=== PATIENT | male | born 2000 ===

== ENCOUNTER 2023-09-23 14:45 | Outpatient (BNV) | payer OTHER, SELFPAY | END 2023-09-23 19:23 | PROVIDERS: Admitting Provider Psychiatry & Neurology Psychiatry; Visit Provider Internal Medicine Cardiovascular Disease | DX: Z01.810 Encounter for preprocedural cardiovascular examination (principal) | CPT/HCPCS: 93010 ==

== ENCOUNTER 2023-09-23 14:45 | Inpatient (IN) | payer OTHER, SELFPAY ==
--- NOTE | 2023-09-23 | ECG_ITS ---
Test Reason : ect eval Blood Pressure : / mmHG Vent. Rate : 096 BPM Atrial Rate : 096 BPM P-R Int : 160 ms QRS Dur : 096 ms QT Int : 350 ms P-R-T Axes : 070 102 061 degrees QTc Int : 442 ms Normal sinus rhythm Rightward axis Borderline ECG No previous ECGs available Referred By: Fatmata Roldan Electronically Signed By:PATRICK MARIE MD
--- NOTE | ~2023-09-23 | XR_ITS ---
EXAMINATION: XR CHEST CLINICAL INFORMATION: Fevers COMPARISON: None available. TECHNIQUE: Frontal view of the chest was obtained. FINDINGS: Lungs are slightly hypoexpanded and clear. Trachea is midline in position. No interstitial disease, consolidation or mass. No pleural effusion or pneumothorax. Cardiac silhouette and pulmonary vessels are normal in size. The mediastinum and micki have normal contour. The visualized bones and upper abdomen are unremarkable. XR/XR chest 1V IMPRESSION: No acute cardiopulmonary abnormality.
[2023-09-23 15:02] VITALS: BMI 25.8
[2023-09-23 15:03] VITALS: BP 118/58; PULSE 84; RESP 18; TEMP 36.9; O2SAT 99
--- NOTE | 2023-09-23 15:50 | PC.NURSE ---
Attila admitted from [facility] on a 12b. Attila is minimally interactive on admission. He was able to state his name and responded yeah when he was standing at the kitchen door and was asked if he was hungry. unable to assess thought process or obtain history. Labs, CT and EEG were performed at [facility] and all were WNL. Per supporting documentation in crisis assessment Attila was recently at [facility] where he was a patient for 2 months. Documentation from [facility] stated brother was contacted and requested ECT be started sandy. Attila's skin assessment was unremarkable he has IV sites on bilaterally to arms that are covered otherwise WNL. He was cooperative with the changeover and was able to follow simple directions give one at a time. Once on the unit Attila was observed going into several different rooms that did not belong to him. He was unable to be redirected from this as he was not able to retain where his room was. He is placed on close obs for safety. High fall risk d/t the inability to assess HX of falls.
[2023-09-23] MEDS: LORazepam 1 MG TABLET 2 MG PO ×2 (16:11→20:34)
--- NOTE | 2023-09-23 16:13 | P.CONHOSP_ITS ---
History of Present Illness Data of Consult Service Date: 09/23/23 Requesting physician: Florentin Cabrera Primary Care Provider: Unknown Physician HPI Reason for consult: medical H&P, ect risk stratification 23 year old male without any pertinent PMH admitted to adult psychiatry from [facility] with consult placed to hospitalist service for medical H&P and ect risk stratification. He was brought in by family due to catatonia. While in the ED EEG and head were normal. Labs unremarkable including cbc, bmp, utox, tsh, hepatic panel. No ekg available for review. Unfortunately the patient remains catatonic and only briefly makes eye contact with verbal stimulus and then diverts gaze. he is non verbal at time of exam. There does not appear to be any acute medical issue. On review of record, there is no history of seizures, cvd, chf, or chronic respiratory disease. It is unclear if the patient has undergone ect in the past but per record, [facility] and the patient's brother are recommending ect. [facility] Medical History (Updated 09/23/23 @ 16:19 by ELENA Chapin) No pertinent past medical history Social History Household Members: Other Household Members Other:: Unknown Do you presently have visiting nurse or other home services: No (Unknown) Patient Tobacco Use Status: Never used Tobacco Smoked in Last 30 Days: No e-Cigarette/Vaping Use: Never Used Patient Interested in Nicotine Replacement: No Patient Given Instructions on How to Stop Smoking: No Second Hand Smoke Exposure: No Use of substances other than those prescribed or required for medical reasons: No Currently Displaying Signs/Symptoms of Drug Intoxication Withdrawal: No Any prior treatment program specific to substance use: No Advance Directives: No Advance Directives Information Provided: No (Medical Condition) Recently lost weight without trying: Unsure Nutrition Risks: No Nutritional Risk Poor oral hygiene: Yes Meds Allergies Allergy/AdvReac Type Severity Reaction Status Date / Time Unable to Assess Allergy Verified 09/23/23 15:14 Active Medications: Current Medications Acetaminophen (Acetaminophen 325 Mg Tablet) 650 mg PO Q6H PRN PRN Reason: Headache/Pain Mild Scale (1-3) Al Hydroxide/Mg Hydroxide (Magnesium Hydrox/Alum Hydrox 30 Ml Oral.Susp) 30 ml PO Q6H PRN PRN Reason: Heartburn/Nausea Hydroxyzine HCl (Hydroxyzine Hcl 25 Mg Tablet) 25 mg PO Q6H PRN PRN Reason: Anxiety Lorazepam (Lorazepam 1 Mg Tablet) 2 mg PO QID PAM Magnesium Hydroxide (Milk Of Magnesia 30 Ml Oral.Susp) 30 ml PO DAILY PRN PRN Reason: Constipation Trazodone HCl (Trazodone Hcl 50 Mg Tablet) 50 mg PO BEDTIME MRX1 PRN PRN Reason: Insomnia Physical Exam Vital Signs and Narrative: Vital Signs: Last Vital Signs Temp 98.5 F 09/23/23 15:03 Pulse 84 09/23/23 15:03 Resp 18 09/23/23 15:03 BP 118/58 L 09/23/23 15:03 Pulse Ox 99 09/23/23 15:03 O2 Del Method Room Air 09/23/23 15:03 BMI result Body Mass Index 25.8 Constitutional - Awake and catatonic, No apparent distress Eyes - PERRLA Cardiovascular - S1S2, RRR, No edema Respiratory - Normal lung expansion, Normal respiratory effort, No respiratory distress, CTA bilaterally Gastrointestinal - NT / ND; +BS; No rebound or guarding Extremities - no calf tenderness bilaterally, no swelling Skin - Warm/Dry Neurological - Awake, catatonic, nonverbal, unable to follow commands Assessment and Plan (1) Routine medical exam: Status: Acute (2) Catatonia: Status: Acute Plan 23 year old male without any pertinent PMH admitted to adult psychiatry from [facility] with consult placed to hospitalist service for medical H&P and ect risk stratification. #Mood disorder/catatonia -plan per psychiatry -EEG WNL, labs WNL, head CT normal. NO known history of sz, cvd, chf, chronic lung disease. Would check EKG. Based on available information at time of exam, no medical contraindication exists that should preclude patient from undergoing ect. Will await results of ekg.
[2023-09-23 20:00] VITALS: BP 113/62; PULSE 95; RESP 16; TEMP 36.9; O2SAT 99
[2023-09-24 03:20] LABS: Influenza A PCR NEGATIVE (Negative); Influenza B PCR NEGATIVE (Negative); Resp Syncy Virus RNA Qual PCR NEGATIVE (Negative); SARS COV2 PCR INHOUSE NEGATIVE (Negative)
[2023-09-24 08:00] VITALS: BP 101/59; PULSE 90; RESP 16; TEMP 36.4; O2SAT 99
[2023-09-24] MEDS: LORazepam 1 MG TABLET 2 MG PO ×4 (08:55→21:37)
--- NOTE | 2023-09-24 09:25 | P.HPPS_ITS ---
HPI Date of Service: 09/24/23 Chief Complaint: Direct Admit HPI Narrative: per [facility] [place], pt was found wandering in the hospital. labs unconcerning, tox NEG, head CT NEG, EEG WNL. he exhibited the following findings consistent with catatonia: immobility, mutism, staring, posturing, waxy flexibility, withdrawal. his Sx temporarily improved with 2 mg IV ativan, which confirmed the Dx, and ECT was recommended due to limited and transient improvement on relatively high-dose IV ativan. [place] [facility] [place], [facility] [place] supports patient's brother robel consenting for ECT given urgency of situation. pt was then referred for hospitalization. on interview with MD on unit [place] [facility], pt with same presentation. he demonstrated immobility, mutism, staring, waxy flexibility, withdrawal. he was observed to have eaten a banana yesterday and to have uttered softly several times to MD, later. Past Psychiatric History: Dx: unspecified psychotic disorder hosps: one recent hospitalization at [facility]. a second hospitalization is also reported. SA: unknown SIB: unknown HIB: unknown outpt: unknown Medical Evaluation Reviewed: Hospitalist Roque Pending [facility] Medical History (Updated 09/23/23 @ 16:19 by ELENA Chapin) No pertinent past medical history Family History: unknown Social History: lives in [place]. has a brother robel. Substance History: unknown - utox NEG Trauma History: unknown Diagnostics Vital Signs (24Hr): Vital Signs - 24 hr 09/23/23 15:03 09/23/23 20:00 09/24/23 08:00 Temperature 98.5 F 98.4 F 97.5 F Pulse Rate 84 95 90 Respiratory Rate 18 16 16 Blood Pressure 118/58 L 113/62 101/59 L Pulse Oximetry 99 99 99 Oxygen Delivery Method Room Air Room Air Room Air BMI result Body Mass Index 25.8 Labs Labs: Laboratory Results - last 48 hr 09/23/23 02:20 Influenza Type A (PCR) NEGATIVE Influenza Type B (PCR) NEGATIVE RSV RNA Qual (PCR) NEGATIVE SARS-CoV-2 RNA (RT-PCR) NEGATIVE Imaging Radiology Impressions: [place] [facility] [place]: HCT is negative. EEG WNL [place] [facility] Meds/Allergies Allergies Allergies Allergy/AdvReac Type Severity Reaction Status Date / Time Unable to Assess Allergy Verified 09/23/23 15:14 Mental Status Exam Mental Status Exam Narrative: adequately dressed, but disheveled and unkempt. largely unable to cooperate with interview due to catatonia. PMR with reduced movements in general. mute. unable to assess thoughts. affect varies between smiling and inert. unable to assess mood, SI/SIBI/HI/AVH. Assessment & Plan Assessment & Plan (1) Catatonia: Status: Acute Code(s): F06.1 - Catatonic disorder due to known physiological condition Plan ativan 2 mg QID move for commitment and court ordered ECT Patient educated on: other Reason for continued inpatient stay Substantial Risk for: inability to function and med/psych decompensation Statement Statement: I have reviewed the history and physical and performed a pertinent examination on my patient. No changes have occurred unless specified. If the History and Physical was not performed prior to admission, the Hospitalist's service will be consulted for completing the admission physical. Time Spent With Patient Time: Total time managing care of this patient today __55__ minutes.
--- NOTE | 2023-09-24 11:24 | PM.EVENT ---
Event Note Date of Service: 09/24/23 Event Note: EKG shows normal sinus rhythm with normal QTc of 442 and without evidence of significant ST elevations or depressions. EKG does not pose a contraindication for ECT. Time Spent With Patient Time: Total time managing care of this patient today ____ minutes.
[2023-09-24 20:00] VITALS: BP 90/53; PULSE 70; RESP 14; TEMP 36.4; O2SAT 98
[2023-09-25 08:00] VITALS: BP 117/69; PULSE 110; RESP 16; TEMP 36.6; O2SAT 99
[2023-09-25] MEDS: LORazepam 1 MG TABLET 2 MG PO ×4 (09:10→21:17)
--- NOTE | 2023-09-25 14:23 | HO.PSYCHPN ---
Subjective Subjective Date of Service: 09/25/23 Reason For Visit: Direct Admit Interim History: no change in presentation from yesterday. opens eyes to voice, brief eye contact. no verbalization. lying in bed. per staff, maintaining adequate PO intake for the time being. Mental Status Exam Mental Status Exam Narrative: adequately dressed, but disheveled and unkempt. largely unable to cooperate with interview due to catatonia. PMR with reduced movements in general. mute. unable to assess thoughts. affect generally inert. unable to assess mood, SI/SIBI/HI/AVH. Diagnostics Vital Signs (24Hr): Vital Signs - 24 hr 09/24/23 20:00 09/25/23 08:00 Temperature 97.6 F 97.8 F Pulse Rate 70 110 H Respiratory Rate 14 16 Blood Pressure 90/53 L 117/69 Pulse Oximetry 98 99 Oxygen Delivery Method Room Air Room Air BMI result Body Mass Index 25.8 Labs Labs: Laboratory Results - last 48 hr 09/23/23 02:20 Influenza Type A (PCR) NEGATIVE Influenza Type B (PCR) NEGATIVE RSV RNA Qual (PCR) NEGATIVE SARS-CoV-2 RNA (RT-PCR) NEGATIVE Medications Medications Current Medications Acetaminophen (Acetaminophen 325 Mg Tablet) 650 mg PO Q6H PRN PRN Reason: Headache/Pain Mild Scale (1-3) Al Hydroxide/Mg Hydroxide (Magnesium Hydrox/Alum Hydrox 30 Ml Oral.Susp) 30 ml PO Q6H PRN PRN Reason: Heartburn/Nausea Hydroxyzine HCl (Hydroxyzine Hcl 25 Mg Tablet) 25 mg PO Q6H PRN PRN Reason: Anxiety Lorazepam (Lorazepam 1 Mg Tablet) 2 mg PO QID PAM Last Admin: 09/25/23 13:09 Dose: 2 mg Magnesium Hydroxide (Milk Of Magnesia 30 Ml Oral.Susp) 30 ml PO DAILY PRN PRN Reason: Constipation Trazodone HCl (Trazodone Hcl 50 Mg Tablet) 50 mg PO BEDTIME MRX1 PRN PRN Reason: Insomnia Allergies Allergies Allergy/AdvReac Type Severity Reaction Status Date / Time Unable to Assess Allergy Verified 09/23/23 15:14 Assessment & Plan Assessment & Plan (1) Catatonia: Status: Acute Code(s): F06.1 - Catatonic disorder due to known physiological condition Plan 09/23: ativan 2 mg QID. move for commitment and court ordered ECT. 09/24: no change in presentation or plan. remains catatonic, adequate PO intake for the moment. taking 8 mg ativan daily without appreciative improvement. Reason for continued inpatient stay Substantial Risk for: harm to self, inability to function and med/psych decompensation Time Spent With Patient Time: Total time managing care of this patient today __25__ minutes.
[2023-09-25 20:15] VITALS: BP 122/62; PULSE 95; RESP 16; TEMP 37.2; O2SAT 99
[2023-09-26] MEDS: LORazepam 1 MG TABLET 2 MG PO ×4 (08:34→22:32)
--- NOTE | 2023-09-26 08:54 | HO.PSYCHPN ---
Subjective Subjective Date of Service: 09/26/23 Reason For Visit: Direct Admit Interim History: no change in presentation from yesterday. opens eyes to voice, brief eye contact. no verbalization. lying in bed. per staff, maintaining adequate PO intake for the time being. Mental Status Exam Mental Status Exam Narrative: adequately dressed, but disheveled and unkempt. largely unable to cooperate with interview due to catatonia. PMR with reduced movements in general. mute. unable to assess thoughts. affect generally inert. unable to assess mood, SI/SIBI/HI/AVH. Diagnostics Vital Signs (24Hr): Vital Signs - 24 hr 09/25/23 20:15 Temperature 99.0 F Pulse Rate 95 Respiratory Rate 16 Blood Pressure 122/62 Pulse Oximetry 99 Oxygen Delivery Method Room Air BMI result Body Mass Index 25.8 Medications Medications Current Medications Acetaminophen (Acetaminophen 325 Mg Tablet) 650 mg PO Q6H PRN PRN Reason: Headache/Pain Mild Scale (1-3) Al Hydroxide/Mg Hydroxide (Magnesium Hydrox/Alum Hydrox 30 Ml Oral.Susp) 30 ml PO Q6H PRN PRN Reason: Heartburn/Nausea Hydroxyzine HCl (Hydroxyzine Hcl 25 Mg Tablet) 25 mg PO Q6H PRN PRN Reason: Anxiety Lorazepam (Lorazepam 1 Mg Tablet) 2 mg PO QID PAM Last Admin: 09/26/23 08:34 Dose: 2 mg Magnesium Hydroxide (Milk Of Magnesia 30 Ml Oral.Susp) 30 ml PO DAILY PRN PRN Reason: Constipation Trazodone HCl (Trazodone Hcl 50 Mg Tablet) 50 mg PO BEDTIME MRX1 PRN PRN Reason: Insomnia Allergies Allergies Allergy/AdvReac Type Severity Reaction Status Date / Time Unable to Assess Allergy Verified 09/23/23 15:14 Assessment & Plan Assessment & Plan (1) Catatonia: Status: Acute Code(s): F06.1 - Catatonic disorder due to known physiological condition Plan 09/23: ativan 2 mg QID. move for commitment and court ordered ECT. 09/24: no change in presentation or plan. remains catatonic, adequate PO intake for the moment. taking 8 mg ativan daily without appreciative improvement. 09/25: continue current management and treatment plan. Reason for continued inpatient stay Substantial Risk for: harm to self, inability to function and rapid decompensation Time Spent With Patient Time: Total time managing care of this patient today ____ minutes.
[2023-09-26 20:32] VITALS: BP 121/71; PULSE 105; RESP 16; TEMP 37.3; O2SAT 97
[2023-09-27 08:00] VITALS: BP 101/53; PULSE 90; RESP 16; TEMP 37.5; O2SAT 98
[2023-09-27] MEDS: LORazepam 1 MG TABLET 2 MG PO ×4 (08:40→21:23)
[2023-09-27 11:24] LABS: Basophils Percent Auto 0.5 % (0-2); Eosinophils Absolute Auto 0.1 X10*3/uL (0.0-0.4); Eosinophils Percent Auto 1.8 % (0-4); Hematocrit 44.6 % (42.0-52.0); Imm Gran Abs Auto 0.03 X10*3/uL (0.00-0.03); Imm Gran Pct Auto 0.5 % (0.0-0.4); Lymphocytes Absolute Auto 1.4 X10*3/uL (1.2-4.9); MANUAL DIFF FLAG NO; Mean Corpuscular HGB Conc 33.6 g/dl (31.0-36.0); Mean Corpuscular Hemoglobin 31.1 pg (27.0-33.0); Mean Corpuscular Volume 92.3 fL (80.0-98.0); Mean Platelet Volume 8.9 fL (9.4-12.4); Monocytes Absolute Auto 0.3 X10*3/uL (0.1-1.2); Monocytes Percent Auto 4.2 % (2-11); Neutrophils Absolute Auto 4.4 x10*3/uL (2.0-8.3); Platelet Count 300 X10*3/uL (160-400); Red Blood Count 4.83 X10*6/uL (4.60-5.80); Red Cell Distribution Width 11.8 % (11.0-16.0); White Blood Count 6.1 X10*3/uL (4.8-10.8)
[2023-09-27 11:41] LABS: Alanine Aminotransferase 9 U/L (0-40); Albumin Level 4.3 g/dL (3.5-5.0); Alkaline Phosphatase 61 U/L (39-117); Anion Gap 13 (12-20); Aspartate Amino Transferase 10 U/L (5-37); Bilirubin Direct 0.2 mg/dL (0.0-0.5); Bilirubin Total 0.4 mg/dL (0.0-1.0); Blood Urea Nitrogen 8 mg/dL (9-16); Calcium 9.3 mg/dL (8.4-10.2); Carbon Dioxide 28 mmol/L (22-29); Chloride 105 mmol/L (96-108); Creatinine Clr Calc Pharmacy 126.5; Estimated Glomerular Filt Rate > 60; Glucose Random 112 mg/dL (60-115); Potassium 3.8 mmol/L (3.3-5.1); Sodium 142 mmol/L (135-145); Total Protein 7.2 g/dL (6.5-8.0)
--- NOTE | 2023-09-27 15:56 | HO.PSYCHPN ---
Subjective Subjective Date of Service: 09/27/23 Reason For Visit: Direct Admit Interim History: Low grade temperature 99.5. Patient non-verba and doesn't offer any complaints and doesn't appear to be in any discomfort. He has PO intake. RN supervised him while he was eating and there is no evidence of aspiration. He is mute and internally preoccupied. no change in presentation from yesterday. opens eyes to voice, brief eye contact. no verbalization. lying in bed. per staff, maintaining adequate PO intake for the time being. Mental Status Exam Mental Status Exam Narrative: adequately dressed, but disheveled and unkempt. largely unable to cooperate with interview due to catatonia. PMR with reduced movements in general. mute. unable to assess thoughts. affect generally inert. unable to assess mood, SI/SIBI/HI/AVH. Diagnostics Vital Signs (24Hr): Vital Signs - 24 hr 09/26/23 20:32 09/27/23 08:00 Temperature 99.2 F 99.5 F Pulse Rate 105 H 90 Respiratory Rate 16 16 Blood Pressure 121/71 101/53 L Pulse Oximetry 97 98 Oxygen Delivery Method Room Air Room Air BMI result Body Mass Index 25.8 Labs 09/27/23 11:15 09/27/23 11:15 Labs: Laboratory Results - last 48 hr 09/27/23 11:15 WBC 6.1 RBC 4.83 Hgb 15.0 Hct 44.6 MCV 92.3 MCH 31.1 MCHC 33.6 RDW 11.8 Plt Count 300 MPV 8.9 L Immature Gran % (Auto) 0.5 H Neut % (Auto) 71.0 Lymph % (Auto) 22.0 [place] % (Auto) 4.2 Eos % (Auto) 1.8 Baso % (Auto) 0.5 Lymph # (Auto) 1.4 [place] # (Auto) 0.3 Eos # (Auto) 0.1 Baso # (Auto) 0.0 Abs Immat Gran (auto) 0.03 Absolute Neuts (auto) 4.4 Absolute Nucleated RBC 0.000 Nucleated RBC % (auto) 0.0 Sodium 142 Potassium 3.8 Chloride 105 Carbon Dioxide 28 Anion Gap 13 BUN 8 L Creatinine 0.79 Estim Creat Clear Calc 126.5 Estimated GFR > 60 Random Glucose 112 Calcium 9.3 Total Bilirubin 0.4 Direct Bilirubin 0.2 AST 10 ALT 9 Alkaline Phosphatase 61 Total Creatine Kinase 66 Total Protein 7.2 Albumin 4.3 Medications Medications Current Medications Acetaminophen (Acetaminophen 325 Mg Tablet) 650 mg PO Q6H PRN PRN Reason: Headache/Pain Mild Scale (1-3) Al Hydroxide/Mg Hydroxide (Magnesium Hydrox/Alum Hydrox 30 Ml Oral.Susp) 30 ml PO Q6H PRN PRN Reason: Heartburn/Nausea Hydroxyzine HCl (Hydroxyzine Hcl 25 Mg Tablet) 25 mg PO Q6H PRN PRN Reason: Anxiety Lorazepam (Lorazepam 1 Mg Tablet) 2 mg PO QID PAM Last Admin: 09/27/23 13:05 Dose: 2 mg Magnesium Hydroxide (Milk Of Magnesia 30 Ml Oral.Susp) 30 ml PO DAILY PRN PRN Reason: Constipation Trazodone HCl (Trazodone Hcl 50 Mg Tablet) 50 mg PO BEDTIME MRX1 PRN PRN Reason: Insomnia Allergies Allergies Allergy/AdvReac Type Severity Reaction Status Date / Time Unable to Assess Allergy Verified 09/23/23 15:14 Assessment & Plan Assessment & Plan (1) Catatonia: Status: Acute Code(s): F06.1 - Catatonic disorder due to known physiological condition Plan 09/23: ativan 2 mg QID. move for commitment and court ordered ECT. 09/24: no change in presentation or plan. remains catatonic, adequate PO intake for the moment. taking 8 mg ativan daily without appreciative improvement. 09/25: continue current management and treatment plan. 09/26: Checked labs. CBC without evidence of infection. Chemistries and LFT's stable. Continue monitoring and response to Ativan. Reason for continued inpatient stay Substantial Risk for: harm to self, inability to function, rapid decompensation and med/psych decompensation Time Spent With Patient Time: Total time managing care of this patient today ____ minutes.
[2023-09-28 08:05] VITALS: BP 115/70; PULSE 98; RESP 14; TEMP 37.4; O2SAT 97
[2023-09-28] MEDS: LORazepam 1 MG TABLET 2 MG PO ×4 (09:01→21:28)
--- NOTE | 2023-09-28 10:49 | HO.PSYCHPN ---
Subjective Subjective Date of Service: 09/28/23 Reason For Visit: Direct Admit Interim History: Patient remains catatonic and non-verbal. He has periods of lucidity where he eats and drinks. However, he doesn't respond to questions or acknowledge persons who are in his presence or are trying to communicate with him. He was seen in his room. He was laying in bed on his side staring at the wall. His eyes were open. He didn't respond verbally or non-verbally to this examiner. Per staff, maintaining adequate PO intake for the time being. Labs were normal yesterday. Mental Status Exam Mental Status Exam Narrative: adequately dressed, but disheveled and unkempt. largely unable to cooperate with interview due to catatonia. PMR with reduced movements in general. mute. unable to assess thoughts. affect generally inert. unable to assess mood, SI/SIBI/HI/AVH. Diagnostics Vital Signs (24Hr): Vital Signs - 24 hr 09/28/23 08:05 Temperature 99.4 F Pulse Rate 98 Respiratory Rate 14 Blood Pressure 115/70 Pulse Oximetry 97 Oxygen Delivery Method Room Air BMI result Body Mass Index 25.8 Labs 09/27/23 11:15 09/27/23 11:15 Labs: Laboratory Results - last 48 hr 09/27/23 11:15 WBC 6.1 RBC 4.83 Hgb 15.0 Hct 44.6 MCV 92.3 MCH 31.1 MCHC 33.6 RDW 11.8 Plt Count 300 MPV 8.9 L Immature Gran % (Auto) 0.5 H Neut % (Auto) 71.0 Lymph % (Auto) 22.0 [place] % (Auto) 4.2 Eos % (Auto) 1.8 Baso % (Auto) 0.5 Lymph # (Auto) 1.4 [place] # (Auto) 0.3 Eos # (Auto) 0.1 Baso # (Auto) 0.0 Abs Immat Gran (auto) 0.03 Absolute Neuts (auto) 4.4 Absolute Nucleated RBC 0.000 Nucleated RBC % (auto) 0.0 Sodium 142 Potassium 3.8 Chloride 105 Carbon Dioxide 28 Anion Gap 13 BUN 8 L Creatinine 0.79 Estim Creat Clear Calc 126.5 Estimated GFR > 60 Random Glucose 112 Calcium 9.3 Total Bilirubin 0.4 Direct Bilirubin 0.2 AST 10 ALT 9 Alkaline Phosphatase 61 Total Creatine Kinase 66 Total Protein 7.2 Albumin 4.3 Medications Medications Current Medications Acetaminophen (Acetaminophen 325 Mg Tablet) 650 mg PO Q6H PRN PRN Reason: Headache/Pain Mild Scale (1-3) Al Hydroxide/Mg Hydroxide (Magnesium Hydrox/Alum Hydrox 30 Ml Oral.Susp) 30 ml PO Q6H PRN PRN Reason: Heartburn/Nausea Hydroxyzine HCl (Hydroxyzine Hcl 25 Mg Tablet) 25 mg PO Q6H PRN PRN Reason: Anxiety Lorazepam (Lorazepam 1 Mg Tablet) 2 mg PO QID PAM Last Admin: 09/28/23 09:01 Dose: 2 mg Magnesium Hydroxide (Milk Of Magnesia 30 Ml Oral.Susp) 30 ml PO DAILY PRN PRN Reason: Constipation Trazodone HCl (Trazodone Hcl 50 Mg Tablet) 50 mg PO BEDTIME MRX1 PRN PRN Reason: Insomnia Allergies Allergies Allergy/AdvReac Type Severity Reaction Status Date / Time Unable to Assess Allergy Verified 09/23/23 15:14 Assessment & Plan Assessment & Plan (1) Catatonia: Status: Acute Code(s): F06.1 - Catatonic disorder due to known physiological condition Plan 09/23: ativan 2 mg QID. move for commitment and court ordered ECT. 09/24: no change in presentation or plan. remains catatonic, adequate PO intake for the moment. taking 8 mg ativan daily without appreciative improvement. 09/25: continue current management and treatment plan. 09/26: Checked labs. CBC without evidence of infection. Chemistries and LFT's stable. Continue monitoring and response to Ativan. 09/27: continue current management and treatment plan. Reason for continued inpatient stay Substantial Risk for: harm to self, inability to function and med/psych decompensation Time Spent With Patient Time: Total time managing care of this patient today ____ minutes.
[2023-09-28 20:00] VITALS: BP 96/52; PULSE 77; RESP 16; TEMP 36.7; O2SAT 97
[2023-09-29 08:00] VITALS: BP 111/58; PULSE 88; RESP 16; TEMP 37.2; O2SAT 98
[2023-09-29] MEDS: LORazepam 1 MG TABLET 2 MG PO ×4 (08:50→20:47)
--- NOTE | 2023-09-29 17:08 | HO.PSYCHPN ---
Subjective Subjective Date of Service: 09/29/23 Reason For Visit: Direct Admit Interim History: able to produce mono-syllabic answers to several questions. basically indicates he is doing OK and does not need anything immediately. per staff, no dep/anx. taking medications. incontinent of urine. affect flat. mute. Mental Status Exam Mental Status Exam Narrative: adequately dressed, but disheveled and unkempt. largely unable to cooperate with interview due to catatonia. PMR with reduced movements in general. few mono-syllabic responses. unable to assess thoughts, largely. affect generally inert. unable to assess mood, SI/SIBI/HI/AVH. Diagnostics Vital Signs (24Hr): Vital Signs - 24 hr 09/28/23 20:00 09/29/23 08:00 Temperature 98.1 F 98.9 F Pulse Rate 77 88 Respiratory Rate 16 16 Blood Pressure 96/52 L 111/58 L Pulse Oximetry 97 98 Oxygen Delivery Method Room Air Room Air BMI result Body Mass Index 25.8 Labs 09/27/23 11:15 09/27/23 11:15 Medications Medications Current Medications Acetaminophen (Acetaminophen 325 Mg Tablet) 650 mg PO Q6H PRN PRN Reason: Headache/Pain Mild Scale (1-3) Al Hydroxide/Mg Hydroxide (Magnesium Hydrox/Alum Hydrox 30 Ml Oral.Susp) 30 ml PO Q6H PRN PRN Reason: Heartburn/Nausea Hydroxyzine HCl (Hydroxyzine Hcl 25 Mg Tablet) 25 mg PO Q6H PRN PRN Reason: Anxiety Lorazepam (Lorazepam 1 Mg Tablet) 2 mg PO QID PAM Last Admin: 09/29/23 13:07 Dose: 2 mg Magnesium Hydroxide (Milk Of Magnesia 30 Ml Oral.Susp) 30 ml PO DAILY PRN PRN Reason: Constipation Trazodone HCl (Trazodone Hcl 50 Mg Tablet) 50 mg PO BEDTIME MRX1 PRN PRN Reason: Insomnia Allergies Allergies Allergy/AdvReac Type Severity Reaction Status Date / Time Unable to Assess Allergy Verified 09/23/23 15:14 Assessment & Plan Assessment & Plan (1) Catatonia: Status: Acute Code(s): F06.1 - Catatonic disorder due to known physiological condition Plan 09/23: ativan 2 mg QID. move for commitment and court ordered ECT. 09/24: no change in presentation or plan. remains catatonic, adequate PO intake for the moment. taking 8 mg ativan daily without appreciative improvement. 09/25: continue current management and treatment plan. 09/26: Checked labs. CBC without evidence of infection. Chemistries and LFT's stable. Continue monitoring and response to Ativan. 09/27: continue current management and treatment plan. 09/28: continue current mgmt. producing several monosyllabic answers to questions today. filed for commitment. Reason for continued inpatient stay Substantial Risk for: inability to function and med/psych decompensation Time Spent With Patient Time: Total time managing care of this patient today _35___ minutes.
[2023-09-29 20:00] VITALS: BP 104/60; PULSE 98; RESP 14; TEMP 37.6; O2SAT 95
[2023-09-30 08:00] VITALS: BP 151/76; PULSE 104; RESP 16; TEMP 36.1; O2SAT 92
[2023-09-30] MEDS: LORazepam 1 MG TABLET 2 MG PO ×4 (08:15→20:46)
--- NOTE | 2023-09-30 14:59 | HO.PSYCHPN ---
Subjective Subjective Date of Service: 09/30/23 Reason For Visit: Direct Admit Interim History: nonverbal today. lkying in bed. no reactions/responses to MD. per staff, mute. ate with encouragement. no incontinence. did nod at one point in response to a question. slept about 8 hours. Mental Status Exam Mental Status Exam Narrative: adequately dressed, but disheveled and unkempt. unable to cooperate with interview due to catatonia. no movements. mute. unable to assess thoughts. affect inert. unable to assess mood, SI/SIBI/HI/AVH. Diagnostics Vital Signs (24Hr): Vital Signs - 24 hr 09/29/23 20:00 09/30/23 08:00 Temperature 99.7 F 97.0 F Pulse Rate 98 104 H Respiratory Rate 14 16 Blood Pressure 104/60 151/76 H Pulse Oximetry 95 92 Oxygen Delivery Method Room Air Room Air BMI result Body Mass Index 25.8 Labs 09/27/23 11:15 09/27/23 11:15 Medications Medications Current Medications Acetaminophen (Acetaminophen 325 Mg Tablet) 650 mg PO Q6H PRN PRN Reason: Headache/Pain Mild Scale (1-3) Al Hydroxide/Mg Hydroxide (Magnesium Hydrox/Alum Hydrox 30 Ml Oral.Susp) 30 ml PO Q6H PRN PRN Reason: Heartburn/Nausea Hydroxyzine HCl (Hydroxyzine Hcl 25 Mg Tablet) 25 mg PO Q6H PRN PRN Reason: Anxiety Lorazepam (Lorazepam 1 Mg Tablet) 2 mg PO QID PAM Last Admin: 09/30/23 12:54 Dose: 2 mg Magnesium Hydroxide (Milk Of Magnesia 30 Ml Oral.Susp) 30 ml PO DAILY PRN PRN Reason: Constipation Trazodone HCl (Trazodone Hcl 50 Mg Tablet) 50 mg PO BEDTIME MRX1 PRN PRN Reason: Insomnia Allergies Allergies Allergy/AdvReac Type Severity Reaction Status Date / Time Unable to Assess Allergy Verified 09/23/23 15:14 Assessment & Plan Assessment & Plan (1) Catatonia: Status: Acute Code(s): F06.1 - Catatonic disorder due to known physiological condition Plan 09/23: ativan 2 mg QID. move for commitment and court ordered ECT. 09/24: no change in presentation or plan. remains catatonic, adequate PO intake for the moment. taking 8 mg ativan daily without appreciative improvement. 09/25: continue current management and treatment plan. 09/26: Checked labs. CBC without evidence of infection. Chemistries and LFT's stable. Continue monitoring and response to Ativan. 09/27: continue current management and treatment plan. 09/28: continue current mgmt. producing several monosyllabic answers to questions today. filed for commitment. 09/29: awaiting hearing. very modest response to high-dose ativan. hearing next thursday. continue current mgmt for now. Reason for continued inpatient stay Substantial Risk for: inability to function and med/psych decompensation Time Spent With Patient Time: Total time managing care of this patient today ____ minutes.
[2023-09-30 20:00] VITALS: BP 104/57; PULSE 99; RESP 16; TEMP 37; O2SAT 96
[2023-10-01] MEDS: LORazepam 1 MG TABLET 2 MG PO ×4 (08:31→22:20)
[2023-10-01 12:45] VITALS: BP 104/51; PULSE 93; RESP 14; TEMP 36.2; O2SAT 98
--- NOTE | 2023-10-01 13:29 | HO.PSYCHPN ---
Subjective Subjective Date of Service: 10/01/23 Reason For Visit: Direct Admit Interim History: sleeping in bed. not responsive to loud verbal prompts. per staff, non-verbal. slept 7 hours. up at 0300 for multiple bottles of water, then back to bed. Mental Status Exam Mental Status Exam Narrative: adequately dressed, but disheveled and unkempt. unable to cooperate with interview due to catatonia. no movements. mute. unable to assess thoughts. affect inert. unable to assess mood, SI/SIBI/HI/AVH. Diagnostics Vital Signs (24Hr): Vital Signs - 24 hr 09/30/23 20:00 10/01/23 12:45 Temperature 98.6 F 97.2 F Pulse Rate 99 93 Respiratory Rate 16 14 Blood Pressure 104/57 L 104/51 L Pulse Oximetry 96 98 Oxygen Delivery Method Room Air Room Air BMI result Body Mass Index 25.8 Labs 09/27/23 11:15 09/27/23 11:15 Medications Medications Current Medications Acetaminophen (Acetaminophen 325 Mg Tablet) 650 mg PO Q6H PRN PRN Reason: Headache/Pain Mild Scale (1-3) Al Hydroxide/Mg Hydroxide (Magnesium Hydrox/Alum Hydrox 30 Ml Oral.Susp) 30 ml PO Q6H PRN PRN Reason: Heartburn/Nausea Hydroxyzine HCl (Hydroxyzine Hcl 25 Mg Tablet) 25 mg PO Q6H PRN PRN Reason: Anxiety Lorazepam (Lorazepam 1 Mg Tablet) 2 mg PO QID PAM Last Admin: 10/01/23 12:56 Dose: 2 mg Magnesium Hydroxide (Milk Of Magnesia 30 Ml Oral.Susp) 30 ml PO DAILY PRN PRN Reason: Constipation Trazodone HCl (Trazodone Hcl 50 Mg Tablet) 50 mg PO BEDTIME MRX1 PRN PRN Reason: Insomnia Allergies Allergies Allergy/AdvReac Type Severity Reaction Status Date / Time Unable to Assess Allergy Verified 09/23/23 15:14 Assessment & Plan Assessment & Plan (1) Catatonia: Status: Acute Code(s): F06.1 - Catatonic disorder due to known physiological condition Plan 09/23: ativan 2 mg QID. move for commitment and court ordered ECT. 09/24: no change in presentation or plan. remains catatonic, adequate PO intake for the moment. taking 8 mg ativan daily without appreciative improvement. 09/25: continue current management and treatment plan. 09/26: Checked labs. CBC without evidence of infection. Chemistries and LFT's stable. Continue monitoring and response to Ativan. 09/27: continue current management and treatment plan. 09/28: continue current mgmt. producing several monosyllabic answers to questions today. filed for commitment. 09/29: awaiting hearing. very modest response to high-dose ativan. hearing next thursday. continue current mgmt for now. 09/30: no change in presentation. continues to appear to take in adequate fluids and food. continue current mgmt. Reason for continued inpatient stay Substantial Risk for: inability to function, rapid decompensation and med/psych decompensation Time Spent With Patient Time: Total time managing care of this patient today ____ minutes.
[2023-10-01 19:56] VITALS: BP 105/54; PULSE 103; RESP 18; TEMP 37.2; O2SAT 97
[2023-10-02 08:00] VITALS: BP 108/64; PULSE 86; RESP 14; TEMP 37.4; O2SAT 96
[2023-10-02] MEDS: LORazepam 1 MG TABLET 2 MG PO ×4 (08:32→21:05)
[2023-10-02] MEDS: OLANZapine 5 MG TABLET PO ×2 (12:30→21:06)
--- NOTE | 2023-10-02 14:05 | HO.PSYCHPN ---
Subjective Subjective Date of Service: 10/02/23 Reason For Visit: Direct Admit Interim History: no change in presentation. mute. per staff, same. taking meds. Mental Status Exam Mental Status Exam Narrative: adequately dressed, but disheveled and unkempt. unable to cooperate with interview due to catatonia. no movements. mute. unable to assess thoughts. affect inert. unable to assess mood, SI/SIBI/HI/AVH. Diagnostics Vital Signs (24Hr): Vital Signs - 24 hr 10/01/23 19:56 10/02/23 08:00 Temperature 99.0 F 99.3 F Pulse Rate 103 H 86 Respiratory Rate 18 14 Blood Pressure 105/54 L 108/64 Pulse Oximetry 97 96 Oxygen Delivery Method Room Air Room Air BMI result Body Mass Index 25.8 Labs 09/27/23 11:15 09/27/23 11:15 Medications Medications Current Medications Acetaminophen (Acetaminophen 325 Mg Tablet) 650 mg PO Q6H PRN PRN Reason: Headache/Pain Mild Scale (1-3) Al Hydroxide/Mg Hydroxide (Magnesium Hydrox/Alum Hydrox 30 Ml Oral.Susp) 30 ml PO Q6H PRN PRN Reason: Heartburn/Nausea Hydroxyzine HCl (Hydroxyzine Hcl 25 Mg Tablet) 25 mg PO Q6H PRN PRN Reason: Anxiety [place] Carbonate ([place] Carbonate Er 450 Mg Tablet.Er) 900 mg PO BEDTIME PAM Lorazepam (Lorazepam 1 Mg Tablet) 2 mg PO QID [facility] Last Admin: 10/02/23 12:30 Dose: 2 mg Magnesium Hydroxide (Milk Of Magnesia 30 Ml Oral.Susp) 30 ml PO DAILY PRN PRN Reason: Constipation Olanzapine (Olanzapine 5 Mg Tablet) 5 mg PO BID [facility] Last Admin: 10/02/23 12:30 Dose: 5 mg Trazodone HCl (Trazodone Hcl 50 Mg Tablet) 50 mg PO BEDTIME MRX1 PRN PRN Reason: Insomnia Allergies Allergies Allergy/AdvReac Type Severity Reaction Status Date / Time Unable to Assess Allergy Verified 09/23/23 15:14 Assessment & Plan Assessment & Plan (1) Catatonia: Status: Acute Code(s): F06.1 - Catatonic disorder due to known physiological condition Plan 09/23: ativan 2 mg QID. move for commitment and court ordered ECT. 09/24: no change in presentation or plan. remains catatonic, adequate PO intake for the moment. taking 8 mg ativan daily without appreciative improvement. 09/25: continue current management and treatment plan. 09/26: Checked labs. CBC without evidence of infection. Chemistries and LFT's stable. Continue monitoring and response to Ativan. 09/27: continue current management and treatment plan. 09/28: continue current mgmt. producing several monosyllabic answers to questions today. filed for commitment. 09/29: awaiting hearing. very modest response to high-dose ativan. hearing next thursday. continue current mgmt for now. 09/30: no change in presentation. continues to appear to take in adequate fluids and food. continue current mgmt. 10/01: outpt regimen of zyprexa 5 BID and lithium 900 QHS restarted. continue ativan [address] th[address]. Reason for continued inpatient stay Substantial Risk for: inability to function and med/psych decompensation Time Spent With Patient Time: Total time managing care of this patient today __25__ minutes.
[2023-10-02 20:00] VITALS: BP 105/56; PULSE 90; RESP 16; TEMP 36.3; O2SAT 96
[2023-10-02] MEDS: Lithium Carbonate ER 450 MG TABLET.ER 900 MG PO (21:05)
[2023-10-03 07:31] VITALS: BP 111/78; PULSE 85; RESP 14; TEMP 36.6; O2SAT 97
[2023-10-03] MEDS: LORazepam 1 MG TABLET 2 MG PO ×4 (08:38→20:36)
[2023-10-03] MEDS: OLANZapine 5 MG TABLET PO ×2 (08:38→20:37)
--- NOTE | 2023-10-03 11:14 | HO.PSYCHPN ---
Subjective Subjective Date of Service: 10/03/23 Reason For Visit: Direct Admit Subjective Notes: Section 7 Interim History: attempted to meet with patient a number of times throughout the day. Isolated in room. Sleeping most of the time. Was moving under blanket, but did not engage. Has been eating some food and taking some medication as per nursing. Court date pending on 10/06/2023 +/- ECT. Review of Systems Review of Systems Yes Unobtainable due to mental status Mental Status Exam Mental Status Exam Narrative: In bed. Under blankets. Not engaging. Diagnostics Vital Signs (24Hr): Vital Signs - 24 hr 10/02/23 20:00 10/03/23 07:31 Temperature 97.3 F 97.8 F Pulse Rate 90 85 Respiratory Rate 16 14 Blood Pressure 105/56 L 111/78 Pulse Oximetry 96 97 Oxygen Delivery Method Room Air Room Air BMI result Body Mass Index 25.8 Labs 09/27/23 11:15 09/27/23 11:15 Medications Medications Current Medications Acetaminophen (Acetaminophen 325 Mg Tablet) 650 mg PO Q6H PRN PRN Reason: Headache/Pain Mild Scale (1-3) Al Hydroxide/Mg Hydroxide (Magnesium Hydrox/Alum Hydrox 30 Ml Oral.Susp) 30 ml PO Q6H PRN PRN Reason: Heartburn/Nausea Hydroxyzine HCl (Hydroxyzine Hcl 25 Mg Tablet) 25 mg PO Q6H PRN PRN Reason: Anxiety [place] Carbonate ([place] Carbonate Er 450 Mg Tablet.Er) 900 mg PO BEDTIME [facility] Last Admin: 10/02/23 21:05 Dose: 900 mg Lorazepam (Lorazepam 1 Mg Tablet) 2 mg PO QID [facility] Last Admin: 10/03/23 08:38 Dose: 2 mg Magnesium Hydroxide (Milk Of Magnesia 30 Ml Oral.Susp) 30 ml PO DAILY PRN PRN Reason: Constipation Olanzapine (Olanzapine 5 Mg Tablet) 5 mg PO BID [facility] Last Admin: 10/03/23 08:38 Dose: 5 mg Trazodone HCl (Trazodone Hcl 50 Mg Tablet) 50 mg PO BEDTIME MRX1 PRN PRN Reason: Insomnia Allergies Allergies Allergy/AdvReac Type Severity Reaction Status Date / Time Unable to Assess Allergy Verified 09/23/23 15:14 Assessment & Plan Assessment & Plan (1) Catatonia: Status: Acute Code(s): F06.1 - Catatonic disorder due to known physiological condition Plan 09/23: ativan 2 mg QID. move for commitment and court ordered ECT. 09/24: no change in presentation or plan. remains catatonic, adequate PO intake for the moment. taking 8 mg ativan daily without appreciative improvement. 09/25: continue current management and treatment plan. 09/26: Checked labs. CBC without evidence of infection. Chemistries and LFT's stable. Continue monitoring and response to Ativan. 09/27: continue current management and treatment plan. 09/28: continue current mgmt. producing several monosyllabic answers to questions today. filed for commitment. 09/29: awaiting hearing. very modest response to high-dose ativan. hearing next thursday. continue current mgmt for now. 09/30: no change in presentation. continues to appear to take in adequate fluids and food. continue current mgmt. 10/01: outpt regimen of zyprexa 5 BID and lithium 900 QHS restarted. continue ativan [address] thursday. 10/03/23: Court date pending on 10/06/2023 and ?ECT. Reason for continued inpatient stay Substantial Risk for: inability to function Time Spent With Patient Time: Total time managing care of this patient today ____ minutes.
[2023-10-03 20:00] VITALS: BP 104/60; PULSE 78; RESP 16; TEMP 36.6; O2SAT 98
[2023-10-03] MEDS: Lithium Carbonate ER 450 MG TABLET.ER 900 MG PO (20:37)
[2023-10-04 07:30] VITALS: BP 112/65; PULSE 79; RESP 14; TEMP 37.2; O2SAT 97
[2023-10-04] MEDS: LORazepam 1 MG TABLET 2 MG PO ×4 (08:59→20:42)
[2023-10-04] MEDS: OLANZapine 5 MG TABLET PO ×2 (09:00→20:43)
--- NOTE | 2023-10-04 11:12 | P.PNPSI_ITS ---
Subjective Subjective Date of Service: 10/04/23 Reason For Visit: Direct Admit Interim History: Attempted to meet with patient- was observed drinking fluids. The were some empty chip packets and half eaten wrap. He would not engage with insurance underwriter. Spending excessive time in room, not coming out sleeping. Self-care very poor Court date pending on 10/06/2023 +/- ECT. Review of Systems Review of Systems Yes Unobtainable due to mental status Mental Status Exam Mental Status Exam Narrative: In bed. very poor self-care. Not engaging. Diagnostics Vital Signs (24Hr): Vital Signs - 24 hr 10/03/23 20:00 10/04/23 07:30 Temperature 97.9 F 98.9 F Pulse Rate 78 79 Respiratory Rate 16 14 Blood Pressure 104/60 112/65 Pulse Oximetry 98 97 Oxygen Delivery Method Room Air Room Air BMI result Body Mass Index 25.8 Labs 09/27/23 11:15 09/27/23 11:15 Medications Medications Current Medications Acetaminophen (Acetaminophen 325 Mg Tablet) 650 mg PO Q6H PRN PRN Reason: Headache/Pain Mild Scale (1-3) Al Hydroxide/Mg Hydroxide (Magnesium Hydrox/Alum Hydrox 30 Ml Oral.Susp) 30 ml PO Q6H PRN PRN Reason: Heartburn/Nausea Hydroxyzine HCl (Hydroxyzine Hcl 25 Mg Tablet) 25 mg PO Q6H PRN PRN Reason: Anxiety [place] Carbonate ([place] Carbonate Er 450 Mg Tablet.Er) 900 mg PO BEDTIME [facility] Last Admin: 10/03/23 20:37 Dose: 900 mg Lorazepam (Lorazepam 1 Mg Tablet) 2 mg PO QID [facility] Last Admin: 10/04/23 08:59 Dose: 2 mg Magnesium Hydroxide (Milk Of Magnesia 30 Ml Oral.Susp) 30 ml PO DAILY PRN PRN Reason: Constipation Olanzapine (Olanzapine 5 Mg Tablet) 5 mg PO BID [facility] Last Admin: 10/04/23 09:00 Dose: 5 mg Trazodone HCl (Trazodone Hcl 50 Mg Tablet) 50 mg PO BEDTIME MRX1 PRN PRN Reason: Insomnia Allergies Allergies Allergy/AdvReac Type Severity Reaction Status Date / Time Unable to Assess Allergy Verified 09/23/23 15:14 Assessment & Plan Assessment & Plan (1) Catatonia: Status: Acute Code(s): F06.1 - Catatonic disorder due to known physiological condition Plan 09/23: ativan 2 mg QID. move for commitment and court ordered ECT. 09/24: no change in presentation or plan. remains catatonic, adequate PO intake for the moment. taking 8 mg ativan daily without appreciative improvement. 09/25: continue current management and treatment plan. 09/26: Checked labs. CBC without evidence of infection. Chemistries and LFT's stable. Continue monitoring and response to Ativan. 09/27: continue current management and treatment plan. 09/28: continue current mgmt. producing several monosyllabic answers to questions today. filed for commitment. 09/29: awaiting hearing. very modest response to high-dose ativan. hearing next thursday. continue current mgmt for now. 09/30: no change in presentation. continues to appear to take in adequate fluids and food. continue current mgmt. 10/01: outpt regimen of zyprexa 5 BID and lithium 900 QHS restarted. continue ativan [address] thursday. 10/04/23: Court date pending on 10/06/2023 and ?ECT. Reason for continued inpatient stay Substantial Risk for: inability to function Time Spent With Patient Time: Total time managing care of this patient today ____ minutes.
[2023-10-04 20:00] VITALS: BP 103/56; PULSE 83; RESP 16; TEMP 37.1; O2SAT 97
[2023-10-04] MEDS: Lithium Carbonate ER 450 MG TABLET.ER 900 MG PO (20:43)
[2023-10-05] MEDS: hydrOXYzine HCL 25 MG TABLET PO ×2 (02:33→20:18)
[2023-10-05] MEDS: traZODone HCL 50 MG TABLET PO ×2 (02:33→20:18)
[2023-10-05 10:02] VITALS: BP 111/61; PULSE 80; RESP 18; TEMP 37.1; O2SAT 98
[2023-10-05] MEDS: LORazepam 1 MG TABLET 2 MG PO ×4 (10:03→20:18)
[2023-10-05] MEDS: OLANZapine 5 MG TABLET PO ×2 (10:03→20:18)
--- NOTE | 2023-10-05 14:54 | P.PNPSI_ITS ---
Subjective Subjective Date of Service: 10/05/23 Reason For Visit: Direct Admit Interim History: mute, not responsive physically or verbally to prompts. per staff, same. taking meds. out of snacks. pacing overnight. slept about 4 hours. Mental Status Exam Mental Status Exam Narrative: In bed. very poor self-care. Not engaging. Diagnostics Vital Signs (24Hr): Vital Signs - 24 hr 10/04/23 20:00 10/05/23 10:02 Temperature 98.8 F 98.7 F Pulse Rate 83 80 Respiratory Rate 16 18 Blood Pressure 103/56 L 111/61 Pulse Oximetry 97 98 Oxygen Delivery Method Room Air Room Air BMI result Body Mass Index 25.8 Labs 09/27/23 11:15 09/27/23 11:15 Medications Medications Current Medications Acetaminophen (Acetaminophen 325 Mg Tablet) 650 mg PO Q6H PRN PRN Reason: Headache/Pain Mild Scale (1-3) Al Hydroxide/Mg Hydroxide (Magnesium Hydrox/Alum Hydrox 30 Ml Oral.Susp) 30 ml PO Q6H PRN PRN Reason: Heartburn/Nausea Hydroxyzine HCl (Hydroxyzine Hcl 25 Mg Tablet) 25 mg PO Q6H PRN PRN Reason: Anxiety Last Admin: 10/05/23 02:33 Dose: 25 mg [place] Carbonate ([place] Carbonate Er 450 Mg Tablet.Er) 900 mg PO BEDTIME [facility] Last Admin: 10/04/23 20:43 Dose: 900 mg Lorazepam (Lorazepam 1 Mg Tablet) 2 mg PO QID [facility] Last Admin: 10/05/23 13:29 Dose: 2 mg Magnesium Hydroxide (Milk Of Magnesia 30 Ml Oral.Susp) 30 ml PO DAILY PRN PRN Reason: Constipation Olanzapine (Olanzapine 5 Mg Tablet) 5 mg PO BID [facility] Last Admin: 10/05/23 10:03 Dose: 5 mg Trazodone HCl (Trazodone Hcl 50 Mg Tablet) 50 mg PO BEDTIME MRX1 PRN PRN Reason: Insomnia Last Admin: 10/05/23 02:33 Dose: 50 mg Allergies Allergies Allergy/AdvReac Type Severity Reaction Status Date / Time Unable to Assess Allergy Verified 09/23/23 15:14 Assessment & Plan Assessment & Plan (1) Catatonia: Status: Acute Code(s): F06.1 - Catatonic disorder due to known physiological condition Plan 09/23: ativan 2 mg QID. move for commitment and court ordered ECT. 09/24: no change in presentation or plan. remains catatonic, adequate PO intake for the moment. taking 8 mg ativan daily without appreciative improvement. 09/25: continue current management and treatment plan. 09/26: Checked labs. CBC without evidence of infection. Chemistries and LFT's stable. Continue monitoring and response to Ativan. 09/27: continue current management and treatment plan. 09/28: continue current mgmt. producing several monosyllabic answers to questions today. filed for commitment. 09/29: awaiting hearing. very modest response to high-dose ativan. hearing next thursday. continue current mgmt for now. 09/30: no change in presentation. continues to appear to take in adequate fluids and food. continue current mgmt. 10/01: outpt regimen of zyprexa 5 BID and lithium 900 QHS restarted. continue ativan [address] thursday. 10/04/23: Court date pending on 10/06/2023 and ?ECT. 10/04: court deferred to next week for SADA. stably catatonic but up for toileting and PO intake, periodically. refusing labs to check electrolytes. Reason for continued inpatient stay Substantial Risk for: harm to self and inability to function Time Spent With Patient Time: Total time managing care of this patient today __15__ minutes.
[2023-10-05 20:00] VITALS: BP 101/60; PULSE 97; RESP 16; TEMP 36.4; O2SAT 98
[2023-10-05] MEDS: Lithium Carbonate ER 450 MG TABLET.ER 900 MG PO (20:18)
[2023-10-06 07:40] VITALS: BP 104/61; PULSE 73; RESP 14; TEMP 37.2; O2SAT 97
[2023-10-06] MEDS: LORazepam 1 MG TABLET 2 MG PO ×4 (09:28→20:50)
[2023-10-06] MEDS: OLANZapine 5 MG TABLET PO ×2 (09:28→20:50)
--- NOTE | 2023-10-06 15:23 | PC.NURSE ---
Attila refused AM labs on 10/05/23, Florentin Cabrera MD made aware.
--- NOTE | 2023-10-06 15:53 | P.PNPSI_ITS ---
Subjective Subjective Date of Service: 10/06/23 Reason For Visit: Direct Admit Interim History: snoring loudly, not rousable to loud voice. per staff, irritable. threw water. said no at least once, otherwise mute. slept 8 hours overnight. no wandering. hearing 10/14. Mental Status Exam Mental Status Exam Narrative: In bed. very poor self-care. Not engaging. Diagnostics Vital Signs (24Hr): Vital Signs - 24 hr 10/05/23 20:00 10/06/23 07:40 Temperature 97.5 F 98.9 F Pulse Rate 97 73 Respiratory Rate 16 14 Blood Pressure 101/60 104/61 Pulse Oximetry 98 97 Oxygen Delivery Method Room Air BMI result Body Mass Index 25.8 Labs 09/27/23 11:15 09/27/23 11:15 Medications Medications Current Medications Acetaminophen (Acetaminophen 325 Mg Tablet) 650 mg PO Q6H PRN PRN Reason: Headache/Pain Mild Scale (1-3) Al Hydroxide/Mg Hydroxide (Magnesium Hydrox/Alum Hydrox 30 Ml Oral.Susp) 30 ml PO Q6H PRN PRN Reason: Heartburn/Nausea Hydroxyzine HCl (Hydroxyzine Hcl 25 Mg Tablet) 25 mg PO Q6H PRN PRN Reason: Anxiety Last Admin: 10/05/23 20:18 Dose: 25 mg [place] Carbonate ([place] Carbonate Er 450 Mg Tablet.Er) 900 mg PO BEDTIME [facility] Last Admin: 10/05/23 20:18 Dose: 900 mg Lorazepam (Lorazepam 1 Mg Tablet) 2 mg PO QID [facility] Last Admin: 10/06/23 12:49 Dose: 2 mg Magnesium Hydroxide (Milk Of Magnesia 30 Ml Oral.Susp) 30 ml PO DAILY PRN PRN Reason: Constipation Olanzapine (Olanzapine 5 Mg Tablet) 5 mg PO BID [facility] Last Admin: 10/06/23 09:28 Dose: 5 mg Trazodone HCl (Trazodone Hcl 50 Mg Tablet) 50 mg PO BEDTIME MRX1 PRN PRN Reason: Insomnia Last Admin: 10/05/23 20:18 Dose: 50 mg Allergies Allergies Allergy/AdvReac Type Severity Reaction Status Date / Time Unable to Assess Allergy Verified 09/23/23 15:14 Assessment & Plan Assessment & Plan (1) Catatonia: Status: Acute Code(s): F06.1 - Catatonic disorder due to known physiological condition Plan 09/23: ativan 2 mg QID. move for commitment and court ordered ECT. 09/24: no change in presentation or plan. remains catatonic, adequate PO intake for the moment. taking 8 mg ativan daily without appreciative improvement. 09/25: continue current management and treatment plan. 09/26: Checked labs. CBC without evidence of infection. Chemistries and LFT's stable. Continue monitoring and response to Ativan. 09/27: continue current management and treatment plan. 09/28: continue current mgmt. producing several monosyllabic answers to questions today. filed for commitment. 09/29: awaiting hearing. very modest response to high-dose ativan. hearing next thursday. continue current mgmt for now. 09/30: no change in presentation. continues to appear to take in adequate fluids and food. continue current mgmt. 10/01: outpt regimen of zyprexa 5 BID and lithium 900 QHS restarted. continue ativan [address] thursday. 10/04/23: Court date pending on 10/06/2023 and ?ECT. 10/04: court deferred to next week for SADA. stably catatonic but up for toileting and PO intake, periodically. refusing labs to check electrolytes. 10/05: pt refusing labs. per staff report, does have reasonable PO intake. court scheduled 10/14. continue current mgmt. Reason for continued inpatient stay Substantial Risk for: inability to function, rapid decompensation and med/psych decompensation Time Spent With Patient Time: Total time managing care of this patient today ____ minutes.
[2023-10-06 20:30] VITALS: BP 128/74; PULSE 91; RESP 16; TEMP 36.7; O2SAT 97
[2023-10-06] MEDS: Lithium Carbonate ER 450 MG TABLET.ER 900 MG PO (20:50)
[2023-10-07 07:50] VITALS: BP 106/58; PULSE 78; RESP 16; TEMP 37.2; O2SAT 96
[2023-10-07] MEDS: LORazepam 1 MG TABLET 2 MG PO ×4 (08:45→21:39)
[2023-10-07] MEDS: OLANZapine 5 MG TABLET PO ×2 (08:45→21:39)
--- NOTE | 2023-10-07 13:31 | HO.PSYCHPN ---
Subjective Subjective Date of Service: 10/07/23 Reason For Visit: Direct Admit Interim History: pt lying in bed in the dark, snoring. rousable to voice. gestures with his hand toward chair when MD asks if MD may sit. asks MD what MD's name is. otherwise mute. few saccades. informed of plan for ECT, encouraged to maintain PO intake. per staff, Q5s. catatonic. had muffin and meds with encouragement. 1720 more responsive, alert. slept about 7 hours overnight. Mental Status Exam Mental Status Exam Narrative: adequately dressed, but disheveled and unkempt. unable to substantially cooperate with interview due to catatonia. gestures with hand once, has some eye saccades, otherwise no movement. what's your name, otherwise no verbal output. unable to assess thoughts. affect inert. unable to assess mood, SI/SIBI/HI/AVH. Diagnostics Vital Signs (24Hr): Vital Signs - 24 hr 10/06/23 20:30 10/07/23 07:50 Temperature 98.1 F 98.9 F Pulse Rate 91 78 Respiratory Rate 16 16 Blood Pressure 128/74 106/58 L Pulse Oximetry 97 96 Oxygen Delivery Method Room Air Room Air BMI result Body Mass Index 25.8 Labs 09/27/23 11:15 09/27/23 11:15 Medications Medications Current Medications Acetaminophen (Acetaminophen 325 Mg Tablet) 650 mg PO Q6H PRN PRN Reason: Headache/Pain Mild Scale (1-3) Al Hydroxide/Mg Hydroxide (Magnesium Hydrox/Alum Hydrox 30 Ml Oral.Susp) 30 ml PO Q6H PRN PRN Reason: Heartburn/Nausea Hydroxyzine HCl (Hydroxyzine Hcl 25 Mg Tablet) 25 mg PO Q6H PRN PRN Reason: Anxiety Last Admin: 10/05/23 20:18 Dose: 25 mg [place] Carbonate ([place] Carbonate Er 450 Mg Tablet.Er) 900 mg PO BEDTIME [facility] Last Admin: 10/06/23 20:50 Dose: 900 mg Lorazepam (Lorazepam 1 Mg Tablet) 2 mg PO QID [facility] Last Admin: 10/07/23 12:39 Dose: 2 mg Magnesium Hydroxide (Milk Of Magnesia 30 Ml Oral.Susp) 30 ml PO DAILY PRN PRN Reason: Constipation Olanzapine (Olanzapine 5 Mg Tablet) 5 mg PO BID [facility] Last Admin: 10/07/23 08:45 Dose: 5 mg Trazodone HCl (Trazodone Hcl 50 Mg Tablet) 50 mg PO BEDTIME MRX1 PRN PRN Reason: Insomnia Last Admin: 10/05/23 20:18 Dose: 50 mg Allergies Allergies Allergy/AdvReac Type Severity Reaction Status Date / Time Unable to Assess Allergy Verified 09/23/23 15:14 Assessment & Plan Assessment & Plan (1) Catatonia: Status: Acute Code(s): F06.1 - Catatonic disorder due to known physiological condition Plan 09/23: ativan 2 mg QID. move for commitment and court ordered ECT. 09/24: no change in presentation or plan. remains catatonic, adequate PO intake for the moment. taking 8 mg ativan daily without appreciative improvement. 09/25: continue current management and treatment plan. 09/26: Checked labs. CBC without evidence of infection. Chemistries and LFT's stable. Continue monitoring and response to Ativan. 09/27: continue current management and treatment plan. 09/28: continue current mgmt. producing several monosyllabic answers to questions today. filed for commitment. 09/29: awaiting hearing. very modest response to high-dose ativan. hearing next thursday. continue current mgmt for now. 09/30: no change in presentation. continues to appear to take in adequate fluids and food. continue current mgmt. 10/01: outpt regimen of zyprexa 5 BID and lithium 900 QHS restarted. continue ativan [address] thursday. 10/04/23: Court date pending on 10/06/2023 and ?ECT. 10/04: court deferred to next week for SADA. stably catatonic but up for toileting and PO intake, periodically. refusing labs to check electrolytes. 10/05: pt refusing labs. per staff report, does have reasonable PO intake. court scheduled 10/14. continue current mgmt. 10/06: taking meds, modest PO intake. said, what's your name? today. continue current mgmt. Reason for continued inpatient stay Substantial Risk for: inability to function and med/psych decompensation Time Spent With Patient Time: Total time managing care of this patient today ____ minutes.
[2023-10-07 20:00] VITALS: BP 111/58; PULSE 100; RESP 16; TEMP 37.2; O2SAT 96
[2023-10-07] MEDS: Lithium Carbonate ER 450 MG TABLET.ER 900 MG PO (21:39)
[2023-10-08 07:43] VITALS: BP 104/58; PULSE 77; RESP 14; TEMP 37.4; O2SAT 98
[2023-10-08] MEDS: LORazepam 1 MG TABLET 2 MG PO ×4 (09:40→23:55)
[2023-10-08] MEDS: OLANZapine 5 MG TABLET PO ×2 (09:40→23:55)
--- NOTE | 2023-10-08 10:14 | HO.PSYCHPN ---
Subjective Subjective Date of Service: 10/08/23 Reason For Visit: catatonia depression Interim History: Patient seen has been eating somewhat more. Patient internally preoccupied staring was mute not responsive when seen could not engage in conversation has been reportedly taking medication and eating somewhat more responsive since being on Ativan Mental Status Exam Mental Status Exam Narrative: adequately dressed, but disheveled and unkempt. unable to substantially cooperate with interview due to catatonia. Patient standing somewhat rigid nonverbal would not answer questions he did on when asked to raise his left hand which he was able to do otherwise not responding were verbal. Was not aggressive none no observed self-harming behavior unable to assess patient's in internal state Diagnostics Vital Signs (24Hr): Vital Signs - 24 hr 10/07/23 20:00 10/08/23 07:43 Temperature 99 F 99.3 F Pulse Rate 100 77 Respiratory Rate 16 14 Blood Pressure 111/58 L 104/58 L Pulse Oximetry 96 98 Oxygen Delivery Method Room Air Room Air BMI result Body Mass Index 25.8 Labs 09/27/23 11:15 09/27/23 11:15 Medications Medications Current Medications Acetaminophen (Acetaminophen 325 Mg Tablet) 650 mg PO Q6H PRN PRN Reason: Headache/Pain Mild Scale (1-3) Al Hydroxide/Mg Hydroxide (Magnesium Hydrox/Alum Hydrox 30 Ml Oral.Susp) 30 ml PO Q6H PRN PRN Reason: Heartburn/Nausea Hydroxyzine HCl (Hydroxyzine Hcl 25 Mg Tablet) 25 mg PO Q6H PRN PRN Reason: Anxiety Last Admin: 10/05/23 20:18 Dose: 25 mg [place] Carbonate ([place] Carbonate Er 450 Mg Tablet.Er) 900 mg PO BEDTIME [facility] Last Admin: 10/07/23 21:39 Dose: 900 mg Lorazepam (Lorazepam 1 Mg Tablet) 2 mg PO QID [facility] Last Admin: 10/08/23 09:40 Dose: 2 mg Magnesium Hydroxide (Milk Of Magnesia 30 Ml Oral.Susp) 30 ml PO DAILY PRN PRN Reason: Constipation Olanzapine (Olanzapine 5 Mg Tablet) 5 mg PO BID [facility] Last Admin: 10/08/23 09:40 Dose: 5 mg Trazodone HCl (Trazodone Hcl 50 Mg Tablet) 50 mg PO BEDTIME MRX1 PRN PRN Reason: Insomnia Last Admin: 10/05/23 20:18 Dose: 50 mg Allergies Allergies Allergy/AdvReac Type Severity Reaction Status Date / Time Unable to Assess Allergy Verified 09/23/23 15:14 Assessment & Plan Assessment & Plan (1) Catatonia: Status: Acute Code(s): F06.1 - Catatonic disorder due to known physiological condition Plan 09/23: ativan 2 mg QID. move for commitment and court ordered ECT. 09/24: no change in presentation or plan. remains catatonic, adequate PO intake for the moment. taking 8 mg ativan daily without appreciative improvement. 09/25: continue current management and treatment plan. 09/26: Checked labs. CBC without evidence of infection. Chemistries and LFT's stable. Continue monitoring and response to Ativan. 09/27: continue current management and treatment plan. 09/28: continue current mgmt. producing several monosyllabic answers to questions today. filed for commitment. 09/29: awaiting hearing. very modest response to high-dose ativan. hearing next thursday. continue current mgmt for now. 09/30: no change in presentation. continues to appear to take in adequate fluids and food. continue current mgmt. 10/01: outpt regimen of zyprexa 5 BID and lithium 900 QHS restarted. continue ativan [address] thursday. 10/04/23: Court date pending on 10/06/2023 and ?ECT. 10/04: court deferred to next week for SADA. stably catatonic but up for toileting and PO intake, periodically. refusing labs to check electrolytes. 10/05: pt refusing labs. per staff report, does have reasonable PO intake. court scheduled 10/14. continue current mgmt. 10/06: taking meds, modest PO intake. said, what's your name? today. continue current mgmt. 10/08/23 Patient taking medication remains generally nonverbal he did stand up was reportedly eating more would clearly benefit from ECT as becomes available Reason for continued inpatient stay Substantial Risk for: inability to function, rapid decompensation and med/psych decompensation Time Spent With Patient Time: Total time managing care of this patient today ____ minutes.
[2023-10-08 20:00] VITALS: BP 118/68; PULSE 88; RESP 16; TEMP 36.4; O2SAT 95
[2023-10-08] MEDS: Lithium Carbonate ER 450 MG TABLET.ER 900 MG PO (23:55)
[2023-10-09 07:20] VITALS: BP 101/60; PULSE 67; RESP 14; TEMP 36.6; O2SAT 98
[2023-10-09] MEDS: LORazepam 1 MG TABLET 2 MG PO ×4 (08:46→20:37)
[2023-10-09] MEDS: OLANZapine 5 MG TABLET PO ×2 (08:46→20:37)
--- NOTE | 2023-10-09 15:57 | HO.PSYCHPN ---
Subjective Subjective Date of Service: 10/09/23 Reason For Visit: catatonia depression Interim History: opens eyes, minimal responses otherwise. only verbalization is when MD informs pt labs will be requested and he is able to produce an audible NO. per staff, taking meds. limited responses. some head-nodding. in bed. slept 8 hours. Mental Status Exam Mental Status Exam Narrative: adequately dressed, but disheveled and unkempt. unable to substantially cooperate with interview due to catatonia. gestures with hand once, has some eye saccades, otherwise no movement. No, otherwise no verbal output. unable to assess thoughts. affect inert. unable to assess mood, SI/SIBI/HI/AVH. Diagnostics Vital Signs (24Hr): Vital Signs - 24 hr 10/08/23 20:00 10/09/23 07:20 Temperature 97.6 F 97.8 F Pulse Rate 88 67 Respiratory Rate 16 14 Blood Pressure 118/68 101/60 Pulse Oximetry 95 98 Oxygen Delivery Method Room Air Room Air BMI result Body Mass Index 25.8 Labs 09/27/23 11:15 09/27/23 11:15 Medications Medications Current Medications Acetaminophen (Acetaminophen 325 Mg Tablet) 650 mg PO Q6H PRN PRN Reason: Headache/Pain Mild Scale (1-3) Al Hydroxide/Mg Hydroxide (Magnesium Hydrox/Alum Hydrox 30 Ml Oral.Susp) 30 ml PO Q6H PRN PRN Reason: Heartburn/Nausea Hydroxyzine HCl (Hydroxyzine Hcl 25 Mg Tablet) 25 mg PO Q6H PRN PRN Reason: Anxiety Last Admin: 10/05/23 20:18 Dose: 25 mg [place] Carbonate ([place] Carbonate Er 450 Mg Tablet.Er) 900 mg PO BEDTIME [facility] Last Admin: 10/08/23 23:55 Dose: 900 mg Lorazepam (Lorazepam 1 Mg Tablet) 2 mg PO QID [facility] Last Admin: 10/09/23 13:07 Dose: 2 mg Magnesium Hydroxide (Milk Of Magnesia 30 Ml Oral.Susp) 30 ml PO DAILY PRN PRN Reason: Constipation Olanzapine (Olanzapine 5 Mg Tablet) 5 mg PO BID [facility] Last Admin: 10/09/23 08:46 Dose: 5 mg Trazodone HCl (Trazodone Hcl 50 Mg Tablet) 50 mg PO BEDTIME MRX1 PRN PRN Reason: Insomnia Last Admin: 10/05/23 20:18 Dose: 50 mg Allergies Allergies Allergy/AdvReac Type Severity Reaction Status Date / Time Unable to Assess Allergy Verified 09/23/23 15:14 Assessment & Plan Assessment & Plan (1) Catatonia: Status: Acute Code(s): F06.1 - Catatonic disorder due to known physiological condition Plan 09/23: ativan 2 mg QID. move for commitment and court ordered ECT. 09/24: no change in presentation or plan. remains catatonic, adequate PO intake for the moment. taking 8 mg ativan daily without appreciative improvement. 09/25: continue current management and treatment plan. 09/26: Checked labs. CBC without evidence of infection. Chemistries and LFT's stable. Continue monitoring and response to Ativan. 09/27: continue current management and treatment plan. 09/28: continue current mgmt. producing several monosyllabic answers to questions today. filed for commitment. 09/29: awaiting hearing. very modest response to high-dose ativan. hearing next thursday. continue current mgmt for now. 09/30: no change in presentation. continues to appear to take in adequate fluids and food. continue current mgmt. 10/01: outpt regimen of zyprexa 5 BID and lithium 900 QHS restarted. continue ativan [address] thursday. 10/04/23: Court date pending on 10/06/2023 and ?ECT. 10/04: court deferred to next week for SADA. stably catatonic but up for toileting and PO intake, periodically. refusing labs to check electrolytes. 10/05: pt refusing labs. per staff report, does have reasonable PO intake. court scheduled 10/14. continue current mgmt. 10/06: taking meds, modest PO intake. said, what's your name? today. continue current mgmt. 10/08/23 Patient taking medication remains generally nonverbal he did stand up was reportedly eating more would clearly benefit from ECT as becomes available 10/08: one word today, No, in response to request to check labs for lithium and lytes. continue current mgmt. awaiting court for ECT. Reason for continued inpatient stay Substantial Risk for: inability to function and med/psych decompensation Time Spent With Patient Time: Total time managing care of this patient today __25__ minutes.
[2023-10-09 20:05] VITALS: BP 95/53; PULSE 68; RESP 18; TEMP 37.2; O2SAT 96
[2023-10-09] MEDS: Lithium Carbonate ER 450 MG TABLET.ER 900 MG PO (20:37)
[2023-10-10 07:35] VITALS: BP 111/57; PULSE 71; RESP 14; TEMP 37; O2SAT 97
[2023-10-10] MEDS: LORazepam 1 MG TABLET 2 MG PO ×3 (12:28→20:44)
[2023-10-10] MEDS: OLANZapine 5 MG TABLET PO ×2 (12:29→20:43)
[2023-10-10 15:19] LABS: Anion Gap 12 (12-20); Blood Urea Nitrogen 9 mg/dL (9-16); Calcium 9.7 mg/dL (8.4-10.2); Carbon Dioxide 24 mmol/L (22-29); Chloride 109 mmol/L (96-108); Creatinine Clr Calc Pharmacy 116.2; Estimated Glomerular Filt Rate > 60; Glucose Random 110 mg/dL (60-115); Potassium 3.6 mmol/L (3.3-5.1); Sodium 141 mmol/L (135-145)
[2023-10-10 15:40] LABS: Lithium 0.46 mmol/L (0.60-1.20)
--- NOTE | 2023-10-10 16:20 | P.PNPSI_ITS ---
Subjective Subjective Date of Service: 10/10/23 Reason For Visit: catatonia depression Interim History: head raised off of pillow and looking forward for a minute or two, then puts head back down on pillow. no other movement or reaction to MD's attempts to interact with pt. per staff, up for meals but non-verbal. some shaking and nodding of the head. slept 9+ hours. Mental Status Exam Mental Status Exam Narrative: adequately dressed, but disheveled and unkempt. unable to substantially cooperate with interview due to catatonia. no verbal output. unable to assess thoughts. affect inert. unable to assess mood, SI/SIBI/HI/AVH. Diagnostics Vital Signs (24Hr): Vital Signs - 24 hr 10/09/23 20:05 10/10/23 07:35 Temperature 98.9 F 98.6 F Pulse Rate 68 71 Respiratory Rate 18 14 Blood Pressure 95/53 L 111/57 L Pulse Oximetry 96 97 Oxygen Delivery Method Room Air Room Air BMI result Body Mass Index 25.8 Labs 09/27/23 11:15 10/10/23 14:55 Labs: Laboratory Results - last 48 hr 10/10/23 14:55 Sodium 141 Potassium 3.6 Chloride 109 H Carbon Dioxide 24 Anion Gap 12 BUN 9 Creatinine 0.86 Estim Creat Clear Calc 116.2 Estimated GFR > 60 Random Glucose 110 Calcium 9.7 [place] 0.46 L Medications Medications Current Medications Acetaminophen (Acetaminophen 325 Mg Tablet) 650 mg PO Q6H PRN PRN Reason: Headache/Pain Mild Scale (1-3) Al Hydroxide/Mg Hydroxide (Magnesium Hydrox/Alum Hydrox 30 Ml Oral.Susp) 30 ml PO Q6H PRN PRN Reason: Heartburn/Nausea Hydroxyzine HCl (Hydroxyzine Hcl 25 Mg Tablet) 25 mg PO Q6H PRN PRN Reason: Anxiety Last Admin: 10/05/23 20:18 Dose: 25 mg [place] Carbonate ([place] Carbonate Er 450 Mg Tablet.Er) 900 mg PO BEDTIME [facility] Last Admin: 10/09/23 20:37 Dose: 900 mg Lorazepam (Lorazepam 1 Mg Tablet) 2 mg PO QID [facility] Last Admin: 10/10/23 14:14 Dose: 2 mg Magnesium Hydroxide (Milk Of Magnesia 30 Ml Oral.Susp) 30 ml PO DAILY PRN PRN Reason: Constipation Olanzapine (Olanzapine 5 Mg Tablet) 5 mg PO BID [facility] Last Admin: 10/10/23 12:29 Dose: 5 mg Trazodone HCl (Trazodone Hcl 50 Mg Tablet) 50 mg PO BEDTIME MRX1 PRN PRN Reason: Insomnia Last Admin: 10/05/23 20:18 Dose: 50 mg Allergies Allergies Allergy/AdvReac Type Severity Reaction Status Date / Time Unable to Assess Allergy Verified 09/23/23 15:14 Assessment & Plan Assessment & Plan (1) Catatonia: Status: Acute Code(s): F06.1 - Catatonic disorder due to known physiological condition Plan 09/23: ativan 2 mg QID. move for commitment and court ordered ECT. 09/24: no change in presentation or plan. remains catatonic, adequate PO intake for the moment. taking 8 mg ativan daily without appreciative improvement. 09/25: continue current management and treatment plan. 09/26: Checked labs. CBC without evidence of infection. Chemistries and LFT's stable. Continue monitoring and response to Ativan. 09/27: continue current management and treatment plan. 09/28: continue current mgmt. producing several monosyllabic answers to questions today. filed for commitment. 09/29: awaiting hearing. very modest response to high-dose ativan. hearing next thursday. continue current mgmt for now. 09/30: no change in presentation. continues to appear to take in adequate fluids and food. continue current mgmt. 10/01: outpt regimen of zyprexa 5 BID and lithium 900 QHS restarted. continue ativan [address] thursday. 10/04/23: Court date pending on 10/06/2023 and ?ECT. 10/04: court deferred to next week for SADA. stably catatonic but up for toileting and PO intake, periodically. refusing labs to check electrolytes. 10/05: pt refusing labs. per staff report, does have reasonable PO intake. court scheduled 10/14. continue current mgmt. 10/06: taking meds, modest PO intake. said, what's your name? today. continue current mgmt. 10/08/23 Patient taking medication remains generally nonverbal he did stand up was reportedly eating more would clearly benefit from ECT as becomes available 10/08: one word today, No, in response to request to check labs for lithium and lytes. continue current mgmt. awaiting court for ECT. 10/09: non-verbal. dry lips but per report is eating meals. reorder labs. continue current mgmt otherwise. Reason for continued inpatient stay Substantial Risk for: inability to function and med/psych decompensation Time Spent With Patient Time: Total time managing care of this patient today ____ minutes.
[2023-10-10 20:00] VITALS: BP 104/57; PULSE 83; RESP 16; TEMP 37.2; O2SAT 97
[2023-10-10] MEDS: Lithium Carbonate ER 450 MG TABLET.ER 900 MG PO (20:44)
[2023-10-11 07:35] VITALS: BP 85/53; PULSE 65; RESP 14; TEMP 37.3; O2SAT 95
[2023-10-11] MEDS: OLANZapine 5 MG TABLET PO ×2 (08:51→21:51)
[2023-10-11] MEDS: LORazepam 1 MG TABLET 2 MG PO ×4 (08:51→21:51)
--- NOTE | 2023-10-11 15:02 | HO.PSYCHPN ---
Subjective Subjective Date of Service: 10/11/23 Reason For Visit: catatonia depression Interim History: sleeping, not rousable to loud voice. per staff, ate 100% dinner. no groups. mute, in bed. 3 bottles of water and a banana from kitchen last trung. Mental Status Exam Mental Status Exam Narrative: adequately dressed, but disheveled and unkempt. unable to substantially cooperate with interview due to catatonia. no verbal output. unable to assess thoughts. affect inert. unable to assess mood, SI/SIBI/HI/AVH. Diagnostics Vital Signs (24Hr): Vital Signs - 24 hr 10/10/23 20:00 10/11/23 07:35 Temperature 99.0 F 99.1 F Pulse Rate 83 65 Respiratory Rate 16 14 Blood Pressure 104/57 L 85/53 L Pulse Oximetry 97 95 Oxygen Delivery Method Room Air Room Air BMI result Body Mass Index 25.8 Labs 09/27/23 11:15 10/10/23 14:55 Labs: Laboratory Results - last 48 hr 10/10/23 14:55 Sodium 141 Potassium 3.6 Chloride 109 H Carbon Dioxide 24 Anion Gap 12 BUN 9 Creatinine 0.86 Estim Creat Clear Calc 116.2 Estimated GFR > 60 Random Glucose 110 Calcium 9.7 [place] 0.46 L Medications Medications Current Medications Acetaminophen (Acetaminophen 325 Mg Tablet) 650 mg PO Q6H PRN PRN Reason: Headache/Pain Mild Scale (1-3) Al Hydroxide/Mg Hydroxide (Magnesium Hydrox/Alum Hydrox 30 Ml Oral.Susp) 30 ml PO Q6H PRN PRN Reason: Heartburn/Nausea Hydroxyzine HCl (Hydroxyzine Hcl 25 Mg Tablet) 25 mg PO Q6H PRN PRN Reason: Anxiety Last Admin: 10/05/23 20:18 Dose: 25 mg [place] Carbonate ([place] Carbonate Er 450 Mg Tablet.Er) 900 mg PO BEDTIME [facility] Last Admin: 10/10/23 20:44 Dose: 900 mg Lorazepam (Lorazepam 1 Mg Tablet) 2 mg PO QID [facility] Last Admin: 10/11/23 13:29 Dose: 2 mg Magnesium Hydroxide (Milk Of Magnesia 30 Ml Oral.Susp) 30 ml PO DAILY PRN PRN Reason: Constipation Olanzapine (Olanzapine 5 Mg Tablet) 5 mg PO BID [facility] Last Admin: 10/11/23 08:51 Dose: 5 mg Trazodone HCl (Trazodone Hcl 50 Mg Tablet) 50 mg PO BEDTIME MRX1 PRN PRN Reason: Insomnia Last Admin: 10/05/23 20:18 Dose: 50 mg Allergies Allergies Allergy/AdvReac Type Severity Reaction Status Date / Time Unable to Assess Allergy Verified 09/23/23 15:14 Assessment & Plan Assessment & Plan (1) Catatonia: Status: Acute Code(s): F06.1 - Catatonic disorder due to known physiological condition Plan 09/23: ativan 2 mg QID. move for commitment and court ordered ECT. 09/24: no change in presentation or plan. remains catatonic, adequate PO intake for the moment. taking 8 mg ativan daily without appreciative improvement. 09/25: continue current management and treatment plan. 09/26: Checked labs. CBC without evidence of infection. Chemistries and LFT's stable. Continue monitoring and response to Ativan. 09/27: continue current management and treatment plan. 09/28: continue current mgmt. producing several monosyllabic answers to questions today. filed for commitment. 09/29: awaiting hearing. very modest response to high-dose ativan. hearing next thursday. continue current mgmt for now. 09/30: no change in presentation. continues to appear to take in adequate fluids and food. continue current mgmt. 10/01: outpt regimen of zyprexa 5 BID and lithium 900 QHS restarted. continue ativan [address] thursday. 10/04/23: Court date pending on 10/06/2023 and ?ECT. 10/04: court deferred to next week for SADA. stably catatonic but up for toileting and PO intake, periodically. refusing labs to check electrolytes. 10/05: pt refusing labs. per staff report, does have reasonable PO intake. court scheduled 10/14. continue current mgmt. 10/06: taking meds, modest PO intake. said, what's your name? today. continue current mgmt. 10/08/23 Patient taking medication remains generally nonverbal he did stand up was reportedly eating more would clearly benefit from ECT as becomes available 10/08: one word today, No, in response to request to check labs for lithium and lytes. continue current mgmt. awaiting court for ECT. 10/09: non-verbal. dry lips but per report is eating meals. reorder labs. continue current mgmt otherwise. 10/10: 10/09 lytes reassuring, lithium 0.46. no change in presentation, continue current mgmt. Reason for continued inpatient stay Substantial Risk for: inability to function and med/psych decompensation Time Spent With Patient Time: Total time managing care of this patient today ____ minutes.
[2023-10-11 21:30] VITALS: BP 105/57; PULSE 70; RESP 16; TEMP 37.2; O2SAT 96
[2023-10-11] MEDS: Lithium Carbonate ER 450 MG TABLET.ER 900 MG PO (21:51)
[2023-10-12 08:00] VITALS: BP 105/70; PULSE 61; RESP 16; TEMP 37.2; O2SAT 98
[2023-10-12] MEDS: LORazepam 1 MG TABLET 2 MG PO ×4 (09:22→21:52)
[2023-10-12] MEDS: OLANZapine 5 MG TABLET PO ×2 (09:22→21:52)
--- NOTE | 2023-10-12 12:40 | P.PNPSI_ITS ---
Subjective Subjective Date of Service: 10/12/23 Reason For Visit: catatonia depression Interim History: several saccades at MD, otherwise no movement or speech. per staff, mute. taking meds. flat, withdrawn. snacking. slept 7 hours. drinking water. Mental Status Exam Mental Status Exam Narrative: adequately dressed, but disheveled and unkempt. unable to substantially cooperate with interview due to catatonia. no verbal output. unable to assess thoughts. affect inert. unable to assess mood, SI/SIBI/HI/AVH. Diagnostics Vital Signs (24Hr): Vital Signs - 24 hr 10/11/23 21:30 10/12/23 08:00 Temperature 98.9 F 98.9 F Pulse Rate 70 61 Respiratory Rate 16 16 Blood Pressure 105/57 L 105/70 Pulse Oximetry 96 98 Oxygen Delivery Method Room Air Room Air BMI result Body Mass Index 25.8 Labs 09/27/23 11:15 10/10/23 14:55 Labs: Laboratory Results - last 48 hr 10/10/23 14:55 Sodium 141 Potassium 3.6 Chloride 109 H Carbon Dioxide 24 Anion Gap 12 BUN 9 Creatinine 0.86 Estim Creat Clear Calc 116.2 Estimated GFR > 60 Random Glucose 110 Calcium 9.7 [place] 0.46 L Medications Medications Current Medications Acetaminophen (Acetaminophen 325 Mg Tablet) 650 mg PO Q6H PRN PRN Reason: Headache/Pain Mild Scale (1-3) Al Hydroxide/Mg Hydroxide (Magnesium Hydrox/Alum Hydrox 30 Ml Oral.Susp) 30 ml PO Q6H PRN PRN Reason: Heartburn/Nausea Hydroxyzine HCl (Hydroxyzine Hcl 25 Mg Tablet) 25 mg PO Q6H PRN PRN Reason: Anxiety Last Admin: 10/05/23 20:18 Dose: 25 mg [place] Carbonate ([place] Carbonate Er 450 Mg Tablet.Er) 900 mg PO BEDTIME [facility] Last Admin: 10/11/23 21:51 Dose: 900 mg Lorazepam (Lorazepam 1 Mg Tablet) 2 mg PO QID [facility] Last Admin: 10/12/23 09:22 Dose: 2 mg Magnesium Hydroxide (Milk Of Magnesia 30 Ml Oral.Susp) 30 ml PO DAILY PRN PRN Reason: Constipation Olanzapine (Olanzapine 5 Mg Tablet) 5 mg PO BID [facility] Last Admin: 10/12/23 09:22 Dose: 5 mg Trazodone HCl (Trazodone Hcl 50 Mg Tablet) 50 mg PO BEDTIME MRX1 PRN PRN Reason: Insomnia Last Admin: 10/05/23 20:18 Dose: 50 mg Allergies Allergies Allergy/AdvReac Type Severity Reaction Status Date / Time Unable to Assess Allergy Verified 09/23/23 15:14 Assessment & Plan Assessment & Plan (1) Catatonia: Status: Acute Code(s): F06.1 - Catatonic disorder due to known physiological condition Plan 09/23: ativan 2 mg QID. move for commitment and court ordered ECT. 09/24: no change in presentation or plan. remains catatonic, adequate PO intake for the moment. taking 8 mg ativan daily without appreciative improvement. 09/25: continue current management and treatment plan. 09/26: Checked labs. CBC without evidence of infection. Chemistries and LFT's stable. Continue monitoring and response to Ativan. 09/27: continue current management and treatment plan. 09/28: continue current mgmt. producing several monosyllabic answers to questions today. filed for commitment. 09/29: awaiting hearing. very modest response to high-dose ativan. hearing next thursday. continue current mgmt for now. 09/30: no change in presentation. continues to appear to take in adequate fluids and food. continue current mgmt. 10/01: outpt regimen of zyprexa 5 BID and lithium 900 QHS restarted. continue ativan [address] thursday. 10/04/23: Court date pending on 10/06/2023 and ?ECT. 10/04: court deferred to next week for SADA. stably catatonic but up for toileting and PO intake, periodically. refusing labs to check electrolytes. 10/05: pt refusing labs. per staff report, does have reasonable PO intake. court scheduled 10/14. continue current mgmt. 10/06: taking meds, modest PO intake. said, what's your name? today. continue current mgmt. 10/08/23 Patient taking medication remains generally nonverbal he did stand up was reportedly eating more would clearly benefit from ECT as becomes available 10/08: one word today, No, in response to request to check labs for lithium and lytes. continue current mgmt. awaiting court for ECT. 10/09: non-verbal. dry lips but per report is eating meals. reorder labs. continue current mgmt otherwise. 10/10: 10/09 lytes reassuring, lithium 0.46. no change in presentation, continue current mgmt. 10/11: mute. some saccades, otherwise immobile. continue current mgmt. Reason for continued inpatient stay Substantial Risk for: inability to function and med/psych decompensation Time Spent With Patient Time: Total time managing care of this patient today ____ minutes.
[2023-10-12 20:00] VITALS: BP 104/55; PULSE 83; RESP 16; TEMP 37.4; O2SAT 98
[2023-10-12 21:35] VITALS: TEMP 37.2
[2023-10-12] MEDS: Lithium Carbonate ER 450 MG TABLET.ER 900 MG PO (21:52)
[2023-10-13 06:11] VITALS: TEMP 37
[2023-10-13 07:40] VITALS: BP 99/60; PULSE 67; RESP 14; TEMP 36.8; O2SAT 96
[2023-10-13] MEDS: LORazepam 1 MG TABLET 2 MG PO ×4 (08:57→20:49)
[2023-10-13] MEDS: OLANZapine 5 MG TABLET PO ×2 (08:57→20:49)
[2023-10-13 19:55] VITALS: BP 108/55; PULSE 65; RESP 16; TEMP 37.1; O2SAT 98
[2023-10-13] MEDS: Lithium Carbonate ER 450 MG TABLET.ER 900 MG PO (20:49)
--- NOTE | 2023-10-13 22:13 | P.PNPSI_ITS ---
Subjective Subjective Date of Service: 10/13/23 Reason For Visit: catatonia depression Interim History: pt has generally been withdrawn mute taking medication no clear improvement has been drinking eating Mental Status Exam Mental Status Exam Narrative: pt casually dressed lying in bed no verbal output.refusing to get up unable to assess thoughts. affect inert. unable to assess mood, SI/SIBI/HI/AVH. Diagnostics Vital Signs (24Hr): Vital Signs - 24 hr 10/13/23 06:11 10/13/23 07:40 Temperature 98.6 F 98.2 F Pulse Rate 67 Respiratory Rate 14 Blood Pressure 99/60 Pulse Oximetry 96 Oxygen Delivery Method Room Air BMI result Body Mass Index 25.8 Labs 09/27/23 11:15 10/10/23 14:55 Medications Medications Current Medications Acetaminophen (Acetaminophen 325 Mg Tablet) 650 mg PO Q6H PRN PRN Reason: Headache/Pain Mild Scale (1-3) Al Hydroxide/Mg Hydroxide (Magnesium Hydrox/Alum Hydrox 30 Ml Oral.Susp) 30 ml PO Q6H PRN PRN Reason: Heartburn/Nausea Hydroxyzine HCl (Hydroxyzine Hcl 25 Mg Tablet) 25 mg PO Q6H PRN PRN Reason: Anxiety Last Admin: 10/05/23 20:18 Dose: 25 mg [place] Carbonate ([place] Carbonate Er 450 Mg Tablet.Er) 900 mg PO BEDTIME [facility] Last Admin: 10/13/23 20:49 Dose: 900 mg Lorazepam (Lorazepam 1 Mg Tablet) 2 mg PO QID [facility] Last Admin: 10/13/23 20:49 Dose: 2 mg Magnesium Hydroxide (Milk Of Magnesia 30 Ml Oral.Susp) 30 ml PO DAILY PRN PRN Reason: Constipation Olanzapine (Olanzapine 5 Mg Tablet) 5 mg PO BID [facility] Last Admin: 10/13/23 20:49 Dose: 5 mg Trazodone HCl (Trazodone Hcl 50 Mg Tablet) 50 mg PO BEDTIME MRX1 PRN PRN Reason: Insomnia Last Admin: 10/05/23 20:18 Dose: 50 mg Allergies Allergies Allergy/AdvReac Type Severity Reaction Status Date / Time Unable to Assess Allergy Verified 09/23/23 15:14 Assessment & Plan Assessment & Plan (1) Catatonia: Status: Acute Code(s): F06.1 - Catatonic disorder due to known physiological condition Plan 09/23: ativan 2 mg QID. move for commitment and court ordered ECT. 09/24: no change in presentation or plan. remains catatonic, adequate PO intake for the moment. taking 8 mg ativan daily without appreciative improvement. 09/25: continue current management and treatment plan. 09/26: Checked labs. CBC without evidence of infection. Chemistries and LFT's stable. Continue monitoring and response to Ativan. 09/27: continue current management and treatment plan. 09/28: continue current mgmt. producing several monosyllabic answers to questions today. filed for commitment. 09/29: awaiting hearing. very modest response to high-dose ativan. hearing next thursday. continue current mgmt for now. 09/30: no change in presentation. continues to appear to take in adequate fluids and food. continue current mgmt. 10/01: outpt regimen of zyprexa 5 BID and lithium 900 QHS restarted. continue ativan [address] thursday. 10/04/23: Court date pending on 10/06/2023 and ?ECT. 10/04: court deferred to next week for SADA. stably catatonic but up for toileting and PO intake, periodically. refusing labs to check electrolytes. 10/05: pt refusing labs. per staff report, does have reasonable PO intake. court scheduled 10/14. continue current mgmt. 10/06: taking meds, modest PO intake. said, what's your name? today. continue current mgmt. 10/08/23 Patient taking medication remains generally nonverbal he did stand up was reportedly eating more would clearly benefit from ECT as becomes available 10/08: one word today, No, in response to request to check labs for lithium and lytes. continue current mgmt. awaiting court for ECT. 10/09: non-verbal. dry lips but per report is eating meals. reorder labs. continue current mgmt otherwise. 10/10: 10/09 lytes reassuring, lithium 0.46. no change in presentation, continue current mgmt. 10/11: mute. some saccades, otherwise immobile. continue current mgmt. 10/[address] ordered tx vital signs ok Informed Consent: does not understand Reason for continued inpatient stay Substantial Risk for: inability to function, rapid decompensation and med/psych decompensation Time Spent With Patient Time: Total time managing care of this patient today ____ minutes.
[2023-10-14 07:27] VITALS: BP 103/65; PULSE 65; RESP 14; TEMP 37; O2SAT 95
[2023-10-14] MEDS: OLANZapine 5 MG TABLET PO ×2 (08:08→20:52)
[2023-10-14] MEDS: LORazepam 1 MG TABLET 2 MG PO ×3 (08:08→20:52)
--- NOTE | 2023-10-14 13:10 | HO.PSYCHPN ---
Subjective Subjective Date of Service: 10/14/23 Reason For Visit: catatonia depression Interim History: eyes open, looks at MD some, no other movements or responses to attempts to verbally interact with pt. per staff, constricted. taking medications. mute. some head nods. eating. slept [address] tomorrow at 2. Mental Status Exam Mental Status Exam Narrative: pt casually dressed lying in bed some eye contact. no verbal output. unable to assess thoughts. affect inert. unable to assess mood, SI/SIBI/HI/AVH. Diagnostics Vital Signs (24Hr): Vital Signs - 24 hr 10/13/23 19:55 10/14/23 07:27 Temperature 98.8 F 98.6 F Pulse Rate 65 65 Respiratory Rate 16 14 Blood Pressure 108/55 L 103/65 Pulse Oximetry 98 95 Oxygen Delivery Method Room Air Room Air BMI result Body Mass Index 25.8 Labs 09/27/23 11:15 10/10/23 14:55 Medications Medications Current Medications Acetaminophen (Acetaminophen 325 Mg Tablet) 650 mg PO Q6H PRN PRN Reason: Headache/Pain Mild Scale (1-3) Al Hydroxide/Mg Hydroxide (Magnesium Hydrox/Alum Hydrox 30 Ml Oral.Susp) 30 ml PO Q6H PRN PRN Reason: Heartburn/Nausea Hydroxyzine HCl (Hydroxyzine Hcl 25 Mg Tablet) 25 mg PO Q6H PRN PRN Reason: Anxiety Last Admin: 10/05/23 20:18 Dose: 25 mg [place] Carbonate ([place] Carbonate Er 450 Mg Tablet.Er) 900 mg PO BEDTIME [facility] Last Admin: 10/13/23 20:49 Dose: 900 mg Lorazepam (Lorazepam 1 Mg Tablet) 2 mg PO TID [facility] Magnesium Hydroxide (Milk Of Magnesia 30 Ml Oral.Susp) 30 ml PO DAILY PRN PRN Reason: Constipation Olanzapine (Olanzapine 5 Mg Tablet) 5 mg PO BID [facility] Last Admin: 10/14/23 08:08 Dose: 5 mg Trazodone HCl (Trazodone Hcl 50 Mg Tablet) 50 mg PO BEDTIME MRX1 PRN PRN Reason: Insomnia Last Admin: 10/05/23 20:18 Dose: 50 mg Allergies Allergies Allergy/AdvReac Type Severity Reaction Status Date / Time Unable to Assess Allergy Verified 09/23/23 15:14 Assessment & Plan Assessment & Plan (1) Catatonia: Status: Acute Code(s): F06.1 - Catatonic disorder due to known physiological condition Plan 09/23: ativan 2 mg QID. move for commitment and court ordered ECT. 09/24: no change in presentation or plan. remains catatonic, adequate PO intake for the moment. taking 8 mg ativan daily without appreciative improvement. 09/25: continue current management and treatment plan. 09/26: Checked labs. CBC without evidence of infection. Chemistries and LFT's stable. Continue monitoring and response to Ativan. 09/27: continue current management and treatment plan. 09/28: continue current mgmt. producing several monosyllabic answers to questions today. filed for commitment. 09/29: awaiting hearing. very modest response to high-dose ativan. hearing next thursday. continue current mgmt for now. 09/30: no change in presentation. continues to appear to take in adequate fluids and food. continue current mgmt. 10/01: outpt regimen of zyprexa 5 BID and lithium 900 QHS restarted. continue ativan [address] thursday. 10/04/23: Court date pending on 10/06/2023 and ?ECT. 10/04: court deferred to next week for SADA. stably catatonic but up for toileting and PO intake, periodically. refusing labs to check electrolytes. 10/05: pt refusing labs. per staff report, does have reasonable PO intake. court scheduled 10/14. continue current mgmt. 10/06: taking meds, modest PO intake. said, what's your name? today. continue current mgmt. 10/08/23 Patient taking medication remains generally nonverbal he did stand up was reportedly eating more would clearly benefit from ECT as becomes available 10/08: one word today, No, in response to request to check labs for lithium and lytes. continue current mgmt. awaiting court for ECT. 10/09: non-verbal. dry lips but per report is eating meals. reorder labs. continue current mgmt otherwise. 10/10: 10/09 lytes reassuring, lithium 0.46. no change in presentation, continue current mgmt. 10/11: mute. some saccades, otherwise immobile. continue current mgmt. 10/12: will benefit from court ordered tx vital signs ok. 10/13: no change in presentation. court tomorrow at 2. decrease ativan from 2 QID to 2 TID both to see if dose reduction changes behavior in any way and in preparation for requested order from the court for ECT. Reason for continued inpatient stay Substantial Risk for: inability to function and med/psych decompensation Time Spent With Patient Time: Total time managing care of this patient today ____ minutes.
[2023-10-14 19:30] VITALS: BP 109/78; PULSE 93; RESP 16; TEMP 37.7; O2SAT 96
[2023-10-14] MEDS: Lithium Carbonate ER 450 MG TABLET.ER 900 MG PO (20:52)
[2023-10-15 07:00] VITALS: BMI 25.5
[2023-10-15 07:39] VITALS: BP 94/55; PULSE 66; RESP 14; TEMP 36.5; O2SAT 97
[2023-10-15 08:25] VITALS: BP 113/59; PULSE 68
[2023-10-15] MEDS: OLANZapine 5 MG TABLET PO ×2 (08:34→21:44)
[2023-10-15] MEDS: LORazepam 1 MG TABLET 2 MG PO ×3 (08:34→21:44)
--- NOTE | 2023-10-15 12:25 | HO.PSYCHPN ---
Subjective Subjective Date of Service: 10/15/23 Reason For Visit: catatonia depression Interim History: observed sitting up in his bed eating [employer] toast. MD informed pt that hearing would be this afternoon and asked if pt wanted to attend. pt appeared to slightly nod his head. did not respond to further questions. per staff, taking meds. no verbal responses. found masturbating in his room last night, not redirectable by nursing staff. Mental Status Exam Mental Status Exam Narrative: pt casually dressed sitting in bed eating breakfast. no eye contact. no verbal output. unable to assess thoughts. affect inert. unable to assess mood, SI/SIBI/HI/AVH. Diagnostics Vital Signs (24Hr): Vital Signs - 24 hr 10/14/23 19:30 10/15/23 07:39 10/15/23 08:25 Temperature 99.8 F 97.7 F Pulse Rate 93 66 68 Respiratory Rate 16 14 Blood Pressure 109/78 94/55 L 113/59 L Pulse Oximetry 96 97 Oxygen Delivery Method Room Air Room Air BMI result Body Mass Index 25.8 Labs 09/27/23 11:15 10/10/23 14:55 Medications Medications Current Medications Acetaminophen (Acetaminophen 325 Mg Tablet) 650 mg PO Q6H PRN PRN Reason: Headache/Pain Mild Scale (1-3) Al Hydroxide/Mg Hydroxide (Magnesium Hydrox/Alum Hydrox 30 Ml Oral.Susp) 30 ml PO Q6H PRN PRN Reason: Heartburn/Nausea Hydroxyzine HCl (Hydroxyzine Hcl 25 Mg Tablet) 25 mg PO Q6H PRN PRN Reason: Anxiety Last Admin: 10/05/23 20:18 Dose: 25 mg [place] Carbonate ([place] Carbonate Er 450 Mg Tablet.Er) 900 mg PO BEDTIME [facility] Last Admin: 10/14/23 20:52 Dose: 900 mg Lorazepam (Lorazepam 1 Mg Tablet) 2 mg PO TID [facility] Last Admin: 10/15/23 08:34 Dose: 2 mg Magn[place] Hydroxide (Milk Of Magnesia 30 Ml Oral.Susp) 30 ml PO DAILY PRN PRN Reason: Constipation Olanzapine (Olanzapine 5 Mg Tablet) 5 mg PO BID [facility] Last Admin: 10/15/23 08:34 Dose: 5 mg Trazodone HCl (Trazodone Hcl 50 Mg Tablet) 50 mg PO BEDTIME MRX1 PRN PRN Reason: Insomnia Last Admin: 10/05/23 20:18 Dose: 50 mg Allergies Allergies Allergy/AdvReac Type Severity Reaction Status Date / Time Unable to Assess Allergy Verified 09/23/23 15:14 Assessment & Plan Assessment & Plan (1) Catatonia: Status: Acute Code(s): F06.1 - Catatonic disorder due to known physiological condition Plan 09/23: ativan 2 mg QID. move for commitment and court ordered ECT. 09/24: no change in presentation or plan. remains catatonic, adequate PO intake for the moment. taking 8 mg ativan daily without appreciative improvement. 09/25: continue current management and treatment plan. 09/26: Checked labs. CBC without evidence of infection. Chemistries and LFT's stable. Continue monitoring and response to Ativan. 09/27: continue current management and treatment plan. 09/28: continue current mgmt. producing several monosyllabic answers to questions today. filed for commitment. 09/29: awaiting hearing. very modest response to high-dose ativan. hearing next thursday. continue current mgmt for now. 09/30: no change in presentation. continues to appear to take in adequate fluids and food. continue current mgmt. 10/01: outpt regimen of zyprexa 5 BID and lithium 900 QHS restarted. continue ativan [address] thursday. 10/04/23: Court date pending on 10/06/2023 and ?ECT. 10/04: court deferred to next week for SADA. stably catatonic but up for toileting and PO intake, periodically. refusing labs to check electrolytes. 10/05: pt refusing labs. per staff report, does have reasonable PO intake. court scheduled 10/14. continue current mgmt. 10/06: taking meds, modest PO intake. said, what's your name? today. continue current mgmt. 10/08/23 Patient taking medication remains generally nonverbal he did stand up was reportedly eating more would clearly benefit from ECT as becomes available 10/08: one word today, No, in response to request to check labs for lithium and lytes. continue current mgmt. awaiting court for ECT. 10/09: non-verbal. dry lips but per report is eating meals. reorder labs. continue current mgmt otherwise. 10/10: 10/09 lytes reassuring, lithium 0.46. no change in presentation, continue current mgmt. 10/11: mute. some saccades, otherwise immobile. continue current mgmt. 10/12: will benefit from court ordered tx vital signs ok. 10/13: no change in presentation. court tomorrow at 2. decrease ativan from 2 QID to 2 TID both to see if dose reduction changes behavior in any way and in preparation for requested order from the court for ECT. 10/14: noted to be openly masturbating in his room last night, not responsive to redirection by nursing staff. eating breakfast in bed today. nods on being asked if he would like to attend the hearing today. case discussed with SADA Cifuentes. Reason for continued inpatient stay Substantial Risk for: inability to function and med/psych decompensation Time Spent With Patient Time: Total time managing care of this patient today __45__ minutes.
[2023-10-15 20:08] VITALS: BP 106/59; PULSE 72; RESP 16; TEMP 37.2; O2SAT 98
[2023-10-15] MEDS: Lithium Carbonate ER 450 MG TABLET.ER 900 MG PO (21:44)
[2023-10-16 07:40] VITALS: BP 83/47; PULSE 70; RESP 14; TEMP 36.4; O2SAT 98
[2023-10-16] MEDS: LORazepam 1 MG TABLET 2 MG PO ×2 (09:41→21:00)
[2023-10-16] MEDS: OLANZapine 5 MG TABLET PO ×2 (09:42→21:01)
--- NOTE | 2023-10-16 10:27 | PC.NURSE ---
As of 10/15/23 pt is a [employer]
--- NOTE | 2023-10-16 12:06 | P.PNPSI_ITS ---
Subjective Subjective Date of Service: 10/16/23 Reason For Visit: catatonia depression Interim History: no responses to [facility] ECT plans. did tell RN when she attempted to get him out of bed for a shower, SHOWER, appearing to indicate he had already taken a shower. did ultimately get out of bed with RN help to shower, bed linens changed. per staff, taking meds, nodding, otherwise mute. slept 8 hours. Mental Status Exam Mental Status Exam Narrative: pt casually dressed lying in bed some eye contact. no verbal output. unable to assess thoughts. affect inert. unable to assess mood, SI/SIBI/HI/AVH. Diagnostics Vital Signs (24Hr): Vital Signs - 24 hr 10/15/23 20:08 10/16/23 07:40 Temperature 99.0 F 97.6 F Pulse Rate 72 70 Respiratory Rate 16 14 Blood Pressure 106/59 L 83/47 L Pulse Oximetry 98 98 Oxygen Delivery Method Room Air Room Air BMI result Body Mass Index 25.5 Labs 09/27/23 11:15 10/10/23 14:55 Medications Medications Current Medications Acetaminophen (Acetaminophen 325 Mg Tablet) 650 mg PO Q6H PRN PRN Reason: Headache/Pain Mild Scale (1-3) Al Hydroxide/Mg Hydroxide (Magnesium Hydrox/Alum Hydrox 30 Ml Oral.Susp) 30 ml PO Q6H PRN PRN Reason: Heartburn/Nausea Hydroxyzine HCl (Hydroxyzine Hcl 25 Mg Tablet) 25 mg PO Q6H PRN PRN Reason: Anxiety Last Admin: 10/05/23 20:18 Dose: 25 mg [place] Carbonate ([place] Carbonate Er 450 Mg Tablet.Er) 900 mg PO BEDTIME [facility] Last Admin: 10/15/23 21:44 Dose: 900 mg Lorazepam (Lorazepam 1 Mg Tablet) 2 mg PO BID [facility] Stop: 10/17/23 08:59 Lorazepam (Lorazepam 1 Mg Tablet) 1 mg PO TID [facility] Stop: 10/18/23 08:59 Lorazepam (Lorazepam 1 Mg Tablet) 1 mg PO BID [facility] Stop: 10/19/23 20:59 Magnesium Hydroxide (Milk Of Magnesia 30 Ml Oral.Susp) 30 ml PO DAILY PRN PRN Reason: Constipation Olanzapine (Olanzapine 5 Mg Tablet) 5 mg PO BID [facility] Last Admin: 10/16/23 09:42 Dose: 5 mg Trazodone HCl (Trazodone Hcl 50 Mg Tablet) 50 mg PO BEDTIME MRX1 PRN PRN Reason: Insomnia Last Admin: 10/05/23 20:18 Dose: 50 mg Allergies Allergies Allergy/AdvReac Type Severity Reaction Status Date / Time Unable to Assess Allergy Verified 09/23/23 15:14 Assessment & Plan Assessment & Plan (1) Catatonia: Status: Acute Code(s): F06.1 - Catatonic disorder due to known physiological condition Plan 09/23: ativan 2 mg QID. move for commitment and court ordered ECT. 09/24: no change in presentation or plan. remains catatonic, adequate PO intake for the moment. taking 8 mg ativan daily without appreciative improvement. 09/25: continue current management and treatment plan. 09/26: Checked labs. CBC without evidence of infection. Chemistries and LFT's stable. Continue monitoring and response to Ativan. 09/27: continue current management and treatment plan. 09/28: continue current mgmt. producing several monosyllabic answers to questions today. filed for commitment. 09/29: awaiting hearing. very modest response to high-dose ativan. hearing next thursday. continue current mgmt for now. 09/30: no change in presentation. continues to appear to take in adequate fluids and food. continue current mgmt. 10/01: outpt regimen of zyprexa 5 BID and lithium 900 QHS restarted. continue ativan [address] thursday. 10/04/23: Court date pending on 10/06/2023 and ?ECT. 10/04: court deferred to next week for SADA. stably catatonic but up for toileting and PO intake, periodically. refusing labs to check electrolytes. 10/05: pt refusing labs. per staff report, does have reasonable PO intake. court scheduled 10/14. continue current mgmt. 10/06: taking meds, modest PO intake. said, what's your name? today. continue current mgmt. 10/08/23 Patient taking medication remains generally nonverbal he did stand up was reportedly eating more would clearly benefit from ECT as becomes available 10/08: one word today, No, in response to request to check labs for lithium and lytes. continue current mgmt. awaiting court for ECT. 10/09: non-verbal. dry lips but per report is eating meals. reorder labs. continue current mgmt otherwise. 10/10: 8 lytes reassuring, lithium 0.46. no change in presentation, continue current mgmt. 10/11: mute. some saccades, otherwise immobile. continue current mgmt. 10/12: will benefit from court ordered tx vital signs ok. 10/13: no change in presentation. court tomorrow at 2. decrease ativan from 2 QID to 2 TID both to see if dose reduction changes behavior in any way and in preparation for requested order from the court for ECT. 10/14: noted to be openly masturbating in his room last night, not responsive to redirection by nursing staff. eating breakfast in bed today. nods on being asked if he would like to attend the hearing today. case discussed with SADA Cifuentes. hearing held, pt committed and ECT/meds ordered. 10/15: no change in presentation. taper benzos over w/e. medical clearance for ECT completed at admission by hospitalist service. planning for ECT #1 on thursday. Reason for continued inpatient stay Substantial Risk for: inability to function and med/psych decompensation Time Spent With Patient Time: Total time managing care of this patient today __25__ minutes.
[2023-10-16 20:00] VITALS: BP 98/54; PULSE 76; RESP 16; TEMP 36.6; O2SAT 96
[2023-10-16] MEDS: Lithium Carbonate ER 450 MG TABLET.ER 900 MG PO (21:00)
[2023-10-17 07:25] VITALS: BP 88/54; PULSE 75; RESP 14; TEMP 36.9; O2SAT 97
[2023-10-17] MEDS: LORazepam 1 MG TABLET PO ×3 (08:53→20:46)
[2023-10-17] MEDS: OLANZapine 5 MG TABLET PO ×2 (08:53→20:46)
--- NOTE | 2023-10-17 10:37 | HO.PSYCHPN ---
Subjective Subjective Date of Service: 10/17/23 Reason For Visit: catatonia depression Subjective Notes: Section 7 Interim History: Patient was seen and discussed in rounds today. Records and plans were reviewed. He continues to be on a rapid Ativan taper in preparation for ECT. Minimal response and did not engage. No complaints. No changes were made today Review of Systems Review of Systems Yes Unobtainable due to mental status Mental Status Exam Mental Status Exam Narrative: He was laying in bed with minimal verbal output and interaction. Diagnostics Vital Signs (24Hr): Vital Signs - 24 hr 10/16/23 20:00 10/17/23 07:25 Temperature 97.9 F 98.4 F Pulse Rate 76 75 Respiratory Rate 16 14 Blood Pressure 98/54 L 88/54 L Pulse Oximetry 96 97 Oxygen Delivery Method Room Air Room Air BMI result Body Mass Index 25.5 Labs 09/27/23 11:15 10/10/23 14:55 Medications Medications Current Medications Acetaminophen (Acetaminophen 325 Mg Tablet) 650 mg PO Q6H PRN PRN Reason: Headache/Pain Mild Scale (1-3) Al Hydroxide/Mg Hydroxide (Magnesium Hydrox/Alum Hydrox 30 Ml Oral.Susp) 30 ml PO Q6H PRN PRN Reason: Heartburn/Nausea Hydroxyzine HCl (Hydroxyzine Hcl 25 Mg Tablet) 25 mg PO Q6H PRN PRN Reason: Anxiety Last Admin: 10/05/23 20:18 Dose: 25 mg [place] Carbonate ([place] Carbonate Er 450 Mg Tablet.Er) 900 mg PO BEDTIME [facility] Last Admin: 10/16/23 21:00 Dose: 900 mg Lorazepam (Lorazepam 1 Mg Tablet) 1 mg PO TID [facility] Stop: 10/18/23 08:59 Last Admin: 10/17/23 08:53 Dose: 1 mg Lorazepam (Lorazepam 1 Mg Tablet) 1 mg PO BID [facility] Stop: 10/19/23 20:59 Magnesium Hydroxide (Milk Of Magnesia 30 Ml Oral.Susp) 30 ml PO DAILY PRN PRN Reason: Constipation Olanzapine (Olanzapine 5 Mg Tablet) 5 mg PO BID [facility] Last Admin: 10/17/23 08:53 Dose: 5 mg Trazodone HCl (Trazodone Hcl 50 Mg Tablet) 50 mg PO BEDTIME MRX1 PRN PRN Reason: Insomnia Last Admin: 10/05/23 20:18 Dose: 50 mg Allergies Allergies Allergy/AdvReac Type Severity Reaction Status Date / Time Unable to Assess Allergy Verified 09/23/23 15:14 Assessment & Plan Assessment & Plan (1) Catatonia: Status: Acute Code(s): F06.1 - Catatonic disorder due to known physiological condition Plan 09/23: ativan 2 mg QID. move for commitment and court ordered ECT. 09/24: no change in presentation or plan. remains catatonic, adequate PO intake for the moment. taking 8 mg ativan daily without appreciative improvement. 09/25: continue current management and treatment plan. 09/26: Checked labs. CBC without evidence of infection. Chemistries and LFT's stable. Continue monitoring and response to Ativan. 09/27: continue current management and treatment plan. 09/28: continue current mgmt. producing several monosyllabic answers to questions today. filed for commitment. 09/29: awaiting hearing. very modest response to high-dose ativan. hearing next thursday. continue current mgmt for now. 09/30: no change in presentation. continues to appear to take in adequate fluids and food. continue current mgmt. 10/01: outpt regimen of zyprexa 5 BID and lithium 900 QHS restarted. continue ativan [address] thursday. 10/04/23: Court date pending on 10/06/2023 and ?ECT. 10/04: court deferred to next week for SADA. stably catatonic but up for toileting and PO intake, periodically. refusing labs to check electrolytes. 10/05: pt refusing labs. per staff report, does have reasonable PO intake. court scheduled 10/14. continue current mgmt. 10/06: taking meds, modest PO intake. said, what's your name? today. continue current mgmt. 10/08/23 Patient taking medication remains generally nonverbal he did stand up was reportedly eating more would clearly benefit from ECT as becomes available 10/08: one word today, No, in response to request to check labs for lithium and lytes. continue current mgmt. awaiting court for ECT. 10/09: non-verbal. dry lips but per report is eating meals. reorder labs. continue current mgmt otherwise. 10/10: 10/09 lytes reassuring, lithium 0.46. no change in presentation, continue current mgmt. 10/11: mute. some saccades, otherwise immobile. continue current mgmt. 10/12: will benefit from court ordered tx vital signs ok. 10/13: no change in presentation. court tomorrow at 2. decrease ativan from 2 QID to 2 TID both to see if dose reduction changes behavior in any way and in preparation for requested order from the court for ECT. 10/14: noted to be openly masturbating in his room last night, not responsive to redirection by nursing staff. eating breakfast in bed today. nods on being asked if he would like to attend the hearing today. case discussed with SADA Cifuentes. hearing held, pt committed and ECT/meds ordered. 10/15: no change in presentation. taper benzos over w/e. medical clearance for ECT completed at admission by hospitalist service. planning for ECT #1 on thursday morning. Continue current plans and regimen Reason for continued inpatient stay Substantial Risk for: inability to function and rapid decompensation Time Spent With Patient Time: Total time managing care of this patient today ____ minutes.
[2023-10-17 20:00] VITALS: BP 117/55; PULSE 81; RESP 16; TEMP 37.1; O2SAT 100
[2023-10-17] MEDS: Lithium Carbonate ER 450 MG TABLET.ER 900 MG PO (20:46)
[2023-10-18 08:41] VITALS: BP 91/51; PULSE 64; RESP 14; TEMP 36.9; O2SAT 97
[2023-10-18] MEDS: OLANZapine 5 MG TABLET PO ×2 (08:57→22:32)
--- NOTE | 2023-10-18 09:55 | P.PNPSI_ITS ---
Subjective Subjective Date of Service: 10/18/23 Reason For Visit: catatonia depression Subjective Notes: Section 7 Interim History: Patient was seen and discussed in rounds today. Records and plans were reviewed. He has been stable and continues with ECT treatment. Ativan is being rapidly tapered and no lithium for the CT preparation. Eating and sleeping adequately. No behavioral issues. No changes were made Review of Systems Review of Systems Yes all other systems are reviewed and are negative Mental Status Exam Mental Status Exam Narrative: He was laying in bed with minimal verbal output and interaction. Diagnostics Vital Signs (24Hr): Vital Signs - 24 hr 10/17/23 20:00 10/18/23 08:41 Temperature 98.8 F 98.5 F Pulse Rate 81 64 Respiratory Rate 16 14 Blood Pressure 117/55 L 91/51 L Pulse Oximetry 100 97 Oxygen Delivery Method Room Air Room Air BMI result Body Mass Index 25.5 Labs 09/27/23 11:15 10/10/23 14:55 Medications Medications Current Medications Acetaminophen (Acetaminophen 325 Mg Tablet) 650 mg PO Q6H PRN PRN Reason: Headache/Pain Mild Scale (1-3) Al Hydroxide/Mg Hydroxide (Magnesium Hydrox/Alum Hydrox 30 Ml Oral.Susp) 30 ml PO Q6H PRN PRN Reason: Heartburn/Nausea Hydroxyzine HCl (Hydroxyzine Hcl 25 Mg Tablet) 25 mg PO Q6H PRN PRN Reason: Anxiety Last Admin: 10/05/23 20:18 Dose: 25 mg [place] Carbonate ([place] Carbonate Er 450 Mg Tablet.Er) 900 mg PO BEDTIME [facility] Last Admin: 10/17/23 20:46 Dose: 900 mg Lorazepam (Lorazepam 1 Mg Tablet) 1 mg PO BID [facility] Stop: 10/19/23 20:59 Magnesium Hydroxide (Milk Of Magnesia 30 Ml Oral.Susp) 30 ml PO DAILY PRN PRN Reason: Constipation Olanzapine (Olanzapine 5 Mg Tablet) 5 mg PO BID [facility] Last Admin: 10/18/23 08:57 Dose: 5 mg Trazodone HCl (Trazodone Hcl 50 Mg Tablet) 50 mg PO BEDTIME MRX1 PRN PRN Reason: Insomnia Last Admin: 10/05/23 20:18 Dose: 50 mg Allergies Allergies Allergy/AdvReac Type Severity Reaction Status Date / Time Unable to Assess Allergy Verified 09/23/23 15:14 Assessment & Plan Assessment & Plan (1) Catatonia: Status: Acute Code(s): F06.1 - Catatonic disorder due to known physiological condition Plan 09/23: ativan 2 mg QID. move for commitment and court ordered ECT. 09/24: no change in presentation or plan. remains catatonic, adequate PO intake for the moment. taking 8 mg ativan daily without appreciative improvement. 09/25: continue current management and treatment plan. 09/26: Checked labs. CBC without evidence of infection. Chemistries and LFT's stable. Continue monitoring and response to Ativan. 09/27: continue current management and treatment plan. 09/28: continue current mgmt. producing several monosyllabic answers to questions today. filed for commitment. 09/29: awaiting hearing. very modest response to high-dose ativan. hearing next thursday. continue current mgmt for now. 09/30: no change in presentation. continues to appear to take in adequate fluids and food. continue current mgmt. 10/01: outpt regimen of zyprexa 5 BID and lithium 900 QHS restarted. continue ativan [address] thursday. 10/04/23: Court date pending on 10/06/2023 and ?ECT. 10/04: court deferred to next week for SADA. stably catatonic but up for toileting and PO intake, periodically. refusing labs to check electrolytes. 10/05: pt refusing labs. per staff report, does have reasonable PO intake. court scheduled 10/14. continue current mgmt. 10/06: taking meds, modest PO intake. said, what's your name? today. continue current mgmt. 10/08/23 Patient taking medication remains generally nonverbal he did stand up was reportedly eating more would clearly benefit from ECT as becomes available 10/08: one word today, No, in response to request to check labs for lithium and lytes. continue current mgmt. awaiting court for ECT. 10/09: non-verbal. dry lips but per report is eating meals. reorder labs. continue current mgmt otherwise. 10/10: 10/09 lytes reassuring, lithium 0.46. no change in presentation, continue current mgmt. 10/11: mute. some saccades, otherwise immobile. continue current mgmt. 10/12: will benefit from court ordered tx vital signs ok. 10/13: no change in presentation. court tomorrow at 2. decrease ativan from 2 QID to 2 TID both to see if dose reduction changes behavior in any way and in preparation for requested order from the court for ECT. 10/14: noted to be openly masturbating in his room last night, not responsive to redirection by nursing staff. eating breakfast in bed today. nods on being asked if he would like to attend the hearing today. case discussed with SADA Cifuentes. hearing held, pt committed and ECT/meds ordered. 10/15: no change in presentation. taper benzos over w/e. medical clearance for ECT completed at admission by hospitalist service. planning for ECT #1 on thursday morning. 10/16:Continue current plans and regimen 10/17: Continue current plans and regimen. Reason for continued inpatient stay Substantial Risk for: inability to function and rapid decompensation Time Spent With Patient Time: Total time managing care of this patient today ____ minutes.
[2023-10-18 20:14] VITALS: BP 110/59; PULSE 72; RESP 16; TEMP 37.2; O2SAT 97
--- NOTE | 2023-10-18 22:28 | PC.NURSE ---
Provider contacted to confirm if pt ok to receive scheduled lorazepam at HS, as he is scheduled to have ECT tomorrow. OK to give, per Dr. Henderson.
[2023-10-18] MEDS: LORazepam 1 MG TABLET PO (22:32)
[2023-10-19] VITALS (14 sets, daily range): BP systolic 95–134; BP diastolic 51–80; PULSE 55–110; RESP 12–19; TEMP 36.2–38.6; O2SAT 94–98
--- NOTE | 2023-10-19 07:51 | HO.ANESPROP2 ---
[facility] Active Problems Active Problems: All Active Problems Catatonia (Acute) Routine medical exam (Acute) Past Medical History Medical History (Updated 09/23/23 @ 16:19 by ELENA Sung) No pertinent past medical history Family History Family history of problems with anesthesia: No Surgical History History of Problems with Anesthesia: No Social History Social History Household Members: Other Household Members Other:: Unknown Do you presently have visiting nurse or other home services: No (Unknown) Comment: pt on 5 min safety checks Patient Tobacco Use Status: Never used Tobacco Smoked in Last 30 Days: No e-Cigarette/Vaping Use: Never Used Patient Interested in Nicotine Replacement: No Patient Given Instructions on How to Stop Smoking: No Second Hand Smoke Exposure: No Use of substances other than those prescribed or required for medical reasons: No Currently Displaying Signs/Symptoms of Drug Intoxication Withdrawal: No Any prior treatment program specific to substance use: No Advance Directives: No Advance Directives Information Provided: No (Medical Condition) Do you have thoughts of harming others: None Do you have a plan to hurt others: No Plan Recently lost weight without trying: Unsure Nutrition Risks: No Nutritional Risk Poor oral hygiene: Yes Sexual orientation: Unable to collect Meds Allergies Allergy/AdvReac Type Severity Reaction Status Date / Time Unable to Assess Allergy Verified 09/23/23 15:14 Active Medications: Current Medications Acetaminophen (Acetaminophen 325 Mg Tablet) 650 mg PO Q6H PRN PRN Reason: Headache/Pain Mild Scale (1-3) Al Hydroxide/Mg Hydroxide (Magnesium Hydrox/Alum Hydrox 30 Ml Oral.Susp) 30 ml PO Q6H PRN PRN Reason: Heartburn/Nausea Hydroxyzine HCl (Hydroxyzine Hcl 25 Mg Tablet) 25 mg PO Q6H PRN PRN Reason: Anxiety Last Admin: 10/05/23 20:18 Dose: 25 mg [place] Carbonate ([place] Carbonate Er 450 Mg Tablet.Er) 900 mg PO BEDTIME [facility] Last Admin: 10/18/23 20:06 Dose: Not Given Lorazepam (Lorazepam 1 Mg Tablet) 1 mg PO BID [facility] Stop: 10/19/23 20:59 Last Admin: 10/18/23 22:32 Dose: 1 mg Magnesium Hydroxide (Milk Of Magnesia 30 Ml Oral.Susp) 30 ml PO DAILY PRN PRN Reason: Constipation Olanzapine (Olanzapine 5 Mg Tablet) 5 mg PO BID [facility] Last Admin: 10/18/23 22:32 Dose: 5 mg Trazodone HCl (Trazodone Hcl 50 Mg Tablet) 50 mg PO BEDTIME MRX1 PRN PRN Reason: Insomnia Last Admin: 10/05/23 20:18 Dose: 50 mg Home Medications ?Medication ?Instructions ?Recorded ?Confirmed ?Last Taken ?Type No Known Home Meds 10/09/23 10/09/23 Unknown History Exam Height,Weight and Vital Signs: Height 5 ft 5 in Weight 69.49 kg Last Vital Signs Temp 98.5 F 10/19/23 07:41 Pulse 55 10/19/23 07:41 Resp 16 10/19/23 07:41 BP 95/56 L 10/19/23 07:41 Pulse Ox 97 10/19/23 07:41 O2 Del Method Room Air 10/18/23 20:14 Pertinent Lab Results Pertinent Lab Results: Laboratory Tests 09/23/23 09/27/23 10/10/23 02:20 11:15 14:55 WBC 6.1 RBC 4.83 Hgb 15.0 Hct 44.6 MCV 92.3 MCH 31.1 MCHC 33.6 RDW 11.8 Plt Count 300 MPV 8.9 L Immature Gran % (Auto) 0.5 H Neut % (Auto) 71.0 Lymph % (Auto) 22.0 [place] % (Auto) 4.2 Eos % (Auto) 1.8 Baso % (Auto) 0.5 Lymph # (Auto) 1.4 [place] # (Auto) 0.3 Eos # (Auto) 0.1 Baso # (Auto) 0.0 Abs Immat Gran (auto) 0.03 Absolute Neuts (auto) 4.4 Absolute Nucleated RBC 0.000 Nucleated RBC % (auto) 0.0 Sodium 142 141 Potassium 3.8 3.6 Chloride 105 109 H Carbon Dioxide 28 24 Anion Gap 13 12 BUN 8 L 9 Creatinine 0.79 0.86 Estim Creat Clear Calc 126.5 116.2 Estimated GFR > 60 > 60 Random Glucose 112 110 Calcium 9.3 9.7 Total Bilirubin 0.4 Direct Bilirubin 0.2 AST 10 ALT 9 Alkaline Phosphatase 61 Total Creatine Kinase 66 Total Protein 7.2 Albumin 4.3 [place] 0.46 L Influenza Type A (PCR) NEGATIVE Influenza Type B (PCR) NEGATIVE RSV RNA Qual (PCR) NEGATIVE SARS-CoV-2 RNA (RT-PCR) NEGATIVE Airway Mallampati Class: Patient Non-Cooperative TM Dist: >3cm Neck ROM: Full Heart: rrr Lungs: cta Assessment and Plan Assessment Anesthesia Assessment: Anesthesia Plan Discussed and Chart Reviewed Final Anesthetic Review Family History of Problems with Anesthesia: No History of Problems with Anesthesia: No NPO: Yes ASA Class: III Final Preanesthetic Review: No Changes in Pt Med Stat, Meds/Allgs Chart Reviewed and Consent Obtained/Reviewed Patient Risk: Intermediate Procedure Risk: Intermediate Anesthetic Plan Anesthetic Plan: GA Disposition: Standard PACU
--- NOTE | 2023-10-19 07:56 | MHC.SHP ---
Pre-Procedural Eval Section A - 24 Hr Update-Section A only Date of Service: 10/19/23 The patient is an INPATIENT: Yes Changes since office visit: No Cold of Flu in the past 2 weeks, No New Medical Problems, No Changes in Medication and No Patient answered all questions The patient has been examined within 24 hours of the surgical procedure. The History & Physical has been completed within 30 days and I have reviewed it.: Yes Section B - Complete if H&P > 30 days Chief Complaint: catatonia depression Details of Present Illness: The patient is awake but non-verbal, catatonic. ECT court ordered since the patient can't consent due to catatonia Relevant Family History (Specify if Yes): No Relevant Social History: None Present Medications: see Short Stay Collaborative assessment Medical History: No relevant PMH History of Previous Operations: No relevant previous surgery Allergies: Allergies Allergy/AdvReac Type Severity Reaction Status Date / Time Unable to Assess Allergy Verified 09/23/23 15:14 Review of Systems Sugical H&P ROS: Negative: Constitution, Cardiovascular, Respiratory, Neurological, Psychiatric, Hem-Onc, Allergic/Immunologic, Gastrointestinal, Genitourinary, Musculoskeletal, Integumentary, Endocrine and Eyes/Ears/Nose/Throat Exam Surgical H&P Exam: Normal: HEENT, Normal: Heart, Normal: Lungs, Normal: Extremities, Normal: Abdomen, Normal: Skin and Normal: Neurological Plan Diagnosis/Plan: Unchanged I have reviewed the history and physical and performed a pertinent physical examination on my patient. No changes have occurred unless specified. Time Spent With Patient Time: Total time managing care of this patient today __20__ minutes.
--- NOTE | 2023-10-19 08:16 | HO.ECTPROC ---
ECT Procedure Note Diagnosis/Treatment Date of Service: 10/19/23 Diagnosis: Catatonia Current Treatment Number: 1 Treatment: Series Interval Clinical Notes: Patient is catatonic, non-verbal at all, ECT court ordered. ECT done with bitermporakl 0.25 at 70%, seizure for at least 31s by EEG and motor for28s. Versed used after procedure due to catatonia. No complications, woke up without problems. Time: Total time managing care of this patient today ____ minutes. ECT Settings Device: THYMATRON DGx Electrode Placement: Bitemporal Program/Pulse Width: 0.25 Energy Percent: 70 Seizure Duration By EEG (in seconds): 31 By Motor Observation (in seconds): 28 Medications Administration General Anesthetic: Etomidate (16) Muscle Relaxant: Succinylcholine (100) Ancillary Medications Analgesics: Torodol - Pre ECT Anti-emetics: Zofran - Pre ECT Miscillaneous Medications: Midazolam (2 mg IVP after ECT) Airway Management Airway Management: Bag Mask Ventilation Treatment Recommendations No Changes Recommended: No change Pt Tolerated Procedure w/o Issue: Yes
[2023-10-19] MEDS: OLANZapine 5 MG TABLET PO ×2 (09:59→22:44)
[2023-10-19] MEDS: LORazepam 1 MG TABLET PO ×2 (09:59→22:44)
--- NOTE | 2023-10-19 14:16 | HO.PSYCHPN ---
Subjective Subjective Date of Service: 10/19/23 Reason For Visit: catatonia depression Interim History: seen with med student esperanza. seen lying in his bed post-ECT. asleep, but briefly rousable. able to respond to questions with gestures, vocalized at least once. then fell back asleep. per staff, non-verbal going into ECT, spoke with LINDSEY Dale in a complete sentence afterward. Mental Status Exam Mental Status Exam Narrative: pt casually dressed lying in bed. no eye contact. minimal verbal output, but responding to questions with gestures of his head. affect inert. unable to assess mood, SI/SIBI/HI/AVH. Diagnostics Vital Signs (24Hr): Vital Signs - 24 hr 10/18/23 20:14 10/19/23 07:41 10/19/23 07:55 Temperature 98.9 F 98.5 F 98.5 F Pulse Rate 72 55 55 Respiratory Rate 16 16 18 Blood Pressure 110/59 L 95/56 L 95/56 L Pulse Oximetry 97 97 97 Oxygen Delivery Method Room Air Room Air Oxygen Flow Rate 10/19/23 08:00 10/19/23 08:23 10/19/23 08:28 Temperature 98.6 F 97.8 F Pulse Rate 81 98 91 Respiratory Rate 14 19 14 Blood Pressure 107/61 134/79 125/80 Pulse Oximetry 95 94 96 Oxygen Delivery Method Room Air Nasal Cannula with ETCO2 Nasal Cannula with ETCO2 Oxygen Flow Rate 2 2 10/19/23 08:33 10/19/23 08:38 10/19/23 08:53 Temperature Pulse Rate 91 94 104 H Respiratory Rate 15 18 15 Blood Pressure 132/76 127/77 132/79 Pulse Oximetry 96 96 95 Oxygen Delivery Method Nasal Cannula with ETCO2 Nasal Cannula with ETCO2 Room Air Oxygen Flow Rate 2 2 10/19/23 09:08 10/19/23 09:19 10/19/23 09:40 Temperature 97.2 F 97.2 F 98.6 F Pulse Rate 80 87 57 Respiratory Rate 16 16 12 Blood Pressure 117/73 120/70 106/70 Pulse Oximetry 95 95 98 Oxygen Delivery Method Room Air Room Air Room Air Oxygen Flow Rate 10/19/23 09:40 Temperature 98.6 F Pulse Rate 81 Respiratory Rate 14 Blood Pressure 107/61 Pulse Oximetry 95 Oxygen Delivery Method Oxygen Flow Rate BMI result Body Mass Index 25.5 Labs 09/27/23 11:15 10/10/23 14:55 Medications Medications Current Medications Acetaminophen (Acetaminophen 325 Mg Tablet) 650 mg PO Q6H PRN PRN Reason: Headache/Pain Mild Scale (1-3) Al Hydroxide/Mg Hydroxide (Magnesium Hydrox/Alum Hydrox 30 Ml Oral.Susp) 30 ml PO Q6H PRN PRN Reason: Heartburn/Nausea Hydroxyzine HCl (Hydroxyzine Hcl 25 Mg Tablet) 25 mg PO Q6H PRN PRN Reason: Anxiety Last Admin: 10/05/23 20:18 Dose: 25 mg [place] Carbonate ([place] Carbonate Er 450 Mg Tablet.Er) 900 mg PO BEDTIME PAM Last Admin: 10/18/23 20:06 Dose: Not Given Lorazepam (Lorazepam 1 Mg Tablet) 1 mg PO BID PAM Stop: 10/19/23 20:59 Last Admin: 10/19/23 09:59 Dose: 1 mg Magnesium Hydroxide (Milk Of Magnesia 30 Ml Oral.Susp) 30 ml PO DAILY PRN PRN Reason: Constipation Olanzapine (Olanzapine 5 Mg Tablet) 5 mg PO BID [facility] Last Admin: 10/19/23 09:59 Dose: 5 mg Trazodone HCl (Trazodone Hcl 50 Mg Tablet) 50 mg PO BEDTIME MRX1 PRN PRN Reason: Insomnia Last Admin: 10/05/23 20:18 Dose: 50 mg Allergies Allergies Allergy/AdvReac Type Severity Reaction Status Date / Time Unable to Assess Allergy Verified 09/23/23 15:14 Assessment & Plan Assessment & Plan (1) Catatonia: Status: Acute Code(s): F06.1 - Catatonic disorder due to known physiological condition Plan 09/23: ativan 2 mg QID. move for commitment and court ordered ECT. 09/24: no change in presentation or plan. remains catatonic, adequate PO intake for the moment. taking 8 mg ativan daily without appreciative improvement. 09/25: continue current management and treatment plan. 09/26: Checked labs. CBC without evidence of infection. Chemistries and LFT's stable. Continue monitoring and response to Ativan. 09/27: continue current management and treatment plan. 09/28: continue current mgmt. producing several monosyllabic answers to questions today. filed for commitment. 09/29: awaiting hearing. very modest response to high-dose ativan. hearing next thursday. continue current mgmt for now. 09/30: no change in presentation. continues to appear to take in adequate fluids and food. continue current mgmt. 10/01: outpt regimen of zyprexa 5 BID and lithium 900 QHS restarted. continue ativan [address] thursday. 10/04/23: Court date pending on 10/06/2023 and ?ECT. 10/04: court deferred to next week for SADA. stably catatonic but up for toileting and PO intake, periodically. refusing labs to check electrolytes. 10/05: pt refusing labs. per staff report, does have reasonable PO intake. court scheduled 10/14. continue current mgmt. 10/06: taking meds, modest PO intake. said, what's your name? today. continue current mgmt. 10/08/23 Patient taking medication remains generally nonverbal he did stand up was reportedly eating more would clearly benefit from ECT as becomes available 10/08: one word today, No, in response to request to check labs for lithium and lytes. continue current mgmt. awaiting court for ECT. 10/09: non-verbal. dry lips but per report is eating meals. reorder labs. continue current mgmt otherwise. 10/10: 10/09 lytes reassuring, lithium 0.46. no change in presentation, continue current mgmt. 10/11: mute. some saccades, otherwise immobile. continue current mgmt. 10/12: will benefit from court ordered tx vital signs ok. 10/13: no change in presentation. court tomorrow at 2. decrease ativan from 2 QID to 2 TID both to see if dose reduction changes behavior in any way and in preparation for requested order from the court for ECT. 10/14: noted to be openly masturbating in his room last night, not responsive to redirection by nursing staff. eating breakfast in bed today. nods on being asked if he would like to attend the hearing today. case discussed with SADA Cifuentes. hearing held, pt committed and ECT/meds ordered. 10/15: no change in presentation. taper benzos over w/e. medical clearance for ECT completed at admission by hospitalist service. planning for ECT #1 on thursday morning. 10/16:Continue current plans and regimen 10/17: Continue current plans and regimen. 10/18: more verbal immediately after ECT #1 today, many more and more rapid responses to questions via head gestures as well. Reason for continued inpatient stay Substantial Risk for: inability to function and rapid decompensation Time Spent With Patient Time: Total time managing care of this patient today __25__ minutes.
[2023-10-19] MEDS: Acetaminophen 325 MG TABLET 650 MG PO (20:36)
[2023-10-19] MEDS: Lithium Carbonate ER 450 MG TABLET.ER 900 MG PO (22:44)
[2023-10-20 07:43] VITALS: BP 100/56; PULSE 100; RESP 14; TEMP 37.4; O2SAT 96
[2023-10-20] MEDS: OLANZapine 5 MG TABLET PO ×2 (08:39→20:58)
[2023-10-20] MEDS: Acetaminophen 325 MG TABLET 650 MG PO ×2 (08:43→20:59)
--- NOTE | 2023-10-20 08:43 | HO.POSTANES ---
Post Anesthesia Evaluation Post Anesthesia Evaluation Date of Service: 10/19/23 Vital Signs: Vital Signs Temp Pulse Resp BP Pulse Ox O2 Del Method 10/20/23 07:43 99.3 F 100 14 100/56 L 96 Room Air 10/19/23 22:45 99.6 F 10/19/23 21:50 100.2 F Anesthesia: General Mental Status: Awake Pain Control: Satisfactory Nausea/Vomiting: None Anesthesia-Related Issues: No Anes. Related Issues
[2023-10-20 08:49] VITALS: TEMP 38.1
[2023-10-20 10:45] VITALS: TEMP 37.9
[2023-10-20 14:24] LABS: MANUAL DIFF FLAG NO
[2023-10-20 14:27] LABS: Basophils Percent Auto 0.3 % (0-2); Eosinophils Absolute Auto 0.4 X10*3/uL (0.0-0.4); Eosinophils Percent Auto 3.4 % (0-4); Hematocrit 41.2 % (42.0-52.0); Hemoglobin 14.5 g/dl (14.0-18.0); Imm Gran Abs Auto 0.04 X10*3/uL (0.00-0.03); Imm Gran Pct Auto 0.3 % (0.0-0.4); Lymphocytes Absolute Auto 1.4 X10*3/uL (1.2-4.9); Mean Corpuscular HGB Conc 35.2 g/dl (31.0-36.0); Mean Corpuscular Hemoglobin 31.3 pg (27.0-33.0); Mean Corpuscular Volume 88.8 fL (80.0-98.0); Monocytes Absolute Auto 0.7 X10*3/uL (0.1-1.2); Monocytes Percent Auto 5.7 % (2-11); Neutrophils Absolute Auto 9.1 x10*3/uL (2.0-8.3); Neutrophils Percent Auto 78.3 % (45-73); Platelet Count 263 X10*3/uL (160-400); Red Blood Count 4.64 X10*6/uL (4.60-5.80); Red Cell Distribution Width 11.7 % (11.0-16.0); White Blood Count 11.7 X10*3/uL (4.8-10.8)
[2023-10-20 14:43] LABS: Anion Gap 11 (12-20); Blood Urea Nitrogen 10 mg/dL (9-16); Calcium 9.3 mg/dL (8.4-10.2); Carbon Dioxide 27 mmol/L (22-29); Chloride 108 mmol/L (96-108); Creatinine Clr Calc Pharmacy 104.1; Estimated Glomerular Filt Rate > 60; Glucose Random 106 mg/dL (60-115); Potassium 3.7 mmol/L (3.3-5.1); Sodium 142 mmol/L (135-145)
--- NOTE | 2023-10-20 14:54 | P.PNPSI_ITS ---
Subjective Subjective Date of Service: 10/20/23 Reason For Visit: catatonia depression Interim History: more responsive again today, but barely verbal. denies any pain. does c/o some sweatiness. lying in bed. per staff, T101.6 last night. taking lots of fluids. BP 100/56 P 100. per labs, has elevated WBC with PMNs predominant. Mental Status Exam Mental Status Exam Narrative: pt casually dressed lying in bed. slight eye contact. minimal verbal output, but responding to questions with gestures of his head. affect inert. unable to assess mood, SI/SIBI/HI/AVH. Diagnostics Vital Signs (24Hr): Vital Signs - 24 hr 10/19/23 19:42 10/19/23 21:50 10/19/23 22:45 Temperature 101.4 F H 100.2 F 99.6 F Pulse Rate 110 H Respiratory Rate 16 Blood Pressure 99/51 L Pulse Oximetry 94 Oxygen Delivery Method Room Air 10/20/23 07:43 10/20/23 08:49 10/20/23 10:45 Temperature 99.3 F 100.5 F H 100.3 F Pulse Rate 100 Respiratory Rate 14 Blood Pressure 100/56 L Pulse Oximetry 96 Oxygen Delivery Method Room Air BMI result Body Mass Index 25.5 Labs 10/20/23 14:13 10/20/23 14:13 Labs: Laboratory Results - last 48 hr 10/20/23 14:13 WBC 11.7 H RBC 4.64 Hgb 14.5 Hct 41.2 L MCV 88.8 MCH 31.3 MCHC 35.2 RDW 11.7 Plt Count 263 MPV 9.0 L Immature Gran % (Auto) 0.3 Neut % (Auto) 78.3 H Lymph % (Auto) 12.0 L [place] % (Auto) 5.7 Eos % (Auto) 3.4 Baso % (Auto) 0.3 Lymph # (Auto) 1.4 [place] # (Auto) 0.7 Eos # (Auto) 0.4 Baso # (Auto) 0.0 Abs Immat Gran (auto) 0.04 H Absolute Neuts (auto) 9.1 H Absolute Nucleated RBC 0.000 Nucleated RBC % (auto) 0.0 Sodium 142 Potassium 3.7 Chloride 108 Carbon Dioxide 27 Anion Gap 11 L BUN 10 Creatinine 0.96 Estim Creat Clear Calc 104.1 Estimated GFR > 60 Random Glucose 106 Calcium 9.3 Medications Medications Current Medications Acetaminophen (Acetaminophen 325 Mg Tablet) 650 mg PO Q6H PRN PRN Reason: Headache/Pain Mild Scale (1-3) Last Admin: 10/20/23 08:43 Dose: 650 mg Al Hydroxide/Mg Hydroxide (Magnesium Hydrox/Alum Hydrox 30 Ml Oral.Susp) 30 ml PO Q6H PRN PRN Reason: Heartburn/Nausea Hydroxyzine HCl (Hydroxyzine Hcl 25 Mg Tablet) 25 mg PO Q6H PRN PRN Reason: Anxiety Last Admin: 10/05/23 20:18 Dose: 25 mg [place] Carbonate ([place] Carbonate Er 450 Mg Tablet.Er) 900 mg PO BEDTIME PAM Last Admin: 10/19/23 22:44 Dose: 900 mg Magnesium Hydroxide (Milk Of Magnesia 30 Ml Oral.Susp) 30 ml PO DAILY PRN PRN Reason: Constipation Olanzapine (Olanzapine 5 Mg Tablet) 5 mg PO BID PAM Last Admin: 10/20/23 08:39 Dose: 5 mg Trazodone HCl (Trazodone Hcl 50 Mg Tablet) 50 mg PO BEDTIME MRX1 PRN PRN Reason: Insomnia Last Admin: 10/05/23 20:18 Dose: 50 mg Allergies Allergies Allergy/AdvReac Type Severity Reaction Status Date / Time Unable to Assess Allergy Verified 09/23/23 15:14 Assessment & Plan Assessment & Plan (1) Catatonia: Status: Acute Code(s): F06.1 - Catatonic disorder due to known physiological condition Plan 09/23: ativan 2 mg QID. move for commitment and court ordered ECT. 09/24: no change in presentation or plan. remains catatonic, adequate PO intake for the moment. taking 8 mg ativan daily without appreciative improvement. 09/25: continue current management and treatment plan. 09/26: Checked labs. CBC without evidence of infection. Chemistries and LFT's stable. Continue monitoring and response to Ativan. 09/27: continue current management and treatment plan. 09/28: continue current mgmt. producing several monosyllabic answers to questions today. filed for commitment. 09/29: awaiting hearing. very modest response to high-dose ativan. hearing next thursday. continue current mgmt for now. 09/30: no change in presentation. continues to appear to take in adequate fluids and food. continue current mgmt. 10/01: outpt regimen of zyprexa 5 BID and lithium 900 QHS restarted. continue ativan [address] thursday. 10/04/23: Court date pending on 10/06/2023 and ?ECT. 10/04: court deferred to next week for SADA. stably catatonic but up for toileting and PO intake, periodically. refusing labs to check electrolytes. 10/05: pt refusing labs. per staff report, does have reasonable PO intake. court scheduled 10/14. continue current mgmt. 10/06: taking meds, modest PO intake. said, what's your name? today. continue current mgmt. 10/08/23 Patient taking medication remains generally nonverbal he did stand up was reportedly eating more would clearly benefit from ECT as becomes available 10/08: one word today, No, in response to request to check labs for lithium and lytes. continue current mgmt. awaiting court for ECT. 10/09: non-verbal. dry lips but per report is eating meals. reorder labs. continue current mgmt otherwise. 10/10: 10/09 lytes reassuring, lithium 0.46. no change in presentation, continue current mgmt. 10/11: mute. some saccades, otherwise immobile. continue current mgmt. 10/12: will benefit from court ordered tx vital signs ok. 10/13: no change in presentation. court tomorrow at 2. decrease ativan from 2 QID to 2 TID both to see if dose reduction changes behavior in any way and in preparation for requested order from the court for ECT. 10/14: noted to be openly masturbating in his room last night, not responsive to redirection by nursing staff. eating breakfast in bed today. nods on being asked if he would like to attend the hearing today. case discussed with SADA Cifuentes. hearing held, pt committed and ECT/meds ordered. 10/15: no change in presentation. taper benzos over w/e. medical clearance for ECT completed at admission by hospitalist service. planning for ECT #1 on thursday morning. 10/16:Continue current plans and regimen 10/17: Continue current plans and regimen. 10/18: more verbal immediately after ECT #1 today, many more and more rapid responses to questions via head gestures as well. 10/19: febrile, elevated WBC. medicine consult called. continues more responsive today than prior. continue current mgmt pending medicine recs. Reason for continued inpatient stay Substantial Risk for: inability to function and med/psych decompensation Time Spent With Patient Time: Total time managing care of this patient today __25__ minutes.
--- NOTE | 2023-10-20 15:09 | PM.EVENT ---
Event Note Date of Service: 10/20/23 Event Note: 23-year-old male admitted to adult Psychiatry with consult placed hospitalist service to evaluate for possible occult infection. The patient underwent 1st ECT session yesterday morning. Since then has developed intermittent fevers up to 101.4 with associated intermittent tachycardia. This morning febrile to 100.5. Hematology studies significant for leukocytosis of 11.7. However renal function electrolyte levels are normal. The patient himself has no complaints but is catatonic and is a limited historian. Per nursing report, the patient has been eating slightly less. However, no observed or reported abdominal pain, nausea, vomiting, diarrhea, dysuria, hematuria, increased urinary frequency or urgency, cough, shortness of breath, chest pain. Will evaluate for possible infection with UA, CXR, respiratory panel. However, discuss with psychiatry is also possible that low-grade fevers may be related to the ECT procedure itself. However discussed, that given associated behavior change including decreased appetite, should also rule out infection. Will continue following Time Spent With Patient Time: Total time managing care of this patient today ____ minutes.
[2023-10-20 18:04] LABS: Appearance Urine Clear; Color Urine Yellow; Glucose Urine UA Negative (Negative); Leukocyte Esterase Urine Negative (Negative); Nitrite Urine Negative (Negative); Specific Gravity - Urine 1.015 (1.005-1.025); UMIC TRIGGER UACC YES; Urine Blood Trace (Negative); Urine Ketones Negative (Negative); Urine Protein Negative (Neg-Trace)
[2023-10-20 18:08] LABS: Bacteria Urine None Seen (None Seen); Hyaline Casts Urine 0-2 /LPF (0-2); Squamous Epithelial Cell Urine 0-2 /HPF (0-2); WBC Urine 0-5 /HPF (0-5)
[2023-10-20 20:00] VITALS: BP 99/59; PULSE 80; RESP 18; TEMP 37.4; O2SAT 97
[2023-10-20 21:01] VITALS: TEMP 37.2
--- NOTE | 2023-10-20 21:38 | PC.NURSE ---
Attila was given Tylenol PO prn for generalized aches and pains.
[2023-10-21] VITALS (14 sets, daily range): BP systolic 85–123; BP diastolic 50–76; PULSE 54–97; RESP 10–18; TEMP 36.1–37.2; O2SAT 93–98
[2023-10-21] MEDS: OLANZapine 5 MG TABLET PO ×2 (08:43→20:39)
[2023-10-21 08:51] LABS: Adenovirus PCR Not Detected (Not Detect.); Bordetella parapertussis PCR Not Detected (Not Detect.); Bordetella pertussis PCR Not Detected (Not Detect.); Chlamydia pneumoniae PCR Not Detected (Not Detect.); Coronavirus 229E PCR Not Detected (Not Detect.); Coronavirus HKU1 PCR Not Detected (Not Detect.); Coronavirus NL63 PCR Not Detected (Not Detect.); Coronavirus OC43 PCR Not Detected (Not Detect.); Human metapneumovirus PCR Not Detected (Not Detect.); Influenza A PCR Not Detected (Not Detect.); Influenza B PCR Not Detected (Not Detect.); Mycoplasma pneumoniae PCR Not Detected (Not Detect.); Parainfluenza 1 PCR Not Detected (Not Detect.); Parainfluenza 2 PCR Not Detected (Not Detect.); Parainfluenza 3 PCR Not Detected (Not Detect.); Parainfluenza 4 PCR Not Detected (Not Detect.); RSV PCR Not Detected (Not Detect.); Rhino/Enterovirus PCR Not Detected (Not Detect.)
[2023-10-21 09:12] LABS: SARS-CoV-2 PCR Not Detected (Not Detect.)
[2023-10-21] MEDS: Lactated Ringers 1,000 ML 50 ML IVCONT (14:07)
--- NOTE | 2023-10-21 14:27 | MHC.SHP ---
Pre-Procedural Eval Section A - 24 Hr Update-Section A only Date of Service: 10/21/23 The patient is an INPATIENT: Yes Changes since office visit: No Cold of Flu in the past 2 weeks, No New Medical Problems, No Changes in Medication and No Patient answered all questions The patient has been examined within 24 hours of the surgical procedure. The History & Physical has been completed within 30 days and I have reviewed it.: Yes Section B - Complete if H&P > 30 days Chief Complaint: catatonia depression Allergies: Allergies Allergy/AdvReac Type Severity Reaction Status Date / Time Unable to Assess Allergy Verified 09/23/23 15:14 Plan I have reviewed the history and physical and performed a pertinent physical examination on my patient. No changes have occurred unless specified. Time Spent With Patient Time: Total time managing care of this patient today ____ minutes.
--- NOTE | 2023-10-21 14:30 | HO.ECTPROC ---
ECT Procedure Note Diagnosis/Treatment Date of Service: 10/21/23 Diagnosis: Catatonia Previous ECT Date: 10/19/23 Current Treatment Number: 2 Treatment: Series Interval Clinical Notes: Patient is catatonic, non-verbal court ordered ect tx bt 0.25 100 percent. Time: Total time managing care of this patient today ____ minutes. ECT Settings Device: THYMATRON DGx Electrode Placement: Bitemporal Program/Pulse Width: 0.25 Energy Percent: 100 Seizure Duration By EEG (in seconds): 61 By Motor Observation (in seconds): 28 Medications Administration General Anesthetic: Etomidate (16) Muscle Relaxant: Succinylcholine (100) Ancillary Medications Anti-emetics: Zofran - Pre ECT Miscillaneous Medications: Midazolam (2 mg IVP after ECT) Airway Management Airway Management: Bag Mask Ventilation Treatment Recommendations Notes: increase succinycholine 120 mg Pt Tolerated Procedure w/o Issue: Yes
--- NOTE | 2023-10-21 14:57 | P.CONAN_ITS ---
HPI - Anesthesia Eval Consult details Narrative: 23 yo male patient with major depression, catatonia. For ECT PMFSH Active Problems Active Problems: All Active Problems Catatonia (Acute) Routine medical exam (Acute) Past Medical History Medical History No pertinent past medical history Family History Family history of problems with anesthesia: No Surgical History History of Problems with Anesthesia: No Social History Social History Household Members: Other Household Members Other:: Unknown Do you presently have visiting nurse or other home services: No (Unknown) Comment: pt on 5 min safety checks Patient Tobacco Use Status: Never used Tobacco Smoked in Last 30 Days: No e-Cigarette/Vaping Use: Never Used Patient Interested in Nicotine Replacement: No Patient Given Instructions on How to Stop Smoking: No Second Hand Smoke Exposure: No Use of substances other than those prescribed or required for medical reasons: No Currently Displaying Signs/Symptoms of Drug Intoxication Withdrawal: No Any prior treatment program specific to substance use: No Advance Directives: No Advance Directives Information Provided: No (Medical Condition) Do you have thoughts of harming others: None Do you have a plan to hurt others: No Plan Recently lost weight without trying: Unsure Nutrition Risks: No Nutritional Risk Poor oral hygiene: Yes Sexual orientation: Unable to collect Meds Allergies Allergy/AdvReac Type Severity Reaction Status Date / Time Unable to Assess Allergy Verified 09/23/23 15:14 Active Medications: Current Medications Acetaminophen (Acetaminophen 325 Mg Tablet) 650 mg PO Q6H PRN PRN Reason: Headache/Pain Mild Scale (1-3) Last Admin: 10/20/23 20:59 Dose: 650 mg Acetaminophen (Acetaminophen 325 Mg Tablet) 650 mg PO ONCE PRN PRN Reason: Pain, Mild (Pain Scale 1-3) Stop: 10/21/23 20:00 Al Hydroxide/Mg Hydroxide (Magnesium Hydrox/Alum Hydrox 30 Ml Oral.Susp) 30 ml PO Q6H PRN PRN Reason: Heartburn/Nausea Hydroxyzine HCl (Hydroxyzine Hcl 25 Mg Tablet) 25 mg PO Q6H PRN PRN Reason: Anxiety Last Admin: 10/05/23 20:18 Dose: 25 mg Lactated Ringer's (Lr) 1,000 mls @ 50 mls/hr IVCONT .Q20H [facility] Last Admin: 10/21/23 14:07 Dose: 50 mls/hr [place] Carbonate ([place] Carbonate Er 450 Mg Tablet.Er) 900 mg PO BEDTIME [facility] Last Admin: 10/20/23 19:59 Dose: Not Given Magnesium Hydroxide (Milk Of Magnesia 30 Ml Oral.Susp) 30 ml PO DAILY PRN PRN Reason: Constipation Olanzapine (Olanzapine 5 Mg Tablet) 5 mg PO BID [facility] Last Admin: 10/21/23 08:43 Dose: 5 mg Trazodone HCl (Trazodone Hcl 50 Mg Tablet) 50 mg PO BEDTIME MRX1 PRN PRN Reason: Insomnia Last Admin: 10/05/23 20:18 Dose: 50 mg Home Medications ?Medication ?Instructions ?Recorded ?Confirmed ?Last Taken ?Type No Known Home Meds 10/09/23 10/09/23 Unknown History Exam Height,Weight and Vital Signs: Height 5 ft 5 in Weight 69.49 kg Last Vital Signs Temp 97.5 F 10/21/23 13:40 Pulse 60 10/21/23 13:40 Resp 10 L 10/21/23 13:40 BP 100/62 10/21/23 13:40 Pulse Ox 95 10/21/23 13:40 O2 Del Method Room Air 10/21/23 13:40 O2 Flow Rate 2 10/19/23 08:38 Pertinent Lab Results Pertinent Lab Results: Laboratory Tests 09/23/23 09/27/23 10/10/23 02:20 11:15 14:55 WBC 6.1 RBC 4.83 Hgb 15.0 Hct 44.6 MCV 92.3 MCH 31.1 MCHC 33.6 RDW 11.8 Plt Count 300 MPV 8.9 L Immature Gran % (Auto) 0.5 H Neut % (Auto) 71.0 Lymph % (Auto) 22.0 [place] % (Auto) 4.2 Eos % (Auto) 1.8 Baso % (Auto) 0.5 Lymph # (Auto) 1.4 [place] # (Auto) 0.3 Eos # (Auto) 0.1 Baso # (Auto) 0.0 Abs Immat Gran (auto) 0.03 Absolute Neuts (auto) 4.4 Absolute Nucleated RBC 0.000 Nucleated RBC % (auto) 0.0 Sodium 142 141 Potassium 3.8 3.6 Chloride 105 109 H Carbon Dioxide 28 24 Anion Gap 13 12 BUN 8 L 9 Creatinine 0.79 0.86 Estim Creat Clear Calc 126.5 116.2 Estimated GFR > 60 > 60 Random Glucose 112 110 Calcium 9.3 9.7 Total Bilirubin 0.4 Direct Bilirubin 0.2 AST 10 ALT 9 Alkaline Phosphatase 61 Total Creatine Kinase 66 Total Protein 7.2 Albumin 4.3 Urine Color Urine Appearance Urine pH Ur Specific [place] Urine Protein Urine Glucose (UA) Urine Ketones Urine Blood Urine Nitrite Ur Leukocyte Esterase Urine RBC Urine WBC Ur Squamous Epith Cells Urine Bacteria Hyaline Casts [place] 0.46 L Respiratory Panel Pugh Adenovirus (Rapid PCR) B.pert (TEM-PCR) B.parapertussis DNA PCR C. pneumoniae DNA (PCR) Coronavirus OC43 (PCR) Coronavirus HKU1 (PCR) Coronavirus 229E (PCR) Coronavirus NL63 (PCR) Human Metapneumovir PCR Influenza A (RT-PCR) Influenza Type A (PCR) NEGATIVE Influenza B (RT-PCR) Influenza Type B (PCR) NEGATIVE M. pneumoniae (PCR) Parainfluenza 1 (PCR) Parainfluenza 2 (PCR) Parainfluenza 3 (PCR) Parainfluenza 4 (PCR) RSV (PCR) RSV RNA Qual (PCR) NEGATIVE Entero/Rhino (PCR) SARS-CoV-2 RNA (RT-PCR) NEGATIVE 10/20/23 10/20/23 10/20/23 14:13 16:39 17:10 WBC 11.7 H RBC 4.64 Hgb 14.5 Hct 41.2 L MCV 88.8 MCH 31.3 MCHC 35.2 RDW 11.7 Plt Count 263 MPV 9.0 L Immature Gran % (Auto) 0.3 Neut % (Auto) 78.3 H Lymph % (Auto) 12.0 L [place] % (Auto) 5.7 Eos % (Auto) 3.4 Baso % (Auto) 0.3 Lymph # (Auto) 1.4 [place] # (Auto) 0.7 Eos # (Auto) 0.4 Baso # (Auto) 0.0 Abs Immat Gran (auto) 0.04 H Absolute Neuts (auto) 9.1 H Absolute Nucleated RBC 0.000 Nucleated RBC % (auto) 0.0 Sodium 142 Potassium 3.7 Chloride 108 Carbon Dioxide 27 Anion Gap 11 L BUN 10 Creatinine 0.96 Estim Creat Clear Calc 104.1 Estimated GFR > 60 Random Glucose 106 Calcium 9.3 Total Bilirubin Direct Bilirubin AST ALT Alkaline Phosphatase Total Creatine Kinase Total Protein Albumin Urine Color Yellow Urine Appearance Clear Urine pH 7.0 Ur Specific [place] 1.015 Urine Protein Negative Urine Glucose (UA) Negative Urine Ketones Negative Urine Blood Trace H Urine Nitrite Negative Ur Leukocyte Esterase Negative Urine RBC 6-10 H Urine WBC 0-5 Ur Squamous Epith Cells 0-2 Urine Bacteria None Seen Hyaline Casts 0-2 [place] Respiratory Panel Pugh See Note Adenovirus (Rapid PCR) Not Detected B.pert (TEM-PCR) Not Detected B.parapertussis DNA PCR Not Detected C. pneumoniae DNA (PCR) Not Detected Coronavirus OC43 (PCR) Not Detected Coronavirus HKU1 (PCR) Not Detected Coronavirus 229E (PCR) Not Detected Coronavirus NL63 (PCR) Not Detected Human Metapneumovir PCR Not Detected Influenza A (RT-PCR) Not Detected Influenza Type A (PCR) Influenza B (RT-PCR) Not Detected Influenza Type B (PCR) M. pneumoniae (PCR) Not Detected Parainfluenza 1 (PCR) Not Detected Parainfluenza 2 (PCR) Not Detected Parainfluenza 3 (PCR) Not Detected Parainfluenza 4 (PCR) Not Detected RSV (PCR) Not Detected RSV RNA Qual (PCR) Entero/Rhino (PCR) Not Detected SARS-CoV-2 RNA (RT-PCR) Not Detected Airway Mallampati Class: Patient Non-Cooperative TM Dist: >3cm Loose/Missing/Broken Teeth: Yes (Unable to assess but poor dental hygiene, scabs on lips) Heart: RRR Lungs: CTAB Assessment and Plan Assessment Anesthesia Assessment: Anesthesia Plan Discussed and Chart Reviewed Final Anesthetic Review Family History of Problems with Anesthesia: No History of Problems with Anesthesia: No NPO: Yes ASA Class: III Final Preanesthetic Review: No Changes in Pt Med Stat, Meds/Allgs Chart Reviewed, Consent Obtained/Reviewed and Anes Risks/Benef Reviewed Patient Risk: Intermediate Procedure Risk: Intermediate Assessment/Block/Sedation in SS: Assess/Block/Sedation-SS Anesthetic Plan Anesthetic Plan: GA Disposition: Standard PACU and Inp. Admit - Standard Bed
--- NOTE | 2023-10-21 16:08 | P.PNPSI_ITS ---
Subjective Subjective Date of Service: 10/21/23 Reason For Visit: catatonia depression Interim History: seen in morning, in bed, minimally verbal - asked for apple juice - otherwise communicating more with head gestures. denied generalized pain. per staff, ECT scheduled for the afternoon. mute. c/o generalized pain. febrile. Mental Status Exam Mental Status Exam Narrative: pt casually dressed lying in bed. slight eye contact. minimal verbal output, but responding to questions with gestures of his head. affect inert. unable to assess mood, SI/SIBI/HI/AVH. Diagnostics Vital Signs (24Hr): Vital Signs - 24 hr 10/20/23 20:00 10/20/23 21:01 10/21/23 05:50 Temperature 99.4 F 98.9 F 98.5 F Pulse Rate 80 54 Respiratory Rate 18 14 Blood Pressure 99/59 L 85/51 L Pulse Oximetry 97 95 Oxygen Delivery Method Room Air Oxygen Flow Rate 10/21/23 08:00 10/21/23 12:25 10/21/23 12:30 Temperature 98.5 F 98.5 F Pulse Rate 62 62 Respiratory Rate 18 16 16 Blood Pressure 85/50 L 85/50 L Pulse Oximetry 96 96 Oxygen Delivery Method Room Air Oxygen Flow Rate 10/21/23 13:40 10/21/23 14:48 10/21/23 14:48 Temperature 97.5 F 97 F 97 F Pulse Rate 60 76 76 Respiratory Rate 10 L 16 16 Blood Pressure 100/62 123/75 123/75 Pulse Oximetry 95 95 95 Oxygen Delivery Method Room Air Nasal Cannula with ETCO2 Nasal Cannula Oxygen Flow Rate 2 2 10/21/23 14:53 10/21/23 14:58 10/21/23 15:03 Temperature Pulse Rate 93 90 97 Respiratory Rate 10 L 12 15 Blood Pressure 104/68 115/76 114/66 Pulse Oximetry 93 96 96 Oxygen Delivery Method Nasal Cannula with ETCO2 Nasal Cannula with ETCO2 Nasal Cannula with ETCO2 Oxygen Flow Rate 2 2 2 10/21/23 15:18 10/21/23 15:33 10/21/23 15:48 Temperature 97.9 F Pulse Rate 80 80 88 Respiratory Rate 15 14 15 Blood Pressure 110/64 109/70 108/66 Pulse Oximetry 94 97 95 Oxygen Delivery Method Nasal Cannula with ETCO2 Nasal Cannula with ETCO2 Room Air Oxygen Flow Rate 2 2 BMI result Body Mass Index 25.5 Labs 10/20/23 14:13 10/20/23 14:13 Labs: Laboratory Results - last 48 hr 10/20/23 10/20/23 10/20/23 14:13 16:39 17:10 WBC 11.7 H RBC 4.64 Hgb 14.5 Hct 41.2 L MCV 88.8 MCH 31.3 MCHC 35.2 RDW 11.7 Plt Count 263 MPV 9.0 L Immature Gran % (Auto) 0.3 Neut % (Auto) 78.3 H Lymph % (Auto) 12.0 L [place] % (Auto) 5.7 Eos % (Auto) 3.4 Baso % (Auto) 0.3 Lymph # (Auto) 1.4 [place] # (Auto) 0.7 Eos # (Auto) 0.4 Baso # (Auto) 0.0 Abs Immat Gran (auto) 0.04 H Absolute Neuts (auto) 9.1 H Absolute Nucleated RBC 0.000 Nucleated RBC % (auto) 0.0 Sodium 142 Potassium 3.7 Chloride 108 Carbon Dioxide 27 Anion Gap 11 L BUN 10 Creatinine 0.96 Estim Creat Clear Calc 104.1 Estimated GFR > 60 Random Glucose 106 Calcium 9.3 Urine Color Yellow Urine Appearance Clear Urine pH 7.0 Ur Specific [place] 1.015 Urine Protein Negative Urine Glucose (UA) Negative Urine Ketones Negative Urine Blood Trace H Urine Nitrite Negative Ur Leukocyte Esterase Negative Urine RBC 6-10 H Urine WBC 0-5 Ur Squamous Epith Cells 0-2 Urine Bacteria None Seen Hyaline Casts 0-2 Respiratory Panel Pugh See Note Adenovirus (Rapid PCR) Not Detected B.pert (TEM-PCR) Not Detected B.parapertussis DNA PCR Not Detected C. pneumoniae DNA (PCR) Not Detected Coronavirus OC43 (PCR) Not Detected Coronavirus HKU1 (PCR) Not Detected Coronavirus 229E (PCR) Not Detected Coronavirus NL63 (PCR) Not Detected Human Metapneumovir PCR Not Detected Influenza A (RT-PCR) Not Detected Influenza B (RT-PCR) Not Detected M. pneumoniae (PCR) Not Detected Parainfluenza 1 (PCR) Not Detected Parainfluenza 2 (PCR) Not Detected Parainfluenza 3 (PCR) Not Detected Parainfluenza 4 (PCR) Not Detected RSV (PCR) Not Detected Entero/Rhino (PCR) Not Detected SARS-CoV-2 RNA (RT-PCR) Not Detected Imaging Radiology Impressions: ITS Impressions Chest X-Ray 10/20/23 16:28 IMPRESSION: No acute cardiopulmonary abnormality. Medications Medications Current Medications Acetaminophen (Acetaminophen 325 Mg Tablet) 650 mg PO Q6H PRN PRN Reason: Headache/Pain Mild Scale (1-3) Last Admin: 10/20/23 20:59 Dose: 650 mg Acetaminophen (Acetaminophen 325 Mg Tablet) 650 mg PO ONCE PRN PRN Reason: Pain, Mild (Pain Scale 1-3) Stop: 10/21/23 20:00 Al Hydroxide/Mg Hydroxide (Magnesium Hydrox/Alum Hydrox 30 Ml Oral.Susp) 30 ml PO Q6H PRN PRN Reason: Heartburn/Nausea Hydroxyzine HCl (Hydroxyzine Hcl 25 Mg Tablet) 25 mg PO Q6H PRN PRN Reason: Anxiety Last Admin: 10/05/23 20:18 Dose: 25 mg Lactated Ringer's (Lr) 1,000 mls @ 50 mls/hr IVCONT .Q20H [facility] Last Infusion: 10/21/23 15:41 Dose: Infused [place]s Carbonate (G[place]s Carbonate Er 450 Mg Tablet.Er) 900 mg PO BEDTIME [facility] Last Admin: 10/20/23 19:59 Dose: Not Given Magnesium Hydroxide (Milk Of Magnesia 30 Ml Oral.Susp) 30 ml PO DAILY PRN PRN Reason: Constipation Olanzapine (Olanzapine 5 Mg Tablet) 5 mg PO BID [facility] Last Admin: 10/21/23 08:43 Dose: 5 mg Trazodone HCl (Trazodone Hcl 50 Mg Tablet) 50 mg PO BEDTIME MRX1 PRN PRN Reason: Insomnia Last Admin: 10/05/23 20:18 Dose: 50 mg Allergies Allergies Allergy/AdvReac Type Severity Reaction Status Date / Time Unable to Assess Allergy Verified 09/23/23 15:14 Assessment & Plan Assessment & Plan (1) Catatonia: Status: Acute Code(s): F06.1 - Catatonic disorder due to known physiological condition Plan 09/23: ativan 2 mg QID. move for commitment and court ordered ECT. 09/24: no change in presentation or plan. remains catatonic, adequate PO intake for the moment. taking 8 mg ativan daily without appreciative improvement. 09/25: continue current management and treatment plan. 09/26: Checked labs. CBC without evidence of infection. Chemistries and LFT's stable. Continue monitoring and response to Ativan. 09/27: continue current management and treatment plan. 09/28: continue current mgmt. producing several monosyllabic answers to questions today. filed for commitment. 09/29: awaiting hearing. very modest response to high-dose ativan. hearing next thursday. continue current mgmt for now. 09/30: no change in presentation. continues to appear to take in adequate fluids and food. continue current mgmt. 10/01: outpt regimen of zyprexa 5 BID and lithium 900 QHS restarted. continue ativan [address] thursday. 10/04/23: Court date pending on 10/06/2023 and ?ECT. 10/04: court deferred to next week for SADA. stably catatonic but up for toileting and PO intake, periodically. refusing labs to check electrolytes. 10/05: pt refusing labs. per staff report, does have reasonable PO intake. court scheduled 10/14. continue current mgmt. 10/06: taking meds, modest PO intake. said, what's your name? today. continue current mgmt. 10/08/23 Patient taking medication remains generally nonverbal he did stand up was reportedly eating more would clearly benefit from ECT as becomes available 10/08: one word today, No, in response to request to check labs for lithium and lytes. continue current mgmt. awaiting court for ECT. 10/09: non-verbal. dry lips but per report is eating meals. reorder labs. continue current mgmt otherwise. 10/10: 10/09 lytes reassuring, lithium 0.46. no change in presentation, continue current mgmt. 10/11: mute. some saccades, otherwise immobile. continue current mgmt. 10/12: will benefit from court ordered tx vital signs ok. 10/13: no change in presentation. court tomorrow at 2. decrease ativan from 2 QID to 2 TID both to see if dose reduction changes behavior in any way and in preparation for requested order from the court for ECT. 10/14: noted to be openly masturbating in his room last night, not responsive to redirection by nursing staff. eating breakfast in bed today. nods on being asked if he would like to attend the hearing today. case discussed with SADA Cifuentes. hearing held, pt committed and ECT/meds ordered. 10/15: no change in presentation. taper benzos over w/e. medical clearance for ECT completed at admission by hospitalist service. planning for ECT #1 on thursday morning. 10/16:Continue current plans and regimen 10/17: Continue current plans and regimen. 10/18: more verbal immediately after ECT #1 today, many more and more rapid responses to questions via head gestures as well. 10/19: febrile, elevated WBC. medicine consult called. continues more responsive today than prior. continue current mgmt pending medicine recs. 10/20: no nidus of infection located thus far. U/A WNL, chest XR WNL. continue current mgmt. ECT today. Reason for continued inpatient stay Substantial Risk for: inability to function and med/psych decompensation Time Spent With Patient Time: Total time managing care of this patient today _25___ minutes.
[2023-10-21] MEDS: Lithium Carbonate ER 450 MG TABLET.ER 900 MG PO (20:39)
[2023-10-21] MEDS: Acetaminophen 325 MG TABLET 650 MG PO (20:39)
[2023-10-22 07:30] VITALS: BP 86/51; PULSE 88; RESP 14; TEMP 37.2; O2SAT 93
[2023-10-22] MEDS: OLANZapine 5 MG TABLET PO (09:18)
--- NOTE | 2023-10-22 11:24 | HO.POSTANES ---
Post Anesthesia Evaluation Post Anesthesia Evaluation Date of Service: 10/21/23 Vital Signs: Vital Signs Temp Pulse Resp BP Pulse Ox O2 Del Method 10/22/23 07:30 99.0 F 88 14 86/51 L 93 Room Air Anesthesia: General Mental Status: Awake Pain Control: Satisfactory Nausea/Vomiting: None Hydration: Adequate Anesthesia-Related Issues: No Anes. Related Issues
[2023-10-22 11:54] VITALS: BP 102/56; PULSE 102
--- NOTE | 2023-10-22 13:33 | P.PNPSI_ITS ---
Subjective Subjective Date of Service: 10/22/23 Reason For Visit: catatonia depression Interim History: continues minimally verbal, sleeping a great deal during the day. per staff, taking meds. had ECT yesterday. some talk after. T 100.8 after ECT yesterday. slept about 7 hours overnight. Mental Status Exam Mental Status Exam Narrative: pt casually dressed lying in bed. slight eye contact. minimal verbal output, but responding to questions with gestures of his head. affect inert. unable to assess mood, SI/SIBI/HI/AVH. Diagnostics Vital Signs (24Hr): Vital Signs - 24 hr 10/21/23 13:40 10/21/23 14:48 10/21/23 14:48 Temperature 97.5 F 97 F 97 F Pulse Rate 60 76 76 Respiratory Rate 10 L 16 16 Blood Pressure 100/62 123/75 123/75 Pulse Oximetry 95 95 95 Oxygen Delivery Method Room Air Nasal Cannula with ETCO2 Nasal Cannula Oxygen Flow Rate 2 2 10/21/23 14:53 10/21/23 14:58 10/21/23 15:03 Temperature Pulse Rate 93 90 97 Respiratory Rate 10 L 12 15 Blood Pressure 104/68 115/76 114/66 Pulse Oximetry 93 96 96 Oxygen Delivery Method Nasal Cannula with ETCO2 Nasal Cannula with ETCO2 Nasal Cannula with ETCO2 Oxygen Flow Rate 2 2 2 10/21/23 15:18 10/21/23 15:33 10/21/23 15:48 Temperature 97.9 F Pulse Rate 80 80 88 Respiratory Rate 15 14 15 Blood Pressure 110/64 109/70 108/66 Pulse Oximetry 94 97 95 Oxygen Delivery Method Nasal Cannula with ETCO2 Nasal Cannula with ETCO2 Room Air Oxygen Flow Rate 2 2 10/21/23 16:19 10/21/23 23:03 10/22/23 07:30 Temperature 99.0 F 97.3 F 99.0 F Pulse Rate 68 88 Respiratory Rate 18 14 Blood Pressure 107/59 L 86/51 L Pulse Oximetry 98 93 Oxygen Delivery Method Room Air Oxygen Flow Rate 10/22/23 11:54 Temperature Pulse Rate 102 H Respiratory Rate Blood Pressure 102/56 L Pulse Oximetry Oxygen Delivery Method Oxygen Flow Rate BMI result Body Mass Index 25.5 Labs 10/20/23 14:13 10/20/23 14:13 Labs: Laboratory Results - last 48 hr 10/20/23 10/20/2324 14:13 16:39 17:10 WBC 11.7 H RBC 4.64 Hgb 14.5 Hct 41.2 L MCV 88.8 MCH 31.3 MCHC 35.2 RDW 11.7 Plt Count 263 MPV 9.0 L Immature Gran % (Auto) 0.3 Neut % (Auto) 78.3 H Lymph % (Auto) 12.0 L [place] % (Auto) 5.7 Eos % (Auto) 3.4 Baso % (Auto) 0.3 Lymph # (Auto) 1.4 [place] # (Auto) 0.7 Eos # (Auto) 0.4 Baso # (Auto) 0.0 Abs Immat Gran (auto) 0.04 H Absolute Neuts (auto) 9.1 H Absolute Nucleated RBC 0.000 Nucleated RBC % (auto) 0.0 Sodium 142 Potassium 3.7 Chloride 108 Carbon Dioxide 27 Anion Gap 11 L BUN 10 Creatinine 0.96 Estim Creat Clear Calc 104.1 Estimated GFR > 60 Random Glucose 106 Calcium 9.3 Urine Color Yellow Urine Appearance Clear Urine pH 7.0 Ur Specific [place] 1.015 Urine Protein Negative Urine Glucose (UA) Negative Urine Ketones Negative Urine Blood Trace H Urine Nitrite Negative Ur Leukocyte Esterase Negative Urine RBC 6-10 H Urine WBC 0-5 Ur Squamous Epith Cells 0-2 Urine Bacteria None Seen Hyaline Casts 0-2 Respiratory Panel Pugh See Note Adenovirus (Rapid PCR) Not Detected B.pert (TEM-PCR) Not Detected B.parapertussis DNA PCR Not Detected C. pneumoniae DNA (PCR) Not Detected Coronavirus OC43 (PCR) Not Detected Coronavirus HKU1 (PCR) Not Detected Coronavirus 229E (PCR) Not Detected Coronavirus NL63 (PCR) Not Detected Human Metapneumovir PCR Not Detected Influenza A (RT-PCR) Not Detected Influenza B (RT-PCR) Not Detected M. pneumoniae (PCR) Not Detected Parainfluenza 1 (PCR) Not Detected Parainfluenza 2 (PCR) Not Detected Parainfluenza 3 (PCR) Not Detected Parainfluenza 4 (PCR) Not Detected RSV (PCR) Not Detected Entero/Rhino (PCR) Not Detected SARS-CoV-2 RNA (RT-PCR) Not Detected Imaging Radiology Impressions: ITS Impressions Chest X-Ray 10/20/23 16:28 IMPRESSION: No acute cardiopulmonary abnormality. Medications Medications Current Medications Acetaminophen (Acetaminophen 325 Mg Tablet) 650 mg PO Q6H PRN PRN Reason: Headache/Pain Mild Scale (1-3) Last Admin: 10/21/23 20:39 Dose: 650 mg Al Hydroxide/Mg Hydroxide (Magnesium Hydrox/Alum Hydrox 30 Ml Oral.Susp) 30 ml PO Q6H PRN PRN Reason: Heartburn/Nausea Hydroxyzine HCl (Hydroxyzine Hcl 25 Mg Tablet) 25 mg PO Q6H PRN PRN Reason: Anxiety Last Admin: 10/05/23 20:18 Dose: 25 mg Magnesium Hydroxide (Milk Of Magnesia 30 Ml Oral.Susp) 30 ml PO DAILY PRN PRN Reason: Constipation Trazodone HCl (Trazodone Hcl 50 Mg Tablet) 50 mg PO BEDTIME MRX1 PRN PRN Reason: Insomnia Last Admin: 10/05/23 20:18 Dose: 50 mg Allergies Allergies Allergy/AdvReac Type Severity Reaction Status Date / Time Unable to Assess Allergy Verified 09/23/23 15:14 Assessment & Plan Assessment & Plan (1) Catatonia: Status: Acute Code(s): F06.1 - Catatonic disorder due to known physiological condition Plan 09/23: ativan 2 mg QID. move for commitment and court ordered ECT. 09/24: no change in presentation or plan. remains catatonic, adequate PO intake for the moment. taking 8 mg ativan daily without appreciative improvement. 09/25: continue current management and treatment plan. 09/26: Checked labs. CBC without evidence of infection. Chemistries and LFT's stable. Continue monitoring and response to Ativan. 09/27: continue current management and treatment plan. 09/28: continue current mgmt. producing several monosyllabic answers to questions today. filed for commitment. 09/29: awaiting hearing. very modest response to high-dose ativan. hearing next thursday. continue current mgmt for now. 09/30: no change in presentation. continues to appear to take in adequate fluids and food. continue current mgmt. 10/01: outpt regimen of zyprexa 5 BID and lithium 900 QHS restarted. continue ativan [address] thursday. 10/04/23: Court date pending on 10/06/2023 and ?ECT. 10/04: court deferred to next week for SADA. stably catatonic but up for toileting and PO intake, periodically. refusing labs to check electrolytes. 10/05: pt refusing labs. per staff report, does have reasonable PO intake. court scheduled 10/14. continue current mgmt. 10/06: taking meds, modest PO intake. said, what's your name? today. continue current mgmt. 10/08/23 Patient taking medication remains generally nonverbal he did stand up was reportedly eating more would clearly benefit from ECT as becomes available 10/08: one word today, No, in response to request to check labs for lithium and lytes. continue current mgmt. awaiting court for ECT. 10/09: non-verbal. dry lips but per report is eating meals. reorder labs. continue current mgmt otherwise. 10/10: 10/09 lytes reassuring, lithium 0.46. no change in presentation, continue current mgmt. 10/11: mute. some saccades, otherwise immobile. continue current mgmt. 10/12: will benefit from court ordered tx vital signs ok. 10/13: no change in presentation. court tomorrow at 2. decrease ativan from 2 QID to 2 TID both to see if dose reduction changes behavior in any way and in preparation for requested order from the court for ECT. 10/14: noted to be openly masturbating in his room last night, not responsive to redirection by nursing staff. eating breakfast in bed today. nods on being asked if he would like to attend the hearing today. case discussed with SADA Cifuentes. hearing held, pt committed and ECT/meds ordered. 10/15: no change in presentation. taper benzos over w/e. medical clearance for ECT completed at admission by hospitalist service. planning for ECT #1 on thursday morning. 10/16:Continue current plans and regimen 10/17: Continue current plans and regimen. 10/18: more verbal immediately after ECT #1 today, many more and more rapid responses to questions via head gestures as well. 10/19: febrile, elevated WBC. medicine consult called. continues more responsive today than prior. continue current mgmt pending medicine recs. 10/20: no nidus of infection located thus far. U/A WNL, chest XR WNL. continue current mgmt. ECT today. 10/21: appears to have been afebrile over past 24H, reportedly T100.8 post ECT yesterday. case discussed with dr. wyman. to clarify matters, will DC zyprexa and lithium to see if elevated WBC resolves and hyperpyrexia stops. ECT again tomorrow. no change in clinical presentation. Reason for continued inpatient stay Substantial Risk for: inability to function and med/psych decompensation Time Spent With Patient Time: Total time managing care of this patient today __25__ minutes.
[2023-10-22 19:55] VITALS: BP 104/52; PULSE 79; RESP 16; TEMP 37.8; O2SAT 96
[2023-10-23 07:45] VITALS: BP 111/66; PULSE 80; RESP 18; TEMP 37.2; O2SAT 96
--- NOTE | 2023-10-23 12:40 | HO.PSYCHPN ---
Subjective Subjective Date of Service: 10/23/23 Reason For Visit: catatonia depression Interim History: remains more interactive than prior to start of ECT. better eye contact today, more verbal. asking about ECT (what it is). per staff, taking meds. responded to 3 questions with yes/no yesterday. T=100 last trung. slept about 8 hours. Mental Status Exam Mental Status Exam Narrative: pt casually dressed lying in bed. improved eye contact. marginally more verbal output, also responding to questions with gestures of his head. affect inert. unable to assess mood, SI/SIBI/HI/AVH. Diagnostics Vital Signs (24Hr): Vital Signs - 24 hr 10/22/23 19:55 10/23/23 07:45 Temperature 100.0 F 98.9 F Pulse Rate 79 80 Respiratory Rate 16 18 Blood Pressure 104/52 L 111/66 Pulse Oximetry 96 96 Oxygen Delivery Method Room Air Room Air BMI result Body Mass Index 25.5 Labs 10/20/23 14:13 10/20/23 14:13 Imaging Radiology Impressions: ITS Impressions Chest X-Ray 10/20/23 16:28 IMPRESSION: No acute cardiopulmonary abnormality. Medications Medications Current Medications Acetaminophen (Acetaminophen 325 Mg Tablet) 650 mg PO Q6H PRN PRN Reason: Headache/Pain Mild Scale (1-3) Last Admin: 10/21/23 20:39 Dose: 650 mg Al Hydroxide/Mg Hydroxide (Magnesium Hydrox/Alum Hydrox 30 Ml Oral.Susp) 30 ml PO Q6H PRN PRN Reason: Heartburn/Nausea Hydroxyzine HCl (Hydroxyzine Hcl 25 Mg Tablet) 25 mg PO Q6H PRN PRN Reason: Anxiety Last Admin: 10/05/23 20:18 Dose: 25 mg Magnesium Hydroxide (Milk Of Magnesia 30 Ml Oral.Susp) 30 ml PO DAILY PRN PRN Reason: Constipation Trazodone HCl (Trazodone Hcl 50 Mg Tablet) 50 mg PO BEDTIME MRX1 PRN PRN Reason: Insomnia Last Admin: 10/05/23 20:18 Dose: 50 mg Allergies Allergies Allergy/AdvReac Type Severity Reaction Status Date / Time Unable to Assess Allergy Verified 09/23/23 15:14 Assessment & Plan Assessment & Plan (1) Catatonia: Status: Acute Code(s): F06.1 - Catatonic disorder due to known physiological condition Plan 09/23: ativan 2 mg QID. move for commitment and court ordered ECT. 09/24: no change in presentation or plan. remains catatonic, adequate PO intake for the moment. taking 8 mg ativan daily without appreciative improvement. 09/25: continue current management and treatment plan. 09/26: Checked labs. CBC without evidence of infection. Chemistries and LFT's stable. Continue monitoring and response to Ativan. 09/27: continue current management and treatment plan. 09/28: continue current mgmt. producing several monosyllabic answers to questions today. filed for commitment. 09/29: awaiting hearing. very modest response to high-dose ativan. hearing next thursday. continue current mgmt for now. 09/30: no change in presentation. continues to appear to take in adequate fluids and food. continue current mgmt. 10/01: outpt regimen of zyprexa 5 BID and lithium 900 QHS restarted. continue ativan [address] thursday. 10/04/23: Court date pending on 10/06/2023 and ?ECT. 10/04: court deferred to next week for SADA. stably catatonic but up for toileting and PO intake, periodically. refusing labs to check electrolytes. 10/05: pt refusing labs. per staff report, does have reasonable PO intake. court scheduled 10/14. continue current mgmt. 10/06: taking meds, modest PO intake. said, what's your name? today. continue current mgmt. 10/08/23 Patient taking medication remains generally nonverbal he did stand up was reportedly eating more would clearly benefit from ECT as becomes available 10/08: one word today, No, in response to request to check labs for lithium and lytes. continue current mgmt. awaiting court for ECT. 10/09: non-verbal. dry lips but per report is eating meals. reorder labs. continue current mgmt otherwise. 10/10: 10/09 lytes reassuring, lithium 0.46. no change in presentation, continue current mgmt. 10/11: mute. some saccades, otherwise immobile. continue current mgmt. 10/12: will benefit from court ordered tx vital signs ok. 10/13: no change in presentation. court tomorrow at 2. decrease ativan from 2 QID to 2 TID both to see if dose reduction changes behavior in any way and in preparation for requested order from the court for ECT. 10/14: noted to be openly masturbating in his room last night, not responsive to redirection by nursing staff. eating breakfast in bed today. nods on being asked if he would like to attend the hearing today. case discussed with SADA Cifuentes. hearing held, pt committed and ECT/meds ordered. 10/15: no change in presentation. taper benzos over w/e. medical clearance for ECT completed at admission by hospitalist service. planning for ECT #1 on thursday morning. 10/16:Continue current plans and regimen 10/17: Continue current plans and regimen. 10/18: more verbal immediately after ECT #1 today, many more and more rapid responses to questions via head gestures as well. 10/19: febrile, elevated WBC. medicine consult called. continues more responsive today than prior. continue current mgmt pending medicine recs. 10/20: no nidus of infection located thus far. U/A WNL, chest XR WNL. continue current mgmt. ECT today. 10/21: appears to have been afebrile over past 24H, reportedly T100.8 post ECT yesterday. case discussed with dr. wyman. to clarify matters, will DC zyprexa and lithium to see if elevated WBC resolves and hyperpyrexia stops. ECT again tomorrow. no change in clinical presentation. 10/22: remains more verbal today, better eye contact. ECT canceled for today due to error in pt's receiving meal tray. ECT #3 scheduled for thursday. Reason for continued inpatient stay Substantial Risk for: inability to function and med/psych decompensation Time Spent With Patient Time: Total time managing care of this patient today _25___ minutes.
[2023-10-23 20:00] VITALS: BP 91/55; PULSE 75; RESP 16; TEMP 37.2; O2SAT 98
--- NOTE | 2023-10-24 08:31 | HO.PSYCHPN ---
Subjective Subjective Date of Service: 10/24/23 Reason For Visit: catatonia depression Subjective Notes: Section 8 Medical Problems Affecting Mental Status: No (not that we know of) Interim History: Pt continues to lie in bed not responding to provider's inquiry- Medication Compliance: No Attending Groups: No Review of Systems Acute medical concerns: No Mental Status Exam Mental Status Exam Patient Appearance: Inappropriate Level of Consciousness: Inappropriate (withdrawn) Patient Behavior: Passive and Resistive to Care Mood Description: Withdrawn and Flat Ability to Follow Directions: Poor Speech Pattern: Aphasic Abnormal Motor Activity Signs and Symptoms: Psychomotor Retardation Judgement: Poor Diagnostics Vital Signs (24Hr): Vital Signs - 24 hr 10/23/23 20:00 Temperature 99.0 F Pulse Rate 75 Respiratory Rate 16 Blood Pressure 91/55 L Pulse Oximetry 98 Oxygen Delivery Method Room Air BMI result Body Mass Index 25.5 Labs 10/20/23 14:13 10/20/23 14:13 Imaging Radiology Impressions: ITS Impressions Chest X-Ray 10/20/23 16:28 IMPRESSION: No acute cardiopulmonary abnormality. Medications Medications Current Medications Acetaminophen (Acetaminophen 325 Mg Tablet) 650 mg PO Q6H PRN PRN Reason: Headache/Pain Mild Scale (1-3) Last Admin: 10/21/23 20:39 Dose: 650 mg Al Hydroxide/Mg Hydroxide (Magnesium Hydrox/Alum Hydrox 30 Ml Oral.Susp) 30 ml PO Q6H PRN PRN Reason: Heartburn/Nausea Hydroxyzine HCl (Hydroxyzine Hcl 25 Mg Tablet) 25 mg PO Q6H PRN PRN Reason: Anxiety Last Admin: 10/05/23 20:18 Dose: 25 mg Magnesium Hydroxide (Milk Of Magnesia 30 Ml Oral.Susp) 30 ml PO DAILY PRN PRN Reason: Constipation Trazodone HCl (Trazodone Hcl 50 Mg Tablet) 50 mg PO BEDTIME MRX1 PRN PRN Reason: Insomnia Last Admin: 10/05/23 20:18 Dose: 50 mg Allergies Allergies Allergy/AdvReac Type Severity Reaction Status Date / Time Unable to Assess Allergy Verified 09/23/23 15:14 Assessment & Plan Assessment & Plan (1) Catatonia: Status: Acute Code(s): F06.1 - Catatonic disorder due to known physiological condition Plan 09/23: ativan 2 mg QID. move for commitment and court ordered ECT. 09/24: no change in presentation or plan. remains catatonic, adequate PO intake for the moment. taking 8 mg ativan daily without appreciative improvement. 09/25: continue current management and treatment plan. 09/26: Checked labs. CBC without evidence of infection. Chemistries and LFT's stable. Continue monitoring and response to Ativan. 09/27: continue current management and treatment plan. 09/28: continue current mgmt. producing several monosyllabic answers to questions today. filed for commitment. 09/29: awaiting hearing. very modest response to high-dose ativan. hearing next thursday. continue current mgmt for now. 09/30: no change in presentation. continues to appear to take in adequate fluids and food. continue current mgmt. 10/01: outpt regimen of zyprexa 5 BID and lithium 900 QHS restarted. continue ativan [address] thursday. 10/04/23: Court date pending on 10/06/2023 and ?ECT. 10/04: court deferred to next week for SADA. stably catatonic but up for toileting and PO intake, periodically. refusing labs to check electrolytes. 10/05: pt refusing labs. per staff report, does have reasonable PO intake. court scheduled 10/14. continue current mgmt. 10/06: taking meds, modest PO intake. said, what's your name? today. continue current mgmt. 10/08/23 Patient taking medication remains generally nonverbal he did stand up was reportedly eating more would clearly benefit from ECT as becomes available 10/08: one word today, No, in response to request to check labs for lithium and lytes. continue current mgmt. awaiting court for ECT. 10/09: non-verbal. dry lips but per report is eating meals. reorder labs. continue current mgmt otherwise. 10/10: 10/09 lytes reassuring, lithium 0.46. no change in presentation, continue current mgmt. 10/11: mute. some saccades, otherwise immobile. continue current mgmt. 10/12: will benefit from court ordered tx vital signs ok. 10/13: no change in presentation. court tomorrow at 2. decrease ativan from 2 QID to 2 TID both to see if dose reduction changes behavior in any way and in preparation for requested order from the court for ECT. 10/14: noted to be openly masturbating in his room last night, not responsive to redirection by nursing staff. eating breakfast in bed today. nods on being asked if he would like to attend the hearing today. case discussed with SADA Cifuentes. hearing held, pt committed and ECT/meds ordered. 10/15: no change in presentation. taper benzos over w/e. medical clearance for ECT completed at admission by hospitalist service. planning for ECT #1 on thursday morning. 10/16:Continue current plans and regimen 10/17: Continue current plans and regimen. 10/18: more verbal immediately after ECT #1 today, many more and more rapid responses to questions via head gestures as well. 10/19: febrile, elevated WBC. medicine consult called. continues more responsive today than prior. continue current mgmt pending medicine recs. 10/20: no nidus of infection located thus far. U/A WNL, chest XR WNL. continue current mgmt. ECT today. 10/21: appears to have been afebrile over past 24H, reportedly T100.8 post ECT yesterday. case discussed with dr. wyman. to clarify matters, will DC zyprexa and lithium to see if elevated WBC resolves and hyperpyrexia stops. ECT again tomorrow. no change in clinical presentation. 10/22: remains more verbal today, better eye contact. ECT canceled for today due to error in pt's receiving meal tray. ECT #3 scheduled for thursday. 10/24/23 CTP Informed Consent: further education needed Reason for continued inpatient stay Substantial Risk for: inability to function and rapid decompensation Time Spent With Patient Time: Total time managing care of this patient today ____ minutes.
[2023-10-24 09:30] VITALS: BP 97/61; PULSE 58; RESP 18; TEMP 36.9; O2SAT 98
[2023-10-24 20:03] VITALS: BP 113/60; PULSE 72; RESP 16; TEMP 36.9; O2SAT 98
[2023-10-25 07:59] LABS: C Reactive Protein 1.24 mg/dL (< or = 0.50)
[2023-10-25 08:12] VITALS: BP 100/58; PULSE 66; RESP 18; TEMP 36.8; O2SAT 96
[2023-10-25 08:14] LABS: Erythrocyte Sedimentation Rate 14 MM/HR (0-15)
--- NOTE | 2023-10-25 11:58 | HO.PSYCHPN ---
Subjective Subjective Date of Service: 10/25/23 Reason For Visit: catatonia depression Subjective Notes: Section 8 Interim History: Pt sits up in bed when I come in and turn on light, stands by bed and appears to listen- does not respond. Nursing report pt had good day yesterday afternoon more responsive- was up walking in [place], , was up to eat breakfast, took shower and washed his hair , clipped his nails. Attending Groups: No Review of Systems Acute medical concerns: No Medical Review of Systems: unchanged Mental Status Exam Mental Status Exam Narrative: still non verbal with this provider Patient Appearance: Well Grooomed and Appropriate Level of Consciousness: Awake Patient Behavior: Passive Judgement and Insight: non verbal still Diagnostics Vital Signs (24Hr): Vital Signs - 24 hr 10/24/23 20:03 10/25/23 08:12 Temperature 98.5 F 98.3 F Pulse Rate 72 66 Respiratory Rate 16 18 Blood Pressure 113/60 100/58 L Pulse Oximetry 98 96 Oxygen Delivery Method Room Air Room Air BMI result Body Mass Index 25.5 Labs 10/20/23 14:13 10/20/23 14:13 Labs: Laboratory Results - last 48 hr 10/25/23 06:56 ESR 14 Total Creatine Kinase 281 H C-Reactive Protein 1.24 H Imaging Radiology Impressions: ITS Impressions Chest X-Ray 10/20/23 16:28 IMPRESSION: No acute cardiopulmonary abnormality. Medications Medications Current Medications Acetaminophen (Acetaminophen 325 Mg Tablet) 650 mg PO Q6H PRN PRN Reason: Headache/Pain Mild Scale (1-3) Last Admin: 10/21/23 20:39 Dose: 650 mg Al Hydroxide/Mg Hydroxide (Magnesium Hydrox/Alum Hydrox 30 Ml Oral.Susp) 30 ml PO Q6H PRN PRN Reason: Heartburn/Nausea Hydroxyzine HCl (Hydroxyzine Hcl 25 Mg Tablet) 25 mg PO Q6H PRN PRN Reason: Anxiety Last Admin: 10/05/23 20:18 Dose: 25 mg Magnesium Hydroxide (Milk Of Magnesia 30 Ml Oral.Susp) 30 ml PO DAILY PRN PRN Reason: Constipation Trazodone HCl (Trazodone Hcl 50 Mg Tablet) 50 mg PO BEDTIME MRX1 PRN PRN Reason: Insomnia Last Admin: 10/05/23 20:18 Dose: 50 mg Allergies Allergies Allergy/AdvReac Type Severity Reaction Status Date / Time Unable to Assess Allergy Verified 09/23/23 15:14 Assessment & Plan Assessment & Plan (1) Catatonia: Status: Acute Code(s): F06.1 - Catatonic disorder due to known physiological condition Plan 09/23: ativan 2 mg QID. move for commitment and court ordered ECT. 09/24: no change in presentation or plan. remains catatonic, adequate PO intake for the moment. taking 8 mg ativan daily without appreciative improvement. 09/25: continue current management and treatment plan. 09/26: Checked labs. CBC without evidence of infection. Chemistries and LFT's stable. Continue monitoring and response to Ativan. 09/27: continue current management and treatment plan. 09/28: continue current mgmt. producing several monosyllabic answers to questions today. filed for commitment. 09/29: awaiting hearing. very modest response to high-dose ativan. hearing next thursday. continue current mgmt for now. 09/30: no change in presentation. continues to appear to take in adequate fluids and food. continue current mgmt. 10/01: outpt regimen of zyprexa 5 BID and lithium 900 QHS restarted. continue ativan [address] thursday. 10/04/23: Court date pending on 10/06/2023 and ?ECT. 10/04: court deferred to next week for SADA. stably catatonic but up for toileting and PO intake, periodically. refusing labs to check electrolytes. 10/05: pt refusing labs. per staff report, does have reasonable PO intake. court scheduled 10/14. continue current mgmt. 10/06: taking meds, modest PO intake. said, what's your name? today. continue current mgmt. 10/08/23 Patient taking medication remains generally nonverbal he did stand up was reportedly eating more would clearly benefit from ECT as becomes available 10/08: one word today, No, in response to request to check labs for lithium and lytes. continue current mgmt. awaiting court for ECT. 10/09: non-verbal. dry lips but per report is eating meals. reorder labs. continue current mgmt otherwise. 10/10: 10/09 lytes reassuring, lithium 0.46. no change in presentation, continue current mgmt. 10/11: mute. some saccades, otherwise immobile. continue current mgmt. 10/12: will benefit from court ordered tx vital signs ok. 10/13: no change in presentation. court tomorrow at 2. decrease ativan from 2 QID to 2 TID both to see if dose reduction changes behavior in any way and in preparation for requested order from the court for ECT. 10/14: noted to be openly masturbating in his room last night, not responsive to redirection by nursing staff. eating breakfast in bed today. nods on being asked if he would like to attend the hearing today. case discussed with SADA Cifuentes. hearing held, pt committed and ECT/meds ordered. 10/15: no change in presentation. taper benzos over w/e. medical clearance for ECT completed at admission by hospitalist service. planning for ECT #1 on thursday morning. 10/16:Continue current plans and regimen 10/17: Continue current plans and regimen. 10/18: more verbal immediately after ECT #1 today, many more and more rapid responses to questions via head gestures as well. 10/19: febrile, elevated WBC. medicine consult called. continues more responsive today than prior. continue current mgmt pending medicine recs. 10/20: no nidus of infection located thus far. U/A WNL, chest XR WNL. continue current mgmt. ECT today. 10/21: appears to have been afebrile over past 24H, reportedly T100.8 post ECT yesterday. case discussed with dr. wyman. to clarify matters, will DC zyprexa and lithium to see if elevated WBC resolves and hyperpyrexia stops. ECT again tomorrow. no change in clinical presentation. 10/22: remains more verbal today, better eye contact. ECT canceled for today due to error in pt's receiving meal tray. ECT #3 scheduled for thursday. 10/24/23 CTP npo order written for tonight Patient educated on: ECT Informed Consent: further education needed Reason for continued inpatient stay Substantial Risk for: inability to function and rapid decompensation Time Spent With Patient Time: Total time managing care of this patient today ____ minutes.
[2023-10-25 20:00] VITALS: BP 115/73; PULSE 87; RESP 16; TEMP 37.6; O2SAT 97
--- NOTE | 2023-10-25 23:28 | PC.NURSE ---
Attila was observed to be wandering in HW and disrobing, also noted to be going into other patients rooms and roommates area. Redirected easily. Food and drink items removed from room and he was placed on Close Observation R/T disorganized wandering behavior.
[2023-10-26] VITALS (14 sets, daily range): BP systolic 92–129; BP diastolic 43–73; PULSE 65–110; RESP 14–20; TEMP 36.2–37.9; O2SAT 95–98
--- NOTE | 2023-10-26 06:49 | HO.ANESPROP2 ---
[facility] Active Problems Active Problems: All Active Problems Catatonia (Acute) Routine medical exam (Acute) Past Medical History Medical History No pertinent past medical history Family History Family history of problems with anesthesia: No Surgical History History of Problems with Anesthesia: No Social History Social History Household Members: Other Household Members Other:: Unknown Do you presently have visiting nurse or other home services: No (Unknown) Comment: pt on 5 min safety checks Patient Tobacco Use Status: Never used Tobacco Smoked in Last 30 Days: No e-Cigarette/Vaping Use: Never Used Patient Interested in Nicotine Replacement: No Patient Given Instructions on How to Stop Smoking: No Second Hand Smoke Exposure: No Use of substances other than those prescribed or required for medical reasons: No Currently Displaying Signs/Symptoms of Drug Intoxication Withdrawal: No Any prior treatment program specific to substance use: No Advance Directives: No Advance Directives Information Provided: No (Medical Condition) Do you have thoughts of harming others: None Do you have a plan to hurt others: No Plan Recently lost weight without trying: Unsure Nutrition Risks: No Nutritional Risk Poor oral hygiene: Yes Sexual orientation: Unable to collect Meds Allergies Allergy/AdvReac Type Severity Reaction Status Date / Time Unable to Assess Allergy Verified 09/23/23 15:14 Active Medications: Current Medications Acetaminophen (Acetaminophen 325 Mg Tablet) 650 mg PO Q6H PRN PRN Reason: Headache/Pain Mild Scale (1-3) Last Admin: 10/21/23 20:39 Dose: 650 mg Al Hydroxide/Mg Hydroxide (Magnesium Hydrox/Alum Hydrox 30 Ml Oral.Susp) 30 ml PO Q6H PRN PRN Reason: Heartburn/Nausea Hydroxyzine HCl (Hydroxyzine Hcl 25 Mg Tablet) 25 mg PO Q6H PRN PRN Reason: Anxiety Last Admin: 10/05/23 20:18 Dose: 25 mg Magnesium Hydroxide (Milk Of Magnesia 30 Ml Oral.Susp) 30 ml PO DAILY PRN PRN Reason: Constipation Trazodone HCl (Trazodone Hcl 50 Mg Tablet) 50 mg PO BEDTIME MRX1 PRN PRN Reason: Insomnia Last Admin: 10/05/23 20:18 Dose: 50 mg Home Medications ?Medication ?Instructions ?Recorded ?Confirmed ?Last Taken ?Type No Known Home Meds 10/09/23 10/09/23 Unknown History Exam Height,Weight and Vital Signs: Height 5 ft 5 in Weight 69.49 kg Last Vital Signs Temp 99.7 F 10/25/23 20:00 Pulse 87 10/25/23 20:00 Resp 16 10/25/23 20:00 BP 115/73 10/25/23 20:00 Pulse Ox 97 10/25/23 20:00 O2 Del Method Room Air 10/25/23 20:00 O2 Flow Rate 2 10/21/23 15:33 Pertinent Lab Results Pertinent Lab Results: Laboratory Tests 09/23/23 09/27/23 10/10/23 02:20 11:15 14:55 WBC 6.1 RBC 4.83 Hgb 15.0 Hct 44.6 MCV 92.3 MCH 31.1 MCHC 33.6 RDW 11.8 Plt Count 300 MPV 8.9 L Immature Gran % (Auto) 0.5 H Neut % (Auto) 71.0 Lymph % (Auto) 22.0 [place] % (Auto) 4.2 Eos % (Auto) 1.8 Baso % (Auto) 0.5 Lymph # (Auto) 1.4 [place] # (Auto) 0.3 Eos # (Auto) 0.1 Baso # (Auto) 0.0 Abs Immat Gran (auto) 0.03 Absolute Neuts (auto) 4.4 Absolute Nucleated RBC 0.000 Nucleated RBC % (auto) 0.0 ESR Sodium 142 141 Potassium 3.8 3.6 Chloride 105 109 H Carbon Dioxide 28 24 Anion Gap 13 12 BUN 8 L 9 Creatinine 0.79 0.86 Estim Creat Clear Calc 126.5 116.2 Estimated GFR > 60 > 60 Random Glucose 112 110 Calcium 9.3 9.7 Total Bilirubin 0.4 Direct Bilirubin 0.2 AST 10 ALT 9 Alkaline Phosphatase 61 Total Creatine Kinase 66 C-Reactive Protein Total Protein 7.2 Albumin 4.3 Urine Color Urine Appearance Urine pH Ur Specific [place] Urine Protein Urine Glucose (UA) Urine Ketones Urine Blood Urine Nitrite Ur Leukocyte Esterase Urine RBC Urine WBC Ur Squamous Epith Cells Urine Bacteria Hyaline Casts [place] 0.46 L Respiratory Panel Pugh Adenovirus (Rapid PCR) B.pert (TEM-PCR) B.parapertussis DNA PCR C. pneumoniae DNA (PCR) Coronavirus OC43 (PCR) Coronavirus HKU1 (PCR) Coronavirus 229E (PCR) Coronavirus NL63 (PCR) Human Metapneumovir PCR Influenza A (RT-PCR) Influenza Type A (PCR) NEGATIVE Influenza B (RT-PCR) Influenza Type B (PCR) NEGATIVE M. pneumoniae (PCR) Parainfluenza 1 (PCR) Parainfluenza 2 (PCR) Parainfluenza 3 (PCR) Parainfluenza 4 (PCR) RSV (PCR) RSV RNA Qual (PCR) NEGATIVE Entero/Rhino (PCR) SARS-CoV-2 RNA (RT-PCR) NEGATIVE 10/20/23 10/20/23 10/20/23 14:13 16:39 17:10 WBC 11.7 H RBC 4.64 Hgb 14.5 Hct 41.2 L MCV 88.8 MCH 31.3 MCHC 35.2 RDW 11.7 Plt Count 263 MPV 9.0 L Immature Gran % (Auto) 0.3 Neut % (Auto) 78.3 H Lymph % (Auto) 12.0 L [place] % (Auto) 5.7 Eos % (Auto) 3.4 Baso % (Auto) 0.3 Lymph # (Auto) 1.4 [place] # (Auto) 0.7 Eos # (Auto) 0.4 Baso # (Auto) 0.0 Abs Immat Gran (auto) 0.04 H Absolute Neuts (auto) 9.1 H Absolute Nucleated RBC 0.000 Nucleated RBC % (auto) 0.0 ESR Sodium 142 Potassium 3.7 Chloride 108 Carbon Dioxide 27 Anion Gap 11 L BUN 10 Creatinine 0.96 Estim Creat Clear Calc 104.1 Estimated GFR > 60 Random Glucose 106 Calcium 9.3 Total Bilirubin Direct Bilirubin AST ALT Alkaline Phosphatase Total Creatine Kinase C-Reactive Protein Total Protein Albumin Urine Color Yellow Urine Appearance Clear Urine pH 7.0 Ur Specific [place] 1.015 Urine Protein Negative Urine Glucose (UA) Negative Urine Ketones Negative Urine Blood Trace H Urine Nitrite Negative Ur Leukocyte Esterase Negative Urine RBC 6-10 H Urine WBC 0-5 Ur Squamous Epith Cells 0-2 Urine Bacteria None Seen Hyaline Casts 0-2 [place] Respiratory Panel Pugh See Note Adenovirus (Rapid PCR) Not Detected B.pert (TEM-PCR) Not Detected B.parapertussis DNA PCR Not Detected C. pneumoniae DNA (PCR) Not Detected Coronavirus OC43 (PCR) Not Detected Coronavirus HKU1 (PCR) Not Detected Coronavirus 229E (PCR) Not Detected Coronavirus NL63 (PCR) Not Detected Human Metapneumovir PCR Not Detected Influenza A (RT-PCR) Not Detected Influenza Type A (PCR) Influenza B (RT-PCR) Not Detected Influenza Type B (PCR) M. pneumoniae (PCR) Not Detected Parainfluenza 1 (PCR) Not Detected Parainfluenza 2 (PCR) Not Detected Parainfluenza 3 (PCR) Not Detected Parainfluenza 4 (PCR) Not Detected RSV (PCR) Not Detected RSV RNA Qual (PCR) Entero/Rhino (PCR) Not Detected SARS-CoV-2 RNA (RT-PCR) Not Detected 10/25/23 06:56 WBC RBC Hgb Hct MCV MCH MCHC RDW Plt Count MPV Immature Gran % (Auto) Neut % (Auto) Lymph % (Auto) [place] % (Auto) Eos % (Auto) Baso % (Auto) Lymph # (Auto) [place] # (Auto) Eos # (Auto) Baso # (Auto) Abs Immat Gran (auto) Absolute Neuts (auto) Absolute Nucleated RBC Nucleated RBC % (auto) ESR 14 Sodium Potassium Chloride Carbon Dioxide Anion Gap BUN Creatinine Estim Creat Clear Calc Estimated GFR Random Glucose Calcium Total Bilirubin Direct Bilirubin AST ALT Alkaline Phosphatase Total Creatine Kinase 281 H C-Reactive Protein 1.24 H Total Protein Albumin Urine Color Urine Appearance Urine pH Ur Specific [place] Urine Protein Urine Glucose (UA) Urine Ketones Urine Blood Urine Nitrite Ur Leukocyte Esterase Urine RBC Urine WBC Ur Squamous Epith Cells Urine Bacteria Hyaline Casts [place] Respiratory Panel Pugh Adenovirus (Rapid PCR) B.pert (TEM-PCR) B.parapertussis DNA PCR C. pneumoniae DNA (PCR) Coronavirus OC43 (PCR) Coronavirus HKU1 (PCR) Coronavirus 229E (PCR) Coronavirus NL63 (PCR) Human Metapneumovir PCR Influenza A (RT-PCR) Influenza Type A (PCR) Influenza B (RT-PCR) Influenza Type B (PCR) M. pneumoniae (PCR) Parainfluenza 1 (PCR) Parainfluenza 2 (PCR) Parainfluenza 3 (PCR) Parainfluenza 4 (PCR) RSV (PCR) RSV RNA Qual (PCR) Entero/Rhino (PCR) SARS-CoV-2 RNA (RT-PCR) Airway Mallampati Class: II TM Dist: >3cm Neck ROM: Full Heart: rrr Lungs: cta Assessment and Plan Assessment Anesthesia Assessment: Anesthesia Plan Discussed and Chart Reviewed Final Anesthetic Review Family History of Problems with Anesthesia: No History of Problems with Anesthesia: No NPO: Yes ASA Class: III Final Preanesthetic Review: No Changes in Pt Med Stat, Meds/Allgs Chart Reviewed and Consent Obtained/Reviewed Patient Risk: Intermediate Procedure Risk: Intermediate Anesthetic Plan Anesthetic Plan: GA Disposition: Standard PACU
[2023-10-26] MEDS: Lactated Ringers 1,000 ML 50 ML IVCONT (07:10)
--- NOTE | 2023-10-26 08:19 | MHC.SHP ---
Pre-Procedural Eval Section A - 24 Hr Update-Section A only Date of Service: 10/26/23 The patient is an INPATIENT: Yes Changes since office visit: No Cold of Flu in the past 2 weeks, No New Medical Problems, No Changes in Medication and No Patient answered all questions The patient has been examined within 24 hours of the surgical procedure. The History & Physical has been completed within 30 days and I have reviewed it.: Yes Section B - Complete if H&P > 30 days Chief Complaint: catatonia depression Allergies: Allergies Allergy/AdvReac Type Severity Reaction Status Date / Time Unable to Assess Allergy Verified 09/23/23 15:14 Plan I have reviewed the history and physical and performed a pertinent physical examination on my patient. No changes have occurred unless specified. Time Spent With Patient Time: Total time managing care of this patient today ____ minutes.
--- NOTE | 2023-10-26 08:39 | HO.ECTPROC ---
ECT Procedure Note Diagnosis/Treatment Date of Service: 10/26/23 Diagnosis: Catatonia Previous ECT Date: 10/21/23 Current Treatment Number: 3 Treatment: Series Interval Clinical Notes: The patient remains catatonic, grossly disorganized, non-verbal, responding to internal stimuli with evident VH. Unable to verbalize any information. ECT done as usual, no complications. Midazolam 2 mg IVP after ECT for catatonia given. Time: Total time managing care of this patient today _30___ minutes. ECT Settings Device: THYMATRON DGx Electrode Placement: Bitemporal Program/Pulse Width: 0.25 Energy Percent: 100 Seizure Duration By EEG (in seconds): 0 (but seizure activity noted until 33s) By Motor Observation (in seconds): 31 Medications Administration General Anesthetic: Etomidate (16) Muscle Relaxant: Succinylcholine (100) Ancillary Medications Anti-emetics: Zofran - Pre ECT Miscillaneous Medications: Midazolam (2 mg IVP after ECT) Airway Management Airway Management: Bag Mask Ventilation Treatment Recommendations No Changes Recommended: No change Pt Tolerated Procedure w/o Issue: Yes
[2023-10-26] MEDS: Acetaminophen 325 MG TABLET 650 MG PO (18:33)
--- NOTE | 2023-10-26 21:39 | HO.PSYCHPN ---
Subjective Subjective Date of Service: 10/26/23 Reason For Visit: catatonia depression Subjective Notes: Section 8 Interim History: ect completed pt has been less apathetic catatonic some euphoria paranoia more verbal has required 1.1 bizarre behavior intrusive at times Mental Status Exam Mental Status Exam Narrative: appears to be listening to aud fritz Patient Appearance: Inappropriate Level of Consciousness: Inappropriate (withdrawn) Patient Behavior: Passive and Resistive to Care Mood Description: Withdrawn and Flat Ability to Follow Directions: Poor Speech Pattern: Aphasic Abnormal Motor Activity Signs and Symptoms: Psychomotor Retardation Judgement: Poor Diagnostics Vital Signs (24Hr): Vital Signs - 24 hr 10/26/23 06:49 10/26/23 06:49 10/26/23 06:51 Temperature 98.5 F 97.2 F Pulse Rate 86 90 Respiratory Rate 16 16 Blood Pressure 111/63 129/71 Pulse Oximetry 96 96 97 Oxygen Delivery Method Room Air Room Air Room Air Oxygen Flow Rate 10/26/23 08:45 10/26/23 08:50 10/26/23 08:55 Temperature 98.6 F Pulse Rate 96 89 87 Respiratory Rate 18 17 17 Blood Pressure 121/55 L 112/59 L 105/52 L Pulse Oximetry 95 96 96 Oxygen Delivery Method Nasal Cannula with ETCO2 Nasal Cannula with ETCO2 Nasal Cannula with ETCO2 Oxygen Flow Rate 2 2 2 10/26/23 09:00 10/26/23 09:15 10/26/23 09:30 Temperature Pulse Rate 66 65 68 Respiratory Rate 15 16 14 Blood Pressure 94/48 L 94/46 L 92/43 L Pulse Oximetry 97 96 96 Oxygen Delivery Method Nasal Cannula with ETCO2 Nasal Cannula with ETCO2 Nasal Cannula with ETCO2 Oxygen Flow Rate 2 10/26/23 09:45 10/26/23 10:01 10/26/23 10:15 Temperature 97.8 F 99.0 F Pulse Rate 106 H 99 100 Respiratory Rate 17 17 20 Blood Pressure 112/71 121/73 108/61 Pulse Oximetry 96 97 96 Oxygen Delivery Method Room Air Room Air Oxygen Flow Rate 10/26/23 10:19 10/26/23 18:27 Temperature 99.0 F 100.3 F Pulse Rate 100 Respiratory Rate 20 Blood Pressure 108/61 Pulse Oximetry 96 Oxygen Delivery Method Room Air Oxygen Flow Rate BMI result Body Mass Index 25.5 Labs 10/20/23 14:13 10/20/23 14:13 Labs: Laboratory Results - last 48 hr 10/25/23 06:56 ESR 14 Total Creatine Kinase 281 H C-Reactive Protein 1.24 H Imaging Radiology Impressions: ITS Impressions Chest X-Ray 10/20/23 16:28 IMPRESSION: No acute cardiopulmonary abnormality. Medications Medications Current Medications Acetaminophen (Acetaminophen 325 Mg Tablet) 650 mg PO Q6H PRN PRN Reason: Headache/Pain Mild Scale (1-3) Last Admin: 10/26/23 18:33 Dose: 650 mg Al Hydroxide/Mg Hydroxide (Magnesium Hydrox/Alum Hydrox 30 Ml Oral.Susp) 30 ml PO Q6H PRN PRN Reason: Heartburn/Nausea Hydroxyzine HCl (Hydroxyzine Hcl 25 Mg Tablet) 25 mg PO Q6H PRN PRN Reason: Anxiety Last Admin: 10/05/23 20:18 Dose: 25 mg Magnesium Hydroxide (Milk Of Magnesia 30 Ml Oral.Susp) 30 ml PO DAILY PRN PRN Reason: Constipation Trazodone HCl (Trazodone Hcl 50 Mg Tablet) 50 mg PO BEDTIME MRX1 PRN PRN Reason: Insomnia Last Admin: 10/05/23 20:18 Dose: 50 mg Allergies Allergies Allergy/AdvReac Type Severity Reaction Status Date / Time Unable to Assess Allergy Verified 09/23/23 15:14 Assessment & Plan Assessment & Plan (1) Catatonia: Status: Acute Code(s): F06.1 - Catatonic disorder due to known physiological condition Plan 09/23: ativan 2 mg QID. move for commitment and court ordered ECT. 09/24: no change in presentation or plan. remains catatonic, adequate PO intake for the moment. taking 8 mg ativan daily without appreciative improvement. 09/25: continue current management and treatment plan. 09/26: Checked labs. CBC without evidence of infection. Chemistries and LFT's stable. Continue monitoring and response to Ativan. 09/27: continue current management and treatment plan. 09/28: continue current mgmt. producing several monosyllabic answers to questions today. filed for commitment. 09/29: awaiting hearing. very modest response to high-dose ativan. hearing next thursday. continue current mgmt for now. 09/30: no change in presentation. continues to appear to take in adequate fluids and food. continue current mgmt. 10/01: outpt regimen of zyprexa 5 BID and lithium 900 QHS restarted. continue ativan [address] thursday. 10/04/23: Court date pending on 10/06/2023 and ?ECT. 10/04: court deferred to next week for SADA. stably catatonic but up for toileting and PO intake, periodically. refusing labs to check electrolytes. 10/05: pt refusing labs. per staff report, does have reasonable PO intake. court scheduled 10/14. continue current mgmt. 10/06: taking meds, modest PO intake. said, what's your name? today. continue current mgmt. 10/08/23 Patient taking medication remains generally nonverbal he did stand up was reportedly eating more would clearly benefit from ECT as becomes available 10/08: one word today, No, in response to request to check labs for lithium and lytes. continue current mgmt. awaiting court for ECT. 10/09: non-verbal. dry lips but per report is eating meals. reorder labs. continue current mgmt otherwise. 10/10: 10/09 lytes reassuring, lithium 0.46. no change in presentation, continue current mgmt. 10/11: mute. some saccades, otherwise immobile. continue current mgmt. 10/12: will benefit from court ordered tx vital signs ok. 10/13: no change in presentation. court tomorrow at 2. decrease ativan from 2 QID to 2 TID both to see if dose reduction changes behavior in any way and in preparation for requested order from the court for ECT. 10/14: noted to be openly masturbating in his room last night, not responsive to redirection by nursing staff. eating breakfast in bed today. nods on being asked if he would like to attend the hearing today. case discussed with SADA Cifuentes. hearing held, pt committed and ECT/meds ordered. 10/15: no change in presentation. taper benzos over w/e. medical clearance for ECT completed at admission by hospitalist service. planning for ECT #1 on thursday morning. 10/16:Continue current plans and regimen 10/17: Continue current plans and regimen. 10/18: more verbal immediately after ECT #1 today, many more and more rapid responses to questions via head gestures as well. 10/19: febrile, elevated WBC. medicine consult called. continues more responsive today than prior. continue current mgmt pending medicine recs. 10/20: no nidus of infection located thus far. U/A WNL, chest XR WNL. continue current mgmt. ECT today. 10/21: appears to have been afebrile over past 24H, reportedly T100.8 post ECT yesterday. case discussed with dr. wyman. to clarify matters, will DC zyprexa and lithium to see if elevated WBC resolves and hyperpyrexia stops. ECT again tomorrow. no change in clinical presentation. 10/22: remains more verbal today, better eye contact. ECT canceled for today due to error in pt's receiving meal tray. ECT #3 scheduled for thursday. 10/24/23 CTP npo order written for tonight 10/26/23 cont ect will restart antipschotic per tx order Reason for continued inpatient stay Substantial Risk for: harm to others, inability to function, rapid decompensation and med/psych decompensation Time Spent With Patient Time: Total time managing care of this patient today ____ minutes.
[2023-10-27 06:39] VITALS: O2SAT 98
[2023-10-27 06:47] VITALS: BP 128/69; PULSE 96; RESP 16; TEMP 37; O2SAT 98
[2023-10-27 08:00] VITALS: BP 92/52; PULSE 85; RESP 16; TEMP 37.3; O2SAT 98
[2023-10-27 11:12] VITALS: BP 104/60; PULSE 85; TEMP 37.3
--- NOTE | 2023-10-27 14:03 | HO.POSTANES ---
Post Anesthesia Evaluation Post Anesthesia Evaluation Date of Service: 10/26/23 Vital Signs: Vital Signs Temp Pulse Resp BP Pulse Ox O2 Del Method 10/27/23 11:12 99.2 F 85 104/60 10/27/23 08:00 99.1 F 85 16 92/52 L 98 Room Air 10/27/23 06:47 98.6 F 96 16 128/69 98 Room Air 10/27/23 06:39 98 Room Air Anesthesia: General Mental Status: Awake Nausea/Vomiting: None Hydration: Adequate Anesthesia-Related Issues: No Anes. Related Issues
[2023-10-27 20:00] VITALS: BP 100/56; PULSE 69; RESP 16; TEMP 37; O2SAT 98
--- NOTE | 2023-10-27 22:22 | P.PNPSI_ITS ---
Subjective Subjective Date of Service: 10/27/23 Reason For Visit: catatonia depression Subjective Notes: Section 8 Interim History: pt without significant fever pain complaints odd when seen on 1.1 some inc verbal output still isolative eating ok Mental Status Exam Mental Status Exam Narrative: appears to be listening to aud hallucinations turning head listening Patient Appearance: Inappropriate Level of Consciousness: Inappropriate (withdrawn) Patient Behavior: Passive and Resistive to Care Mood Description: Withdrawn and Flat Ability to Follow Directions: Poor Speech Pattern: Aphasic Abnormal Motor Activity Signs and Symptoms: Psychomotor Retardation Judgement: Poor Judgement and Insight: some lability irritability thought non linear thought blocking Diagnostics Vital Signs (24Hr): Vital Signs - 24 hr 10/27/23 06:39 10/27/23 06:47 10/27/23 08:00 Temperature 98.6 F 99.1 F Pulse Rate 96 85 Respiratory Rate 16 16 Blood Pressure 128/69 92/52 L Pulse Oximetry 98 98 98 Oxygen Delivery Method Room Air Room Air Room Air 10/27/23 11:12 10/27/23 20:00 Temperature 99.2 F 98.6 F Pulse Rate 85 69 Respiratory Rate 16 Blood Pressure 104/60 100/56 L Pulse Oximetry 98 Oxygen Delivery Method Room Air BMI result Body Mass Index 25.5 Labs 10/20/23 14:13 10/20/23 14:13 Imaging Radiology Impressions: ITS Impressions Chest X-Ray 10/20/23 16:28 IMPRESSION: No acute cardiopulmonary abnormality. Medications Medications Current Medications Acetaminophen (Acetaminophen 325 Mg Tablet) 650 mg PO Q6H PRN PRN Reason: Headache/Pain Mild Scale (1-3) Last Admin: 10/26/23 18:33 Dose: 650 mg Al Hydroxide/Mg Hydroxide (Magnesium Hydrox/Alum Hydrox 30 Ml Oral.Susp) 30 ml PO Q6H PRN PRN Reason: Heartburn/Nausea Hydroxyzine HCl (Hydroxyzine Hcl 25 Mg Tablet) 25 mg PO Q6H PRN PRN Reason: Anxiety Last Admin: 10/05/23 20:18 Dose: 25 mg Magnesium Hydroxide (Milk Of Magnesia 30 Ml Oral.Susp) 30 ml PO DAILY PRN PRN Reason: Constipation Trazodone HCl (Trazodone Hcl 50 Mg Tablet) 50 mg PO BEDTIME MRX1 PRN PRN Reason: Insomnia Last Admin: 10/05/23 20:18 Dose: 50 mg Allergies Allergies Allergy/AdvReac Type Severity Reaction Status Date / Time Unable to Assess Allergy Verified 09/23/23 15:14 Assessment & Plan Assessment & Plan (1) Catatonia: Status: Acute Code(s): F06.1 - Catatonic disorder due to known physiological condition Plan 09/23: ativan 2 mg QID. move for commitment and court ordered ECT. 09/24: no change in presentation or plan. remains catatonic, adequate PO intake for the moment. taking 8 mg ativan daily without appreciative improvement. 09/25: continue current management and treatment plan. 09/26: Checked labs. CBC without evidence of infection. Chemistries and LFT's stable. Continue monitoring and response to Ativan. 09/27: continue current management and treatment plan. 09/28: continue current mgmt. producing several monosyllabic answers to questions today. filed for commitment. 09/29: awaiting hearing. very modest response to high-dose ativan. hearing next thursday. continue current mgmt for now. 09/30: no change in presentation. continues to appear to take in adequate fluids and food. continue current mgmt. 10/01: outpt regimen of zyprexa 5 BID and lithium 900 QHS restarted. continue ativan [address] thursday. 10/04/23: Court date pending on 10/06/2023 and ?ECT. 10/04: court deferred to next week for SADA. stably catatonic but up for toileting and PO intake, periodically. refusing labs to check electrolytes. 10/05: pt refusing labs. per staff report, does have reasonable PO intake. court scheduled 10/14. continue current mgmt. 10/06: taking meds, modest PO intake. said, what's your name? today. continue current mgmt. 10/08/23 Patient taking medication remains generally nonverbal he did stand up was reportedly eating more would clearly benefit from ECT as becomes available 10/08: one word today, No, in response to request to check labs for lithium and lytes. continue current mgmt. awaiting court for ECT. 10/09: non-verbal. dry lips but per report is eating meals. reorder labs. continue current mgmt otherwise. 10/10: 10/09 lytes reassuring, lithium 0.46. no change in presentation, continue current mgmt. 10/11: mute. some saccades, otherwise immobile. continue current mgmt. 10/12: will benefit from court ordered tx vital signs ok. 10/13: no change in presentation. court tomorrow at 2. decrease ativan from 2 QID to 2 TID both to see if dose reduction changes behavior in any way and in preparation for requested order from the court for ECT. 10/14: noted to be openly masturbating in his room last night, not responsive to redirection by nursing staff. eating breakfast in bed today. nods on being asked if he would like to attend the hearing today. case discussed with SADA Cifuentes. hearing held, pt committed and ECT/meds ordered. 10/15: no change in presentation. taper benzos over w/e. medical clearance for ECT completed at admission by hospitalist service. planning for ECT #1 on thursday morning. 10/16:Continue current plans and regimen 10/17: Continue current plans and regimen. 10/18: more verbal immediately after ECT #1 today, many more and more rapid responses to questions via head gestures as well. 10/19: febrile, elevated WBC. medicine consult called. continues more responsive today than prior. continue current mgmt pending medicine recs. 10/20: no nidus of infection located thus far. U/A WNL, chest XR WNL. continue current mgmt. ECT today. 10/21: appears to have been afebrile over past 24H, reportedly T100.8 post ECT yesterday. case discussed with dr. wyman. to clarify matters, will DC zyprexa and lithium to see if elevated WBC resolves and hyperpyrexia stops. ECT again tomorrow. no change in clinical presentation. 10/22: remains more verbal today, better eye contact. ECT canceled for today due to error in pt's receiving meal tray. ECT #3 scheduled for thursday. 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
[2023-10-28] VITALS (12 sets, daily range): BP systolic 95–117; BP diastolic 43–68; PULSE 57–88; RESP 14–18; TEMP 36.4–37.2; O2SAT 95–100
--- NOTE | 2023-10-28 06:47 | HO.ANESPROP2 ---
[facility]LY [facility], LATER [facility] Active Problems Active Problems: All Active Problems Catatonia (Acute) Routine medical exam (Acute) Past Medical History Medical History No pertinent past medical history Family History Family history of problems with anesthesia: No Surgical History History of Problems with Anesthesia: No Social History Social History Household Members: Other Household Members Other:: Unknown Do you presently have visiting nurse or other home services: No (Unknown) Comment: 1:1 close obs Patient Tobacco Use Status: Never used Tobacco Smoked in Last 30 Days: No e-Cigarette/Vaping Use: Never Used Patient Interested in Nicotine Replacement: No Patient Given Instructions on How to Stop Smoking: No Second Hand Smoke Exposure: No Use of substances other than those prescribed or required for medical reasons: No Currently Displaying Signs/Symptoms of Drug Intoxication Withdrawal: No Any prior treatment program specific to substance use: No Advance Directives: No Advance Directives Information Provided: No (Medical Condition) Do you have thoughts of harming others: None Do you have a plan to hurt others: No Plan Recently lost weight without trying: Unsure Nutrition Risks: No Nutritional Risk Poor oral hygiene: Yes Sexual orientation: Unable to collect Meds Allergies Allergy/AdvReac Type Severity Reaction Status Date / Time Unable to Assess Allergy Verified 09/23/23 15:14 Active Medications: Current Medications Acetaminophen (Acetaminophen 325 Mg Tablet) 650 mg PO Q6H PRN PRN Reason: Headache/Pain Mild Scale (1-3) Last Admin: 10/26/23 18:33 Dose: 650 mg Al Hydroxide/Mg Hydroxide (Magnesium Hydrox/Alum Hydrox 30 Ml Oral.Susp) 30 ml PO Q6H PRN PRN Reason: Heartburn/Nausea Hydroxyzine HCl (Hydroxyzine Hcl 25 Mg Tablet) 25 mg PO Q6H PRN PRN Reason: Anxiety Last Admin: 10/05/23 20:18 Dose: 25 mg Magnesium Hydroxide (Milk Of Magnesia 30 Ml Oral.Susp) 30 ml PO DAILY PRN PRN Reason: Constipation Trazodone HCl (Trazodone Hcl 50 Mg Tablet) 50 mg PO BEDTIME MRX1 PRN PRN Reason: Insomnia Last Admin: 10/05/23 20:18 Dose: 50 mg Home Medications ?Medication ?Instructions ?Recorded ?Confirmed ?Last Taken ?Type No Known Home Meds 10/09/23 10/09/23 Unknown History Exam Height,Weight and Vital Signs: Height 5 ft 5 in Weight 69.49 kg Last Vital Signs Temp 97.5 F 10/28/23 06:39 Pulse 59 10/28/23 06:39 Resp 16 10/28/23 06:39 BP 100/43 L 10/28/23 06:39 Pulse Ox 97 10/28/23 06:39 O2 Del Method Room Air 10/28/23 06:39 O2 Flow Rate 2 10/26/23 09:30 Pertinent Lab Results Pertinent Lab Results: Laboratory Tests 09/23/23 09/27/23 10/10/23 02:20 11:15 14:55 WBC 6.1 RBC 4.83 Hgb 15.0 Hct 44.6 MCV 92.3 MCH 31.1 MCHC 33.6 RDW 11.8 Plt Count 300 MPV 8.9 L Immature Gran % (Auto) 0.5 H Neut % (Auto) 71.0 Lymph % (Auto) 22.0 [place] % (Auto) 4.2 Eos % (Auto) 1.8 Baso % (Auto) 0.5 Lymph # (Auto) 1.4 [place] # (Auto) 0.3 Eos # (Auto) 0.1 Baso # (Auto) 0.0 Abs Immat Gran (auto) 0.03 Absolute Neuts (auto) 4.4 Absolute Nucleated RBC 0.000 Nucleated RBC % (auto) 0.0 ESR Sodium 142 141 Potassium 3.8 3.6 Chloride 105 109 H Carbon Dioxide 28 24 Anion Gap 13 12 BUN 8 L 9 Creatinine 0.79 0.86 Estim Creat Clear Calc 126.5 116.2 Estimated GFR > 60 > 60 Random Glucose 112 110 Calcium 9.3 9.7 Total Bilirubin 0.4 Direct Bilirubin 0.2 AST 10 ALT 9 Alkaline Phosphatase 61 Total Creatine Kinase 66 C-Reactive Protein Total Protein 7.2 Albumin 4.3 Urine Color Urine Appearance Urine pH Ur Specific [place] Urine Protein Urine Glucose (UA) Urine Ketones Urine Blood Urine Nitrite Ur Leukocyte Esterase Urine RBC Urine WBC Ur Squamous Epith Cells Urine Bacteria Hyaline Casts [place] 0.46 L Respiratory Panel Pugh Adenovirus (Rapid PCR) B.pert (TEM-PCR) B.parapertussis DNA PCR C. pneumoniae DNA (PCR) Coronavirus OC43 (PCR) Coronavirus HKU1 (PCR) Coronavirus 229E (PCR) Coronavirus NL63 (PCR) Human Metapneumovir PCR Influenza A (RT-PCR) Influenza Type A (PCR) NEGATIVE Influenza B (RT-PCR) Influenza Type B (PCR) NEGATIVE M. pneumoniae (PCR) Parainfluenza 1 (PCR) Parainfluenza 2 (PCR) Parainfluenza 3 (PCR) Parainfluenza 4 (PCR) RSV (PCR) RSV RNA Qual (PCR) NEGATIVE Entero/Rhino (PCR) SARS-CoV-2 RNA (RT-PCR) NEGATIVE 10/20/23 10/20/23 10/20/23 14:13 16:39 17:10 WBC 11.7 H RBC 4.64 Hgb 14.5 Hct 41.2 L MCV 88.8 MCH 31.3 MCHC 35.2 RDW 11.7 Plt Count 263 MPV 9.0 L Immature Gran % (Auto) 0.3 Neut % (Auto) 78.3 H Lymph % (Auto) 12.0 L [place] % (Auto) 5.7 Eos % (Auto) 3.4 Baso % (Auto) 0.3 Lymph # (Auto) 1.4 [place] # (Auto) 0.7 Eos # (Auto) 0.4 Baso # (Auto) 0.0 Abs Immat Gran (auto) 0.04 H Absolute Neuts (auto) 9.1 H Absolute Nucleated RBC 0.000 Nucleated RBC % (auto) 0.0 ESR Sodium 142 Potassium 3.7 Chloride 108 Carbon Dioxide 27 Anion Gap 11 L BUN 10 Creatinine 0.96 Estim Creat Clear Calc 104.1 Estimated GFR > 60 Random Glucose 106 Calcium 9.3 Total Bilirubin Direct Bilirubin AST ALT Alkaline Phosphatase Total Creatine Kinase C-Reactive Protein Total Protein Albumin Urine Color Yellow Urine Appearance Clear Urine pH 7.0 Ur Specific [place] 1.015 Urine Protein Negative Urine Glucose (UA) Negative Urine Ketones Negative Urine Blood Trace H Urine Nitrite Negative Ur Leukocyte Esterase Negative Urine RBC 6-10 H Urine WBC 0-5 Ur Squamous Epith Cells 0-2 Urine Bacteria None Seen Hyaline Casts 0-2 [place] Respiratory Panel Pugh See Note Adenovirus (Rapid PCR) Not Detected B.pert (TEM-PCR) Not Detected B.parapertussis DNA PCR Not Detected C. pneumoniae DNA (PCR) Not Detected Coronavirus OC43 (PCR) Not Detected Coronavirus HKU1 (PCR) Not Detected Coronavirus 229E (PCR) Not Detected Coronavirus NL63 (PCR) Not Detected Human Metapneumovir PCR Not Detected Influenza A (RT-PCR) Not Detected Influenza Type A (PCR) Influenza B (RT-PCR) Not Detected Influenza Type B (PCR) M. pneumoniae (PCR) Not Detected Parainfluenza 1 (PCR) Not Detected Parainfluenza 2 (PCR) Not Detected Parainfluenza 3 (PCR) Not Detected Parainfluenza 4 (PCR) Not Detected RSV (PCR) Not Detected RSV RNA Qual (PCR) Entero/Rhino (PCR) Not Detected SARS-CoV-2 RNA (RT-PCR) Not Detected 10/25/23 06:56 WBC RBC Hgb Hct MCV MCH MCHC RDW Plt Count MPV Immature Gran % (Auto) Neut % (Auto) Lymph % (Auto) [place] % (Auto) Eos % (Auto) Baso % (Auto) Lymph # (Auto) [place] # (Auto) Eos # (Auto) Baso # (Auto) Abs Immat Gran (auto) Absolute Neuts (auto) Absolute Nucleated RBC Nucleated RBC % (auto) ESR 14 Sodium Potassium Chloride Carbon Dioxide Anion Gap BUN Creatinine Estim Creat Clear Calc Estimated GFR Random Glucose Calcium Total Bilirubin Direct Bilirubin AST ALT Alkaline Phosphatase Total Creatine Kinase 281 H C-Reactive Protein 1.24 H Total Protein Albumin Urine Color Urine Appearance Urine pH Ur Specific [place] Urine Protein Urine Glucose (UA) Urine Ketones Urine Blood Urine Nitrite Ur Leukocyte Esterase Urine RBC Urine WBC Ur Squamous Epith Cells Urine Bacteria Hyaline Casts [place] Respiratory Panel Pugh Adenovirus (Rapid PCR) B.pert (TEM-PCR) B.parapertussis DNA PCR C. pneumoniae DNA (PCR) Coronavirus OC43 (PCR) Coronavirus HKU1 (PCR) Coronavirus 229E (PCR) Coronavirus NL63 (PCR) Human Metapneumovir PCR Influenza A (RT-PCR) Influenza Type A (PCR) Influenza B (RT-PCR) Influenza Type B (PCR) M. pneumoniae (PCR) Parainfluenza 1 (PCR) Parainfluenza 2 (PCR) Parainfluenza 3 (PCR) Parainfluenza 4 (PCR) RSV (PCR) RSV RNA Qual (PCR) Entero/Rhino (PCR) SARS-CoV-2 RNA (RT-PCR) Airway Mallampati Class: II (poor dentition) TM Dist: >3cm Neck ROM: Full Heart: rrr Lungs: cta Assessment and Plan Assessment Anesthesia Assessment: Anesthesia Plan Discussed and Chart Reviewed Final Anesthetic Review Family History of Problems with Anesthesia: No History of Problems with Anesthesia: No NPO: Yes ASA Class: III Final Preanesthetic Review: No Changes in Pt Med Stat, Meds/Allgs Chart Reviewed and Consent Obtained/Reviewed Patient Risk: Intermediate Procedure Risk: Intermediate Anesthetic Plan Anesthetic Plan: GA Disposition: Standard PACU
[2023-10-28] MEDS: Lactated Ringers 1,000 ML 50 ML IVCONT (06:54)
--- NOTE | 2023-10-28 08:27 | MHC.SHP ---
Pre-Procedural Eval Section A - 24 Hr Update-Section A only Date of Service: 10/28/23 The patient is an INPATIENT: Yes Changes since office visit: Yes Changes in Medication; No Cold of Flu in the past 2 weeks, No New Medical Problems and No Patient answered all questions The patient has been examined within 24 hours of the surgical procedure. The History & Physical has been completed within 30 days and I have reviewed it.: Yes Section B - Complete if H&P > 30 days Chief Complaint: catatonia depression Allergies: Allergies Allergy/AdvReac Type Severity Reaction Status Date / Time Unable to Assess Allergy Verified 09/23/23 15:14 Plan I have reviewed the history and physical and performed a pertinent physical examination on my patient. No changes have occurred unless specified. Time Spent With Patient Time: Total time managing care of this patient today ____ minutes.
--- NOTE | 2023-10-28 08:33 | HO.ECTPROC ---
ECT Procedure Note Diagnosis/Treatment Date of Service: 10/28/23 Diagnosis: Catatonia Previous ECT Date: 10/26/23 Current Treatment Number: 4 Treatment: Series Interval Clinical Notes: Pt somewhat more responsive verbally still poorly informational thought blocking withdrawn flat tx BT . Midazolam 2 mg IVP after ECT for catatonia given. Time: Total time managing care of this patient today _30___ minutes. ECT Settings Device: THYMATRON DGx Electrode Placement: Bitemporal Program/Pulse Width: 0.50 Energy Percent: 100 Seizure Duration By EEG (in seconds): 59 Medications Administration General Anesthetic: Etomidate (16) Muscle Relaxant: Succinylcholine (100) Ancillary Medications Anti-emetics: Zofran - Pre ECT Miscillaneous Medications: Midazolam (2 mg IVP after ECT) Airway Management Airway Management: Bag Mask Ventilation Treatment Recommendations No Changes Recommended: No change Pt Tolerated Procedure w/o Issue: Yes
[2023-10-28] MEDS: Paliperidone ER 3 MG TAB.ER.24 PO (12:27)
--- NOTE | 2023-10-28 20:54 | HO.PSYCHPN ---
Subjective Subjective Date of Service: 10/28/23 Reason For Visit: catatonia depression Subjective Notes: Section 8 Interim History: see ect note tolerated tx some improvement noted vss invega started Mental Status Exam Mental Status Exam Narrative: appears to be listening to aud hallucinations turning head listening ongoing Patient Appearance: Inappropriate and Unkempt Patient Orientation: Person Level of Consciousness: Inappropriate (withdrawn) Patient Behavior: Passive and Resistive to Care Mood Description: Withdrawn and Flat Affect Description: Constricted Ability to Follow Directions: Poor Speech Pattern: Aphasic Abnormal Motor Activity Signs and Symptoms: Psychomotor Retardation Judgement: Poor Judgement and Insight: some lability irritability thought non linear thought blocking Diagnostics Vital Signs (24Hr): Vital Signs - 24 hr 10/28/23 06:00 10/28/23 06:00 10/28/23 06:04 Temperature 98.9 F 98.9 F Pulse Rate 76 76 Respiratory Rate 16 16 Blood Pressure 102/53 L 102/53 L Pulse Oximetry 100 100 100 Oxygen Delivery Method Room Air Room Air Oxygen Flow Rate 10/28/23 06:39 10/28/23 08:35 10/28/23 08:40 Temperature 97.5 F 97.8 F Pulse Rate 59 88 77 Respiratory Rate 16 16 17 Blood Pressure 100/43 L 108/63 117/68 Pulse Oximetry 97 100 98 Oxygen Delivery Method Room Air Nasal Cannula with ETCO2 Nasal Cannula with ETCO2 Oxygen Flow Rate 2 2 10/28/23 08:45 10/28/23 08:50 10/28/23 09:05 Temperature Pulse Rate 57 72 83 Respiratory Rate 14 15 16 Blood Pressure 113/62 105/57 L 105/59 L Pulse Oximetry 95 95 97 Oxygen Delivery Method Room Air Room Air Room Air Oxygen Flow Rate 10/28/23 09:20 10/28/23 09:56 10/28/23 09:58 Temperature 98.7 F 98.9 F 98.9 F Pulse Rate 72 72 72 Respiratory Rate 16 18 18 Blood Pressure 104/62 95/57 L 95/57 L Pulse Oximetry 98 97 97 Oxygen Delivery Method Room Air Room Air Oxygen Flow Rate BMI result Body Mass Index 25.5 Labs 10/20/23 14:13 10/20/23 14:13 Imaging Radiology Impressions: ITS Impressions Chest X-Ray 10/20/23 16:28 IMPRESSION: No acute cardiopulmonary abnormality. Medications Medications Current Medications Acetaminophen (Acetaminophen 325 Mg Tablet) 650 mg PO Q6H PRN PRN Reason: Headache/Pain Mild Scale (1-3) Last Admin: 10/26/23 18:33 Dose: 650 mg Al Hydroxide/Mg Hydroxide (Magnesium Hydrox/Alum Hydrox 30 Ml Oral.Susp) 30 ml PO Q6H PRN PRN Reason: Heartburn/Nausea Hydroxyzine HCl (Hydroxyzine Hcl 25 Mg Tablet) 25 mg PO Q6H PRN PRN Reason: Anxiety Last Admin: 10/05/23 20:18 Dose: 25 mg Magnesium Hydroxide (Milk Of Magnesia 30 Ml Oral.Susp) 30 ml PO DAILY PRN PRN Reason: Constipation Paliperidone (Paliperidone Er 3 Mg Tab.Er.24) 3 mg PO DAILY@1230 PAM Last Admin: 10/28/23 12:27 Dose: 3 mg Trazodone HCl (Trazodone Hcl 50 Mg Tablet) 50 mg PO BEDTIME MRX1 PRN PRN Reason: Insomnia Last Admin: 10/05/23 20:18 Dose: 50 mg Allergies Allergies Allergy/AdvReac Type Severity Reaction Status Date / Time Unable to Assess Allergy Verified 09/23/23 15:14 Assessment & Plan Assessment & Plan (1) Catatonia: Status: Acute Code(s): F06.1 - Catatonic disorder due to known physiological condition Plan 09/23: ativan 2 mg QID. move for commitment and court ordered ECT. 09/24: no change in presentation or plan. remains catatonic, adequate PO intake for the moment. taking 8 mg ativan daily without appreciative improvement. 09/25: continue current management and treatment plan. 09/26: Checked labs. CBC without evidence of infection. Chemistries and LFT's stable. Continue monitoring and response to Ativan. 09/27: continue current management and treatment plan. 09/28: continue current mgmt. producing several monosyllabic answers to questions today. filed for commitment. 09/29: awaiting hearing. very modest response to high-dose ativan. hearing next thursday. continue current mgmt for now. 09/30: no change in presentation. continues to appear to take in adequate fluids and food. continue current mgmt. 10/01: outpt regimen of zyprexa 5 BID and lithium 900 QHS restarted. continue ativan [address] thursday. 10/04/23: Court date pending on 10/06/2023 and ?ECT. 10/04: court deferred to next week for SADA. stably catatonic but up for toileting and PO intake, periodically. refusing labs to check electrolytes. 10/05: pt refusing labs. per staff report, does have reasonable PO intake. court scheduled 10/14. continue current mgmt. 10/06: taking meds, modest PO intake. said, what's your name? today. continue current mgmt. 10/08/23 Patient taking medication remains generally nonverbal he did stand up was reportedly eating more would clearly benefit from ECT as becomes available 10/08: one word today, No, in response to request to check labs for lithium and lytes. continue current mgmt. awaiting court for ECT. 10/09: non-verbal. dry lips but per report is eating meals. reorder labs. continue current mgmt otherwise. 10/10: 10/09 lytes reassuring, lithium 0.46. no change in presentation, continue current mgmt. 10/11: mute. some saccades, otherwise immobile. continue current mgmt. 10/12: will benefit from court ordered tx vital signs ok. 10/13: no change in presentation. court tomorrow at 2. decrease ativan from 2 QID to 2 TID both to see if dose reduction changes behavior in any way and in preparation for requested order from the court for ECT. 10/14: noted to be openly masturbating in his room last night, not responsive to redirection by nursing staff. eating breakfast in bed today. nods on being asked if he would like to attend the hearing today. case discussed with SADA Cifuentes. hearing held, pt committed and ECT/meds ordered. 10/15: no change in presentation. taper benzos over w/e. medical clearance for ECT completed at admission by hospitalist service. planning for ECT #1 on thursday morning. 10/16:Continue current plans and regimen 10/17: Continue current plans and regimen. 10/18: more verbal immediately after ECT #1 today, many more and more rapid responses to questions via head gestures as well. 10/19: febrile, elevated WBC. medicine consult called. continues more responsive today than prior. continue current mgmt pending medicine recs. 6/19: no nidus of infection located thus far. U/A WNL, chest XR WNL. continue current mgmt. ECT today. 10/21: appears to have been afebrile over past 24H, reportedly T100.8 post ECT yesterday. case discussed with dr. wyman. to clarify matters, will DC zyprexa and lithium to see if elevated WBC resolves and hyperpyrexia stops. ECT again tomorrow. no change in clinical presentation. 10/22: remains more verbal today, better eye contact. ECT canceled for today due to error in pt's receiving meal tray. ECT #3 scheduled for thursday. 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
--- NOTE | 2023-10-29 06:13 | PC.NURSE ---
When pt was awake on the overnight shift, he was noted to be periodically flicking his tongue or licking his lips. Also, hands observed to seem stiff, in a cupped-like position.
[2023-10-29 07:20] VITALS: BP 103/58; PULSE 84; RESP 18; TEMP 36.6; O2SAT 95
[2023-10-29 08:00] VITALS: BP 102/58; PULSE 84; RESP 18; TEMP 36.6; O2SAT 95
--- NOTE | 2023-10-29 12:04 | HO.POSTANES ---
Post Anesthesia Evaluation Post Anesthesia Evaluation Date of Service: 10/28/23 Vital Signs: Vital Signs Temp Pulse Resp BP Pulse Ox O2 Del Method 10/29/23 08:00 97.8 F 84 18 102/58 L 95 Room Air 10/29/23 07:20 97.8 F 84 18 103/58 L 95 Room Air Anesthesia: General Mental Status: Awake Pain Control: Satisfactory Nausea/Vomiting: None Hydration: Adequate Anesthesia-Related Issues: No Anes. Related Issues
[2023-10-29] MEDS: Paliperidone ER 3 MG TAB.ER.24 PO (13:19)
[2023-10-29] MEDS: hydrOXYzine HCL 25 MG TABLET PO ×2 (15:36→23:28)
[2023-10-29] MEDS: hydrOXYzine HCL 50 MG TABLET PO (18:46)
[2023-10-29 20:13] VITALS: BP 101/63; PULSE 98; RESP 16; TEMP 36.9; O2SAT 97
--- NOTE | 2023-10-29 22:32 | P.PNPSI_ITS ---
Subjective Subjective Date of Service: 10/29/23 Reason For Visit: catatonia depression Subjective Notes: Section 8 Interim History: inc range of affect wandering more verbal some impulsivity going into rooms still difficulty processing info giving hx remains on 1.1 Mental Status Exam Mental Status Exam Patient Appearance: Inappropriate and Unkempt Patient Orientation: Person Level of Consciousness: Inappropriate (withdrawn) Patient Behavior: Passive, Distractible and Confused Mood Description: Labile and Flat Affect Description: Constricted and Labile Ability to Follow Directions: Poor Speech Pattern: Impoverished, Difficulty Finding Words, Mumbled and Long Pauses Thought Content: negative for Suicidal Ideation or negative for Homicidal Ideation Abnormal Motor Activity Signs and Symptoms: Psychomotor Retardation Judgement: Poor Judgement and Insight: 1-2 word answers thought non linear thought blocking no gross aggression or threatening behavoir Diagnostics Vital Signs (24Hr): Vital Signs - 24 hr 10/29/23 07:20 10/29/23 08:00 10/29/23 20:13 Temperature 97.8 F 97.8 F 98.4 F Pulse Rate 84 84 98 Respiratory Rate 18 18 16 Blood Pressure 103/58 L 102/58 L 101/63 Pulse Oximetry 95 95 97 Oxygen Delivery Method Room Air Room Air Room Air BMI result Body Mass Index 25.5 Labs 10/20/23 14:13 10/20/23 14:13 Imaging Radiology Impressions: ITS Impressions Chest X-Ray 10/20/23 16:28 IMPRESSION: No acute cardiopulmonary abnormality. Medications Medications Current Medications Acetaminophen (Acetaminophen 325 Mg Tablet) 650 mg PO Q6H PRN PRN Reason: Headache/Pain Mild Scale (1-3) Last Admin: 10/26/23 18:33 Dose: 650 mg Al Hydroxide/Mg Hydroxide (Magnesium Hydrox/Alum Hydrox 30 Ml Oral.Susp) 30 ml PO Q6H PRN PRN Reason: Heartburn/Nausea Hydroxyzine HCl (Hydroxyzine Hcl 25 Mg Tablet) 25 mg PO Q6H PRN PRN Reason: Anxiety Last Admin: 10/29/23 15:36 Dose: 25 mg Magnesium Hydroxide (Milk Of Magnesia 30 Ml Oral.Susp) 30 ml PO DAILY PRN PRN Reason: Constipation Paliperidone (Paliperidone Er 3 Mg Tab.Er.24) 3 mg PO DAILY@1230 PAM Last Admin: 10/29/23 13:19 Dose: 3 mg Trazodone HCl (Trazodone Hcl 50 Mg Tablet) 50 mg PO BEDTIME MRX1 PRN PRN Reason: Insomnia Last Admin: 10/05/23 20:18 Dose: 50 mg Allergies Allergies Allergy/AdvReac Type Severity Reaction Status Date / Time Unable to Assess Allergy Verified 09/23/23 15:14 Assessment & Plan Assessment & Plan (1) Catatonia: Status: Acute Code(s): F06.1 - Catatonic disorder due to known physiological condition Plan 09/23: ativan 2 mg QID. move for commitment and court ordered ECT. 09/24: no change in presentation or plan. remains catatonic, adequate PO intake for the moment. taking 8 mg ativan daily without appreciative improvement. 09/25: continue current management and treatment plan. 09/26: Checked labs. CBC without evidence of infection. Chemistries and LFT's stable. Continue monitoring and response to Ativan. 09/27: continue current management and treatment plan. 09/28: continue current mgmt. producing several monosyllabic answers to questions today. filed for commitment. 09/29: awaiting hearing. very modest response to high-dose ativan. hearing next thursday. continue current mgmt for now. 09/30: no change in presentation. continues to appear to take in adequate fluids and food. continue current mgmt. 10/01: outpt regimen of zyprexa 5 BID and lithium 900 QHS restarted. continue ativan [address] thursday. 10/04/23: Court date pending on 10/06/2023 and ?ECT. 10/04: court deferred to next week for SADA. stably catatonic but up for toileting and PO intake, periodically. refusing labs to check electrolytes. 10/05: pt refusing labs. per staff report, does have reasonable PO intake. court scheduled 10/14. continue current mgmt. 10/06: taking meds, modest PO intake. said, what's your name? today. continue current mgmt. 10/08/23 Patient taking medication remains generally nonverbal he did stand up was reportedly eating more would clearly benefit from ECT as becomes available 10/08: one word today, No, in response to request to check labs for lithium and lytes. continue current mgmt. awaiting court for ECT. 10/09: non-verbal. dry lips but per report is eating meals. reorder labs. continue current mgmt otherwise. 10/10: 10/09 lytes reassuring, lithium 0.46. no change in presentation, continue current mgmt. 10/11: mute. some saccades, otherwise immobile. continue current mgmt. 10/12: will benefit from court ordered tx vital signs ok. 10/13: no change in presentation. court tomorrow at 2. decrease ativan from 2 QID to 2 TID both to see if dose reduction changes behavior in any way and in preparation for requested order from the court for ECT. 10/14: noted to be openly masturbating in his room last night, not responsive to redirection by nursing staff. eating breakfast in bed today. nods on being asked if he would like to attend the hearing today. case discussed with SADA Cifuentes. hearing held, pt committed and ECT/meds ordered. 10/15: no change in presentation. taper benzos over w/e. medical clearance for ECT completed at admission by hospitalist service. planning for ECT #1 on thursday morning. 10/16:Continue current plans and regimen 10/17: Continue current plans and regimen. 10/18: more verbal immediately after ECT #1 today, many more and more rapid responses to questions via head gestures as well. 10/19: febrile, elevated WBC. medicine consult called. continues more responsive today than prior. continue current mgmt pending medicine recs. 10/20: no nidus of infection located thus far. U/A WNL, chest XR WNL. continue current mgmt. ECT today. 10/21: appears to have been afebrile over past 24H, reportedly T100.8 post ECT yesterday. case discussed with dr. wyman. to clarify matters, will DC zyprexa and lithium to see if elevated WBC resolves and hyperpyrexia stops. ECT again tomorrow. no change in clinical presentation. 10/22: remains more verbal today, better eye contact. ECT canceled for today due to error in pt's receiving meal tray. ECT #3 scheduled for thursday. 10/24/23 CTP npo order written for tonight 10/26/23 cont ect will restart antipschotic per tx order 10/27/23 ect BT start invega pos monitoring tech response 10/28/23 cont ect improvement noted would benefit from further hx ck labs in am 10/28/23 cont ect invega some response noted Reason for continued inpatient stay Substantial Risk for: inability to function, rapid decompensation and med/psych decompensation Time Spent With Patient Time: Total time managing care of this patient today ____ minutes.
[2023-10-30] VITALS (12 sets, daily range): BP systolic 90–120; BP diastolic 51–74; PULSE 58–79; RESP 12–20; TEMP 36.5–37; O2SAT 95–100
--- NOTE | 2023-10-30 02:21 | PC.NURSE ---
Pt was in room with sitter and suddenly urinated on floor.
--- NOTE | 2023-10-30 06:44 | P.CONAN_ITS ---
FORMERLY [facility], [facility] Active Problems Active Problems: All Active Problems Catatonia (Acute) Routine medical exam (Acute) Past Medical History Medical History No pertinent past medical history Family History Family history of problems with anesthesia: No Surgical History History of Problems with Anesthesia: No Social History Social History Household Members: Other Household Members Other:: Unknown Do you presently have visiting nurse or other home services: No (Unknown) Comment: pt currently on close observation Patient Tobacco Use Status: Never used Tobacco Smoked in Last 30 Days: No e-Cigarette/Vaping Use: Never Used Patient Interested in Nicotine Replacement: No Patient Given Instructions on How to Stop Smoking: No Second Hand Smoke Exposure: No Use of substances other than those prescribed or required for medical reasons: No Currently Displaying Signs/Symptoms of Drug Intoxication Withdrawal: No Any prior treatment program specific to substance use: No Advance Directives: No Advance Directives Information Provided: No (Medical Condition) Do you have thoughts of harming others: None Do you have a plan to hurt others: No Plan Recently lost weight without trying: Unsure Nutrition Risks: No Nutritional Risk Poor oral hygiene: Yes Sexual orientation: Unable to collect Meds Allergies Allergy/AdvReac Type Severity Reaction Status Date / Time Unable to Assess Allergy Verified 09/23/23 15:14 Active Medications: Current Medications Acetaminophen (Acetaminophen 325 Mg Tablet) 650 mg PO Q6H PRN PRN Reason: Headache/Pain Mild Scale (1-3) Last Admin: 10/26/23 18:33 Dose: 650 mg Al Hydroxide/Mg Hydroxide (Magnesium Hydrox/Alum Hydrox 30 Ml Oral.Susp) 30 ml PO Q6H PRN PRN Reason: Heartburn/Nausea Hydroxyzine HCl (Hydroxyzine Hcl 25 Mg Tablet) 25 mg PO Q6H PRN PRN Reason: Anxiety Last Admin: 10/29/23 23:28 Dose: 25 mg Magnesium Hydroxide (Milk Of Magnesia 30 Ml Oral.Susp) 30 ml PO DAILY PRN PRN Reason: Constipation Paliperidone (Paliperidone Er 3 Mg Tab.Er.24) 3 mg PO DAILY@1230 PAM Last Admin: 10/29/23 13:19 Dose: 3 mg Trazodone HCl (Trazodone Hcl 50 Mg Tablet) 50 mg PO BEDTIME MRX1 PRN PRN Reason: Insomnia Last Admin: 10/05/23 20:18 Dose: 50 mg Home Medications ?Medication ?Instructions ?Recorded ?Confirmed ?Last Taken ?Type No Known Home Meds 10/09/23 10/09/23 Unknown History Exam Height,Weight and Vital Signs: Height 5 ft 5 in Weight 69.49 kg Last Vital Signs Temp 98.4 F 10/29/23 20:13 Pulse 98 10/29/23 20:13 Resp 16 10/29/23 20:13 BP 101/63 10/29/23 20:13 Pulse Ox 97 10/29/23 20:13 O2 Del Method Room Air 10/29/23 20:13 O2 Flow Rate 2 10/28/23 08:40 Pertinent Lab Results Pertinent Lab Results: Laboratory Tests 09/23/23 09/27/23 10/10/23 02:20 11:15 14:55 WBC 6.1 RBC 4.83 Hgb 15.0 Hct 44.6 MCV 92.3 MCH 31.1 MCHC 33.6 RDW 11.8 Plt Count 300 MPV 8.9 L Immature Gran % (Auto) 0.5 H Neut % (Auto) 71.0 Lymph % (Auto) 22.0 Green % (Auto) 4.2 Eos % (Auto) 1.8 Baso % (Auto) 0.5 Lymph # (Auto) 1.4 Green # (Auto) 0.3 Eos # (Auto) 0.1 Baso # (Auto) 0.0 Abs Immat Gran (auto) 0.03 Absolute Neuts (auto) 4.4 Absolute Nucleated RBC 0.000 Nucleated RBC % (auto) 0.0 ESR Sodium 142 141 Potassium 3.8 3.6 Chloride 105 109 H Carbon Dioxide 28 24 Anion Gap 13 12 BUN 8 L 9 Creatinine 0.79 0.86 Estim Creat Clear Calc 126.5 116.2 Estimated GFR > 60 > 60 Random Glucose 112 110 Calcium 9.3 9.7 Total Bilirubin 0.4 Direct Bilirubin 0.2 AST 10 ALT 9 Alkaline Phosphatase 61 Total Creatine Kinase 66 C-Reactive Protein Total Protein 7.2 Albumin 4.3 Urine Color Urine Appearance Urine pH Ur Specific [place] Urine Protein Urine Glucose (UA) Urine Ketones Urine Blood Urine Nitrite Ur Leukocyte Esterase Urine RBC Urine WBC Ur Squamous Epith Cells Urine Bacteria Hyaline Casts [place] 0.46 L Respiratory Panel Pugh Adenovirus (Rapid PCR) B.pert (TEM-PCR) B.parapertussis DNA PCR C. pneumoniae DNA (PCR) Coronavirus OC43 (PCR) Coronavirus HKU1 (PCR) Coronavirus 229E (PCR) Coronavirus NL63 (PCR) Human Metapneumovir PCR Influenza A (RT-PCR) Influenza Type A (PCR) NEGATIVE Influenza B (RT-PCR) Influenza Type B (PCR) NEGATIVE M. pneumoniae (PCR) Parainfluenza 1 (PCR) Parainfluenza 2 (PCR) Parainfluenza 3 (PCR) Parainfluenza 4 (PCR) RSV (PCR) RSV RNA Qual (PCR) NEGATIVE Entero/Rhino (PCR) SARS-CoV-2 RNA (RT-PCR) NEGATIVE 10/20/23 10/20/23 10/20/23 14:13 16:39 17:10 WBC 11.7 H RBC 4.64 Hgb 14.5 Hct 41.2 L MCV 88.8 MCH 31.3 MCHC 35.2 RDW 11.7 Plt Count 263 MPV 9.0 L Immature Gran % (Auto) 0.3 Neut % (Auto) 78.3 H Lymph % (Auto) 12.0 L Green % (Auto) 5.7 Eos % (Auto) 3.4 Baso % (Auto) 0.3 Lymph # (Auto) 1.4 Green # (Auto) 0.7 Eos # (Auto) 0.4 Baso # (Auto) 0.0 Abs Immat Gran (auto) 0.04 H Absolute Neuts (auto) 9.1 H Absolute Nucleated RBC 0.000 Nucleated RBC % (auto) 0.0 ESR Sodium 142 Potassium 3.7 Chloride 108 Carbon Dioxide 27 Anion Gap 11 L BUN 10 Creatinine 0.96 Estim Creat Clear Calc 104.1 Estimated GFR > 60 Random Glucose 106 Calcium 9.3 Total Bilirubin Direct Bilirubin AST ALT Alkaline Phosphatase Total Creatine Kinase C-Reactive Protein Total Protein Albumin Urine Color Yellow Urine Appearance Clear Urine pH 7.0 Ur Specific [place] 1.015 Urine Protein Negative Urine Glucose (UA) Negative Urine Ketones Negative Urine Blood Trace H Urine Nitrite Negative Ur Leukocyte Esterase Negative Urine RBC 6-10 H Urine WBC 0-5 Ur Squamous Epith Cells 0-2 Urine Bacteria None Seen Hyaline Casts 0-2 [place] Respiratory Panel Pugh See Note Adenovirus (Rapid PCR) Not Detected B.pert (TEM-PCR) Not Detected B.parapertussis DNA PCR Not Detected C. pneumoniae DNA (PCR) Not Detected Coronavirus OC43 (PCR) Not Detected Coronavirus HKU1 (PCR) Not Detected Coronavirus 229E (PCR) Not Detected Coronavirus NL63 (PCR) Not Detected Human Metapneumovir PCR Not Detected Influenza A (RT-PCR) Not Detected Influenza Type A (PCR) Influenza B (RT-PCR) Not Detected Influenza Type B (PCR) M. pneumoniae (PCR) Not Detected Parainfluenza 1 (PCR) Not Detected Parainfluenza 2 (PCR) Not Detected Parainfluenza 3 (PCR) Not Detected Parainfluenza 4 (PCR) Not Detected RSV (PCR) Not Detected RSV RNA Qual (PCR) Entero/Rhino (PCR) Not Detected SARS-CoV-2 RNA (RT-PCR) Not Detected 10/25/23 06:56 WBC RBC Hgb Hct MCV MCH MCHC RDW Plt Count MPV Immature Gran % (Auto) Neut % (Auto) Lymph % (Auto) Green % (Auto) Eos % (Auto) Baso % (Auto) Lymph # (Auto) Green # (Auto) Eos # (Auto) Baso # (Auto) Abs Immat Gran (auto) Absolute Neuts (auto) Absolute Nucleated RBC Nucleated RBC % (auto) ESR 14 Sodium Potassium Chloride Carbon Dioxide Anion Gap BUN Creatinine Estim Creat Clear Calc Estimated GFR Random Glucose Calcium Total Bilirubin Direct Bilirubin AST ALT Alkaline Phosphatase Total Creatine Kinase 281 H C-Reactive Protein 1.24 H Total Protein Albumin Urine Color Urine Appearance Urine pH Ur Specific [place] Urine Protein Urine Glucose (UA) Urine Ketones Urine Blood Urine Nitrite Ur Leukocyte Esterase Urine RBC Urine WBC Ur Squamous Epith Cells Urine Bacteria Hyaline Casts [place] Respiratory Panel Pugh Adenovirus (Rapid PCR) B.pert (TEM-PCR) B.parapertussis DNA PCR C. pneumoniae DNA (PCR) Coronavirus OC43 (PCR) Coronavirus HKU1 (PCR) Coronavirus 229E (PCR) Coronavirus NL63 (PCR) Human Metapneumovir PCR Influenza A (RT-PCR) Influenza Type A (PCR) Influenza B (RT-PCR) Influenza Type B (PCR) M. pneumoniae (PCR) Parainfluenza 1 (PCR) Parainfluenza 2 (PCR) Parainfluenza 3 (PCR) Parainfluenza 4 (PCR) RSV (PCR) RSV RNA Qual (PCR) Entero/Rhino (PCR) SARS-CoV-2 RNA (RT-PCR) Airway Mallampati Class: II TM Dist: >3cm Neck ROM: Full Heart: rrr Lungs: cta Assessment and Plan Assessment Anesthesia Assessment: Anesthesia Plan Discussed and Chart Reviewed Final Anesthetic Review Family History of Problems with Anesthesia: No History of Problems with Anesthesia: No NPO: Yes ASA Class: III Final Preanesthetic Review: No Changes in Pt Med Stat, Meds/Allgs Chart Reviewed and Consent Obtained/Reviewed Patient Risk: Intermediate Procedure Risk: Intermediate Anesthetic Plan Anesthetic Plan: GA Disposition: Standard PACU
[2023-10-30] MEDS: Lactated Ringers 1,000 ML 50 ML IVCONT (06:49)
--- NOTE | 2023-10-30 07:03 | MHC.SHP ---
Pre-Procedural Eval Section A - 24 Hr Update-Section A only Date of Service: 10/30/23 The patient is an INPATIENT: Yes Changes since office visit: Yes Changes in Medication; No Cold of Flu in the past 2 weeks, No New Medical Problems and No Patient answered all questions The patient has been examined within 24 hours of the surgical procedure. The History & Physical has been completed within 30 days and I have reviewed it.: Yes Section B - Complete if H&P > 30 days Chief Complaint: catatonia depression Allergies: Allergies Allergy/AdvReac Type Severity Reaction Status Date / Time Unable to Assess Allergy Verified 09/23/23 15:14 Plan I have reviewed the history and physical and performed a pertinent physical examination on my patient. No changes have occurred unless specified. Time Spent With Patient Time: Total time managing care of this patient today ____ minutes.
--- NOTE | 2023-10-30 07:04 | HO.ECTPROC ---
ECT Procedure Note Diagnosis/Treatment Date of Service: 10/30/23 Diagnosis: Catatonia Previous ECT Date: 10/28/23 Current Treatment Number: 5 Treatment: Series Interval Clinical Notes: pt with some inc range of fx no side effects noted inc verbal output but still not able to give historical info BT Time: Total time managing care of this patient today ____ minutes. ECT Settings Device: THYMATRON DGx Electrode Placement: Bitemporal Program/Pulse Width: 0.50 Energy Percent: 100 Seizure Duration By EEG (in seconds): 33 Ancillary Medications Analgesics: Torodol - Pre ECT Anti-emetics: Zofran - Pre ECT Miscillaneous Medications: Midazolam (2) Airway Management Airway Management: Bag Mask Ventilation Treatment Recommendations No Changes Recommended: No change Notes: remains with catatonic like sx Pt Tolerated Procedure w/o Issue: Yes
[2023-10-30 08:36] LABS: Erythrocyte Sedimentation Rate 16 MM/HR (0-15)
[2023-10-30 08:39] LABS: TSH reflex Free T4 4.24 uIU/mL (0.32-4.0)
[2023-10-30 08:57] LABS: Vitamin B12 258 pg/mL (200-900)
[2023-10-30 09:18] LABS: Free T4 (Free Thyroxine) 1.08 ng/dL (0.71-1.85)
[2023-10-30 09:43] LABS: Folate 8.8 ng/mL (> or = 4.0)
[2023-10-30] MEDS: Paliperidone ER 3 MG TAB.ER.24 PO (13:51)
[2023-10-31] MEDS: Paliperidone ER 3 MG TAB.ER.24 PO (11:33)
--- NOTE | 2023-10-31 15:00 | HO.PSYCHPN ---
Subjective Subjective Date of Service: 10/31/23 Reason For Visit: catatonia depression Subjective Notes: Section 7 and Section 8 Interim History: The nursing staff reported that yesterday he was able not to reduce night in the floor, he remains grossly disorganized running up and down at times. His appetite is much better and after ECT he slept well. No eye contact. On interview the duration remains grossly disorganized nearly catatonic. But more reactive. Mental Status Exam Mental Status Exam Patient Appearance: Unkempt Patient Orientation: Person and Situation Level of Consciousness: Awake Patient Behavior: Guarded and Passive Mood Description: Blunted Affect Description: Blunted Patient Cognition Impaired: Yes Ability to Follow Directions: Poor Speech Pattern: Impoverished and Monotone Hallucinations: Auditory and Visual Delusions: Paranoid Ideation and Ideas of Reference Thought Process: Illogical and Slowed Thinking Thought Content: positive for Thought Blocking Judgement: Poor Diagnostics Vital Signs (24Hr): Vital Signs - 24 hr 10/30/23 20:00 Temperature 98.5 F Pulse Rate 76 Respiratory Rate 16 Blood Pressure 101/64 Pulse Oximetry 98 Oxygen Delivery Method Room Air BMI result Body Mass Index 25.5 Labs 10/20/23 14:13 10/20/23 14:13 Labs: Laboratory Results - last 48 hr 10/30/23 07:49 ESR 16 H Vitamin B12 258 Folate 8.8 TSH 4.24 H Free T4 1.08 Imaging Radiology Impressions: ITS Impressions Chest X-Ray 10/20/23 16:28 IMPRESSION: No acute cardiopulmonary abnormality. Medications Medications Current Medications Acetaminophen (Acetaminophen 325 Mg Tablet) 650 mg PO Q6H PRN PRN Reason: Headache/Pain Mild Scale (1-3) Last Admin: 10/26/23 18:33 Dose: 650 mg Al Hydroxide/Mg Hydroxide (Magnesium Hydrox/Alum Hydrox 30 Ml Oral.Susp) 30 ml PO Q6H PRN PRN Reason: Heartburn/Nausea Hydroxyzine HCl (Hydroxyzine Hcl 25 Mg Tablet) 25 mg PO Q6H PRN PRN Reason: Anxiety Last Admin: 10/29/23 23:28 Dose: 25 mg Magnesium Hydroxide (Milk Of Magnesia 30 Ml Oral.Susp) 30 ml PO DAILY PRN PRN Reason: Constipation Paliperidone (Paliperidone Er 3 Mg Tab.Er.24) 3 mg PO DAILY@1230 PAM Last Admin: 10/31/23 11:33 Dose: 3 mg Trazodone HCl (Trazodone Hcl 50 Mg Tablet) 50 mg PO BEDTIME MRX1 PRN PRN Reason: Insomnia Last Admin: 10/05/23 20:18 Dose: 50 mg Allergies Allergies Allergy/AdvReac Type Severity Reaction Status Date / Time Unable to Assess Allergy Verified 09/23/23 15:14 Assessment & Plan Assessment & Plan (1) Catatonia: Status: Acute Code(s): F06.1 - Catatonic disorder due to known physiological condition Plan 09/23: ativan 2 mg QID. move for commitment and court ordered ECT. 09/24: no change in presentation or plan. remains catatonic, adequate PO intake for the moment. taking 8 mg ativan daily without appreciative improvement. 09/25: continue current management and treatment plan. 09/26: Checked labs. CBC without evidence of infection. Chemistries and LFT's stable. Continue monitoring and response to Ativan. 09/27: continue current management and treatment plan. 09/28: continue current mgmt. producing several monosyllabic answers to questions today. filed for commitment. 09/29: awaiting hearing. very modest response to high-dose ativan. hearing next thursday. continue current mgmt for now. 09/30: no change in presentation. continues to appear to take in adequate fluids and food. continue current mgmt. 10/01: outpt regimen of zyprexa 5 BID and lithium 900 QHS restarted. continue ativan [address] thursday. 10/04/23: Court date pending on 10/06/2023 and ?ECT. 10/04: court deferred to next week for SADA. stably catatonic but up for toileting and PO intake, periodically. refusing labs to check electrolytes. 10/05: pt refusing labs. per staff report, does have reasonable PO intake. court scheduled 10/14. continue current mgmt. 10/06: taking meds, modest PO intake. said, what's your name? today. continue current mgmt. 10/08/23 Patient taking medication remains generally nonverbal he did stand up was reportedly eating more would clearly benefit from ECT as becomes available 10/08: one word today, No, in response to request to check labs for lithium and lytes. continue current mgmt. awaiting court for ECT. 10/09: non-verbal. dry lips but per report is eating meals. reorder labs. continue current mgmt otherwise. 10/10: 10/09 lytes reassuring, lithium 0.46. no change in presentation, continue current mgmt. 10/11: mute. some saccades, otherwise immobile. continue current mgmt. 10/12: will benefit from court ordered tx vital signs ok. 10/13: no change in presentation. court tomorrow at 2. decrease ativan from 2 QID to 2 TID both to see if dose reduction changes behavior in any way and in preparation for requested order from the court for ECT. 10/14: noted to be openly masturbating in his room last night, not responsive to redirection by nursing staff. eating breakfast in bed today. nods on being asked if he would like to attend the hearing today. case discussed with SADA Cifuentes. hearing held, pt committed and ECT/meds ordered. 10/15: no change in presentation. taper benzos over w/e. medical clearance for ECT completed at admission by hospitalist service. planning for ECT #1 on thursday morning. 10/16:Continue current plans and regimen 10/17: Continue current plans and regimen. 10/18: more verbal immediately after ECT #1 today, many more and more rapid responses to questions via head gestures as well. 10/19: febrile, elevated WBC. medicine consult called. continues more responsive today than prior. continue current mgmt pending medicine recs. 10/20: no nidus of infection located thus far. U/A WNL, chest XR WNL. continue current mgmt. ECT today. 10/21: appears to have been afebrile over past 24H, reportedly T100.8 post ECT yesterday. case discussed with dr. wyman. to clarify matters, will DC zyprexa and lithium to see if elevated WBC resolves and hyperpyrexia stops. ECT again tomorrow. no change in clinical presentation. 10/22: remains more verbal today, better eye contact. ECT canceled for today due to error in pt's receiving meal tray. ECT #3 scheduled for thursday. 10/24/23 CTP npo order written for tonight 10/26/23 cont ect will restart antipschotic per tx order 10/27/23 ect BT start invega pos monitoring and evaluation advisor response 10/28/23 cont ect improvement noted would benefit from further hx ck labs in am 10/28/23 cont ect invega some response noted 10/30 continue same treatment Reason for continued inpatient stay Substantial Risk for: inability to function, rapid decompensation and med/psych decompensation Time Spent With Patient Time: Total time managing care of this patient today __20__ minutes.
[2023-10-31] MEDS: OLANZapine ODT 10 MG TAB.RAPDIS TRANSLINGU (17:11)
[2023-10-31] MEDS: LORazepam 1 MG TABLET 2 MG PO (17:11)
--- NOTE | 2023-10-31 17:14 | PC.NURSE ---
Pt became increasingly restless and agitated and swung at 1:1 staff after being redirected from the kitchen, staff was not injured. Pt received PO Ativan 2mg and Zydis 10mg.
[2023-11-01] MEDS: Paliperidone ER 3 MG TAB.ER.24 PO (11:43)
[2023-11-01 12:57] VITALS: BP 99/56; PULSE 96; RESP 15; TEMP 36.2; O2SAT 97
--- NOTE | 2023-11-01 13:00 | HO.PSYCHPN ---
Subjective Subjective Date of Service: 11/01/23 Reason For Visit: catatonia depression Subjective Notes: Section 7 and Section 8 Interim History: The nursing staff reported the patient slept at night and in the evening after being medicated with Zydis and Ativan. He remains with flat affect slept 9 hours. Today he was seen in the common area, trying to eat a sandwich he was slightly verbal very disorganized. We are going to have ECT tomorrow Mental Status Exam Mental Status Exam Patient Appearance: Disheveled and Unkempt Patient Orientation: Person Level of Consciousness: Disoriented and Restless Patient Behavior: Guarded and Restless Mood Description: Withdrawn Affect Description: Blunted Ability to Follow Directions: Poor Speech Pattern: Impoverished and Monotone Hallucinations: Auditory and Visual Delusions: Paranoid Ideation and Ideas of Reference Thought Process: Distracted and Slowed Thinking Thought Content: positive for Thought Blocking Judgement: Poor Diagnostics Vital Signs (24Hr): Vital Signs - 24 hr 11/01/23 12:57 Temperature 97.2 F Pulse Rate 96 Respiratory Rate 15 Blood Pressure 99/56 L Pulse Oximetry 97 Oxygen Delivery Method Room Air BMI result Body Mass Index 25.5 Labs 10/20/23 14:13 10/20/23 14:13 Imaging Radiology Impressions: ITS Impressions Chest X-Ray 10/20/23 16:28 IMPRESSION: No acute cardiopulmonary abnormality. Medications Medications Current Medications Acetaminophen (Acetaminophen 325 Mg Tablet) 650 mg PO Q6H PRN PRN Reason: Headache/Pain Mild Scale (1-3) Last Admin: 10/26/23 18:33 Dose: 650 mg Al Hydroxide/Mg Hydroxide (Magnesium Hydrox/Alum Hydrox 30 Ml Oral.Susp) 30 ml PO Q6H PRN PRN Reason: Heartburn/Nausea Hydroxyzine HCl (Hydroxyzine Hcl 25 Mg Tablet) 25 mg PO Q6H PRN PRN Reason: Anxiety Last Admin: 10/29/23 23:28 Dose: 25 mg Magnesium Hydroxide (Milk Of Magnesia 30 Ml Oral.Susp) 30 ml PO DAILY PRN PRN Reason: Constipation Paliperidone (Paliperidone Er 3 Mg Tab.Er.24) 3 mg PO DAILY@1230 PAM Last Admin: 11/01/23 11:43 Dose: 3 mg Trazodone HCl (Trazodone Hcl 50 Mg Tablet) 50 mg PO BEDTIME MRX1 PRN PRN Reason: Insomnia Last Admin: 10/05/23 20:18 Dose: 50 mg Allergies Allergies Allergy/AdvReac Type Severity Reaction Status Date / Time Unable to Assess Allergy Verified 09/23/23 15:14 Assessment & Plan Assessment & Plan (1) Catatonia: Status: Acute Code(s): F06.1 - Catatonic disorder due to known physiological condition Plan 09/23: ativan 2 mg QID. move for commitment and court ordered ECT. 09/24: no change in presentation or plan. remains catatonic, adequate PO intake for the moment. taking 8 mg ativan daily without appreciative improvement. 09/25: continue current management and treatment plan. 09/26: Checked labs. CBC without evidence of infection. Chemistries and LFT's stable. Continue monitoring and response to Ativan. 09/27: continue current management and treatment plan. 09/28: continue current mgmt. producing several monosyllabic answers to questions today. filed for commitment. 09/29: awaiting hearing. very modest response to high-dose ativan. hearing next thursday. continue current mgmt for now. 09/30: no change in presentation. continues to appear to take in adequate fluids and food. continue current mgmt. 10/01: outpt regimen of zyprexa 5 BID and lithium 900 QHS restarted. continue ativan [address] thursday. 10/04/23: Court date pending on 10/06/2023 and ?ECT. 10/04: court deferred to next week for SADA. stably catatonic but up for toileting and PO intake, periodically. refusing labs to check electrolytes. 10/05: pt refusing labs. per staff report, does have reasonable PO intake. court scheduled 10/14. continue current mgmt. 10/06: taking meds, modest PO intake. said, what's your name? today. continue current mgmt. 10/08/23 Patient taking medication remains generally nonverbal he did stand up was reportedly eating more would clearly benefit from ECT as becomes available 10/08: one word today, No, in response to request to check labs for lithium and lytes. continue current mgmt. awaiting court for ECT. 10/09: non-verbal. dry lips but per report is eating meals. reorder labs. continue current mgmt otherwise. 10/10: 10/09 lytes reassuring, lithium 0.46. no change in presentation, continue current mgmt. 10/11: mute. some saccades, otherwise immobile. continue current mgmt. 10/12: will benefit from court ordered tx vital signs ok. 10/13: no change in presentation. court tomorrow at 2. decrease ativan from 2 QID to 2 TID both to see if dose reduction changes behavior in any way and in preparation for requested order from the court for ECT. 10/14: noted to be openly masturbating in his room last night, not responsive to redirection by nursing staff. eating breakfast in bed today. nods on being asked if he would like to attend the hearing today. case discussed with SADA Cifuentes. hearing held, pt committed and ECT/meds ordered. 10/15: no change in presentation. taper benzos over w/e. medical clearance for ECT completed at admission by hospitalist service. planning for ECT #1 on thursday morning. 10/16:Continue current plans and regimen 10/17: Continue current plans and regimen. 10/18: more verbal immediately after ECT #1 today, many more and more rapid responses to questions via head gestures as well. 10/19: febrile, elevated WBC. medicine consult called. continues more responsive today than prior. continue current mgmt pending medicine recs. 10/20: no nidus of infection located thus far. U/A WNL, chest XR WNL. continue current mgmt. ECT today. 10/21: appears to have been afebrile over past 24H, reportedly T100.8 post ECT yesterday. case discussed with dr. wyman. to clarify matters, will DC zyprexa and lithium to see if elevated WBC resolves and hyperpyrexia stops. ECT again tomorrow. no change in clinical presentation. 10/22: remains more verbal today, better eye contact. ECT canceled for today due to error in pt's receiving meal tray. ECT #3 scheduled for thursday. 10/24/23 CTP npo order written for tonight 10/26/23 cont ect will restart antipschotic per tx order 10/27/23 ect BT start invega pos threat monitoring analyst response 10/28/23 cont ect improvement noted would benefit from further hx ck labs in am 10/28/23 cont ect invega some response noted 10/30 continue same treatment. 10/31 continue same treatment ECT tomorrow. Reason for continued inpatient stay Substantial Risk for: inability to function, rapid decompensation and med/psych decompensation Time Spent With Patient Time: Total time managing care of this patient today __20__ minutes.
[2023-11-01] MEDS: OLANZapine ODT 10 MG TAB.RAPDIS TRANSLINGU (16:27)
--- NOTE | 2023-11-01 18:39 | PC.NURSE ---
On 11/01/23 approx. 1700 female staff reported that pt was sexually inappropriate with her. Pt was speaking about putting things in his butt pt then pulled down his pants. Staff redirected and asked him to pull pants up and stood outside the door until a MHC was able to relieve her. Pt told female staff I really wish I could touch your boobs right now. Pt was redirected and male staff was then placed with pt.
[2023-11-01 20:00] VITALS: BP 101/58; PULSE 72; RESP 16; TEMP 37.3; O2SAT 97
[2023-11-02] VITALS (8 sets, daily range): BP systolic 104–133; BP diastolic 57–74; PULSE 61–114; RESP 16–18; TEMP 36.6–37.4; O2SAT 95–99
--- NOTE | 2023-11-02 06:47 | P.CONAN_ITS ---
[facility] Active Problems Active Problems: All Active Problems Catatonia (Acute) Routine medical exam (Acute) Past Medical History Medical History No pertinent past medical history Family History Family history of problems with anesthesia: No Surgical History History of Problems with Anesthesia: No Social History Social History Household Members: Other Household Members Other:: Unknown Do you presently have visiting nurse or other home services: No (Unknown) Comment: pt currently on close observation Patient Tobacco Use Status: Never used Tobacco Smoked in Last 30 Days: No e-Cigarette/Vaping Use: Never Used Patient Interested in Nicotine Replacement: No Patient Given Instructions on How to Stop Smoking: No Second Hand Smoke Exposure: No Use of substances other than those prescribed or required for medical reasons: No Currently Displaying Signs/Symptoms of Drug Intoxication Withdrawal: No Any prior treatment program specific to substance use: No Advance Directives: No Advance Directives Information Provided: No (Medical Condition) Do you have thoughts of harming others: None Do you have a plan to hurt others: No Plan Recently lost weight without trying: Unsure Nutrition Risks: No Nutritional Risk Poor oral hygiene: Yes Sexual orientation: Unable to collect Meds Allergies Allergy/AdvReac Type Severity Reaction Status Date / Time Unable to Assess Allergy Verified 09/23/23 15:14 Active Medications: Current Medications Acetaminophen (Acetaminophen 325 Mg Tablet) 650 mg PO Q6H PRN PRN Reason: Headache/Pain Mild Scale (1-3) Last Admin: 10/26/23 18:33 Dose: 650 mg Al Hydroxide/Mg Hydroxide (Magnesium Hydrox/Alum Hydrox 30 Ml Oral.Susp) 30 ml PO Q6H PRN PRN Reason: Heartburn/Nausea Hydroxyzine HCl (Hydroxyzine Hcl 25 Mg Tablet) 25 mg PO Q6H PRN PRN Reason: Anxiety Last Admin: 10/29/23 23:28 Dose: 25 mg Magnesium Hydroxide (Milk Of Magnesia 30 Ml Oral.Susp) 30 ml PO DAILY PRN PRN Reason: Constipation Olanzapine (Olanzapine Odt 10 Mg Tab.Rapdis) 10 mg TRANSLINGU Q4H PRN PRN Reason: anxiety/restlessness Last Admin: 11/01/23 16:27 Dose: 10 mg Paliperidone (Paliperidone Er 3 Mg Tab.Er.24) 3 mg PO DAILY@1230 [facility] Last Admin: 11/01/23 11:43 Dose: 3 mg Trazodone HCl (Trazodone Hcl 50 Mg Tablet) 50 mg PO BEDTIME MRX1 PRN PRN Reason: Insomnia Last Admin: 10/05/23 20:18 Dose: 50 mg Home Medications ?Medication ?Instructions ?Recorded ?Confirmed ?Last Taken ?Type No Known Home Meds 10/09/23 10/09/23 Unknown History Exam Height,Weight and Vital Signs: Height 5 ft 5 in Weight 69.49 kg Last Vital Signs Temp 97.9 F 11/02/23 06:39 Pulse 72 11/02/23 06:39 Resp 16 11/02/23 06:39 BP 104/60 11/02/23 06:39 Pulse Ox 98 11/02/23 06:39 O2 Del Method Room Air 11/02/23 06:39 O2 Flow Rate 2 10/30/23 07:36 Pertinent Lab Results Pertinent Lab Results: Laboratory Tests 09/23/23 09/27/23 10/10/23 02:20 11:15 14:55 WBC 6.1 RBC 4.83 Hgb 15.0 Hct 44.6 MCV 92.3 MCH 31.1 MCHC 33.6 RDW 11.8 Plt Count 300 MPV 8.9 L Immature Gran % (Auto) 0.5 H Neut % (Auto) 71.0 Lymph % (Auto) 22.0 [place] % (Auto) 4.2 Eos % (Auto) 1.8 Baso % (Auto) 0.5 Lymph # (Auto) 1.4 [place] # (Auto) 0.3 Eos # (Auto) 0.1 Baso # (Auto) 0.0 Abs Immat Gran (auto) 0.03 Absolute Neuts (auto) 4.4 Absolute Nucleated RBC 0.000 Nucleated RBC % (auto) 0.0 ESR Sodium 142 141 Potassium 3.8 3.6 Chloride 105 109 H Carbon Dioxide 28 24 Anion Gap 13 12 BUN 8 L 9 Creatinine 0.79 0.86 Estim Creat Clear Calc 126.5 116.2 Estimated GFR > 60 > 60 Random Glucose 112 110 Calcium 9.3 9.7 Total Bilirubin 0.4 Direct Bilirubin 0.2 AST 10 ALT 9 Alkaline Phosphatase 61 Total Creatine Kinase 66 C-Reactive Protein Total Protein 7.2 Albumin 4.3 Vitamin B12 Folate TSH Free T4 Urine Color Urine Appearance Urine pH Ur Specific [place] Urine Protein Urine Glucose (UA) Urine Ketones Urine Blood Urine Nitrite Ur Leukocyte Esterase Urine RBC Urine WBC Ur Squamous Epith Cells Urine Bacteria Hyaline Casts [place] 0.46 L Respiratory Panel Pugh Adenovirus (Rapid PCR) B.pert (TEM-PCR) B.parapertussis DNA PCR C. pneumoniae DNA (PCR) Coronavirus OC43 (PCR) Coronavirus HKU1 (PCR) Coronavirus 229E (PCR) Coronavirus NL63 (PCR) Human Metapneumovir PCR Influenza A (RT-PCR) Influenza Type A (PCR) NEGATIVE Influenza B (RT-PCR) Influenza Type B (PCR) NEGATIVE M. pneumoniae (PCR) Parainfluenza 1 (PCR) Parainfluenza 2 (PCR) Parainfluenza 3 (PCR) Parainfluenza 4 (PCR) RSV (PCR) RSV RNA Qual (PCR) NEGATIVE Entero/Rhino (PCR) SARS-CoV-2 RNA (RT-PCR) NEGATIVE 10/20/23 10/20/23 10/20/23 14:13 16:39 17:10 WBC 11.7 H RBC 4.64 Hgb 14.5 Hct 41.2 L MCV 88.8 MCH 31.3 MCHC 35.2 RDW 11.7 Plt Count 263 MPV 9.0 L Immature Gran % (Auto) 0.3 Neut % (Auto) 78.3 H Lymph % (Auto) 12.0 L [place] % (Auto) 5.7 Eos % (Auto) 3.4 Baso % (Auto) 0.3 Lymph # (Auto) 1.4 [place] # (Auto) 0.7 Eos # (Auto) 0.4 Baso # (Auto) 0.0 Abs Immat Gran (auto) 0.04 H Absolute Neuts (auto) 9.1 H Absolute Nucleated RBC 0.000 Nucleated RBC % (auto) 0.0 ESR Sodium 142 Potassium 3.7 Chloride 108 Carbon Dioxide 27 Anion Gap 11 L BUN 10 Creatinine 0.96 Estim Creat Clear Calc 104.1 Estimated GFR > 60 Random Glucose 106 Calcium 9.3 Total Bilirubin Direct Bilirubin AST ALT Alkaline Phosphatase Total Creatine Kinase C-Reactive Protein Total Protein Albumin Vitamin B12 Folate TSH Free T4 Urine Color Yellow Urine Appearance Clear Urine pH 7.0 Ur Specific [place] 1.015 Urine Protein Negative Urine Glucose (UA) Negative Urine Ketones Negative Urine Blood Trace H Urine Nitrite Negative Ur Leukocyte Esterase Negative Urine RBC 6-10 H Urine WBC 0-5 Ur Squamous Epith Cells 0-2 Urine Bacteria None Seen Hyaline Casts 0-2 [place] Respiratory Panel Pugh See Note Adenovirus (Rapid PCR) Not Detected B.pert (TEM-PCR) Not Detected B.parapertussis DNA PCR Not Detected C. pneumoniae DNA (PCR) Not Detected Coronavirus OC43 (PCR) Not Detected Coronavirus HKU1 (PCR) Not Detected Coronavirus 229E (PCR) Not Detected Coronavirus NL63 (PCR) Not Detected Human Metapneumovir PCR Not Detected Influenza A (RT-PCR) Not Detected Influenza Type A (PCR) Influenza B (RT-PCR) Not Detected Influenza Type B (PCR) M. pneumoniae (PCR) Not Detected Parainfluenza 1 (PCR) Not Detected Parainfluenza 2 (PCR) Not Detected Parainfluenza 3 (PCR) Not Detected Parainfluenza 4 (PCR) Not Detected RSV (PCR) Not Detected RSV RNA Qual (PCR) Entero/Rhino (PCR) Not Detected SARS-CoV-2 RNA (RT-PCR) Not Detected 10/25/23 10/30/23 06:56 07:49 WBC RBC Hgb Hct MCV MCH MCHC RDW Plt Count MPV Immature Gran % (Auto) Neut % (Auto) Lymph % (Auto) [place] % (Auto) Eos % (Auto) Baso % (Auto) Lymph # (Auto) [place] # (Auto) Eos # (Auto) Baso # (Auto) Abs Immat Gran (auto) Absolute Neuts (auto) Absolute Nucleated RBC Nucleated RBC % (auto) ESR 14 16 H Sodium Potassium Chloride Carbon Dioxide Anion Gap BUN Creatinine Estim Creat Clear Calc Estimated GFR Random Glucose Calcium Total Bilirubin Direct Bilirubin AST ALT Alkaline Phosphatase Total Creatine Kinase 281 H C-Reactive Protein 1.24 H Total Protein Albumin Vitamin B12 258 Folate 8.8 TSH 4.24 H Free T4 1.08 Urine Color Urine Appearance Urine pH Ur Specific [place] Urine Protein Urine Glucose (UA) Urine Ketones Urine Blood Urine Nitrite Ur Leukocyte Esterase Urine RBC Urine WBC Ur Squamous Epith Cells Urine Bacteria Hyaline Casts [place] Respiratory Panel Pugh Adenovirus (Rapid PCR) B.pert (TEM-PCR) B.parapertussis DNA PCR C. pneumoniae DNA (PCR) Coronavirus OC43 (PCR) Coronavirus HKU1 (PCR) Coronavirus 229E (PCR) Coronavirus NL63 (PCR) Human Metapneumovir PCR Influenza A (RT-PCR) Influenza Type A (PCR) Influenza B (RT-PCR) Influenza Type B (PCR) M. pneumoniae (PCR) Parainfluenza 1 (PCR) Parainfluenza 2 (PCR) Parainfluenza 3 (PCR) Parainfluenza 4 (PCR) RSV (PCR) RSV RNA Qual (PCR) Entero/Rhino (PCR) SARS-CoV-2 RNA (RT-PCR) Airway Mallampati Class: II TM Dist: >3cm Neck ROM: Full Heart: rrr Lungs: cta Assessment and Plan Assessment Anesthesia Assessment: Anesthesia Plan Discussed and Chart Reviewed Final Anesthetic Review Family History of Problems with Anesthesia: No History of Problems with Anesthesia: No NPO: Yes ASA Class: III Final Preanesthetic Review: No Changes in Pt Med Stat, Meds/Allgs Chart Reviewed and Consent Obtained/Reviewed Patient Risk: Low Procedure Risk: Intermediate Anesthetic Plan Anesthetic Plan: GA Disposition: Standard PACU
--- NOTE | 2023-11-02 06:52 | MHC.SHP ---
Pre-Procedural Eval Section A - 24 Hr Update-Section A only Date of Service: 11/02/23 The patient is an INPATIENT: Yes Changes since office visit: No Cold of Flu in the past 2 weeks, No New Medical Problems, No Changes in Medication and No Patient answered all questions The patient has been examined within 24 hours of the surgical procedure. The History & Physical has been completed within 30 days and I have reviewed it.: Yes Section B - Complete if H&P > 30 days Chief Complaint: catatonia depression Allergies: Allergies Allergy/AdvReac Type Severity Reaction Status Date / Time Unable to Assess Allergy Verified 09/23/23 15:14 Plan I have reviewed the history and physical and performed a pertinent physical examination on my patient. No changes have occurred unless specified. Time Spent With Patient Time: Total time managing care of this patient today ____ minutes.
--- NOTE | 2023-11-02 07:37 | MHC.SHP ---
Pre-Procedural Eval Section A - 24 Hr Update-Section A only Date of Service: 11/02/23 The patient is an INPATIENT: Yes Changes since office visit: No Cold of Flu in the past 2 weeks, No New Medical Problems, No Changes in Medication and No Patient answered all questions The patient has been examined within 24 hours of the surgical procedure. The History & Physical has been completed within 30 days and I have reviewed it.: Yes Section B - Complete if H&P > 30 days Chief Complaint: catatonia depression Details of Present Illness: Catatonic, now a little more responsive, still grossly disorganized Relevant Family History (Specify if Yes): No Relevant Social History: None Present Medications: see Short Stay Collaborative assessment Medical History: No relevant PMH History of Previous Operations: No relevant previous surgery Allergies: Allergies Allergy/AdvReac Type Severity Reaction Status Date / Time Unable to Assess Allergy Verified 09/23/23 15:14 Review of Systems Sugical H&P ROS: Negative: Constitution, Cardiovascular, Respiratory, Neurological, Psychiatric, Hem-Onc, Allergic/Immunologic, Gastrointestinal, Genitourinary, Musculoskeletal, Integumentary, Endocrine and Eyes/Ears/Nose/Throat Exam Surgical H&P Exam: Normal: HEENT, Normal: Heart, Normal: Lungs, Normal: Extremities, Normal: Abdomen, Normal: Skin and Normal: Neurological Plan Diagnosis/Plan: Unchanged I have reviewed the history and physical and performed a pertinent physical examination on my patient. No changes have occurred unless specified. Time Spent With Patient Time: Total time managing care of this patient today __20__ minutes.
--- NOTE | 2023-11-02 07:38 | HO.ECTPROC ---
ECT Procedure Note Diagnosis/Treatment Date of Service: 11/02/23 Diagnosis: Catatonia Previous ECT Date: 10/30/23 Current Treatment Number: 6 Treatment: Series Interval Clinical Notes: The patient now is able to answer simple questions, remains grossly disorganized but at least minimally verbal. Unable to verbalize previous side effects. ECT done as usual, no complications, woke up well. Time: Total time managing care of this patient today ____ minutes. ECT Settings Device: THYMATRON DGx Electrode Placement: Bitemporal Program/Pulse Width: 0.50 Energy Percent: 100 Seizure Duration By EEG (in seconds): 29 By Motor Observation (in seconds): 29 Medications Administration General Anesthetic: Etomidate (16) Muscle Relaxant: Succinylcholine (100) Ancillary Medications Analgesics: Torodol - Pre ECT Anti-emetics: Zofran - Pre ECT Miscillaneous Medications: Other (Midazolam 2 mg IVP after ECT) Airway Management Airway Management: Bag Mask Ventilation Treatment Recommendations No Changes Recommended: No change Pt Tolerated Procedure w/o Issue: Yes
[2023-11-02] MEDS: Paliperidone ER 3 MG TAB.ER.24 PO (12:15)
[2023-11-02] MEDS: traZODone HCL 50 MG TABLET PO ×2 (20:37→22:22)
[2023-11-02] MEDS: OLANZapine ODT 10 MG TAB.RAPDIS TRANSLINGU (20:37)
--- NOTE | 2023-11-02 22:12 | HO.PSYCHPN ---
Subjective Subjective Date of Service: 11/02/23 Reason For Visit: catatonia depression Subjective Notes: Section 8 Guardianship: No Interim History: Patient seen psychiatric follow-up ECT completed hypersexual aggressiveat times has been on invega 3 mg Mental Status Exam Mental Status Exam Patient Appearance: Disheveled and Unkempt Patient Orientation: Person Level of Consciousness: Disoriented, Restless and Inappropriate Patient Behavior: Guarded, Hyperactive, Restless, Invasion - Personal Space and Distractible Mood Description: Withdrawn Affect Description: Blunted Ability to Follow Directions: Poor Speech Pattern: Impoverished and Monotone Hallucinations: Auditory and Visual Delusions: Paranoid Ideation and Ideas of Reference Thought Process: Distracted and Slowed Thinking Thought Content: positive for Thought Blocking Judgement: Poor Diagnostics Vital Signs (24Hr): Vital Signs - 24 hr 11/02/23 06:39 11/02/23 07:40 11/02/23 07:45 Temperature 97.9 F 99.3 F Pulse Rate 72 61 95 Respiratory Rate 16 16 18 Blood Pressure 104/60 133/74 121/74 Pulse Oximetry 98 99 97 Oxygen Delivery Method Room Air Nasal Cannula Nasal Cannula Oxygen Flow Rate 2 2 11/02/23 07:50 11/02/23 07:55 11/02/23 08:10 Temperature 99.3 F Pulse Rate 94 91 87 Respiratory Rate 18 18 18 Blood Pressure 114/69 114/66 109/64 Pulse Oximetry 96 96 96 Oxygen Delivery Method Room Air Room Air Oxygen Flow Rate 11/02/23 08:31 11/02/23 08:31 Temperature 98.3 F 98.3 F Pulse Rate 88 88 Respiratory Rate 18 18 Blood Pressure 113/69 113/69 Pulse Oximetry 95 95 Oxygen Delivery Method Room Air Oxygen Flow Rate BMI result Body Mass Index 25.5 Labs 10/20/23 14:13 10/20/23 14:13 Imaging Radiology Impressions: ITS Impressions Chest X-Ray 10/20/23 16:28 IMPRESSION: No acute cardiopulmonary abnormality. Medications Medications Current Medications Acetaminophen (Acetaminophen 325 Mg Tablet) 650 mg PO Q6H PRN PRN Reason: Headache/Pain Mild Scale (1-3) Last Admin: 10/26/23 18:33 Dose: 650 mg Al Hydroxide/Mg Hydroxide (Magnesium Hydrox/Alum Hydrox 30 Ml Oral.Susp) 30 ml PO Q6H PRN PRN Reason: Heartburn/Nausea Hydroxyzine HCl (Hydroxyzine Hcl 25 Mg Tablet) 25 mg PO Q6H PRN PRN Reason: Anxiety Last Admin: 10/29/23 23:28 Dose: 25 mg Magnesium Hydroxide (Milk Of Magnesia 30 Ml Oral.Susp) 30 ml PO DAILY PRN PRN Reason: Constipation Olanzapine (Olanzapine Odt 10 Mg Tab.Rapdis) 10 mg TRANSLINGU Q4H PRN PRN Reason: anxiety/restlessness Last Admin: 11/02/23 20:37 Dose: 10 mg Paliperidone (Paliperidone Er 3 Mg Tab.Er.24) 3 mg PO DAILY@1230 PAM Last Admin: 11/02/23 12:15 Dose: 3 mg Trazodone HCl (Trazodone Hcl 50 Mg Tablet) 50 mg PO BEDTIME MRX1 PRN PRN Reason: Insomnia Last Admin: 11/02/23 20:37 Dose: 50 mg Allergies Allergies Allergy/AdvReac Type Severity Reaction Status Date / Time Unable to Assess Allergy Verified 09/23/23 15:14 Assessment & Plan Assessment & Plan (1) Catatonia: Status: Acute Code(s): F06.1 - Catatonic disorder due to known physiological condition Plan 09/23: ativan 2 mg QID. move for commitment and court ordered ECT. 09/24: no change in presentation or plan. remains catatonic, adequate PO intake for the moment. taking 8 mg ativan daily without appreciative improvement. 09/25: continue current management and treatment plan. 09/26: Checked labs. CBC without evidence of infection. Chemistries and LFT's stable. Continue monitoring and response to Ativan. 09/27: continue current management and treatment plan. 09/28: continue current mgmt. producing several monosyllabic answers to questions today. filed for commitment. 09/29: awaiting hearing. very modest response to high-dose ativan. hearing next thursday. continue current mgmt for now. 09/30: no change in presentation. continues to appear to take in adequate fluids and food. continue current mgmt. 10/01: outpt regimen of zyprexa 5 BID and lithium 900 QHS restarted. continue ativan [address] thursday. 10/04/23: Court date pending on 10/06/2023 and ?ECT. 10/04: court deferred to next week for SADA. stably catatonic but up for toileting and PO intake, periodically. refusing labs to check electrolytes. 10/05: pt refusing labs. per staff report, does have reasonable PO intake. court scheduled 10/14. continue current mgmt. 10/06: taking meds, modest PO intake. said, what's your name? today. continue current mgmt. 10/08/23 Patient taking medication remains generally nonverbal he did stand up was reportedly eating more would clearly benefit from ECT as becomes available 10/08: one word today, No, in response to request to check labs for lithium and lytes. continue current mgmt. awaiting court for ECT. 10/09: non-verbal. dry lips but per report is eating meals. reorder labs. continue current mgmt otherwise. 10/10: 10/09 lytes reassuring, lithium 0.46. no change in presentation, continue current mgmt. 10/11: mute. some saccades, otherwise immobile. continue current mgmt. 10/12: will benefit from court ordered tx vital signs ok. 10/13: no change in presentation. court tomorrow at 2. decrease ativan from 2 QID to 2 TID both to see if dose reduction changes behavior in any way and in preparation for requested order from the court for ECT. 10/14: noted to be openly masturbating in his room last night, not responsive to redirection by nursing staff. eating breakfast in bed today. nods on being asked if he would like to attend the hearing today. case discussed with SADA Cifuentes. hearing held, pt committed and ECT/meds ordered. 10/15: no change in presentation. taper benzos over w/e. medical clearance for ECT completed at admission by hospitalist service. planning for ECT #1 on thursday morning. 10/16:Continue current plans and regimen 10/17: Continue current plans and regimen. 10/18: more verbal immediately after ECT #1 today, many more and more rapid responses to questions via head gestures as well. 10/19: febrile, elevated WBC. medicine consult called. continues more responsive today than prior. continue current mgmt pending medicine recs. 10/20: no nidus of infection located thus far. U/A WNL, chest XR WNL. continue current mgmt. ECT today. 10/21: appears to have been afebrile over past 24H, reportedly T100.8 post ECT yesterday. case discussed with dr. wyman. to clarify matters, will DC zyprexa and lithium to see if elevated WBC resolves and hyperpyrexia stops. ECT again tomorrow. no change in clinical presentation. 10/22: remains more verbal today, better eye contact. ECT canceled for today due to error in pt's receiving meal tray. ECT #3 scheduled for thursday. 10/24/23 CTP npo order written for tonight 10/26/23 cont ect will restart antipschotic per tx order 10/27/23 ect BT start invega pos monitoring and evaluation advisor response 10/28/23 cont ect improvement noted would benefit from further hx ck labs in am 10/28/23 cont ect invega some response noted 10/30 continue same treatment. 10/31 continue same treatment ECT tomorrow. 11/02/23 Cont ect change to hs olanzapine 10 mg Reason for continued inpatient stay Substantial Risk for: inability to function and rapid decompensation Time Spent With Patient Time: Total time managing care of this patient today ____ minutes.
[2023-11-02] MEDS: hydrOXYzine HCL 25 MG TABLET PO (22:22)
[2023-11-02] MEDS: LORazepam 1 MG TABLET 2 MG PO (23:03)
[2023-11-02] MEDS: HaloperidoL 5 MG TABLET PO (23:03)
--- NOTE | 2023-11-03 13:38 | HO.POSTANES ---
Post Anesthesia Evaluation Post Anesthesia Evaluation Date of Service: 11/02/23 Anesthesia: General Mental Status: Awake Pain Control: Satisfactory Nausea/Vomiting: None Hydration: Adequate Anesthesia-Related Issues: No Anes. Related Issues
[2023-11-03 20:00] VITALS: BP 120/69; PULSE 100; RESP 18; TEMP 36.4; O2SAT 98
[2023-11-03] MEDS: hydrOXYzine HCL 25 MG TABLET PO (20:27)
[2023-11-03] MEDS: OLANZapine ODT 10 MG TAB.RAPDIS TRANSLINGU (20:27)
[2023-11-03] MEDS: traZODone HCL 50 MG TABLET PO (20:31)
--- NOTE | 2023-11-03 22:15 | HO.PSYCHPN ---
Subjective Subjective Date of Service: 11/03/23 Reason For Visit: catatonia depression Subjective Notes: Section 8 Interim History: Patient somewhat sedated today after medication last night when awake much osborn affect walking talking still relatively poorly informational Medication Compliance: Yes Attending Groups: No Mental Status Exam Mental Status Exam Patient Appearance: Disheveled and Unkempt Patient Orientation: Person Level of Consciousness: Disoriented, Restless and Inappropriate Patient Behavior: Guarded, Hyperactive, Restless, Invasion - Personal Space and Distractible Mood Description: Withdrawn Affect Description: Blunted Ability to Follow Directions: Poor Speech Pattern: Impoverished, Rambling and Soft-Spoken Hallucinations: Auditory and Visual Delusions: Paranoid Ideation and Ideas of Reference Thought Process: Distracted and Slowed Thinking Thought Content: positive for Thought Blocking Judgement: Poor Diagnostics Vital Signs (24Hr): BMI result Body Mass Index 25.5 Labs 10/20/23 14:13 10/20/23 14:13 Imaging Radiology Impressions: ITS Impressions Chest X-Ray 10/20/23 16:28 IMPRESSION: No acute cardiopulmonary abnormality. Medications Medications Current Medications Acetaminophen (Acetaminophen 325 Mg Tablet) 650 mg PO Q6H PRN PRN Reason: Headache/Pain Mild Scale (1-3) Last Admin: 10/26/23 18:33 Dose: 650 mg Al Hydroxide/Mg Hydroxide (Magnesium Hydrox/Alum Hydrox 30 Ml Oral.Susp) 30 ml PO Q6H PRN PRN Reason: Heartburn/Nausea Hydroxyzine HCl (Hydroxyzine Hcl 25 Mg Tablet) 25 mg PO Q6H PRN PRN Reason: Anxiety Last Admin: 11/03/23 20:27 Dose: 25 mg Magnesium Hydroxide (Milk Of Magnesia 30 Ml Oral.Susp) 30 ml PO DAILY PRN PRN Reason: Constipation Olanzapine (Olanzapine Odt 10 Mg Tab.Rapdis) 10 mg TRANSLINGU Q4H PRN PRN Reason: anxiety/restlessness Last Admin: 11/02/23 20:37 Dose: 10 mg Olanzapine (Olanzapine Odt 10 Mg Tab.Rapdis) 10 mg TRANSLINGU BEDTIME PAM Last Admin: 11/03/23 20:27 Dose: 10 mg Trazodone HCl (Trazodone Hcl 50 Mg Tablet) 50 mg PO BEDTIME MRX1 PRN PRN Reason: Insomnia Last Admin: 11/03/23 20:31 Dose: 50 mg Allergies Allergies Allergy/AdvReac Type Severity Reaction Status Date / Time Unable to Assess Allergy Verified 09/23/23 15:14 Assessment & Plan Assessment & Plan (1) Catatonia: Status: Acute Code(s): F06.1 - Catatonic disorder due to known physiological condition Plan 09/23: ativan 2 mg QID. move for commitment and court ordered ECT. 09/24: no change in presentation or plan. remains catatonic, adequate PO intake for the moment. taking 8 mg ativan daily without appreciative improvement. 09/25: continue current management and treatment plan. 09/26: Checked labs. CBC without evidence of infection. Chemistries and LFT's stable. Continue monitoring and response to Ativan. 09/27: continue current management and treatment plan. 09/28: continue current mgmt. producing several monosyllabic answers to questions today. filed for commitment. 09/29: awaiting hearing. very modest response to high-dose ativan. hearing next thursday. continue current mgmt for now. 09/30: no change in presentation. continues to appear to take in adequate fluids and food. continue current mgmt. 10/01: outpt regimen of zyprexa 5 BID and lithium 900 QHS restarted. continue ativan [address] thursday. 10/04/23: Court date pending on 10/06/2023 and ?ECT. 10/04: court deferred to next week for SADA. stably catatonic but up for toileting and PO intake, periodically. refusing labs to check electrolytes. 10/05: pt refusing labs. per staff report, does have reasonable PO intake. court scheduled 10/14. continue current mgmt. 10/06: taking meds, modest PO intake. said, what's your name? today. continue current mgmt. 10/08/23 Patient taking medication remains generally nonverbal he did stand up was reportedly eating more would clearly benefit from ECT as becomes available 10/08: one word today, No, in response to request to check labs for lithium and lytes. continue current mgmt. awaiting court for ECT. 10/09: non-verbal. dry lips but per report is eating meals. reorder labs. continue current mgmt otherwise. 10/10: 10/09 lytes reassuring, lithium 0.46. no change in presentation, continue current mgmt. 10/11: mute. some saccades, otherwise immobile. continue current mgmt. 10/12: will benefit from court ordered tx vital signs ok. 10/13: no change in presentation. court tomorrow at 2. decrease ativan from 2 QID to 2 TID both to see if dose reduction changes behavior in any way and in preparation for requested order from the court for ECT. 10/14: noted to be openly masturbating in his room last night, not responsive to redirection by nursing staff. eating breakfast in bed today. nods on being asked if he would like to attend the hearing today. case discussed with SADA Cifuentes. hearing held, pt committed and ECT/meds ordered. 10/15: no change in presentation. taper benzos over w/e. medical clearance for ECT completed at admission by hospitalist service. planning for ECT #1 on thursday morning. 10/16:Continue current plans and regimen 10/17: Continue current plans and regimen. 10/18: more verbal immediately after ECT #1 today, many more and more rapid responses to questions via head gestures as well. 10/19: febrile, elevated WBC. medicine consult called. continues more responsive today than prior. continue current mgmt pending medicine recs. 10/20: no nidus of infection located thus far. U/A WNL, chest XR WNL. continue current mgmt. ECT today. 10/21: appears to have been afebrile over past 24H, reportedly T100.8 post ECT yesterday. case discussed with dr. wyman. to clarify matters, will DC zyprexa and lithium to see if elevated WBC resolves and hyperpyrexia stops. ECT again tomorrow. no change in clinical presentation. 10/22: remains more verbal today, better eye contact. ECT canceled for today due to error in pt's receiving meal tray. ECT #3 scheduled for thursday. 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 10/31 continue same treatment ECT tomorrow. 11/02/23 Cont ect change to hs olanzapine 10 mg 11/03/2023 Patient more verbal osborn affect continue ECT Reason for continued inpatient stay Substantial Risk for: inability to function and rapid decompensation Time Spent With Patient Time: Total time managing care of this patient today ____ minutes.
[2023-11-04] VITALS (15 sets, daily range): BP systolic 98–129; BP diastolic 52–75; PULSE 58–94; RESP 14–20; TEMP 36.5–37.1; O2SAT 95–99
--- NOTE | 2023-11-04 06:44 | P.CONAN_ITS ---
[facility] Active Problems Active Problems: All Active Problems Catatonia (Acute) Routine medical exam (Acute) Past Medical History Medical History No pertinent past medical history Family History Family history of problems with anesthesia: No Surgical History History of Problems with Anesthesia: No Social History Social History Household Members: Other Household Members Other:: Unknown Do you presently have visiting nurse or other home services: No (Unknown) Comment: pt currently on close observation Patient Tobacco Use Status: Never used Tobacco Smoked in Last 30 Days: No e-Cigarette/Vaping Use: Never Used Patient Interested in Nicotine Replacement: No Patient Given Instructions on How to Stop Smoking: No Second Hand Smoke Exposure: No Use of substances other than those prescribed or required for medical reasons: No Currently Displaying Signs/Symptoms of Drug Intoxication Withdrawal: No Any prior treatment program specific to substance use: No Advance Directives: No Advance Directives Information Provided: No (Medical Condition) Do you have thoughts of harming others: None Do you have a plan to hurt others: No Plan Recently lost weight without trying: Unsure Nutrition Risks: No Nutritional Risk Poor oral hygiene: Yes Sexual orientation: Unable to collect Meds Allergies Allergy/AdvReac Type Severity Reaction Status Date / Time Unable to Assess Allergy Verified 09/23/23 15:14 Active Medications: Current Medications Acetaminophen (Acetaminophen 325 Mg Tablet) 650 mg PO Q6H PRN PRN Reason: Headache/Pain Mild Scale (1-3) Last Admin: 10/26/23 18:33 Dose: 650 mg Al Hydroxide/Mg Hydroxide (Magnesium Hydrox/Alum Hydrox 30 Ml Oral.Susp) 30 ml PO Q6H PRN PRN Reason: Heartburn/Nausea Hydroxyzine HCl (Hydroxyzine Hcl 25 Mg Tablet) 25 mg PO Q6H PRN PRN Reason: Anxiety Last Admin: 11/03/23 20:27 Dose: 25 mg Magnesium Hydroxide (Milk Of Magnesia 30 Ml Oral.Susp) 30 ml PO DAILY PRN PRN Reason: Constipation Olanzapine (Olanzapine Odt 10 Mg Tab.Rapdis) 10 mg TRANSLINGU Q4H PRN PRN Reason: anxiety/restlessness Last Admin: 11/02/23 20:37 Dose: 10 mg Olanzapine (Olanzapine Odt 10 Mg Tab.Rapdis) 10 mg TRANSLINGU BEDTIME PAM Last Admin: 11/03/23 20:27 Dose: 10 mg Trazodone HCl (Trazodone Hcl 50 Mg Tablet) 50 mg PO BEDTIME MRX1 PRN PRN Reason: Insomnia Last Admin: 11/03/23 20:31 Dose: 50 mg Home Medications ?Medication ?Instructions ?Recorded ?Confirmed ?Last Taken ?Type No Known Home Meds 10/09/23 10/09/23 Unknown History Exam Height,Weight and Vital Signs: Height 5 ft 5 in Weight 69.49 kg Last Vital Signs Temp 98.7 F 11/04/23 06:28 Pulse 73 11/04/23 06:28 Resp 18 11/04/23 06:28 BP 112/75 11/04/23 06:28 Pulse Ox 98 11/04/23 06:28 O2 Del Method Room Air 11/04/23 06:24 O2 Flow Rate 2 11/02/23 07:45 Pertinent Lab Results Pertinent Lab Results: Laboratory Tests 09/23/23 09/27/23 10/10/23 02:20 11:15 14:55 WBC 6.1 RBC 4.83 Hgb 15.0 Hct 44.6 MCV 92.3 MCH 31.1 MCHC 33.6 RDW 11.8 Plt Count 300 MPV 8.9 L Immature Gran % (Auto) 0.5 H Neut % (Auto) 71.0 Lymph % (Auto) 22.0 [place] % (Auto) 4.2 Eos % (Auto) 1.8 Baso % (Auto) 0.5 Lymph # (Auto) 1.4 [place] # (Auto) 0.3 Eos # (Auto) 0.1 Baso # (Auto) 0.0 Abs Immat Gran (auto) 0.03 Absolute Neuts (auto) 4.4 Absolute Nucleated RBC 0.000 Nucleated RBC % (auto) 0.0 ESR Sodium 142 141 Potassium 3.8 3.6 Chloride 105 109 H Carbon Dioxide 28 24 Anion Gap 13 12 BUN 8 L 9 Creatinine 0.79 0.86 Estim Creat Clear Calc 126.5 116.2 Estimated GFR > 60 > 60 Random Glucose 112 110 Calcium 9.3 9.7 Total Bilirubin 0.4 Direct Bilirubin 0.2 AST 10 ALT 9 Alkaline Phosphatase 61 Total Creatine Kinase 66 C-Reactive Protein Total Protein 7.2 Albumin 4.3 Vitamin B12 Folate TSH Free T4 Urine Color Urine Appearance Urine pH Ur Specific [place] Urine Protein Urine Glucose (UA) Urine Ketones Urine Blood Urine Nitrite Ur Leukocyte Esterase Urine RBC Urine WBC Ur Squamous Epith Cells Urine Bacteria Hyaline Casts [place] 0.46 L Respiratory Panel Pugh Adenovirus (Rapid PCR) B.pert (TEM-PCR) B.parapertussis DNA PCR C. pneumoniae DNA (PCR) Coronavirus OC43 (PCR) Coronavirus HKU1 (PCR) Coronavirus 229E (PCR) Coronavirus NL63 (PCR) Human Metapneumovir PCR Influenza A (RT-PCR) Influenza Type A (PCR) NEGATIVE Influenza B (RT-PCR) Influenza Type B (PCR) NEGATIVE M. pneumoniae (PCR) Parainfluenza 1 (PCR) Parainfluenza 2 (PCR) Parainfluenza 3 (PCR) Parainfluenza 4 (PCR) RSV (PCR) RSV RNA Qual (PCR) NEGATIVE Entero/Rhino (PCR) SARS-CoV-2 RNA (RT-PCR) NEGATIVE 10/20/23 10/20/23 10/20/23 14:13 16:39 17:10 WBC 11.7 H RBC 4.64 Hgb 14.5 Hct 41.2 L MCV 88.8 MCH 31.3 MCHC 35.2 RDW 11.7 Plt Count 263 MPV 9.0 L Immature Gran % (Auto) 0.3 Neut % (Auto) 78.3 H Lymph % (Auto) 12.0 L [place] % (Auto) 5.7 Eos % (Auto) 3.4 Baso % (Auto) 0.3 Lymph # (Auto) 1.4 [place] # (Auto) 0.7 Eos # (Auto) 0.4 Baso # (Auto) 0.0 Abs Immat Gran (auto) 0.04 H Absolute Neuts (auto) 9.1 H Absolute Nucleated RBC 0.000 Nucleated RBC % (auto) 0.0 ESR Sodium 142 Potassium 3.7 Chloride 108 Carbon Dioxide 27 Anion Gap 11 L BUN 10 Creatinine 0.96 Estim Creat Clear Calc 104.1 Estimated GFR > 60 Random Glucose 106 Calcium 9.3 Total Bilirubin Direct Bilirubin AST ALT Alkaline Phosphatase Total Creatine Kinase C-Reactive Protein Total Protein Albumin Vitamin B12 Folate TSH Free T4 Urine Color Yellow Urine Appearance Clear Urine pH 7.0 Ur Specific [place] 1.015 Urine Protein Negative Urine Glucose (UA) Negative Urine Ketones Negative Urine Blood Trace H Urine Nitrite Negative Ur Leukocyte Esterase Negative Urine RBC 6-10 H Urine WBC 0-5 Ur Squamous Epith Cells 0-2 Urine Bacteria None Seen Hyaline Casts 0-2 [place] Respiratory Panel Pugh See Note Adenovirus (Rapid PCR) Not Detected B.pert (TEM-PCR) Not Detected B.parapertussis DNA PCR Not Detected C. pneumoniae DNA (PCR) Not Detected Coronavirus OC43 (PCR) Not Detected Coronavirus HKU1 (PCR) Not Detected Coronavirus 229E (PCR) Not Detected Coronavirus NL63 (PCR) Not Detected Human Metapneumovir PCR Not Detected Influenza A (RT-PCR) Not Detected Influenza Type A (PCR) Influenza B (RT-PCR) Not Detected Influenza Type B (PCR) M. pneumoniae (PCR) Not Detected Parainfluenza 1 (PCR) Not Detected Parainfluenza 2 (PCR) Not Detected Parainfluenza 3 (PCR) Not Detected Parainfluenza 4 (PCR) Not Detected RSV (PCR) Not Detected RSV RNA Qual (PCR) Entero/Rhino (PCR) Not Detected SARS-CoV-2 RNA (RT-PCR) Not Detected 10/25/23 10/30/23 06:56 07:49 WBC RBC Hgb Hct MCV MCH MCHC RDW Plt Count MPV Immature Gran % (Auto) Neut % (Auto) Lymph % (Auto) [place] % (Auto) Eos % (Auto) Baso % (Auto) Lymph # (Auto) [place] # (Auto) Eos # (Auto) Baso # (Auto) Abs Immat Gran (auto) Absolute Neuts (auto) Absolute Nucleated RBC Nucleated RBC % (auto) ESR 14 16 H Sodium Potassium Chloride Carbon Dioxide Anion Gap BUN Creatinine Estim Creat Clear Calc Estimated GFR Random Glucose Calcium Total Bilirubin Direct Bilirubin AST ALT Alkaline Phosphatase Total Creatine Kinase 281 H C-Reactive Protein 1.24 H Total Protein Albumin Vitamin B12 258 Folate 8.8 TSH 4.24 H Free T4 1.08 Urine Color Urine Appearance Urine pH Ur Specific [place] Urine Protein Urine Glucose (UA) Urine Ketones Urine Blood Urine Nitrite Ur Leukocyte Esterase Urine RBC Urine WBC Ur Squamous Epith Cells Urine Bacteria Hyaline Casts [place] Respiratory Panel Pugh Adenovirus (Rapid PCR) B.pert (TEM-PCR) B.parapertussis DNA PCR C. pneumoniae DNA (PCR) Coronavirus OC43 (PCR) Coronavirus HKU1 (PCR) Coronavirus 229E (PCR) Coronavirus NL63 (PCR) Human Metapneumovir PCR Influenza A (RT-PCR) Influenza Type A (PCR) Influenza B (RT-PCR) Influenza Type B (PCR) M. pneumoniae (PCR) Parainfluenza 1 (PCR) Parainfluenza 2 (PCR) Parainfluenza 3 (PCR) Parainfluenza 4 (PCR) RSV (PCR) RSV RNA Qual (PCR) Entero/Rhino (PCR) SARS-CoV-2 RNA (RT-PCR) Airway Mallampati Class: II TM Dist: >3cm Neck ROM: Full Heart: rrr Lungs: cta Assessment and Plan Assessment Anesthesia Assessment: Anesthesia Plan Discussed and Chart Reviewed Final Anesthetic Review Family History of Problems with Anesthesia: No History of Problems with Anesthesia: No NPO: Yes ASA Class: III Final Preanesthetic Review: No Changes in Pt Med Stat, Meds/Allgs Chart Reviewed and Consent Obtained/Reviewed Patient Risk: Intermediate Procedure Risk: Intermediate Anesthetic Plan Anesthetic Plan: GA Disposition: Standard PACU
[2023-11-04] MEDS: Lactated Ringers 1,000 ML 50 ML IVCONT (06:57)
--- NOTE | 2023-11-04 07:02 | MHC.SHP ---
Pre-Procedural Eval Section A - 24 Hr Update-Section A only Date of Service: 11/04/23 The patient is an INPATIENT: Yes Changes since office visit: No Cold of Flu in the past 2 weeks, No New Medical Problems, No Changes in Medication and No Patient answered all questions The patient has been examined within 24 hours of the surgical procedure. The History & Physical has been completed within 30 days and I have reviewed it.: Yes Section B - Complete if H&P > 30 days Chief Complaint: catatonia depression Allergies: Allergies Allergy/AdvReac Type Severity Reaction Status Date / Time Unable to Assess Allergy Verified 09/23/23 15:14 Plan I have reviewed the history and physical and performed a pertinent physical examination on my patient. No changes have occurred unless specified. Time Spent With Patient Time: Total time managing care of this patient today ____ minutes.
--- NOTE | 2023-11-04 07:13 | HO.ECTPROC ---
ECT Procedure Note Diagnosis/Treatment Date of Service: 11/04/23 Diagnosis: Catatonia Previous ECT Date: 11/02/23 Current Treatment Number: 7 Treatment: Series Interval Clinical Notes: The patient remains disorganized, today he was non-verbal. ECT done as usual, bitemporal, no complications, tolerated the procedure fairly well. Woke up well. Time: Total time managing care of this patient today __30__ minutes. ECT Settings Device: THYMATRON DGx Electrode Placement: Bitemporal Program/Pulse Width: 0.50 Energy Percent: 100 Seizure Duration By EEG (in seconds): 24 By Motor Observation (in seconds): 16 Medications Administration General Anesthetic: Etomidate (16) Muscle Relaxant: Succinylcholine (100) Ancillary Medications Analgesics: Torodol - Pre ECT Anti-emetics: Zofran - Pre ECT Miscillaneous Medications: Midazolam (2 mg IVP after ECT) Treatment Recommendations No Changes Recommended: No change Pt Tolerated Procedure w/o Issue: Yes
[2023-11-04 12:48] LABS: Anti Nuclear Antibody Screen NEGATIVE (NEGATIVE)
--- NOTE | 2023-11-04 16:43 | HO.PSYCHPN ---
Subjective Subjective Date of Service: 11/04/23 Reason For Visit: catatonia depression Interim History: able to more dependably answer questions, but continues to appear very sleepy, falling back asleep repeatedly throughout the interview. answers i don't know to most questions. per staff, slept most of shift day. did not appear to sleep at night. Mental Status Exam Mental Status Exam Narrative: pt casually dressed lying in bed. sleepy. marginally more verbal output, but answering questions with i don't know. affect inert. unable to assess mood, SI/SIBI/HI/AVH. Diagnostics Vital Signs (24Hr): Vital Signs - 24 hr 11/03/23 20:00 11/04/23 06:24 11/04/23 06:28 Temperature 97.5 F 98 F 98.7 F Pulse Rate 100 70 73 Respiratory Rate 18 16 18 Blood Pressure 120/69 112/66 112/75 Pulse Oximetry 98 97 98 Oxygen Delivery Method Room Air Room Air 11/04/23 07:17 11/04/23 07:22 11/04/23 07:27 Temperature 98.8 F Pulse Rate 58 94 92 Respiratory Rate 20 18 18 Blood Pressure 129/69 118/67 116/64 Pulse Oximetry 99 98 96 Oxygen Delivery Method Room Air Room Air Room Air 11/04/23 07:32 11/04/23 07:37 11/04/23 07:42 Temperature 98.2 F Pulse Rate 89 87 85 Respiratory Rate 18 18 18 Blood Pressure 114/62 116/60 116/62 Pulse Oximetry 96 96 96 Oxygen Delivery Method Room Air Room Air Room Air 11/04/23 07:47 11/04/23 07:52 11/04/23 07:57 Temperature 97.7 F Pulse Rate 81 78 77 Respiratory Rate 18 18 18 Blood Pressure 108/60 107/56 L 109/52 L Pulse Oximetry 96 96 95 Oxygen Delivery Method Room Air Room Air Room Air 11/04/23 08:00 11/04/23 08:02 11/04/23 08:32 Temperature 98.8 F 97.7 F 98.8 F Pulse Rate 89 87 89 Respiratory Rate 14 18 14 Blood Pressure 101/69 110/62 101/69 Pulse Oximetry 98 96 97 Oxygen Delivery Method Room Air Room Air BMI result Body Mass Index 25.5 Labs 10/20/23 14:13 10/20/23 14:13 Labs: Laboratory Results - last 48 hr 10/30/23 07:49 ANNIE Screen NEGATIVE Imaging Radiology Impressions: ITS Impressions Chest X-Ray 10/20/23 16:28 IMPRESSION: No acute cardiopulmonary abnormality. Medications Medications Current Medications Acetaminophen (Acetaminophen 325 Mg Tablet) 650 mg PO Q6H PRN PRN Reason: Headache/Pain Mild Scale (1-3) Last Admin: 10/26/23 18:33 Dose: 650 mg Al Hydroxide/Mg Hydroxide (Magnesium Hydrox/Alum Hydrox 30 Ml Oral.Susp) 30 ml PO Q6H PRN PRN Reason: Heartburn/Nausea Hydroxyzine HCl (Hydroxyzine Hcl 25 Mg Tablet) 25 mg PO Q6H PRN PRN Reason: Anxiety Last Admin: 11/03/23 20:27 Dose: 25 mg Magnesium Hydroxide (Milk Of Magnesia 30 Ml Oral.Susp) 30 ml PO DAILY PRN PRN Reason: Constipation Olanzapine (Olanzapine Odt 10 Mg Tab.Rapdis) 10 mg TRANSLINGU Q4H PRN PRN Reason: anxiety/restlessness Last Admin: 11/02/23 20:37 Dose: 10 mg Olanzapine (Olanzapine Odt 10 Mg Tab.Rapdis) 10 mg TRANSLINGU BEDTIME PAM Last Admin: 11/03/23 20:27 Dose: 10 mg Trazodone HCl (Trazodone Hcl 50 Mg Tablet) 50 mg PO BEDTIME MRX1 PRN PRN Reason: Insomnia Last Admin: 11/03/23 20:31 Dose: 50 mg Allergies Allergies Allergy/AdvReac Type Severity Reaction Status Date / Time Unable to Assess Allergy Verified 09/23/23 15:14 Assessment & Plan Assessment & Plan (1) Catatonia: Status: Acute Code(s): F06.1 - Catatonic disorder due to known physiological condition Plan 09/23: ativan 2 mg QID. move for commitment and court ordered ECT. 09/24: no change in presentation or plan. remains catatonic, adequate PO intake for the moment. taking 8 mg ativan daily without appreciative improvement. 09/25: continue current management and treatment plan. 09/26: Checked labs. CBC without evidence of infection. Chemistries and LFT's stable. Continue monitoring and response to Ativan. 09/27: continue current management and treatment plan. 09/28: continue current mgmt. producing several monosyllabic answers to questions today. filed for commitment. 09/29: awaiting hearing. very modest response to high-dose ativan. hearing next thursday. continue current mgmt for now. 09/30: no change in presentation. continues to appear to take in adequate fluids and food. continue current mgmt. 10/01: outpt regimen of zyprexa 5 BID and lithium 900 QHS restarted. continue ativan [address] thursday. 10/04/23: Court date pending on 10/06/2023 and ?ECT. 10/04: court deferred to next week for SADA. stably catatonic but up for toileting and PO intake, periodically. refusing labs to check electrolytes. 10/05: pt refusing labs. per staff report, does have reasonable PO intake. court scheduled 10/14. continue current mgmt. 10/06: taking meds, modest PO intake. said, what's your name? today. continue current mgmt. 10/08/23 Patient taking medication remains generally nonverbal he did stand up was reportedly eating more would clearly benefit from ECT as becomes available 10/08: one word today, No, in response to request to check labs for lithium and lytes. continue current mgmt. awaiting court for ECT. 10/09: non-verbal. dry lips but per report is eating meals. reorder labs. continue current mgmt otherwise. 10/10: 10/09 lytes reassuring, lithium 0.46. no change in presentation, continue current mgmt. 10/11: mute. some saccades, otherwise immobile. continue current mgmt. 10/12: will benefit from court ordered tx vital signs ok. 10/13: no change in presentation. court tomorrow at 2. decrease ativan from 2 QID to 2 TID both to see if dose reduction changes behavior in any way and in preparation for requested order from the court for ECT. 10/14: noted to be openly masturbating in his room last night, not responsive to redirection by nursing staff. eating breakfast in bed today. nods on being asked if he would like to attend the hearing today. case discussed with SADA Cifuentes. hearing held, pt committed and ECT/meds ordered. 10/15: no change in presentation. taper benzos over w/e. medical clearance for ECT completed at admission by hospitalist service. planning for ECT #1 on thursday morning. 10/16:Continue current plans and regimen 10/17: Continue current plans and regimen. 10/18: more verbal immediately after ECT #1 today, many more and more rapid responses to questions via head gestures as well. 10/19: febrile, elevated WBC. medicine consult called. continues more responsive today than prior. continue current mgmt pending medicine recs. 10/20: no nidus of infection located thus far. U/A WNL, chest XR WNL. continue current mgmt. ECT today. 10/21: appears to have been afebrile over past 24H, reportedly T100.8 post ECT yesterday. case discussed with dr. wyman. to clarify matters, will DC zyprexa and lithium to see if elevated WBC resolves and hyperpyrexia stops. ECT again tomorrow. no change in clinical presentation. 10/22: remains more verbal today, better eye contact. ECT canceled for today due to error in pt's receiving meal tray. ECT #3 scheduled for thursday. 10/24/23 CTP npo order written for tonight 10/26/23 cont ect will restart antipschotic per tx order 10/27/23 ect BT start invega pos laboratory monitor response 10/28/23 cont ect improvement noted would benefit from further hx ck labs in am 10/28/23 cont ect invega some response noted 10/30 continue same treatment. 10/31 continue same treatment ECT tomorrow. 11/02/23 Cont ect change to hs olanzapine 10 mg 11/03/2023 Patient more verbal osborn affect continue ECT 11/03: received ECT today. sleepy afterward, responding i don't know to most questions. continue current mgmt. Reason for continued inpatient stay Substantial Risk for: inability to function Time Spent With Patient Time: Total time managing care of this patient today ____ minutes.
[2023-11-04] MEDS: OLANZapine ODT 10 MG TAB.RAPDIS TRANSLINGU ×2 (20:29→22:28)
[2023-11-04] MEDS: hydrOXYzine HCL 25 MG TABLET PO (20:29)
[2023-11-04] MEDS: traZODone HCL 50 MG TABLET PO ×2 (20:29→22:28)
--- NOTE | 2023-11-05 10:05 | P.HPPS_ITS ---
HPI Chief Complaint: catatonia depression HPI Past Psychiatric History: Dx: unspecified psychotic disorder hosps: one recent hospitalization at [facility]. a second hospitalization is also reported. SA: unknown SIB: unknown HIB: unknown outpt: unknown [facility] Medical History No pertinent past medical history Family History: unknown Social History: lives in [place]. has a brother robel. Trauma History: unknown Diagnostics Vital Signs (24Hr): Vital Signs - 24 hr 11/04/23 20:00 Temperature 98.4 F Pulse Rate 14 L Respiratory Rate 16 Blood Pressure 98/57 L Pulse Oximetry 96 Oxygen Delivery Method Room Air BMI result Body Mass Index 25.5 Labs 10/20/23 14:13 10/20/23 14:13 Labs: Laboratory Results - last 48 hr 10/30/23 07:49 ANNIE Screen NEGATIVE Imaging Radiology Impressions: ITS Impressions Chest X-Ray 10/20/23 16:28 IMPRESSION: No acute cardiopulmonary abnormality. Meds/Allergies Meds Home Medications ?Medication ?Instructions ?Recorded ?Confirmed ?Type No Known Home Meds 10/09/23 10/09/23 History Allergies Allergies Allergy/AdvReac Type Severity Reaction Status Date / Time Unable to Assess Allergy Verified 09/23/23 15:14 Assessment & Plan Statement Statement: I have reviewed the history and physical and performed a pertinent examination on my patient. No changes have occurred unless specified. If the History and Physical was not performed prior to admission, the Hospitalist's service will be consulted for completing the admission physical. Time Spent With Patient Time: Total time managing care of this patient today ____ minutes.
--- NOTE | 2023-11-05 10:15 | HO.PSYCHPN ---
Subjective Subjective Date of Service: 11/05/23 Reason For Visit: catatonia depression Interim History: Pt sleeping and unable or unwilling to engage in interview; falling back asleep repeatedly throughout the interview. per staff, slept most of shift day. slept better last night. Review of Systems Review of Systems Yes all other systems are reviewed and are negative and Unobtainable due to mental status Mental Status Exam Mental Status Exam Narrative: pt casually dressed lying in bed. sleepy. marginally more verbal output, but answering questions with i don't know. affect inert. unable to assess mood, SI/SIBI/HI/AVH. Patient Appearance: Disheveled and Unkempt Patient Orientation: Person Level of Consciousness: Disoriented, Restless and Inappropriate Patient Behavior: Guarded, Hyperactive, Restless, Invasion - Personal Space and Distractible Mood Description: Withdrawn Affect Description: Blunted Patient Cognition Impaired: Yes Ability to Follow Directions: Poor Speech Pattern: Impoverished, Rambling and Soft-Spoken Diagnostics Vital Signs (24Hr): Vital Signs - 24 hr 11/04/23 20:00 Temperature 98.4 F Pulse Rate 14 L Respiratory Rate 16 Blood Pressure 98/57 L Pulse Oximetry 96 Oxygen Delivery Method Room Air BMI result Body Mass Index 25.5 Labs 10/20/23 14:13 10/20/23 14:13 Labs: Laboratory Results - last 48 hr 10/30/23 07:49 ANNIE Screen NEGATIVE Imaging Radiology Impressions: ITS Impressions Chest X-Ray 10/20/23 16:28 IMPRESSION: No acute cardiopulmonary abnormality. Medications Medications Current Medications Acetaminophen (Acetaminophen 325 Mg Tablet) 650 mg PO Q6H PRN PRN Reason: Headache/Pain Mild Scale (1-3) Last Admin: 10/26/23 18:33 Dose: 650 mg Al Hydroxide/Mg Hydroxide (Magnesium Hydrox/Alum Hydrox 30 Ml Oral.Susp) 30 ml PO Q6H PRN PRN Reason: Heartburn/Nausea Hydroxyzine HCl (Hydroxyzine Hcl 25 Mg Tablet) 25 mg PO Q6H PRN PRN Reason: Anxiety Last Admin: 11/04/23 20:29 Dose: 25 mg Magnesium Hydroxide (Milk Of Magnesia 30 Ml Oral.Susp) 30 ml PO DAILY PRN PRN Reason: Constipation Olanzapine (Olanzapine Odt 10 Mg Tab.Rapdis) 10 mg TRANSLINGU Q4H PRN PRN Reason: anxiety/restlessness Last Admin: 11/04/23 22:28 Dose: 10 mg Olanzapine (Olanzapine Odt 10 Mg Tab.Rapdis) 10 mg TRANSLINGU BEDTIME PAM Last Admin: 11/04/23 20:29 Dose: 10 mg Trazodone HCl (Trazodone Hcl 50 Mg Tablet) 50 mg PO BEDTIME MRX1 PRN PRN Reason: Insomnia Last Admin: 11/04/23 22:28 Dose: 50 mg Allergies Allergies Allergy/AdvReac Type Severity Reaction Status Date / Time Unable to Assess Allergy Verified 09/23/23 15:14 Assessment & Plan Assessment & Plan (1) Catatonia: Status: Acute Code(s): F06.1 - Catatonic disorder due to known physiological condition Plan 09/23: ativan 2 mg QID. move for commitment and court ordered ECT. 09/24: no change in presentation or plan. remains catatonic, adequate PO intake for the moment. taking 8 mg ativan daily without appreciative improvement. 09/25: continue current management and treatment plan. 09/26: Checked labs. CBC without evidence of infection. Chemistries and LFT's stable. Continue monitoring and response to Ativan. 09/27: continue current management and treatment plan. 09/28: continue current mgmt. producing several monosyllabic answers to questions today. filed for commitment. 09/29: awaiting hearing. very modest response to high-dose ativan. hearing next thursday. continue current mgmt for now. 09/30: no change in presentation. continues to appear to take in adequate fluids and food. continue current mgmt. 10/01: outpt regimen of zyprexa 5 BID and lithium 900 QHS restarted. continue ativan [address] thursday. 10/04/23: Court date pending on 10/06/2023 and ?ECT. 10/04: court deferred to next week for SADA. stably catatonic but up for toileting and PO intake, periodically. refusing labs to check electrolytes. 10/05: pt refusing labs. per staff report, does have reasonable PO intake. court scheduled 10/14. continue current mgmt. 10/06: taking meds, modest PO intake. said, what's your name? today. continue current mgmt. 10/08/23 Patient taking medication remains generally nonverbal he did stand up was reportedly eating more would clearly benefit from ECT as becomes available 10/08: one word today, No, in response to request to check labs for lithium and lytes. continue current mgmt. awaiting court for ECT. 10/09: non-verbal. dry lips but per report is eating meals. reorder labs. continue current mgmt otherwise. 10/10: 10/09 lytes reassuring, lithium 0.46. no change in presentation, continue current mgmt. 10/11: mute. some saccades, otherwise immobile. continue current mgmt. 10/12: will benefit from court ordered tx vital signs ok. 10/13: no change in presentation. court tomorrow at 2. decrease ativan from 2 QID to 2 TID both to see if dose reduction changes behavior in any way and in preparation for requested order from the court for ECT. 10/14: noted to be openly masturbating in his room last night, not responsive to redirection by nursing staff. eating breakfast in bed today. nods on being asked if he would like to attend the hearing today. case discussed with SADA Cifuentes. hearing held, pt committed and ECT/meds ordered. 10/15: no change in presentation. taper benzos over w/e. medical clearance for ECT completed at admission by hospitalist service. planning for ECT #1 on thursday morning. 10/16:Continue current plans and regimen 10/17: Continue current plans and regimen. 10/18: more verbal immediately after ECT #1 today, many more and more rapid responses to questions via head gestures as well. 10/19: febrile, elevated WBC. medicine consult called. continues more responsive today than prior. continue current mgmt pending medicine recs. 10/20: no nidus of infection located thus far. U/A WNL, chest XR WNL. continue current mgmt. ECT today. 10/21: appears to have been afebrile over past 24H, reportedly T100.8 post ECT yesterday. case discussed with dr. wyman. to clarify matters, will DC zyprexa and lithium to see if elevated WBC resolves and hyperpyrexia stops. ECT again tomorrow. no change in clinical presentation. 10/22: remains more verbal today, better eye contact. ECT canceled for today due to error in pt's receiving meal tray. ECT #3 scheduled for thursday. 10/24/23 CTP npo order written for tonight 10/26/23 cont ect will restart antipschotic per tx order 10/27/23 ect BT start invega pos color television console monitor response 10/28/23 cont ect improvement noted would benefit from further hx ck labs in am 10/28/23 cont ect invega some response noted 10/30 continue same treatment. 10/31 continue same treatment ECT tomorrow. 11/02/23 Cont ect change to hs olanzapine 10 mg 11/03/2023 Patient more verbal osborn affect continue ECT 11/03: received ECT today. sleepy afterward, responding i don't know to most questions. continue current mgmt. 11/04 continue tx plan Reason for continued inpatient stay Substantial Risk for: harm to self, harm to others and inability to function Time Spent With Patient Time: Total time managing care of this patient today ____ minutes.
[2023-11-05 12:15] VITALS: BP 102/68; PULSE 72; RESP 14; TEMP 37.2; O2SAT 98
[2023-11-05 12:31] VITALS: BMI 25.4
[2023-11-05 17:56] VITALS: BP 114/59; PULSE 91; RESP 16; TEMP 36.6; O2SAT 96
[2023-11-05] MEDS: traZODone HCL 50 MG TABLET PO (21:50)
[2023-11-05] MEDS: OLANZapine ODT 10 MG TAB.RAPDIS TRANSLINGU (21:50)
[2023-11-05] MEDS: hydrOXYzine HCL 25 MG TABLET PO (21:50)
[2023-11-06] VITALS (11 sets, daily range): BP systolic 100–144; BP diastolic 55–85; PULSE 61–94; RESP 16–20; TEMP 36.4–36.6; O2SAT 93–99
--- NOTE | 2023-11-06 06:56 | P.CONAN_ITS ---
[facility] Active Problems Active Problems: All Active Problems Catatonia (Acute) Routine medical exam (Acute) Past Medical History Medical History No pertinent past medical history Family History Family history of problems with anesthesia: No Surgical History History of Problems with Anesthesia: No Social History Social History Household Members: Other Household Members Other:: Unknown Do you presently have visiting nurse or other home services: No (Unknown) Comment: pt. is on close obs Patient Tobacco Use Status: Never used Tobacco Smoked in Last 30 Days: No e-Cigarette/Vaping Use: Never Used Patient Interested in Nicotine Replacement: No Patient Given Instructions on How to Stop Smoking: No Second Hand Smoke Exposure: No Use of substances other than those prescribed or required for medical reasons: No Currently Displaying Signs/Symptoms of Drug Intoxication Withdrawal: No Any prior treatment program specific to substance use: No Advance Directives: No Advance Directives Information Provided: No (Medical Condition) Do you have thoughts of harming others: None Do you have a plan to hurt others: No Plan Recently lost weight without trying: Unsure Nutrition Risks: No Nutritional Risk Poor oral hygiene: Yes Sexual orientation: Unable to collect Meds Allergies Allergy/AdvReac Type Severity Reaction Status Date / Time Unable to Assess Allergy Verified 09/23/23 15:14 Active Medications: Current Medications Acetaminophen (Acetaminophen 325 Mg Tablet) 650 mg PO Q6H PRN PRN Reason: Headache/Pain Mild Scale (1-3) Last Admin: 10/26/23 18:33 Dose: 650 mg Al Hydroxide/Mg Hydroxide (Magnesium Hydrox/Alum Hydrox 30 Ml Oral.Susp) 30 ml PO Q6H PRN PRN Reason: Heartburn/Nausea Hydroxyzine HCl (Hydroxyzine Hcl 25 Mg Tablet) 25 mg PO Q6H PRN PRN Reason: Anxiety Last Admin: 11/05/23 21:50 Dose: 25 mg Magnesium Hydroxide (Milk Of Magnesia 30 Ml Oral.Susp) 30 ml PO DAILY PRN PRN Reason: Constipation Olanzapine (Olanzapine Odt 10 Mg Tab.Rapdis) 10 mg TRANSLINGU Q4H PRN PRN Reason: anxiety/restlessness Last Admin: 11/04/23 22:28 Dose: 10 mg Olanzapine (Olanzapine Odt 10 Mg Tab.Rapdis) 10 mg TRANSLINGU BEDTIME PAM Last Admin: 11/05/23 21:50 Dose: 10 mg Trazodone HCl (Trazodone Hcl 50 Mg Tablet) 50 mg PO BEDTIME MRX1 PRN PRN Reason: Insomnia Last Admin: 11/05/23 21:50 Dose: 50 mg Home Medications ?Medication ?Instructions ?Recorded ?Confirmed ?Last Taken ?Type No Known Home Meds 10/09/23 10/09/23 Unknown History Exam Height,Weight and Vital Signs: Height 5 ft 5 in Weight 69.309 kg Last Vital Signs Temp 97.9 F 11/06/23 06:32 Pulse 69 11/06/23 06:32 Resp 16 11/06/23 06:32 BP 112/60 11/06/23 06:32 Pulse Ox 99 11/06/23 06:32 O2 Del Method Room Air 11/06/23 06:32 O2 Flow Rate 2 11/02/23 07:45 Pertinent Lab Results Pertinent Lab Results: Laboratory Tests 09/23/23 09/27/23 10/10/23 02:20 11:15 14:55 WBC 6.1 RBC 4.83 Hgb 15.0 Hct 44.6 MCV 92.3 MCH 31.1 MCHC 33.6 RDW 11.8 Plt Count 300 MPV 8.9 L Immature Gran % (Auto) 0.5 H Neut % (Auto) 71.0 Lymph % (Auto) 22.0 [place] % (Auto) 4.2 Eos % (Auto) 1.8 Baso % (Auto) 0.5 Lymph # (Auto) 1.4 [place] # (Auto) 0.3 Eos # (Auto) 0.1 Baso # (Auto) 0.0 Abs Immat Gran (auto) 0.03 Absolute Neuts (auto) 4.4 Absolute Nucleated RBC 0.000 Nucleated RBC % (auto) 0.0 ESR Sodium 142 141 Potassium 3.8 3.6 Chloride 105 109 H Carbon Dioxide 28 24 Anion Gap 13 12 BUN 8 L 9 Creatinine 0.79 0.86 Estim Creat Clear Calc 126.5 116.2 Estimated GFR > 60 > 60 Random Glucose 112 110 Calcium 9.3 9.7 Total Bilirubin 0.4 Direct Bilirubin 0.2 AST 10 ALT 9 Alkaline Phosphatase 61 Total Creatine Kinase 66 C-Reactive Protein Total Protein 7.2 Albumin 4.3 Vitamin B12 Folate TSH Free T4 Urine Color Urine Appearance Urine pH Ur Specific [place] Urine Protein Urine Glucose (UA) Urine Ketones Urine Blood Urine Nitrite Ur Leukocyte Esterase Urine RBC Urine WBC Ur Squamous Epith Cells Urine Bacteria Hyaline Casts [place] 0.46 L ANNIE Screen ANNIE Titer ANNIE Titer 2 ANNIE Titer 3 ANNIE Pattern ANNIE Pattern 2 ANNIE Pattern 3 Respiratory Panel Pugh Adenovirus (Rapid PCR) B.pert (TEM-PCR) B.parapertussis DNA PCR C. pneumoniae DNA (PCR) Coronavirus OC43 (PCR) Coronavirus HKU1 (PCR) Coronavirus 229E (PCR) Coronavirus NL63 (PCR) Human Metapneumovir PCR Influenza A (RT-PCR) Influenza Type A (PCR) NEGATIVE Influenza B (RT-PCR) Influenza Type B (PCR) NEGATIVE M. pneumoniae (PCR) Parainfluenza 1 (PCR) Parainfluenza 2 (PCR) Parainfluenza 3 (PCR) Parainfluenza 4 (PCR) RSV (PCR) RSV RNA Qual (PCR) NEGATIVE Entero/Rhino (PCR) SARS-CoV-2 RNA (RT-PCR) NEGATIVE 10/20/23 10/20/23 10/20/23 14:13 16:39 17:10 WBC 11.7 H RBC 4.64 Hgb 14.5 Hct 41.2 L MCV 88.8 MCH 31.3 MCHC 35.2 RDW 11.7 Plt Count 263 MPV 9.0 L Immature Gran % (Auto) 0.3 Neut % (Auto) 78.3 H Lymph % (Auto) 12.0 L [place] % (Auto) 5.7 Eos % (Auto) 3.4 Baso % (Auto) 0.3 Lymph # (Auto) 1.4 [place] # (Auto) 0.7 Eos # (Auto) 0.4 Baso # (Auto) 0.0 Abs Immat Gran (auto) 0.04 H Absolute Neuts (auto) 9.1 H Absolute Nucleated RBC 0.000 Nucleated RBC % (auto) 0.0 ESR Sodium 142 Potassium 3.7 Chloride 108 Carbon Dioxide 27 Anion Gap 11 L BUN 10 Creatinine 0.96 Estim Creat Clear Calc 104.1 Estimated GFR > 60 Random Glucose 106 Calcium 9.3 Total Bilirubin Direct Bilirubin AST ALT Alkaline Phosphatase Total Creatine Kinase C-Reactive Protein Total Protein Albumin Vitamin B12 Folate TSH Free T4 Urine Color Yellow Urine Appearance Clear Urine pH 7.0 Ur Specific [place] 1.015 Urine Protein Negative Urine Glucose (UA) Negative Urine Ketones Negative Urine Blood Trace H Urine Nitrite Negative Ur Leukocyte Esterase Negative Urine RBC 6-10 H Urine WBC 0-5 Ur Squamous Epith Cells 0-2 Urine Bacteria None Seen Hyaline Casts 0-2 [place] ANNIE Screen ANNIE Titer ANNIE Titer 2 ANNIE Titer 3 ANNIE Pattern ANNIE Pattern 2 ANNIE Pattern 3 Respiratory Panel Pugh See Note Adenovirus (Rapid PCR) Not Detected B.pert (TEM-PCR) Not Detected B.parapertussis DNA PCR Not Detected C. pneumoniae DNA (PCR) Not Detected Coronavirus OC43 (PCR) Not Detected Coronavirus HKU1 (PCR) Not Detected Coronavirus 229E (PCR) Not Detected Coronavirus NL63 (PCR) Not Detected Human Metapneumovir PCR Not Detected Influenza A (RT-PCR) Not Detected Influenza Type A (PCR) Influenza B (RT-PCR) Not Detected Influenza Type B (PCR) M. pneumoniae (PCR) Not Detected Parainfluenza 1 (PCR) Not Detected Parainfluenza 2 (PCR) Not Detected Parainfluenza 3 (PCR) Not Detected Parainfluenza 4 (PCR) Not Detected RSV (PCR) Not Detected RSV RNA Qual (PCR) Entero/Rhino (PCR) Not Detected SARS-CoV-2 RNA (RT-PCR) Not Detected 10/25/23 10/30/23 06:56 07:49 WBC RBC Hgb Hct MCV MCH MCHC RDW Plt Count MPV Immature Gran % (Auto) Neut % (Auto) Lymph % (Auto) [place] % (Auto) Eos % (Auto) Baso % (Auto) Lymph # (Auto) [place] # (Auto) Eos # (Auto) Baso # (Auto) Abs Immat Gran (auto) Absolute Neuts (auto) Absolute Nucleated RBC Nucleated RBC % (auto) ESR 14 16 H Sodium Potassium Chloride Carbon Dioxide Anion Gap BUN Creatinine Estim Creat Clear Calc Estimated GFR Random Glucose Calcium Total Bilirubin Direct Bilirubin AST ALT Alkaline Phosphatase Total Creatine Kinase 281 H C-Reactive Protein 1.24 H Total Protein Albumin Vitamin B12 258 Folate 8.8 TSH 4.24 H Free T4 1.08 Urine Color Urine Appearance Urine pH Ur Specific [place] Urine Protein Urine Glucose (UA) Urine Ketones Urine Blood Urine Nitrite Ur Leukocyte Esterase Urine RBC Urine WBC Ur Squamous Epith Cells Urine Bacteria Hyaline Casts [place] ANNIE Screen NEGATIVE ANNIE Titer TNP ANNIE Titer 2 TNP ANNIE Titer 3 TNP ANNIE Pattern TNP ANNIE Pattern 2 TNP ANNIE Pattern 3 TNP Respiratory Panel Pugh Adenovirus (Rapid PCR) B.pert (TEM-PCR) B.parapertussis DNA PCR C. pneumoniae DNA (PCR) Coronavirus OC43 (PCR) Coronavirus HKU1 (PCR) Coronavirus 229E (PCR) Coronavirus NL63 (PCR) Human Metapneumovir PCR Influenza A (RT-PCR) Influenza Type A (PCR) Influenza B (RT-PCR) Influenza Type B (PCR) M. pneumoniae (PCR) Parainfluenza 1 (PCR) Parainfluenza 2 (PCR) Parainfluenza 3 (PCR) Parainfluenza 4 (PCR) RSV (PCR) RSV RNA Qual (PCR) Entero/Rhino (PCR) SARS-CoV-2 RNA (RT-PCR) Airway Mallampati Class: II TM Dist: >3cm Neck ROM: Full Heart: rrr Lungs: cta Assessment and Plan Assessment Anesthesia Assessment: Anesthesia Plan Discussed and Chart Reviewed Final Anesthetic Review Family History of Problems with Anesthesia: No History of Problems with Anesthesia: No NPO: Yes ASA Class: III Final Preanesthetic Review: No Changes in Pt Med Stat, Meds/Allgs Chart Reviewed and Consent Obtained/Reviewed Patient Risk: Low Procedure Risk: Intermediate Anesthetic Plan Anesthetic Plan: GA Disposition: Standard PACU
[2023-11-06] MEDS: Lactated Ringers 1,000 ML 50 ML IVCONT (07:02)
--- NOTE | 2023-11-06 08:02 | MHC.SHP ---
Pre-Procedural Eval Section A - 24 Hr Update-Section A only Date of Service: 11/06/23 The patient is an INPATIENT: Yes Changes since office visit: No Cold of Flu in the past 2 weeks, No New Medical Problems, No Changes in Medication and No Patient answered all questions The patient has been examined within 24 hours of the surgical procedure. The History & Physical has been completed within 30 days and I have reviewed it.: Yes Section B - Complete if H&P > 30 days Chief Complaint: catatonia depression Allergies: Allergies Allergy/AdvReac Type Severity Reaction Status Date / Time Unable to Assess Allergy Verified 09/23/23 15:14 Plan I have reviewed the history and physical and performed a pertinent physical examination on my patient. No changes have occurred unless specified. Time Spent With Patient Time: Total time managing care of this patient today ____ minutes.
--- NOTE | 2023-11-06 15:24 | P.PNPSI_ITS ---
Subjective Subjective Date of Service: 11/06/23 Reason For Visit: catatonia depression Interim History: sleepy. answers i don't know. denies problems. per staff, no dep/anx. f;at, withdrawn. asking to leave. responded to humor. woke up bright this morning. Mental Status Exam Mental Status Exam Narrative: pt casually dressed lying in bed. sleepy. marginally more verbal output, but answering questions with i don't know. affect inert. unable to assess mood, SI/SIBI/HI/AVH. Diagnostics Vital Signs (24Hr): Vital Signs - 24 hr 11/05/23 17:56 11/06/23 06:19 11/06/23 06:32 Temperature 98 F 97.6 F 97.9 F Pulse Rate 91 70 69 Respiratory Rate 16 17 16 Blood Pressure 114/59 L 107/55 L 112/60 Pulse Oximetry 96 97 99 Oxygen Delivery Method Room Air Room Air Oxygen Flow Rate 11/06/23 08:04 11/06/23 08:09 11/06/23 08:14 Temperature 97.9 F Pulse Rate 61 94 92 Respiratory Rate 20 18 16 Blood Pressure 144/83 H 117/73 121/74 Pulse Oximetry 98 96 94 Oxygen Delivery Method Nasal Cannula with ETCO2 Nasal Cannula with ETCO2 Nasal Cannula with ETCO2 Oxygen Flow Rate 2 2 2 11/06/23 08:19 11/06/23 08:34 11/06/23 08:48 Temperature 97.8 F Pulse Rate 83 84 75 Respiratory Rate 16 16 16 Blood Pressure 111/67 100/61 101/62 Pulse Oximetry 95 93 96 Oxygen Delivery Method Nasal Cannula with ETCO2 Room Air Room Air Oxygen Flow Rate 2 11/06/23 09:12 11/06/23 09:13 Temperature 97.5 F 97.5 F Pulse Rate 90 90 Respiratory Rate 16 16 Blood Pressure 130/85 130/85 Pulse Oximetry 95 95 Oxygen Delivery Method Room Air Oxygen Flow Rate BMI result Body Mass Index 25.4 Labs 10/20/23 14:13 10/20/23 14:13 Labs: Laboratory Results - last 48 hr 10/30/23 07:49 ANNIE Titer TNP ANNIE Titer 2 TNP ANNIE Titer 3 TNP ANNIE Pattern TNP ANNIE Pattern 2 TNP ANNIE Pattern 3 TNP Imaging Radiology Impressions: ITS Impressions Chest X-Ray 10/20/23 16:28 IMPRESSION: No acute cardiopulmonary abnormality. Medications Medications Current Medications Acetaminophen (Acetaminophen 325 Mg Tablet) 650 mg PO Q6H PRN PRN Reason: Headache/Pain Mild Scale (1-3) Last Admin: 10/26/23 18:33 Dose: 650 mg Al Hydroxide/Mg Hydroxide (Magnesium Hydrox/Alum Hydrox 30 Ml Oral.Susp) 30 ml PO Q6H PRN PRN Reason: Heartburn/Nausea Hydroxyzine HCl (Hydroxyzine Hcl 25 Mg Tablet) 25 mg PO Q6H PRN PRN Reason: Anxiety Last Admin: 11/05/23 21:50 Dose: 25 mg Magnesium Hydroxide (Milk Of Magnesia 30 Ml Oral.Susp) 30 ml PO DAILY PRN PRN Reason: Constipation Olanzapine (Olanzapine Odt 10 Mg Tab.Rapdis) 10 mg TRANSLINGU Q4H PRN PRN Reason: anxiety/restlessness Last Admin: 11/04/23 22:28 Dose: 10 mg Olanzapine (Olanzapine Odt 10 Mg Tab.Rapdis) 10 mg TRANSLINGU BEDTIME PAM Last Admin: 11/05/23 21:50 Dose: 10 mg Trazodone HCl (Trazodone Hcl 50 Mg Tablet) 50 mg PO BEDTIME MRX1 PRN PRN Reason: Insomnia Last Admin: 11/05/23 21:50 Dose: 50 mg Allergies Allergies Allergy/AdvReac Type Severity Reaction Status Date / Time Unable to Assess Allergy Verified 09/23/23 15:14 Assessment & Plan Assessment & Plan (1) Catatonia: Status: Acute Code(s): F06.1 - Catatonic disorder due to known physiological condition Plan 09/23: ativan 2 mg QID. move for commitment and court ordered ECT. 09/24: no change in presentation or plan. remains catatonic, adequate PO intake for the moment. taking 8 mg ativan daily without appreciative improvement. 09/25: continue current management and treatment plan. 09/26: Checked labs. CBC without evidence of infection. Chemistries and LFT's stable. Continue monitoring and response to Ativan. 09/27: continue current management and treatment plan. 09/28: continue current mgmt. producing several monosyllabic answers to questions today. filed for commitment. 09/29: awaiting hearing. very modest response to high-dose ativan. hearing next thursday. continue current mgmt for now. 09/30: no change in presentation. continues to appear to take in adequate fluids and food. continue current mgmt. 10/01: outpt regimen of zyprexa 5 BID and lithium 900 QHS restarted. continue ativan [address] thursday. 10/04/23: Court date pending on 10/06/2023 and ?ECT. 10/04: court deferred to next week for SADA. stably catatonic but up for toileting and PO intake, periodically. refusing labs to check electrolytes. 10/05: pt refusing labs. per staff report, does have reasonable PO intake. court scheduled 10/14. continue current mgmt. 10/06: taking meds, modest PO intake. said, what's your name? today. continue current mgmt. 10/08/23 Patient taking medication remains generally nonverbal he did stand up was reportedly eating more would clearly benefit from ECT as becomes available 10/08: one word today, No, in response to request to check labs for lithium and lytes. continue current mgmt. awaiting court for ECT. 10/09: non-verbal. dry lips but per report is eating meals. reorder labs. continue current mgmt otherwise. 10/10: 10/09 lytes reassuring, lithium 0.46. no change in presentation, continue current mgmt. 10/11: mute. some saccades, otherwise immobile. continue current mgmt. 10/12: will benefit from court ordered tx vital signs ok. 10/13: no change in presentation. court tomorrow at 2. decrease ativan from 2 QID to 2 TID both to see if dose reduction changes behavior in any way and in preparation for requested order from the court for ECT. 10/14: noted to be openly masturbating in his room last night, not responsive to redirection by nursing staff. eating breakfast in bed today. nods on being asked if he would like to attend the hearing today. case discussed with SADA Cifuentes. hearing held, pt committed and ECT/meds ordered. 10/15: no change in presentation. taper benzos over w/e. medical clearance for ECT completed at admission by hospitalist service. planning for ECT #1 on thursday morning. 10/16:Continue current plans and regimen 10/17: Continue current plans and regimen. 6/17: more verbal immediately after ECT #1 today, many more and more rapid responses to questions via head gestures as well. 10/19: febrile, elevated WBC. medicine consult called. continues more responsive today than prior. continue current mgmt pending medicine recs. 10/20: no nidus of infection located thus far. U/A WNL, chest XR WNL. continue current mgmt. ECT today. 10/21: appears to have been afebrile over past 24H, reportedly T100.8 post ECT yesterday. case discussed with dr. wyman. to clarify matters, will DC zyprexa and lithium to see if elevated WBC resolves and hyperpyrexia stops. ECT again tomorrow. no change in clinical presentation. 10/22: remains more verbal today, better eye contact. ECT canceled for today due to error in pt's receiving meal tray. ECT #3 scheduled for thursday. 10/24/23 CTP npo order written for tonight 10/26/23 cont ect will restart antipschotic per tx order 10/27/23 ect BT start invega pos surveillance monitor response 10/28/23 cont ect improvement noted would benefit from further hx ck labs in am 10/28/23 cont ect invega some response noted 10/30 continue same treatment. 10/31 continue same treatment ECT tomorrow. 11/02/23 Cont ect change to hs olanzapine 10 mg 11/03/2023 Patient more verbal osborn affect continue ECT 11/03: received ECT today. sleepy afterward, responding i don't know to most questions. continue current mgmt. 11/04 continue tx plan 11/05: received ECT today. marginal improvement continues. continue current mgmt. Reason for continued inpatient stay Substantial Risk for: inability to function Time Spent With Patient Time: Total time managing care of this patient today ____ minutes.
[2023-11-06] MEDS: OLANZapine ODT 10 MG TAB.RAPDIS TRANSLINGU (20:03)
[2023-11-07 08:00] VITALS: RESP 18
--- NOTE | 2023-11-07 14:07 | HO.PSYCHPN ---
Subjective Subjective Date of Service: 11/07/23 Reason For Visit: catatonia depression Interim History: up and about today, trying exit doors. appears a bit lost, vacant, but able to respond to some questions, such as, how are you feeling? his response was, i feel normal. generally not much one for conversation, however. per staff, no change in presentation. slept 2 hours overnight (but sleeps most of the day). Mental Status Exam Mental Status Exam Narrative: disheveled, up and about the unit. cooperative. no PMA/PMR. speech decr amount, loudness. nml rate, incr latency. thoughts appear slowed/blocked. paucity of thought, but able to answer some questions linearly. affect blunted. mood not assessed. no SI/HI/AVH expressed. Diagnostics Vital Signs (24Hr): Vital Signs - 24 hr 11/06/23 20:00 11/07/23 08:00 Respiratory Rate 18 18 BMI result Body Mass Index 25.4 Labs 10/20/23 14:13 10/20/23 14:13 Imaging Radiology Impressions: ITS Impressions Chest X-Ray 10/20/23 16:28 IMPRESSION: No acute cardiopulmonary abnormality. Medications Medications Current Medications Acetaminophen (Acetaminophen 325 Mg Tablet) 650 mg PO Q6H PRN PRN Reason: Headache/Pain Mild Scale (1-3) Last Admin: 10/26/23 18:33 Dose: 650 mg Al Hydroxide/Mg Hydroxide (Magnesium Hydrox/Alum Hydrox 30 Ml Oral.Susp) 30 ml PO Q6H PRN PRN Reason: Heartburn/Nausea Hydroxyzine HCl (Hydroxyzine Hcl 25 Mg Tablet) 25 mg PO Q6H PRN PRN Reason: Anxiety Last Admin: 11/05/23 21:50 Dose: 25 mg Magnesium Hydroxide (Milk Of Magnesia 30 Ml Oral.Susp) 30 ml PO DAILY PRN PRN Reason: Constipation Olanzapine (Olanzapine Odt 10 Mg Tab.Rapdis) 10 mg TRANSLINGU Q4H PRN PRN Reason: anxiety/restlessness Last Admin: 11/04/23 22:28 Dose: 10 mg Olanzapine (Olanzapine Odt 10 Mg Tab.Rapdis) 10 mg TRANSLINGU BEDTIME PAM Last Admin: 11/06/23 20:03 Dose: 10 mg Trazodone HCl (Trazodone Hcl 50 Mg Tablet) 50 mg PO BEDTIME MRX1 PRN PRN Reason: Insomnia Last Admin: 11/05/23 21:50 Dose: 50 mg Allergies Allergies Allergy/AdvReac Type Severity Reaction Status Date / Time Unable to Assess Allergy Verified 09/23/23 15:14 Assessment & Plan Assessment & Plan (1) Catatonia: Status: Acute Code(s): F06.1 - Catatonic disorder due to known physiological condition Plan 09/23: ativan 2 mg QID. move for commitment and court ordered ECT. 09/24: no change in presentation or plan. remains catatonic, adequate PO intake for the moment. taking 8 mg ativan daily without appreciative improvement. 09/25: continue current management and treatment plan. 09/26: Checked labs. CBC without evidence of infection. Chemistries and LFT's stable. Continue monitoring and response to Ativan. 09/27: continue current management and treatment plan. 09/28: continue current mgmt. producing several monosyllabic answers to questions today. filed for commitment. 09/29: awaiting hearing. very modest response to high-dose ativan. hearing next thursday. continue current mgmt for now. 09/30: no change in presentation. continues to appear to take in adequate fluids and food. continue current mgmt. 10/01: outpt regimen of zyprexa 5 BID and lithium 900 QHS restarted. continue ativan [address] thursday. 10/04/23: Court date pending on 10/06/2023 and ?ECT. 10/04: court deferred to next week for SADA. stably catatonic but up for toileting and PO intake, periodically. refusing labs to check electrolytes. 10/05: pt refusing labs. per staff report, does have reasonable PO intake. court scheduled 10/14. continue current mgmt. 10/06: taking meds, modest PO intake. said, what's your name? today. continue current mgmt. 10/08/23 Patient taking medication remains generally nonverbal he did stand up was reportedly eating more would clearly benefit from ECT as becomes available 10/08: one word today, No, in response to request to check labs for lithium and lytes. continue current mgmt. awaiting court for ECT. 10/09: non-verbal. dry lips but per report is eating meals. reorder labs. continue current mgmt otherwise. 10/10: 10/09 lytes reassuring, lithium 0.46. no change in presentation, continue current mgmt. 10/11: mute. some saccades, otherwise immobile. continue current mgmt. 10/12: will benefit from court ordered tx vital signs ok. 10/13: no change in presentation. court tomorrow at 2. decrease ativan from 2 QID to 2 TID both to see if dose reduction changes behavior in any way and in preparation for requested order from the court for ECT. 10/14: noted to be openly masturbating in his room last night, not responsive to redirection by nursing staff. eating breakfast in bed today. nods on being asked if he would like to attend the hearing today. case discussed with SADA Cifuentes. hearing held, pt committed and ECT/meds ordered. 10/15: no change in presentation. taper benzos over w/e. medical clearance for ECT completed at admission by hospitalist service. planning for ECT #1 on thursday morning. 10/16:Continue current plans and regimen 10/17: Continue current plans and regimen. 10/18: more verbal immediately after ECT #1 today, many more and more rapid responses to questions via head gestures as well. 10/19: febrile, elevated WBC. medicine consult called. continues more responsive today than prior. continue current mgmt pending medicine recs. 10/20: no nidus of infection located thus far. U/A WNL, chest XR WNL. continue current mgmt. ECT today. 10/21: appears to have been afebrile over past 24H, reportedly T100.8 post ECT yesterday. case discussed with dr. wyman. to clarify matters, will DC zyprexa and lithium to see if elevated WBC resolves and hyperpyrexia stops. ECT again tomorrow. no change in clinical presentation. 10/22: remains more verbal today, better eye contact. ECT canceled for today due to error in pt's receiving meal tray. ECT #3 scheduled for thursday. 10/24/23 CTP npo order written for tonight 10/26/23 cont ect will restart antipschotic per tx order 10/27/23 ect BT start invega pos environmental monitoring technician response 10/28/23 cont ect improvement noted would benefit from further hx ck labs in am 10/28/23 cont ect invega some response noted 10/30 continue same treatment. 10/31 continue same treatment ECT tomorrow. 11/02/23 Cont ect change to hs olanzapine 10 mg 11/03/2023 Patient more verbal osborn affect continue ECT 11/03: received ECT today. sleepy afterward, responding i don't know to most questions. continue current mgmt. 11/04 continue tx plan 11/05: received ECT today. marginal improvement continues. continue current mgmt. 11/06: up and about today, trying exit doors. more verbal than mute, barely. continue current mgmt. Reason for continued inpatient stay Substantial Risk for: inability to function and rapid decompensation Time Spent With Patient Time: Total time managing care of this patient today ____ minutes.
[2023-11-07 20:00] VITALS: BP 123/65; PULSE 90; RESP 16; TEMP 37; O2SAT 96
[2023-11-07] MEDS: OLANZapine ODT 10 MG TAB.RAPDIS TRANSLINGU (21:34)
[2023-11-08 08:00] VITALS: RESP 18
--- NOTE | 2023-11-08 16:14 | HO.PSYCHPN ---
Subjective Subjective Date of Service: 11/08/23 Reason For Visit: catatonia depression Interim History: up and about, not responding to questions. loitering at exits. per staff, noted to have said yesterday, i'm getting ready to leave tonight, my cousin is coming to get me. slept 5 hours overnight. staring at roommate. Mental Status Exam Mental Status Exam Narrative: disheveled, up and about the unit. not cooperative. no PMA/PMR. mute. affect blunted. mood not assessed. no SI/HI/AVH expressed. Diagnostics Vital Signs (24Hr): Vital Signs - 24 hr 11/07/23 20:00 11/08/23 08:00 Temperature 98.6 F Pulse Rate 90 Respiratory Rate 16 18 Blood Pressure 123/65 Pulse Oximetry 96 Oxygen Delivery Method Room Air BMI result Body Mass Index 25.4 Labs 10/20/23 14:13 10/20/23 14:13 Imaging Radiology Impressions: ITS Impressions Chest X-Ray 10/20/23 16:28 IMPRESSION: No acute cardiopulmonary abnormality. Medications Medications Current Medications Acetaminophen (Acetaminophen 325 Mg Tablet) 650 mg PO Q6H PRN PRN Reason: Headache/Pain Mild Scale (1-3) Last Admin: 10/26/23 18:33 Dose: 650 mg Al Hydroxide/Mg Hydroxide (Magnesium Hydrox/Alum Hydrox 30 Ml Oral.Susp) 30 ml PO Q6H PRN PRN Reason: Heartburn/Nausea Hydroxyzine HCl (Hydroxyzine Hcl 25 Mg Tablet) 25 mg PO Q6H PRN PRN Reason: Anxiety Last Admin: 11/05/23 21:50 Dose: 25 mg Magnesium Hydroxide (Milk Of Magnesia 30 Ml Oral.Susp) 30 ml PO DAILY PRN PRN Reason: Constipation Olanzapine (Olanzapine Odt 10 Mg Tab.Rapdis) 10 mg TRANSLINGU Q4H PRN PRN Reason: anxiety/restlessness Last Admin: 11/04/23 22:28 Dose: 10 mg Olanzapine (Olanzapine Odt 10 Mg Tab.Rapdis) 10 mg TRANSLINGU BEDTIME PAM Last Admin: 11/07/23 21:34 Dose: 10 mg Trazodone HCl (Trazodone Hcl 50 Mg Tablet) 50 mg PO BEDTIME MRX1 PRN PRN Reason: Insomnia Last Admin: 11/05/23 21:50 Dose: 50 mg Allergies Allergies Allergy/AdvReac Type Severity Reaction Status Date / Time Unable to Assess Allergy Verified 09/23/23 15:14 Assessment & Plan Assessment & Plan (1) Catatonia: Status: Acute Code(s): F06.1 - Catatonic disorder due to known physiological condition Plan 09/23: ativan 2 mg QID. move for commitment and court ordered ECT. 09/24: no change in presentation or plan. remains catatonic, adequate PO intake for the moment. taking 8 mg ativan daily without appreciative improvement. 09/25: continue current management and treatment plan. 09/26: Checked labs. CBC without evidence of infection. Chemistries and LFT's stable. Continue monitoring and response to Ativan. 09/27: continue current management and treatment plan. 09/28: continue current mgmt. producing several monosyllabic answers to questions today. filed for commitment. 09/29: awaiting hearing. very modest response to high-dose ativan. hearing next thursday. continue current mgmt for now. 09/30: no change in presentation. continues to appear to take in adequate fluids and food. continue current mgmt. 10/01: outpt regimen of zyprexa 5 BID and lithium 900 QHS restarted. continue ativan [address] thursday. 10/04/23: Court date pending on 10/06/2023 and ?ECT. 10/04: court deferred to next week for SADA. stably catatonic but up for toileting and PO intake, periodically. refusing labs to check electrolytes. 10/05: pt refusing labs. per staff report, does have reasonable PO intake. court scheduled 10/14. continue current mgmt. 10/06: taking meds, modest PO intake. said, what's your name? today. continue current mgmt. 10/08/23 Patient taking medication remains generally nonverbal he did stand up was reportedly eating more would clearly benefit from ECT as becomes available 10/08: one word today, No, in response to request to check labs for lithium and lytes. continue current mgmt. awaiting court for ECT. 10/09: non-verbal. dry lips but per report is eating meals. reorder labs. continue current mgmt otherwise. 10/10: 10/09 lytes reassuring, lithium 0.46. no change in presentation, continue current mgmt. 10/11: mute. some saccades, otherwise immobile. continue current mgmt. 10/12: will benefit from court ordered tx vital signs ok. 10/13: no change in presentation. court tomorrow at 2. decrease ativan from 2 QID to 2 TID both to see if dose reduction changes behavior in any way and in preparation for requested order from the court for ECT. 10/14: noted to be openly masturbating in his room last night, not responsive to redirection by nursing staff. eating breakfast in bed today. nods on being asked if he would like to attend the hearing today. case discussed with SADA Cifuentes. hearing held, pt committed and ECT/meds ordered. 10/15: no change in presentation. taper benzos over w/e. medical clearance for ECT completed at admission by hospitalist service. planning for ECT #1 on thursday morning. 10/16:Continue current plans and regimen 10/17: Continue current plans and regimen. 10/18: more verbal immediately after ECT #1 today, many more and more rapid responses to questions via head gestures as well. 10/19: febrile, elevated WBC. medicine consult called. continues more responsive today than prior. continue current mgmt pending medicine recs. 10/20: no nidus of infection located thus far. U/A WNL, chest XR WNL. continue current mgmt. ECT today. 10/21: appears to have been afebrile over past 24H, reportedly T100.8 post ECT yesterday. case discussed with dr. wyman. to clarify matters, will DC zyprexa and lithium to see if elevated WBC resolves and hyperpyrexia stops. ECT again tomorrow. no change in clinical presentation. 10/22: remains more verbal today, better eye contact. ECT canceled for today due to error in pt's receiving meal tray. ECT #3 scheduled for thursday. 10/24/23 CTP npo order written for tonight 10/26/23 cont ect will restart antipschotic per tx order 10/27/23 ect BT start invega pos quality assurance monitor response 10/28/23 cont ect improvement noted would benefit from further hx ck labs in am 10/28/23 cont ect invega some response noted 10/30 continue same treatment. 10/31 continue same treatment ECT tomorrow. 11/02/23 Cont ect change to hs olanzapine 10 mg 11/03/2023 Patient more verbal osborn affect continue ECT 11/03: received ECT today. sleepy afterward, responding i don't know to most questions. continue current mgmt. 11/04 continue tx plan 11/05: received ECT today. marginal improvement continues. continue current mgmt. 11/06: up and about today, trying exit doors. more verbal than mute, barely. continue current mgmt. 11/07: up and about, mute. continue current mgmt. Reason for continued inpatient stay Substantial Risk for: inability to function and rapid decompensation Time Spent With Patient Time: Total time managing care of this patient today ____ minutes.
[2023-11-08 20:00] VITALS: RESP 16
[2023-11-08] MEDS: OLANZapine ODT 10 MG TAB.RAPDIS TRANSLINGU ×2 (21:04→22:37)
[2023-11-08] MEDS: traZODone HCL 50 MG TABLET PO (22:37)
[2023-11-08] MEDS: hydrOXYzine HCL 25 MG TABLET PO (22:37)
[2023-11-09] VITALS (11 sets, daily range): BP systolic 98–125; BP diastolic 51–86; PULSE 61–85; RESP 14–20; TEMP 36.3–37.4; O2SAT 96–98
--- NOTE | 2023-11-09 07:04 | MHC.SHP ---
Pre-Procedural Eval Section A - 24 Hr Update-Section A only Date of Service: 11/09/23 The patient is an INPATIENT: Yes Changes since office visit: No Cold of Flu in the past 2 weeks, No New Medical Problems, No Changes in Medication and No Patient answered all questions The patient has been examined within 24 hours of the surgical procedure. The History & Physical has been completed within 30 days and I have reviewed it.: Yes Section B - Complete if H&P > 30 days Chief Complaint: catatonia depression Allergies: Allergies Allergy/AdvReac Type Severity Reaction Status Date / Time Unable to Assess Allergy Verified 09/23/23 15:14 Plan I have reviewed the history and physical and performed a pertinent physical examination on my patient. No changes have occurred unless specified. Time Spent With Patient Time: Total time managing care of this patient today ____ minutes.
--- NOTE | 2023-11-09 07:19 | HO.ECTPROC ---
ECT Procedure Note Diagnosis/Treatment Date of Service: 11/09/23 Diagnosis: Catatonia and Schizoaffective Disorder Previous ECT Date: 11/04/23 Current Treatment Number: 8 Treatment: Series Interval Clinical Notes: The patient was able to answer a few questions, requested to remove the nasal canula to the RN. Unable to verbalize previous side effects. ECT done as bitemporal, no complications, woke up well. Time: Total time managing care of this patient today ____ minutes. ECT Settings Device: THYMATRON DGx Electrode Placement: Bitemporal Program/Pulse Width: 0.50 Energy Percent: 100 Seizure Duration By EEG (in seconds): 27 By Motor Observation (in seconds): 25 Medications Administration General Anesthetic: Etomidate (16) Muscle Relaxant: Succinylcholine (100) Ancillary Medications Analgesics: Torodol - Pre ECT Anti-emetics: Zofran - Pre ECT Miscillaneous Medications: Midazolam (2 mg IVP after ECT) Airway Management Airway Management: Bag Mask Ventilation Treatment Recommendations No Changes Recommended: No change Pt Tolerated Procedure w/o Issue: Yes
--- NOTE | 2023-11-09 08:18 | PC.NURSE ---
report given to yudi meyer rn at this time.
--- NOTE | 2023-11-09 08:21 | HO.ANESPROP2 ---
[facility] Active Problems Active Problems: All Active Problems Catatonia (Acute) Routine medical exam (Acute) Past Medical History Medical History No pertinent past medical history Family History Family history of problems with anesthesia: No Surgical History History of Problems with Anesthesia: No Social History Social History Household Members: Other Household Members Other:: Unknown Do you presently have visiting nurse or other home services: No (Unknown) Patient Tobacco Use Status: Never used Tobacco Smoked in Last 30 Days: No e-Cigarette/Vaping Use: Never Used Patient Interested in Nicotine Replacement: No Patient Given Instructions on How to Stop Smoking: No Second Hand Smoke Exposure: No Use of substances other than those prescribed or required for medical reasons: No Currently Displaying Signs/Symptoms of Drug Intoxication Withdrawal: No Any prior treatment program specific to substance use: No Advance Directives: No Advance Directives Information Provided: No (Medical Condition) Do you have thoughts of harming others: None Do you have a plan to hurt others: No Plan Recently lost weight without trying: Unsure Nutrition Risks: No Nutritional Risk Poor oral hygiene: Yes Sexual orientation: Unable to collect Meds Allergies Allergy/AdvReac Type Severity Reaction Status Date / Time Unable to Assess Allergy Verified 09/23/23 15:14 Active Medications: Current Medications Acetaminophen (Acetaminophen 325 Mg Tablet) 650 mg PO Q6H PRN PRN Reason: Headache/Pain Mild Scale (1-3) Last Admin: 10/26/23 18:33 Dose: 650 mg Al Hydroxide/Mg Hydroxide (Magnesium Hydrox/Alum Hydrox 30 Ml Oral.Susp) 30 ml PO Q6H PRN PRN Reason: Heartburn/Nausea Hydroxyzine HCl (Hydroxyzine Hcl 25 Mg Tablet) 25 mg PO Q6H PRN PRN Reason: Anxiety Last Admin: 11/08/23 22:37 Dose: 25 mg Magnesium Hydroxide (Milk Of Magnesia 30 Ml Oral.Susp) 30 ml PO DAILY PRN PRN Reason: Constipation Olanzapine (Olanzapine Odt 10 Mg Tab.Rapdis) 10 mg TRANSLINGU Q4H PRN PRN Reason: anxiety/restlessness Last Admin: 11/08/23 22:37 Dose: 10 mg Olanzapine (Olanzapine Odt 10 Mg Tab.Rapdis) 10 mg TRANSLINGU BEDTIME PAM Last Admin: 11/08/23 21:04 Dose: 10 mg Trazodone HCl (Trazodone Hcl 50 Mg Tablet) 50 mg PO BEDTIME MRX1 PRN PRN Reason: Insomnia Last Admin: 11/08/23 22:37 Dose: 50 mg Home Medications ?Medication ?Instructions ?Recorded ?Confirmed ?Last Taken ?Type No Known Home Meds 10/09/23 10/09/23 Unknown History Exam Height,Weight and Vital Signs: Height 5 ft 5 in Weight 69.309 kg Last Vital Signs Temp 98.3 F 11/09/23 08:13 Pulse 63 11/09/23 08:13 Resp 18 11/09/23 08:13 BP 98/51 L 11/09/23 08:13 Pulse Ox 96 11/09/23 08:13 O2 Del Method Room Air 11/09/23 08:13 O2 Flow Rate 2 11/06/23 08:19 Pertinent Lab Results Pertinent Lab Results: Laboratory Tests 09/23/23 09/27/23 10/10/23 02:20 11:15 14:55 WBC 6.1 RBC 4.83 Hgb 15.0 Hct 44.6 MCV 92.3 MCH 31.1 MCHC 33.6 RDW 11.8 Plt Count 300 MPV 8.9 L Immature Gran % (Auto) 0.5 H Neut % (Auto) 71.0 Lymph % (Auto) 22.0 [place] % (Auto) 4.2 Eos % (Auto) 1.8 Baso % (Auto) 0.5 Lymph # (Auto) 1.4 [place] # (Auto) 0.3 Eos # (Auto) 0.1 Baso # (Auto) 0.0 Abs Immat Gran (auto) 0.03 Absolute Neuts (auto) 4.4 Absolute Nucleated RBC 0.000 Nucleated RBC % (auto) 0.0 ESR Sodium 142 141 Potassium 3.8 3.6 Chloride 105 109 H Carbon Dioxide 28 24 Anion Gap 13 12 BUN 8 L 9 Creatinine 0.79 0.86 Estim Creat Clear Calc 126.5 116.2 Estimated GFR > 60 > 60 Random Glucose 112 110 Calcium 9.3 9.7 Total Bilirubin 0.4 Direct Bilirubin 0.2 AST 10 ALT 9 Alkaline Phosphatase 61 Total Creatine Kinase 66 C-Reactive Protein Total Protein 7.2 Albumin 4.3 Vitamin B12 Folate TSH Free T4 Urine Color Urine Appearance Urine pH Ur Specific [place] Urine Protein Urine Glucose (UA) Urine Ketones Urine Blood Urine Nitrite Ur Leukocyte Esterase Urine RBC Urine WBC Ur Squamous Epith Cells Urine Bacteria Hyaline Casts [place] 0.46 L ANNIE Screen ANNIE Titer ANNIE Titer 2 ANNIE Titer 3 ANNIE Pattern ANNIE Pattern 2 ANNIE Pattern 3 Respiratory Panel Pugh Adenovirus (Rapid PCR) B.pert (TEM-PCR) B.parapertussis DNA PCR C. pneumoniae DNA (PCR) Coronavirus OC43 (PCR) Coronavirus HKU1 (PCR) Coronavirus 229E (PCR) Coronavirus NL63 (PCR) Human Metapneumovir PCR Influenza A (RT-PCR) Influenza Type A (PCR) NEGATIVE Influenza B (RT-PCR) Influenza Type B (PCR) NEGATIVE M. pneumoniae (PCR) Parainfluenza 1 (PCR) Parainfluenza 2 (PCR) Parainfluenza 3 (PCR) Parainfluenza 4 (PCR) RSV (PCR) RSV RNA Qual (PCR) NEGATIVE Entero/Rhino (PCR) SARS-CoV-2 RNA (RT-PCR) NEGATIVE 10/20/23 10/20/23 10/20/23 14:13 16:39 17:10 WBC 11.7 H RBC 4.64 Hgb 14.5 Hct 41.2 L MCV 88.8 MCH 31.3 MCHC 35.2 RDW 11.7 Plt Count 263 MPV 9.0 L Immature Gran % (Auto) 0.3 Neut % (Auto) 78.3 H Lymph % (Auto) 12.0 L [place] % (Auto) 5.7 Eos % (Auto) 3.4 Baso % (Auto) 0.3 Lymph # (Auto) 1.4 [place] # (Auto) 0.7 Eos # (Auto) 0.4 Baso # (Auto) 0.0 Abs Immat Gran (auto) 0.04 H Absolute Neuts (auto) 9.1 H Absolute Nucleated RBC 0.000 Nucleated RBC % (auto) 0.0 ESR Sodium 142 Potassium 3.7 Chloride 108 Carbon Dioxide 27 Anion Gap 11 L BUN 10 Creatinine 0.96 Estim Creat Clear Calc 104.1 Estimated GFR > 60 Random Glucose 106 Calcium 9.3 Total Bilirubin Direct Bilirubin AST ALT Alkaline Phosphatase Total Creatine Kinase C-Reactive Protein Total Protein Albumin Vitamin B12 Folate TSH Free T4 Urine Color Yellow Urine Appearance Clear Urine pH 7.0 Ur Specific [place] 1.015 Urine Protein Negative Urine Glucose (UA) Negative Urine Ketones Negative Urine Blood Trace H Urine Nitrite Negative Ur Leukocyte Esterase Negative Urine RBC 6-10 H Urine WBC 0-5 Ur Squamous Epith Cells 0-2 Urine Bacteria None Seen Hyaline Casts 0-2 [place] ANNIE Screen ANNIE Titer ANNIE Titer 2 ANNIE Titer 3 ANNIE Pattern ANNIE Pattern 2 ANNIE Pattern 3 Respiratory Panel Pugh See Note Adenovirus (Rapid PCR) Not Detected B.pert (TEM-PCR) Not Detected B.parapertussis DNA PCR Not Detected C. pneumoniae DNA (PCR) Not Detected Coronavirus OC43 (PCR) Not Detected Coronavirus HKU1 (PCR) Not Detected Coronavirus 229E (PCR) Not Detected Coronavirus NL63 (PCR) Not Detected Human Metapneumovir PCR Not Detected Influenza A (RT-PCR) Not Detected Influenza Type A (PCR) Influenza B (RT-PCR) Not Detected Influenza Type B (PCR) M. pneumoniae (PCR) Not Detected Parainfluenza 1 (PCR) Not Detected Parainfluenza 2 (PCR) Not Detected Parainfluenza 3 (PCR) Not Detected Parainfluenza 4 (PCR) Not Detected RSV (PCR) Not Detected RSV RNA Qual (PCR) Entero/Rhino (PCR) Not Detected SARS-CoV-2 RNA (RT-PCR) Not Detected 10/25/23 10/30/23 06:56 07:49 WBC RBC Hgb Hct MCV MCH MCHC RDW Plt Count MPV Immature Gran % (Auto) Neut % (Auto) Lymph % (Auto) [place] % (Auto) Eos % (Auto) Baso % (Auto) Lymph # (Auto) [place] # (Auto) Eos # (Auto) Baso # (Auto) Abs Immat Gran (auto) Absolute Neuts (auto) Absolute Nucleated RBC Nucleated RBC % (auto) ESR 14 16 H Sodium Potassium Chloride Carbon Dioxide Anion Gap BUN Creatinine Estim Creat Clear Calc Estimated GFR Random Glucose Calcium Total Bilirubin Direct Bilirubin AST ALT Alkaline Phosphatase Total Creatine Kinase 281 H C-Reactive Protein 1.24 H Total Protein Albumin Vitamin B12 258 Folate 8.8 TSH 4.24 H Free T4 1.08 Urine Color Urine Appearance Urine pH Ur Specific [place] Urine Protein Urine Glucose (UA) Urine Ketones Urine Blood Urine Nitrite Ur Leukocyte Esterase Urine RBC Urine WBC Ur Squamous Epith Cells Urine Bacteria Hyaline Casts [place] ANNIE Screen NEGATIVE ANNIE Titer TNP ANNIE Titer 2 TNP ANNIE Titer 3 TNP ANNIE Pattern TNP ANNIE Pattern 2 TNP ANNIE Pattern 3 TNP Respiratory Panel Pugh Adenovirus (Rapid PCR) B.pert (TEM-PCR) B.parapertussis DNA PCR C. pneumoniae DNA (PCR) Coronavirus OC43 (PCR) Coronavirus HKU1 (PCR) Coronavirus 229E (PCR) Coronavirus NL63 (PCR) Human Metapneumovir PCR Influenza A (RT-PCR) Influenza Type A (PCR) Influenza B (RT-PCR) Influenza Type B (PCR) M. pneumoniae (PCR) Parainfluenza 1 (PCR) Parainfluenza 2 (PCR) Parainfluenza 3 (PCR) Parainfluenza 4 (PCR) RSV (PCR) RSV RNA Qual (PCR) Entero/Rhino (PCR) SARS-CoV-2 RNA (RT-PCR) Airway Mallampati Class: III TM Dist: >3cm Neck ROM: Full Assessment and Plan Assessment Anesthesia Assessment: Anesthesia Plan Discussed and Chart Reviewed Final Anesthetic Review Family History of Problems with Anesthesia: No History of Problems with Anesthesia: No NPO: Yes ASA Class: III Final Preanesthetic Review: No Changes in Pt Med Stat, Meds/Allgs Chart Reviewed, Consent Obtained/Reviewed and Anes Risks/Benef Reviewed Patient Risk: Intermediate Procedure Risk: Low Anesthetic Plan Anesthetic Plan: GA Disposition: Standard PACU
--- NOTE | 2023-11-09 13:39 | HO.PSYCHPN ---
Subjective Subjective Date of Service: 11/09/23 Reason For Visit: catatonia depression Interim History: up and about the unit. says he wants to leave, givs address as [address] [place] [address], unclear how accurate this is. MD inquires as to his well-being, pt seems to become irritated or frustrated and turns quickly and walks away. pt later seen to be warily eyeing MD whenever paths cross. per staff, no depression. + anxiety. refusing VS. snacking. loitering at doors. slept about 7 hours. Mental Status Exam Mental Status Exam Narrative: disheveled, up and about the unit. variably cooperative. no PMA/PMR. nearly mute. affect blunted. mood not assessed. no SI/HI/AVH expressed. Diagnostics Vital Signs (24Hr): Vital Signs - 24 hr 11/08/23 20:00 11/09/23 05:57 11/09/23 06:30 Temperature 98.3 F 97.3 F Pulse Rate 73 70 Respiratory Rate 16 16 16 Blood Pressure 102/58 L 122/75 Pulse Oximetry 96 98 Oxygen Delivery Method Room Air 11/09/23 07:28 11/09/23 07:33 11/09/23 07:38 Temperature 98.8 F Pulse Rate 80 82 74 Respiratory Rate 20 20 18 Blood Pressure 125/73 118/64 108/56 L Pulse Oximetry 97 97 97 Oxygen Delivery Method Room Air Room Air Room Air 11/09/23 07:43 11/09/23 07:58 11/09/23 08:13 Temperature 98.0 F 98.2 F 98.3 F Pulse Rate 70 64 63 Respiratory Rate 18 18 18 Blood Pressure 99/58 L 102/56 L 98/51 L Pulse Oximetry 97 97 96 Oxygen Delivery Method Room Air Room Air Room Air 11/09/23 08:28 Temperature 98.3 F Pulse Rate 61 Respiratory Rate 18 Blood Pressure 110/71 Pulse Oximetry 96 Oxygen Delivery Method Room Air BMI result Body Mass Index 25.4 Labs 10/20/23 14:13 10/20/23 14:13 Imaging Radiology Impressions: ITS Impressions Chest X-Ray 10/20/23 16:28 IMPRESSION: No acute cardiopulmonary abnormality. Medications Medications Current Medications Acetaminophen (Acetaminophen 325 Mg Tablet) 650 mg PO Q6H PRN PRN Reason: Headache/Pain Mild Scale (1-3) Last Admin: 10/26/23 18:33 Dose: 650 mg Al Hydroxide/Mg Hydroxide (Magnesium Hydrox/Alum Hydrox 30 Ml Oral.Susp) 30 ml PO Q6H PRN PRN Reason: Heartburn/Nausea Hydroxyzine HCl (Hydroxyzine Hcl 25 Mg Tablet) 25 mg PO Q6H PRN PRN Reason: Anxiety Last Admin: 11/08/23 22:37 Dose: 25 mg Magnesium Hydroxide (Milk Of Magnesia 30 Ml Oral.Susp) 30 ml PO DAILY PRN PRN Reason: Constipation Olanzapine (Olanzapine Odt 10 Mg Tab.Rapdis) 10 mg TRANSLINGU Q4H PRN PRN Reason: anxiety/restlessness Last Admin: 11/08/23 22:37 Dose: 10 mg Olanzapine (Olanzapine Odt 10 Mg Tab.Rapdis) 10 mg TRANSLINGU BEDTIME PAM Last Admin: 11/08/23 21:04 Dose: 10 mg Trazodone HCl (Trazodone Hcl 50 Mg Tablet) 50 mg PO BEDTIME MRX1 PRN PRN Reason: Insomnia Last Admin: 11/08/23 22:37 Dose: 50 mg Allergies Allergies Allergy/AdvReac Type Severity Reaction Status Date / Time Unable to Assess Allergy Verified 09/23/23 15:14 Assessment & Plan Assessment & Plan (1) Catatonia: Status: Acute Code(s): F06.1 - Catatonic disorder due to known physiological condition Plan 09/23: ativan 2 mg QID. move for commitment and court ordered ECT. 09/24: no change in presentation or plan. remains catatonic, adequate PO intake for the moment. taking 8 mg ativan daily without appreciative improvement. 09/25: continue current management and treatment plan. 09/26: Checked labs. CBC without evidence of infection. Chemistries and LFT's stable. Continue monitoring and response to Ativan. 09/27: continue current management and treatment plan. 09/28: continue current mgmt. producing several monosyllabic answers to questions today. filed for commitment. 09/29: awaiting hearing. very modest response to high-dose ativan. hearing next thursday. continue current mgmt for now. 09/30: no change in presentation. continues to appear to take in adequate fluids and food. continue current mgmt. 10/01: outpt regimen of zyprexa 5 BID and lithium 900 QHS restarted. continue ativan [address] thursday. 10/04/23: Court date pending on 10/06/2023 and ?ECT. 10/04: court deferred to next week for SADA. stably catatonic but up for toileting and PO intake, periodically. refusing labs to check electrolytes. 10/05: pt refusing labs. per staff report, does have reasonable PO intake. court scheduled 10/14. continue current mgmt. 10/06: taking meds, modest PO intake. said, what's your name? today. continue current mgmt. 10/08/23 Patient taking medication remains generally nonverbal he did stand up was reportedly eating more would clearly benefit from ECT as becomes available 10/08: one word today, No, in response to request to check labs for lithium and lytes. continue current mgmt. awaiting court for ECT. 10/09: non-verbal. dry lips but per report is eating meals. reorder labs. continue current mgmt otherwise. 10/10: 10/09 lytes reassuring, lithium 0.46. no change in presentation, continue current mgmt. 10/11: mute. some saccades, otherwise immobile. continue current mgmt. 10/12: will benefit from court ordered tx vital signs ok. 10/13: no change in presentation. court tomorrow at 2. decrease ativan from 2 QID to 2 TID both to see if dose reduction changes behavior in any way and in preparation for requested order from the court for ECT. 10/14: noted to be openly masturbating in his room last night, not responsive to redirection by nursing staff. eating breakfast in bed today. nods on being asked if he would like to attend the hearing today. case discussed with SADA Cifuentes. hearing held, pt committed and ECT/meds ordered. 10/15: no change in presentation. taper benzos over w/e. medical clearance for ECT completed at admission by hospitalist service. planning for ECT #1 on thursday morning. 10/16:Continue current plans and regimen 10/17: Continue current plans and regimen. 10/18: more verbal immediately after ECT #1 today, many more and more rapid responses to questions via head gestures as well. 10/19: febrile, elevated WBC. medicine consult called. continues more responsive today than prior. continue current mgmt pending medicine recs. 10/20: no nidus of infection located thus far. U/A WNL, chest XR WNL. continue current mgmt. ECT today. 10/21: appears to have been afebrile over past 24H, reportedly T100.8 post ECT yesterday. case discussed with dr. wyman. to clarify matters, will DC zyprexa and lithium to see if elevated WBC resolves and hyperpyrexia stops. ECT again tomorrow. no change in clinical presentation. 10/22: remains more verbal today, better eye contact. ECT canceled for today due to error in pt's receiving meal tray. ECT #3 scheduled for thursday. 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 10/31 continue same treatment ECT tomorrow. 11/02/23 Cont ect change to hs olanzapine 10 mg 11/03/2023 Patient more verbal osborn affect continue ECT 11/03: received ECT today. sleepy afterward, responding i don't know to most questions. continue current mgmt. 11/04 continue tx plan 11/05: received ECT today. marginal improvement continues. continue current mgmt. 11/06: up and about today, trying exit doors. more verbal than mute, barely. continue current mgmt. 11/07: up and about, mute. continue current mgmt. 11/08: ECT this morning, no issues. up and about. variably cooperative, loitering at exits. Reason for continued inpatient stay Substantial Risk for: inability to function Time Spent With Patient Time: Total time managing care of this patient today ____ minutes.
[2023-11-09] MEDS: OLANZapine ODT 10 MG TAB.RAPDIS TRANSLINGU (21:04)
[2023-11-10 07:15] VITALS: BP 90/53; PULSE 84; RESP 14; TEMP 36.4; O2SAT 98
--- NOTE | 2023-11-10 15:00 | HO.PSYCHPN ---
Subjective Subjective Date of Service: 11/10/23 Reason For Visit: catatonia depression Interim History: slowed, wanting to leave, easily frustrated, unable to engage. per staff, not answering questions. +RIS. pacing. trying doors. slept 5-6 hours. Mental Status Exam Mental Status Exam Narrative: disheveled, up and about the unit. variably cooperative. PMR. nearly mute. affect blunted. mood not assessed. no SI/HI/AVH expressed. Diagnostics Vital Signs (24Hr): Vital Signs - 24 hr 11/09/23 20:00 11/10/23 07:15 Temperature 99.3 F 97.6 F Pulse Rate 85 84 Respiratory Rate 18 14 Blood Pressure 112/62 90/53 L Pulse Oximetry 98 98 Oxygen Delivery Method Room Air Room Air BMI result Body Mass Index 25.4 Labs 10/20/23 14:13 10/20/23 14:13 Imaging Radiology Impressions: ITS Impressions Chest X-Ray 10/20/23 16:28 IMPRESSION: No acute cardiopulmonary abnormality. Medications Medications Current Medications Acetaminophen (Acetaminophen 325 Mg Tablet) 650 mg PO Q6H PRN PRN Reason: Headache/Pain Mild Scale (1-3) Last Admin: 10/26/23 18:33 Dose: 650 mg Al Hydroxide/Mg Hydroxide (Magnesium Hydrox/Alum Hydrox 30 Ml Oral.Susp) 30 ml PO Q6H PRN PRN Reason: Heartburn/Nausea Hydroxyzine HCl (Hydroxyzine Hcl 25 Mg Tablet) 25 mg PO Q6H PRN PRN Reason: Anxiety Last Admin: 11/08/23 22:37 Dose: 25 mg Magnesium Hydroxide (Milk Of Magnesia 30 Ml Oral.Susp) 30 ml PO DAILY PRN PRN Reason: Constipation Olanzapine (Olanzapine Odt 10 Mg Tab.Rapdis) 10 mg TRANSLINGU Q4H PRN PRN Reason: anxiety/restlessness Last Admin: 11/08/23 22:37 Dose: 10 mg Olanzapine (Olanzapine Odt 10 Mg Tab.Rapdis) 10 mg TRANSLINGU BEDTIME PAM Last Admin: 11/09/23 21:04 Dose: 10 mg Trazodone HCl (Trazodone Hcl 50 Mg Tablet) 50 mg PO BEDTIME MRX1 PRN PRN Reason: Insomnia Last Admin: 11/08/23 22:37 Dose: 50 mg Allergies Allergies Allergy/AdvReac Type Severity Reaction Status Date / Time Unable to Assess Allergy Verified 09/23/23 15:14 Assessment & Plan Assessment & Plan (1) Catatonia: Status: Acute Code(s): F06.1 - Catatonic disorder due to known physiological condition Plan 09/23: ativan 2 mg QID. move for commitment and court ordered ECT. 09/24: no change in presentation or plan. remains catatonic, adequate PO intake for the moment. taking 8 mg ativan daily without appreciative improvement. 09/25: continue current management and treatment plan. 09/26: Checked labs. CBC without evidence of infection. Chemistries and LFT's stable. Continue monitoring and response to Ativan. 09/27: continue current management and treatment plan. 09/28: continue current mgmt. producing several monosyllabic answers to questions today. filed for commitment. 09/29: awaiting hearing. very modest response to high-dose ativan. hearing next thursday. continue current mgmt for now. 09/30: no change in presentation. continues to appear to take in adequate fluids and food. continue current mgmt. 10/01: outpt regimen of zyprexa 5 BID and lithium 900 QHS restarted. continue ativan [address] thursday. 10/04/23: Court date pending on 10/06/2023 and ?ECT. 10/04: court deferred to next week for SADA. stably catatonic but up for toileting and PO intake, periodically. refusing labs to check electrolytes. 10/05: pt refusing labs. per staff report, does have reasonable PO intake. court scheduled 10/14. continue current mgmt. 10/06: taking meds, modest PO intake. said, what's your name? today. continue current mgmt. 10/08/23 Patient taking medication remains generally nonverbal he did stand up was reportedly eating more would clearly benefit from ECT as becomes available 10/08: one word today, No, in response to request to check labs for lithium and lytes. continue current mgmt. awaiting court for ECT. 10/09: non-verbal. dry lips but per report is eating meals. reorder labs. continue current mgmt otherwise. 10/10: 10/09 lytes reassuring, lithium 0.46. no change in presentation, continue current mgmt. 10/11: mute. some saccades, otherwise immobile. continue current mgmt. 10/12: will benefit from court ordered tx vital signs ok. 10/13: no change in presentation. court tomorrow at 2. decrease ativan from 2 QID to 2 TID both to see if dose reduction changes behavior in any way and in preparation for requested order from the court for ECT. 10/14: noted to be openly masturbating in his room last night, not responsive to redirection by nursing staff. eating breakfast in bed today. nods on being asked if he would like to attend the hearing today. case discussed with SADA Cifuentes. hearing held, pt committed and ECT/meds ordered. 10/15: no change in presentation. taper benzos over w/e. medical clearance for ECT completed at admission by hospitalist service. planning for ECT #1 on thursday morning. 10/16:Continue current plans and regimen 10/17: Continue current plans and regimen. 10/18: more verbal immediately after ECT #1 today, many more and more rapid responses to questions via head gestures as well. 10/19: febrile, elevated WBC. medicine consult called. continues more responsive today than prior. continue current mgmt pending medicine recs. 10/20: no nidus of infection located thus far. U/A WNL, chest XR WNL. continue current mgmt. ECT today. 10/21: appears to have been afebrile over past 24H, reportedly T100.8 post ECT yesterday. case discussed with dr. wyman. to clarify matters, will DC zyprexa and lithium to see if elevated WBC resolves and hyperpyrexia stops. ECT again tomorrow. no change in clinical presentation. 10/22: remains more verbal today, better eye contact. ECT canceled for today due to error in pt's receiving meal tray. ECT #3 scheduled for thursday. 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 10/31 continue same treatment ECT tomorrow. 11/02/23 Cont ect change to hs olanzapine 10 mg 11/03/2023 Patient more verbal osborn affect continue ECT 11/03: received ECT today. sleepy afterward, responding i don't know to most questions. continue current mgmt. 11/04 continue tx plan 11/05: received ECT today. marginal improvement continues. continue current mgmt. 11/06: up and about today, trying exit doors. more verbal than mute, barely. continue current mgmt. 11/07: up and about, mute. continue current mgmt. 11/08: ECT this morning, no issues. up and about. variably cooperative, loitering at exits. 11/09: as for yesterday. continue current mgmt. ECT for tomorrow. Reason for continued inpatient stay Substantial Risk for: inability to function Time Spent With Patient Time: Total time managing care of this patient today ____ minutes.
[2023-11-10] MEDS: OLANZapine ODT 10 MG TAB.RAPDIS TRANSLINGU (20:46)
[2023-11-11] VITALS (10 sets, daily range): BP systolic 107–115; BP diastolic 55–75; PULSE 61–105; RESP 10–18; TEMP 36.2–37; O2SAT 95–99
--- NOTE | 2023-11-11 06:59 | P.CONAN_ITS ---
[facility] Active Problems Active Problems: All Active Problems Catatonia (Acute) Routine medical exam (Acute) Past Medical History Medical History No pertinent past medical history Family History Family history of problems with anesthesia: No Surgical History History of Problems with Anesthesia: No Social History Social History Household Members: Other Household Members Other:: Unknown Do you presently have visiting nurse or other home services: No (Unknown) Patient Tobacco Use Status: Never used Tobacco Smoked in Last 30 Days: No e-Cigarette/Vaping Use: Never Used Patient Interested in Nicotine Replacement: No Patient Given Instructions on How to Stop Smoking: No Second Hand Smoke Exposure: No Use of substances other than those prescribed or required for medical reasons: No Currently Displaying Signs/Symptoms of Drug Intoxication Withdrawal: No Any prior treatment program specific to substance use: No Advance Directives: No Advance Directives Information Provided: No (Medical Condition) Do you have thoughts of harming others: None Do you have a plan to hurt others: No Plan Recently lost weight without trying: Unsure Nutrition Risks: No Nutritional Risk Poor oral hygiene: Yes Sexual orientation: Unable to collect Meds Allergies Allergy/AdvReac Type Severity Reaction Status Date / Time Unable to Assess Allergy Verified 09/23/23 15:14 Active Medications: Current Medications Acetaminophen (Acetaminophen 325 Mg Tablet) 650 mg PO Q6H PRN PRN Reason: Headache/Pain Mild Scale (1-3) Last Admin: 10/26/23 18:33 Dose: 650 mg Al Hydroxide/Mg Hydroxide (Magnesium Hydrox/Alum Hydrox 30 Ml Oral.Susp) 30 ml PO Q6H PRN PRN Reason: Heartburn/Nausea Hydroxyzine HCl (Hydroxyzine Hcl 25 Mg Tablet) 25 mg PO Q6H PRN PRN Reason: Anxiety Last Admin: 11/08/23 22:37 Dose: 25 mg Magnesium Hydroxide (Milk Of Magnesia 30 Ml Oral.Susp) 30 ml PO DAILY PRN PRN Reason: Constipation Olanzapine (Olanzapine Odt 10 Mg Tab.Rapdis) 10 mg TRANSLINGU Q4H PRN PRN Reason: anxiety/restlessness Last Admin: 11/08/23 22:37 Dose: 10 mg Olanzapine (Olanzapine Odt 10 Mg Tab.Rapdis) 10 mg TRANSLINGU BEDTIME PAM Last Admin: 11/10/23 20:46 Dose: 10 mg Trazodone HCl (Trazodone Hcl 50 Mg Tablet) 50 mg PO BEDTIME MRX1 PRN PRN Reason: Insomnia Last Admin: 11/08/23 22:37 Dose: 50 mg Home Medications ?Medication ?Instructions ?Recorded ?Confirmed ?Last Taken ?Type No Known Home Meds 10/09/23 10/09/23 Unknown History Exam Height,Weight and Vital Signs: Height 5 ft 5 in Weight 69.309 kg Last Vital Signs Temp 97.2 F 11/11/23 06:17 Pulse 61 11/11/23 06:17 Resp 18 11/11/23 06:17 BP 114/65 11/11/23 06:17 Pulse Ox 99 11/11/23 06:17 O2 Del Method Room Air 11/11/23 06:17 O2 Flow Rate 2 11/06/23 08:19 Pertinent Lab Results Pertinent Lab Results: Laboratory Tests 09/23/23 09/27/23 10/10/23 02:20 11:15 14:55 WBC 6.1 RBC 4.83 Hgb 15.0 Hct 44.6 MCV 92.3 MCH 31.1 MCHC 33.6 RDW 11.8 Plt Count 300 MPV 8.9 L Immature Gran % (Auto) 0.5 H Neut % (Auto) 71.0 Lymph % (Auto) 22.0 Hall % (Auto) 4.2 Eos % (Auto) 1.8 Baso % (Auto) 0.5 Lymph # (Auto) 1.4 Hall # (Auto) 0.3 Eos # (Auto) 0.1 Baso # (Auto) 0.0 Abs Immat Gran (auto) 0.03 Absolute Neuts (auto) 4.4 Absolute Nucleated RBC 0.000 Nucleated RBC % (auto) 0.0 ESR Sodium 142 141 Potassium 3.8 3.6 Chloride 105 109 H Carbon Dioxide 28 24 Anion Gap 13 12 BUN 8 L 9 Creatinine 0.79 0.86 Estim Creat Clear Calc 126.5 116.2 Estimated GFR > 60 > 60 Random Glucose 112 110 Calcium 9.3 9.7 Total Bilirubin 0.4 Direct Bilirubin 0.2 AST 10 ALT 9 Alkaline Phosphatase 61 Total Creatine Kinase 66 C-Reactive Protein Total Protein 7.2 Albumin 4.3 Vitamin B12 Folate TSH Free T4 Urine Color Urine Appearance Urine pH Ur Specific [place] Urine Protein Urine Glucose (UA) Urine Ketones Urine Blood Urine Nitrite Ur Leukocyte Esterase Urine RBC Urine WBC Ur Squamous Epith Cells Urine Bacteria Hyaline Casts [place] 0.46 L ANNIE Screen ANNIE Titer ANNIE Titer 2 ANNIE Titer 3 ANNIE Pattern ANNIE Pattern 2 ANNIE Pattern 3 Respiratory Panel Pugh Adenovirus (Rapid PCR) B.pert (TEM-PCR) B.parapertussis DNA PCR C. pneumoniae DNA (PCR) Coronavirus OC43 (PCR) Coronavirus HKU1 (PCR) Coronavirus 229E (PCR) Coronavirus NL63 (PCR) Human Metapneumovir PCR Influenza A (RT-PCR) Influenza Type A (PCR) NEGATIVE Influenza B (RT-PCR) Influenza Type B (PCR) NEGATIVE M. pneumoniae (PCR) Parainfluenza 1 (PCR) Parainfluenza 2 (PCR) Parainfluenza 3 (PCR) Parainfluenza 4 (PCR) RSV (PCR) RSV RNA Qual (PCR) NEGATIVE Entero/Rhino (PCR) SARS-CoV-2 RNA (RT-PCR) NEGATIVE 10/20/23 10/20/23 10/20/23 14:13 16:39 17:10 WBC 11.7 H RBC 4.64 Hgb 14.5 Hct 41.2 L MCV 88.8 MCH 31.3 MCHC 35.2 RDW 11.7 Plt Count 263 MPV 9.0 L Immature Gran % (Auto) 0.3 Neut % (Auto) 78.3 H Lymph % (Auto) 12.0 L Hall % (Auto) 5.7 Eos % (Auto) 3.4 Baso % (Auto) 0.3 Lymph # (Auto) 1.4 Hall # (Auto) 0.7 Eos # (Auto) 0.4 Baso # (Auto) 0.0 Abs Immat Gran (auto) 0.04 H Absolute Neuts (auto) 9.1 H Absolute Nucleated RBC 0.000 Nucleated RBC % (auto) 0.0 ESR Sodium 142 Potassium 3.7 Chloride 108 Carbon Dioxide 27 Anion Gap 11 L BUN 10 Creatinine 0.96 Estim Creat Clear Calc 104.1 Estimated GFR > 60 Random Glucose 106 Calcium 9.3 Total Bilirubin Direct Bilirubin AST ALT Alkaline Phosphatase Total Creatine Kinase C-Reactive Protein Total Protein Albumin Vitamin B12 Folate TSH Free T4 Urine Color Yellow Urine Appearance Clear Urine pH 7.0 Ur Specific [place] 1.015 Urine Protein Negative Urine Glucose (UA) Negative Urine Ketones Negative Urine Blood Trace H Urine Nitrite Negative Ur Leukocyte Esterase Negative Urine RBC 6-10 H Urine WBC 0-5 Ur Squamous Epith Cells 0-2 Urine Bacteria None Seen Hyaline Casts 0-2 [place] ANNIE Screen ANNIE Titer ANNIE Titer 2 ANNIE Titer 3 ANNIE Pattern ANNIE Pattern 2 ANNIE Pattern 3 Respiratory Panel Pugh See Note Adenovirus (Rapid PCR) Not Detected B.pert (TEM-PCR) Not Detected B.parapertussis DNA PCR Not Detected C. pneumoniae DNA (PCR) Not Detected Coronavirus OC43 (PCR) Not Detected Coronavirus HKU1 (PCR) Not Detected Coronavirus 229E (PCR) Not Detected Coronavirus NL63 (PCR) Not Detected Human Metapneumovir PCR Not Detected Influenza A (RT-PCR) Not Detected Influenza Type A (PCR) Influenza B (RT-PCR) Not Detected Influenza Type B (PCR) M. pneumoniae (PCR) Not Detected Parainfluenza 1 (PCR) Not Detected Parainfluenza 2 (PCR) Not Detected Parainfluenza 3 (PCR) Not Detected Parainfluenza 4 (PCR) Not Detected RSV (PCR) Not Detected RSV RNA Qual (PCR) Entero/Rhino (PCR) Not Detected SARS-CoV-2 RNA (RT-PCR) Not Detected 10/25/23 10/30/23 06:56 07:49 WBC RBC Hgb Hct MCV MCH MCHC RDW Plt Count MPV Immature Gran % (Auto) Neut % (Auto) Lymph % (Auto) Hall % (Auto) Eos % (Auto) Baso % (Auto) Lymph # (Auto) Hall # (Auto) Eos # (Auto) Baso # (Auto) Abs Immat Gran (auto) Absolute Neuts (auto) Absolute Nucleated RBC Nucleated RBC % (auto) ESR 14 16 H Sodium Potassium Chloride Carbon Dioxide Anion Gap BUN Creatinine Estim Creat Clear Calc Estimated GFR Random Glucose Calcium Total Bilirubin Direct Bilirubin AST ALT Alkaline Phosphatase Total Creatine Kinase 281 H C-Reactive Protein 1.24 H Total Protein Albumin Vitamin B12 258 Folate 8.8 TSH 4.24 H Free T4 1.08 Urine Color Urine Appearance Urine pH Ur Specific [place] Urine Protein Urine Glucose (UA) Urine Ketones Urine Blood Urine Nitrite Ur Leukocyte Esterase Urine RBC Urine WBC Ur Squamous Epith Cells Urine Bacteria Hyaline Casts [place] ANNIE Screen NEGATIVE ANNIE Titer TNP ANNIE Titer 2 TNP ANNIE Titer 3 TNP ANNIE Pattern TNP ANNIE Pattern 2 TNP ANNIE Pattern 3 TNP Respiratory Panel Pugh Adenovirus (Rapid PCR) B.pert (TEM-PCR) B.parapertussis DNA PCR C. pneumoniae DNA (PCR) Coronavirus OC43 (PCR) Coronavirus HKU1 (PCR) Coronavirus 229E (PCR) Coronavirus NL63 (PCR) Human Metapneumovir PCR Influenza A (RT-PCR) Influenza Type A (PCR) Influenza B (RT-PCR) Influenza Type B (PCR) M. pneumoniae (PCR) Parainfluenza 1 (PCR) Parainfluenza 2 (PCR) Parainfluenza 3 (PCR) Parainfluenza 4 (PCR) RSV (PCR) RSV RNA Qual (PCR) Entero/Rhino (PCR) SARS-CoV-2 RNA (RT-PCR) Airway Mallampati Class: II TM Dist: >3cm Neck ROM: Full Assessment and Plan Assessment Anesthesia Assessment: Anesthesia Plan Discussed and Chart Reviewed Final Anesthetic Review Family History of Problems with Anesthesia: No History of Problems with Anesthesia: No NPO: Yes ASA Class: III Final Preanesthetic Review: No Changes in Pt Med Stat, Meds/Allgs Chart Reviewed, Consent Obtained/Reviewed and Anes Risks/Benef Reviewed Patient Risk: Intermediate Procedure Risk: Low Anesthetic Plan Anesthetic Plan: GA Disposition: Standard PACU
[2023-11-11] MEDS: Lactated Ringers 1,000 ML 100 ML IVCONT (07:10)
--- NOTE | 2023-11-11 07:27 | MHC.SHP ---
Pre-Procedural Eval Section A - 24 Hr Update-Section A only Date of Service: 11/11/23 The patient is an INPATIENT: Yes Changes since office visit: No Cold of Flu in the past 2 weeks, No New Medical Problems, No Changes in Medication and No Patient answered all questions The patient has been examined within 24 hours of the surgical procedure. The History & Physical has been completed within 30 days and I have reviewed it.: Yes Section B - Complete if H&P > 30 days Chief Complaint: catatonia depression Allergies: Allergies Allergy/AdvReac Type Severity Reaction Status Date / Time Unable to Assess Allergy Verified 09/23/23 15:14 Plan I have reviewed the history and physical and performed a pertinent physical examination on my patient. No changes have occurred unless specified. Time Spent With Patient Time: Total time managing care of this patient today ____ minutes.
--- NOTE | 2023-11-11 07:30 | HO.ECTPROC ---
ECT Procedure Note Diagnosis/Treatment Date of Service: 11/11/23 Diagnosis: Catatonia Previous ECT Date: 11/09/23 Current Treatment Number: 9 Treatment: Series Interval Clinical Notes: more fluent speech poorly informational Time: Total time managing care of this patient today ____ minutes. ECT Settings Device: THYMATRON DGx Electrode Placement: Bitemporal Program/Pulse Width: 0.50 Energy Percent: 100 Seizure Duration By EEG (in seconds): 49 Medications Administration General Anesthetic: Etomidate (16) Muscle Relaxant: Succinylcholine (100) Ancillary Medications Analgesics: Torodol - Pre ECT Anti-emetics: Zofran - Pre ECT Miscillaneous Medications: Midazolam (2 mg post) Airway Management Airway Management: Bag Mask Ventilation Treatment Recommendations No Changes Recommended: No change Pt Tolerated Procedure w/o Issue: Yes
[2023-11-11] MEDS: Acetaminophen 325 MG TABLET 650 MG PO (11:37)
--- NOTE | 2023-11-11 12:19 | P.PNPSI_ITS ---
Subjective Subjective Date of Service: 11/11/23 Reason For Visit: catatonia depression Interim History: calm, somewhat cooperative. perseverative on discharging, states he wants to go to [facility]. unable to say he is in a hospital or where he is, even after having been told earlier in the day that he is in a hospital and in [place]. per staff, exit-seeking. +RIS. taking meds. slept 7-8 hours. Mental Status Exam Mental Status Exam Narrative: disheveled, up and about the unit. variably cooperative. PMR. more speach, but perseverative on discharge. affect blunted. mood not assessed. no SI/HI/AVH expressed. Diagnostics Vital Signs (24Hr): Vital Signs - 24 hr 11/11/23 06:02 11/11/23 06:17 11/11/23 07:30 Temperature 97.8 F 97.2 F 97.9 F Pulse Rate 65 61 88 Respiratory Rate 16 18 16 Blood Pressure 112/73 114/65 109/61 Pulse Oximetry 98 99 99 Oxygen Delivery Method Room Air Nasal Cannula Oxygen Flow Rate 3 11/11/23 07:35 11/11/23 07:40 11/11/23 07:45 Temperature Pulse Rate 87 72 71 Respiratory Rate 10 L 17 15 Blood Pressure 115/75 114/68 109/65 Pulse Oximetry 99 98 95 Oxygen Delivery Method Nasal Cannula Nasal Cannula Room Air Oxygen Flow Rate 3 3 11/11/23 08:00 11/11/23 08:29 11/11/23 08:30 Temperature 97.1 F 98.3 F 98.3 F Pulse Rate 87 83 83 Respiratory Rate 15 16 Blood Pressure 107/66 109/55 L 109/55 L Pulse Oximetry 95 96 96 Oxygen Delivery Method Room Air Room Air Oxygen Flow Rate BMI result Body Mass Index 25.4 Labs 10/20/23 14:13 10/20/23 14:13 Imaging Radiology Impressions: ITS Impressions Chest X-Ray 10/20/23 16:28 IMPRESSION: No acute cardiopulmonary abnormality. Medications Medications Current Medications Acetaminophen (Acetaminophen 325 Mg Tablet) 650 mg PO Q6H PRN PRN Reason: Headache/Pain Mild Scale (1-3) Last Admin: 11/11/23 11:37 Dose: 650 mg Al Hydroxide/Mg Hydroxide (Magnesium Hydrox/Alum Hydrox 30 Ml Oral.Susp) 30 ml PO Q6H PRN PRN Reason: Heartburn/Nausea Hydroxyzine HCl (Hydroxyzine Hcl 25 Mg Tablet) 25 mg PO Q6H PRN PRN Reason: Anxiety Last Admin: 11/08/23 22:37 Dose: 25 mg Magnesium Hydroxide (Milk Of Magnesia 30 Ml Oral.Susp) 30 ml PO DAILY PRN PRN Reason: Constipation Olanzapine (Olanzapine Odt 10 Mg Tab.Rapdis) 10 mg TRANSLINGU Q4H PRN PRN Reason: anxiety/restlessness Last Admin: 11/08/23 22:37 Dose: 10 mg Olanzapine (Olanzapine Odt 10 Mg Tab.Rapdis) 10 mg TRANSLINGU BEDTIME PAM Last Admin: 11/10/23 20:46 Dose: 10 mg Trazodone HCl (Trazodone Hcl 50 Mg Tablet) 50 mg PO BEDTIME MRX1 PRN PRN Reason: Insomnia Last Admin: 11/08/23 22:37 Dose: 50 mg Allergies Allergies Allergy/AdvReac Type Severity Reaction Status Date / Time No Known Allergies Allergy Verified 11/11/23 07:33 Assessment & Plan Assessment & Plan (1) Catatonia: Status: Acute Code(s): F06.1 - Catatonic disorder due to known physiological condition Plan 09/23: ativan 2 mg QID. move for commitment and court ordered ECT. 09/24: no change in presentation or plan. remains catatonic, adequate PO intake for the moment. taking 8 mg ativan daily without appreciative improvement. 09/25: continue current management and treatment plan. 09/26: Checked labs. CBC without evidence of infection. Chemistries and LFT's stable. Continue monitoring and response to Ativan. 09/27: continue current management and treatment plan. 09/28: continue current mgmt. producing several monosyllabic answers to questions today. filed for commitment. 09/29: awaiting hearing. very modest response to high-dose ativan. hearing next thursday. continue current mgmt for now. 09/30: no change in presentation. continues to appear to take in adequate fluids and food. continue current mgmt. 10/01: outpt regimen of zyprexa 5 BID and lithium 900 QHS restarted. continue ativan [address] thursday. 10/04/23: Court date pending on 10/06/2023 and ?ECT. 10/04: court deferred to next week for SADA. stably catatonic but up for toileting and PO intake, periodically. refusing labs to check electrolytes. 10/05: pt refusing labs. per staff report, does have reasonable PO intake. court scheduled 10/14. continue current mgmt. 10/06: taking meds, modest PO intake. said, what's your name? today. continue current mgmt. 10/08/23 Patient taking medication remains generally nonverbal he did stand up was reportedly eating more would clearly benefit from ECT as becomes available 10/08: one word today, No, in response to request to check labs for lithium and lytes. continue current mgmt. awaiting court for ECT. 10/09: non-verbal. dry lips but per report is eating meals. reorder labs. continue current mgmt otherwise. 10/10: 10/09 lytes reassuring, lithium 0.46. no change in presentation, continue current mgmt. 10/11: mute. some saccades, otherwise immobile. continue current mgmt. 10/12: will benefit from court ordered tx vital signs ok. 10/13: no change in presentation. court tomorrow at 2. decrease ativan from 2 QID to 2 TID both to see if dose reduction changes behavior in any way and in preparation for requested order from the court for ECT. 10/14: noted to be openly masturbating in his room last night, not responsive to redirection by nursing staff. eating breakfast in bed today. nods on being asked if he would like to attend the hearing today. case discussed with SADA Cifuentes. hearing held, pt committed and ECT/meds ordered. 10/15: no change in presentation. taper benzos over w/e. medical clearance for ECT completed at admission by hospitalist service. planning for ECT #1 on thursday morning. 10/16:Continue current plans and regimen 10/17: Continue current plans and regimen. 10/18: more verbal immediately after ECT #1 today, many more and more rapid responses to questions via head gestures as well. 10/19: febrile, elevated WBC. medicine consult called. continues more responsive today than prior. continue current mgmt pending medicine recs. 10/20: no nidus of infection located thus far. U/A WNL, chest XR WNL. continue current mgmt. ECT today. 10/21: appears to have been afebrile over past 24H, reportedly T100.8 post ECT yesterday. case discussed with dr. wyman. to clarify matters, will DC zyprexa and lithium to see if elevated WBC resolves and hyperpyrexia stops. ECT again tomorrow. no change in clinical presentation. 10/22: remains more verbal today, better eye contact. ECT canceled for today due to error in pt's receiving meal tray. ECT #3 scheduled for thursday. 10/24/23 CTP npo order written for tonight 10/26/23 cont ect will restart antipschotic per tx order 10/27/23 ect BT start invega pos phototypesetting equipment monitor response 10/28/23 cont ect improvement noted would benefit from further hx ck labs in am 10/28/23 cont ect invega some response noted 10/30 continue same treatment. 10/31 continue same treatment ECT tomorrow. 11/02/23 Cont ect change to hs olanzapine 10 mg 11/03/2023 Patient more verbal osborn affect continue ECT 11/03: received ECT today. sleepy afterward, responding i don't know to most questions. continue current mgmt. 11/04 continue tx plan 11/05: received ECT today. marginal improvement continues. continue current mgmt. 11/06: up and about today, trying exit doors. more verbal than mute, barely. continue current mgmt. 11/07: up and about, mute. continue current mgmt. 11/08: ECT this morning, no issues. up and about. variably cooperative, loitering at exits. 11/09: as for yesterday. continue current mgmt. ECT for tomorrow. 11/10: ECT #9 completed today. improved from yesterday. more verbal, mobile. continues to exit-seek. Reason for continued inpatient stay Substantial Risk for: inability to function and med/psych decompensation Time Spent With Patient Time: Total time managing care of this patient today __25__ minutes.
[2023-11-11] MEDS: OLANZapine ODT 10 MG TAB.RAPDIS TRANSLINGU (20:29)
[2023-11-12 07:10] VITALS: BP 86/51; PULSE 85; RESP 20; TEMP 36.6; O2SAT 97
--- NOTE | 2023-11-12 10:22 | HO.PSYCHPN ---
Subjective Subjective Date of Service: 11/12/23 Reason For Visit: catatonia depression Subjective Notes: Section 8 Guardianship: No Medical Problems Affecting Mental Status: No Interim History: pt tolerating ect well imc range affect still not integrating information giving info tolerating ect Mental Status Exam Mental Status Exam Narrative: disheveled, up and about the unit. variably cooperative. PMR. more speach, but perseverative on discharge.wandering the unit affect blunted. mood not assessed. no SI/HI/AVH expressed.unable to provide info re per info Diagnostics Vital Signs (24Hr): Vital Signs - 24 hr 11/11/23 19:40 11/12/23 07:10 Temperature 98.6 F 97.9 F Pulse Rate 105 H 85 Respiratory Rate 16 20 Blood Pressure 110/60 86/51 L Pulse Oximetry 97 97 Oxygen Delivery Method Room Air Room Air BMI result Body Mass Index 25.4 Labs 10/20/23 14:13 10/20/23 14:13 Imaging Radiology Impressions: ITS Impressions Chest X-Ray 10/20/23 16:28 IMPRESSION: No acute cardiopulmonary abnormality. Medications Medications Current Medications Acetaminophen (Acetaminophen 325 Mg Tablet) 650 mg PO Q6H PRN PRN Reason: Headache/Pain Mild Scale (1-3) Last Admin: 11/11/23 11:37 Dose: 650 mg Al Hydroxide/Mg Hydroxide (Magnesium Hydrox/Alum Hydrox 30 Ml Oral.Susp) 30 ml PO Q6H PRN PRN Reason: Heartburn/Nausea Hydroxyzine HCl (Hydroxyzine Hcl 25 Mg Tablet) 25 mg PO Q6H PRN PRN Reason: Anxiety Last Admin: 11/08/23 22:37 Dose: 25 mg Magnesium Hydroxide (Milk Of Magnesia 30 Ml Oral.Susp) 30 ml PO DAILY PRN PRN Reason: Constipation Olanzapine (Olanzapine Odt 10 Mg Tab.Rapdis) 10 mg TRANSLINGU Q4H PRN PRN Reason: anxiety/restlessness Last Admin: 11/08/23 22:37 Dose: 10 mg Olanzapine (Olanzapine Odt 10 Mg Tab.Rapdis) 10 mg TRANSLINGU BEDTIME PAM Last Admin: 11/11/23 20:29 Dose: 10 mg Trazodone HCl (Trazodone Hcl 50 Mg Tablet) 50 mg PO BEDTIME MRX1 PRN PRN Reason: Insomnia Last Admin: 11/08/23 22:37 Dose: 50 mg Allergies Allergies Allergy/AdvReac Type Severity Reaction Status Date / Time No Known Allergies Allergy Verified 11/11/23 07:33 Assessment & Plan Assessment & Plan (1) Catatonia: Status: Acute Code(s): F06.1 - Catatonic disorder due to known physiological condition Plan 09/23: ativan 2 mg QID. move for commitment and court ordered ECT. 09/24: no change in presentation or plan. remains catatonic, adequate PO intake for the moment. taking 8 mg ativan daily without appreciative improvement. 09/25: continue current management and treatment plan. 09/26: Checked labs. CBC without evidence of infection. Chemistries and LFT's stable. Continue monitoring and response to Ativan. 09/27: continue current management and treatment plan. 09/28: continue current mgmt. producing several monosyllabic answers to questions today. filed for commitment. 09/29: awaiting hearing. very modest response to high-dose ativan. hearing next thursday. continue current mgmt for now. 09/30: no change in presentation. continues to appear to take in adequate fluids and food. continue current mgmt. 10/01: outpt regimen of zyprexa 5 BID and lithium 900 QHS restarted. continue ativan [address] thursday. 10/04/23: Court date pending on 10/06/2023 and ?ECT. 10/04: court deferred to next week for SADA. stably catatonic but up for toileting and PO intake, periodically. refusing labs to check electrolytes. 10/05: pt refusing labs. per staff report, does have reasonable PO intake. court scheduled 10/14. continue current mgmt. 10/06: taking meds, modest PO intake. said, what's your name? today. continue current mgmt. 10/08/23 Patient taking medication remains generally nonverbal he did stand up was reportedly eating more would clearly benefit from ECT as becomes available 10/08: one word today, No, in response to request to check labs for lithium and lytes. continue current mgmt. awaiting court for ECT. 10/09: non-verbal. dry lips but per report is eating meals. reorder labs. continue current mgmt otherwise. 10/10: 10/09 lytes reassuring, lithium 0.46. no change in presentation, continue current mgmt. 10/11: mute. some saccades, otherwise immobile. continue current mgmt. 10/12: will benefit from court ordered tx vital signs ok. 10/13: no change in presentation. court tomorrow at 2. decrease ativan from 2 QID to 2 TID both to see if dose reduction changes behavior in any way and in preparation for requested order from the court for ECT. 10/14: noted to be openly masturbating in his room last night, not responsive to redirection by nursing staff. eating breakfast in bed today. nods on being asked if he would like to attend the hearing today. case discussed with SADA Cifuentes. hearing held, pt committed and ECT/meds ordered. 10/15: no change in presentation. taper benzos over w/e. medical clearance for ECT completed at admission by hospitalist service. planning for ECT #1 on thursday morning. 10/16:Continue current plans and regimen 10/17: Continue current plans and regimen. 10/18: more verbal immediately after ECT #1 today, many more and more rapid responses to questions via head gestures as well. 10/19: febrile, elevated WBC. medicine consult called. continues more responsive today than prior. continue current mgmt pending medicine recs. 10/20: no nidus of infection located thus far. U/A WNL, chest XR WNL. continue current mgmt. ECT today. 10/21: appears to have been afebrile over past 24H, reportedly T100.8 post ECT yesterday. case discussed with dr. wyman. to clarify matters, will DC zyprexa and lithium to see if elevated WBC resolves and hyperpyrexia stops. ECT again tomorrow. no change in clinical presentation. 10/22: remains more verbal today, better eye contact. ECT canceled for today due to error in pt's receiving meal tray. ECT #3 scheduled for thursday. 10/24/23 CTP npo order written for tonight 10/26/23 cont ect will restart antipschotic per tx order 10/27/23 ect BT start invega pos photolithographic stripper response 10/28/23 cont ect improvement noted would benefit from further hx ck labs in am 10/28/23 cont ect invega some response noted 10/30 continue same treatment. 10/31 continue same treatment ECT tomorrow. 11/02/23 Cont ect change to hs olanzapine 10 mg 11/03/2023 Patient more verbal osborn affect continue ECT 11/03: received ECT today. sleepy afterward, responding i don't know to most questions. continue current mgmt. 11/04 continue tx plan 11/05: received ECT today. marginal improvement continues. continue current mgmt. 11/06: up and about today, trying exit doors. more verbal than mute, barely. continue current mgmt. 11/07: up and about, mute. continue current mgmt. 11/08: ECT this morning, no issues. up and about. variably cooperative, loitering at exits. 11/09: as for yesterday. continue current mgmt. ECT for tomorrow. 11/10: ECT #9 completed today. improved from yesterday. more verbal, mobile. continues to exit-seek. 11/12/23 more range of affect and fx doing better with ect no adverse effecyts Reason for continued inpatient stay Substantial Risk for: inability to function and rapid decompensation Time Spent With Patient Time: Total time managing care of this patient today ____ minutes.
[2023-11-12 11:49] VITALS: BP 127/58; PULSE 104; RESP 16; TEMP 36.9; O2SAT 97
[2023-11-12 21:05] VITALS: BP 139/80; PULSE 91; RESP 18; TEMP 36.7; O2SAT 97
[2023-11-12] MEDS: traZODone HCL 50 MG TABLET PO (21:13)
[2023-11-12] MEDS: OLANZapine ODT 10 MG TAB.RAPDIS TRANSLINGU (21:13)
[2023-11-13] VITALS (12 sets, daily range): BP systolic 87–150; BP diastolic 51–89; PULSE 56–102; RESP 13–18; TEMP 36.4–37.1; O2SAT 96–99
--- NOTE | 2023-11-13 06:39 | P.CONAN_ITS ---
[facility] Active Problems Active Problems: All Active Problems Catatonia (Acute) Routine medical exam (Acute) Past Medical History Medical History No pertinent past medical history Family History Family history of problems with anesthesia: No Surgical History History of Problems with Anesthesia: No Social History Social History Household Members: Other Household Members Other:: Unknown Do you presently have visiting nurse or other home services: No (Unknown) Patient Tobacco Use Status: Never used Tobacco Smoked in Last 30 Days: No e-Cigarette/Vaping Use: Never Used Patient Interested in Nicotine Replacement: No Patient Given Instructions on How to Stop Smoking: No Second Hand Smoke Exposure: No Use of substances other than those prescribed or required for medical reasons: No Currently Displaying Signs/Symptoms of Drug Intoxication Withdrawal: No Any prior treatment program specific to substance use: No Advance Directives: No Advance Directives Information Provided: No (Medical Condition) Do you have thoughts of harming others: None Do you have a plan to hurt others: No Plan Recently lost weight without trying: Unsure Nutrition Risks: No Nutritional Risk Poor oral hygiene: Yes Sexual orientation: Unable to collect Meds Allergies Allergy/AdvReac Type Severity Reaction Status Date / Time No Known Allergies Allergy Verified 11/11/23 07:33 Active Medications: Current Medications Acetaminophen (Acetaminophen 325 Mg Tablet) 650 mg PO Q6H PRN PRN Reason: Headache/Pain Mild Scale (1-3) Last Admin: 11/11/23 11:37 Dose: 650 mg Al Hydroxide/Mg Hydroxide (Magnesium Hydrox/Alum Hydrox 30 Ml Oral.Susp) 30 ml PO Q6H PRN PRN Reason: Heartburn/Nausea Hydroxyzine HCl (Hydroxyzine Hcl 25 Mg Tablet) 25 mg PO Q6H PRN PRN Reason: Anxiety Last Admin: 11/08/23 22:37 Dose: 25 mg Magnesium Hydroxide (Milk Of Magnesia 30 Ml Oral.Susp) 30 ml PO DAILY PRN PRN Reason: Constipation Olanzapine (Olanzapine Odt 10 Mg Tab.Rapdis) 10 mg TRANSLINGU Q4H PRN PRN Reason: anxiety/restlessness Last Admin: 11/08/23 22:37 Dose: 10 mg Olanzapine (Olanzapine Odt 10 Mg Tab.Rapdis) 10 mg TRANSLINGU BEDTIME PAM Last Admin: 11/12/23 21:13 Dose: 10 mg Trazodone HCl (Trazodone Hcl 50 Mg Tablet) 50 mg PO BEDTIME MRX1 PRN PRN Reason: Insomnia Last Admin: 11/12/23 21:13 Dose: 50 mg Home Medications ?Medication ?Instructions ?Recorded ?Confirmed ?Last Taken ?Type No Known Home Meds 10/09/23 10/09/23 Unknown History Exam Height,Weight and Vital Signs: Height 5 ft 5 in Weight 69.309 kg Last Vital Signs Temp 98.4 F 11/13/23 06:20 Pulse 56 11/13/23 06:20 Resp 16 11/13/23 06:20 BP 87/52 L 11/13/23 06:20 Pulse Ox 98 11/13/23 06:20 O2 Del Method Room Air 11/12/23 21:05 O2 Flow Rate 3 11/11/23 07:40 Pertinent Lab Results Pertinent Lab Results: Laboratory Tests 09/23/23 09/27/23 10/10/23 02:20 11:15 14:55 WBC 6.1 RBC 4.83 Hgb 15.0 Hct 44.6 MCV 92.3 MCH 31.1 MCHC 33.6 RDW 11.8 Plt Count 300 MPV 8.9 L Immature Gran % (Auto) 0.5 H Neut % (Auto) 71.0 Lymph % (Auto) 22.0 [place] % (Auto) 4.2 Eos % (Auto) 1.8 Baso % (Auto) 0.5 Lymph # (Auto) 1.4 [place] # (Auto) 0.3 Eos # (Auto) 0.1 Baso # (Auto) 0.0 Abs Immat Gran (auto) 0.03 Absolute Neuts (auto) 4.4 Absolute Nucleated RBC 0.000 Nucleated RBC % (auto) 0.0 ESR Sodium 142 141 Potassium 3.8 3.6 Chloride 105 109 H Carbon Dioxide 28 24 Anion Gap 13 12 BUN 8 L 9 Creatinine 0.79 0.86 Estim Creat Clear Calc 126.5 116.2 Estimated GFR > 60 > 60 Random Glucose 112 110 Calcium 9.3 9.7 Total Bilirubin 0.4 Direct Bilirubin 0.2 AST 10 ALT 9 Alkaline Phosphatase 61 Total Creatine Kinase 66 C-Reactive Protein Total Protein 7.2 Albumin 4.3 Vitamin B12 Folate TSH Free T4 Urine Color Urine Appearance Urine pH Ur Specific [place] Urine Protein Urine Glucose (UA) Urine Ketones Urine Blood Urine Nitrite Ur Leukocyte Esterase Urine RBC Urine WBC Ur Squamous Epith Cells Urine Bacteria Hyaline Casts [place] 0.46 L ANNIE Screen ANNIE Titer ANNIE Titer 2 ANNIE Titer 3 ANNIE Pattern ANNIE Pattern 2 ANNIE Pattern 3 Respiratory Panel Pugh Adenovirus (Rapid PCR) B.pert (TEM-PCR) B.parapertussis DNA PCR C. pneumoniae DNA (PCR) Coronavirus OC43 (PCR) Coronavirus HKU1 (PCR) Coronavirus 229E (PCR) Coronavirus NL63 (PCR) Human Metapneumovir PCR Influenza A (RT-PCR) Influenza Type A (PCR) NEGATIVE Influenza B (RT-PCR) Influenza Type B (PCR) NEGATIVE M. pneumoniae (PCR) Parainfluenza 1 (PCR) Parainfluenza 2 (PCR) Parainfluenza 3 (PCR) Parainfluenza 4 (PCR) RSV (PCR) RSV RNA Qual (PCR) NEGATIVE Entero/Rhino (PCR) SARS-CoV-2 RNA (RT-PCR) NEGATIVE 10/20/23 10/20/23 10/20/23 14:13 16:39 17:10 WBC 11.7 H RBC 4.64 Hgb 14.5 Hct 41.2 L MCV 88.8 MCH 31.3 MCHC 35.2 RDW 11.7 Plt Count 263 MPV 9.0 L Immature Gran % (Auto) 0.3 Neut % (Auto) 78.3 H Lymph % (Auto) 12.0 L [place] % (Auto) 5.7 Eos % (Auto) 3.4 Baso % (Auto) 0.3 Lymph # (Auto) 1.4 [place] # (Auto) 0.7 Eos # (Auto) 0.4 Baso # (Auto) 0.0 Abs Immat Gran (auto) 0.04 H Absolute Neuts (auto) 9.1 H Absolute Nucleated RBC 0.000 Nucleated RBC % (auto) 0.0 ESR Sodium 142 Potassium 3.7 Chloride 108 Carbon Dioxide 27 Anion Gap 11 L BUN 10 Creatinine 0.96 Estim Creat Clear Calc 104.1 Estimated GFR > 60 Random Glucose 106 Calcium 9.3 Total Bilirubin Direct Bilirubin AST ALT Alkaline Phosphatase Total Creatine Kinase C-Reactive Protein Total Protein Albumin Vitamin B12 Folate TSH Free T4 Urine Color Yellow Urine Appearance Clear Urine pH 7.0 Ur Specific [place] 1.015 Urine Protein Negative Urine Glucose (UA) Negative Urine Ketones Negative Urine Blood Trace H Urine Nitrite Negative Ur Leukocyte Esterase Negative Urine RBC 6-10 H Urine WBC 0-5 Ur Squamous Epith Cells 0-2 Urine Bacteria None Seen Hyaline Casts 0-2 [place] ANNIE Screen ANNIE Titer ANNIE Titer 2 ANNIE Titer 3 ANNIE Pattern ANNIE Pattern 2 ANNIE Pattern 3 Respiratory Panel Pugh See Note Adenovirus (Rapid PCR) Not Detected B.pert (TEM-PCR) Not Detected B.parapertussis DNA PCR Not Detected C. pneumoniae DNA (PCR) Not Detected Coronavirus OC43 (PCR) Not Detected Coronavirus HKU1 (PCR) Not Detected Coronavirus 229E (PCR) Not Detected Coronavirus NL63 (PCR) Not Detected Human Metapneumovir PCR Not Detected Influenza A (RT-PCR) Not Detected Influenza Type A (PCR) Influenza B (RT-PCR) Not Detected Influenza Type B (PCR) M. pneumoniae (PCR) Not Detected Parainfluenza 1 (PCR) Not Detected Parainfluenza 2 (PCR) Not Detected Parainfluenza 3 (PCR) Not Detected Parainfluenza 4 (PCR) Not Detected RSV (PCR) Not Detected RSV RNA Qual (PCR) Entero/Rhino (PCR) Not Detected SARS-CoV-2 RNA (RT-PCR) Not Detected 10/25/23 10/30/23 06:56 07:49 WBC RBC Hgb Hct MCV MCH MCHC RDW Plt Count MPV Immature Gran % (Auto) Neut % (Auto) Lymph % (Auto) [place] % (Auto) Eos % (Auto) Baso % (Auto) Lymph # (Auto) [place] # (Auto) Eos # (Auto) Baso # (Auto) Abs Immat Gran (auto) Absolute Neuts (auto) Absolute Nucleated RBC Nucleated RBC % (auto) ESR 14 16 H Sodium Potassium Chloride Carbon Dioxide Anion Gap BUN Creatinine Estim Creat Clear Calc Estimated GFR Random Glucose Calcium Total Bilirubin Direct Bilirubin AST ALT Alkaline Phosphatase Total Creatine Kinase 281 H C-Reactive Protein 1.24 H Total Protein Albumin Vitamin B12 258 Folate 8.8 TSH 4.24 H Free T4 1.08 Urine Color Urine Appearance Urine pH Ur Specific [place] Urine Protein Urine Glucose (UA) Urine Ketones Urine Blood Urine Nitrite Ur Leukocyte Esterase Urine RBC Urine WBC Ur Squamous Epith Cells Urine Bacteria Hyaline Casts [place] ANNIE Screen NEGATIVE ANNIE Titer TNP ANNIE Titer 2 TNP ANNIE Titer 3 TNP ANNIE Pattern TNP ANNIE Pattern 2 TNP ANNIE Pattern 3 TNP Respiratory Panel Pugh Adenovirus (Rapid PCR) B.pert (TEM-PCR) B.parapertussis DNA PCR C. pneumoniae DNA (PCR) Coronavirus OC43 (PCR) Coronavirus HKU1 (PCR) Coronavirus 229E (PCR) Coronavirus NL63 (PCR) Human Metapneumovir PCR Influenza A (RT-PCR) Influenza Type A (PCR) Influenza B (RT-PCR) Influenza Type B (PCR) M. pneumoniae (PCR) Parainfluenza 1 (PCR) Parainfluenza 2 (PCR) Parainfluenza 3 (PCR) Parainfluenza 4 (PCR) RSV (PCR) RSV RNA Qual (PCR) Entero/Rhino (PCR) SARS-CoV-2 RNA (RT-PCR) Airway Mallampati Class: II TM Dist: >3cm Neck ROM: Full Heart: rrr Lungs: cta Assessment and Plan Assessment Anesthesia Assessment: Anesthesia Plan Discussed and Chart Reviewed Final Anesthetic Review Family History of Problems with Anesthesia: No History of Problems with Anesthesia: No NPO: Yes ASA Class: III Final Preanesthetic Review: No Changes in Pt Med Stat, Meds/Allgs Chart Reviewed and Consent Obtained/Reviewed Patient Risk: Intermediate Procedure Risk: Intermediate Anesthetic Plan Anesthetic Plan: GA Disposition: Standard PACU
[2023-11-13] MEDS: Lactated Ringers 1,000 ML 50 ML IVCONT (06:56)
--- NOTE | 2023-11-13 07:28 | MHC.SHP ---
Pre-Procedural Eval Section A - 24 Hr Update-Section A only Date of Service: 11/13/23 The patient is an INPATIENT: Yes Changes since office visit: No Cold of Flu in the past 2 weeks, No New Medical Problems, No Changes in Medication and No Patient answered all questions The patient has been examined within 24 hours of the surgical procedure. The History & Physical has been completed within 30 days and I have reviewed it.: Yes Section B - Complete if H&P > 30 days Chief Complaint: catatonia depression Allergies: Allergies Allergy/AdvReac Type Severity Reaction Status Date / Time No Known Allergies Allergy Verified 11/11/23 07:33 Plan I have reviewed the history and physical and performed a pertinent physical examination on my patient. No changes have occurred unless specified. Time Spent With Patient Time: Total time managing care of this patient today ____ minutes.
--- NOTE | 2023-11-13 07:28 | PC.NURSE ---
Pt talking and laughing to himself, seems to be reacting to internal stimuli at his time
--- NOTE | 2023-11-13 07:42 | HO.ECTPROC ---
ECT Procedure Note Diagnosis/Treatment Date of Service: 11/13/23 Diagnosis: Catatonia Previous ECT Date: 11/11/23 Current Treatment Number: 10 Treatment: Series Interval Clinical Notes: more fluent speech poorly informational more active engaged on the unit Time: Total time managing care of this patient today ____ minutes. ECT Settings Device: THYMATRON DGx Electrode Placement: Rt temporal/ Lt frontal Program/Pulse Width: 0.50 Energy Percent: 100 Seizure Duration By EEG (in seconds): 29 Medications Administration General Anesthetic: Etomidate (16) Muscle Relaxant: Succinylcholine (100) Ancillary Medications Anti-emetics: Zofran - Pre ECT Miscillaneous Medications: Midazolam (2 mg post) Airway Management Airway Management: Bag Mask Ventilation Treatment Recommendations No Changes Recommended: No change Electrode Placement: Bitemporal Notes: tolerates ect still having difficulty processing info answering questions thought blocking / unclear recent baseline no adverse effects noted more active on unit still poor concentration but improving Pt Tolerated Procedure w/o Issue: Yes
--- NOTE | 2023-11-13 15:26 | P.PNPSI_ITS ---
Subjective Subjective Date of Service: 11/13/23 Reason For Visit: catatonia depression Interim History: wandering, trying to exit. more verbal. no complaints or requests other than he wants to discharge. denies mental illness, says he feels fine. per staff, withdrawn, guarded. +RIS. paranoid. taking meds. laughing a lot to self. slept 8 hours. Mental Status Exam Mental Status Exam Narrative: disheveled, up and about the unit. variably cooperative. slight PMR. more speech, but perseverative on discharge. wandering the unit affect blunted. mood not assessed. no SI/HI/AVH expressed. Diagnostics Vital Signs (24Hr): Vital Signs - 24 hr 11/12/23 21:05 11/13/23 06:20 11/13/23 06:38 Temperature 98.0 F 98.4 F 97.7 F Pulse Rate 91 56 68 Respiratory Rate 18 16 16 Blood Pressure 139/80 87/52 L 115/70 Pulse Oximetry 97 98 99 Oxygen Delivery Method Room Air Room Air Oxygen Flow Rate 11/13/23 07:46 11/13/23 07:51 11/13/23 07:56 Temperature 98.5 F Pulse Rate 67 102 H 92 Respiratory Rate 13 17 16 Blood Pressure 119/55 L 112/72 106/67 Pulse Oximetry 98 98 96 Oxygen Delivery Method Nasal Cannula with ETCO2 Nasal Cannula with ETCO2 Nasal Cannula with ETCO2 Oxygen Flow Rate 2 2 2 11/13/23 08:01 11/13/23 08:15 11/13/23 08:30 Temperature 97.5 F Pulse Rate 92 82 70 Respiratory Rate 16 16 16 Blood Pressure 109/55 L 106/55 L 100/55 L Pulse Oximetry 97 96 97 Oxygen Delivery Method Nasal Cannula with ETCO2 Room Air Room Air Oxygen Flow Rate 2 11/13/23 08:44 11/13/23 09:31 11/13/23 09:32 Temperature 97.5 F 97.9 F 97.9 F Pulse Rate 69 97 97 Respiratory Rate 16 16 16 Blood Pressure 107/51 L 150/81 H 150/81 H Pulse Oximetry 97 98 98 Oxygen Delivery Method Room Air Oxygen Flow Rate BMI result Body Mass Index 25.4 Labs 10/20/23 14:13 10/20/23 14:13 Imaging Radiology Impressions: ITS Impressions Chest X-Ray 10/20/23 16:28 IMPRESSION: No acute cardiopulmonary abnormality. Medications Medications Current Medications Acetaminophen (Acetaminophen 325 Mg Tablet) 650 mg PO Q6H PRN PRN Reason: Headache/Pain Mild Scale (1-3) Last Admin: 11/11/23 11:37 Dose: 650 mg Al Hydroxide/Mg Hydroxide (Magnesium Hydrox/Alum Hydrox 30 Ml Oral.Susp) 30 ml PO Q6H PRN PRN Reason: Heartburn/Nausea Hydroxyzine HCl (Hydroxyzine Hcl 25 Mg Tablet) 25 mg PO Q6H PRN PRN Reason: Anxiety Last Admin: 11/08/23 22:37 Dose: 25 mg Magnesium Hydroxide (Milk Of Magnesia 30 Ml Oral.Susp) 30 ml PO DAILY PRN PRN Reason: Constipation Olanzapine (Olanzapine Odt 10 Mg Tab.Rapdis) 10 mg TRANSLINGU Q4H PRN PRN Reason: anxiety/restlessness Last Admin: 11/08/23 22:37 Dose: 10 mg Olanzapine (Olanzapine Odt 10 Mg Tab.Rapdis) 10 mg TRANSLINGU BEDTIME PAM Last Admin: 11/12/23 21:13 Dose: 10 mg Trazodone HCl (Trazodone Hcl 50 Mg Tablet) 50 mg PO BEDTIME MRX1 PRN PRN Reason: Insomnia Last Admin: 11/12/23 21:13 Dose: 50 mg Allergies Allergies Allergy/AdvReac Type Severity Reaction Status Date / Time No Known Allergies Allergy Verified 11/11/23 07:33 Assessment & Plan Assessment & Plan (1) Catatonia: Status: Acute Code(s): F06.1 - Catatonic disorder due to known physiological condition Plan 09/23: ativan 2 mg QID. move for commitment and court ordered ECT. 09/24: no change in presentation or plan. remains catatonic, adequate PO intake for the moment. taking 8 mg ativan daily without appreciative improvement. 09/25: continue current management and treatment plan. 09/26: Checked labs. CBC without evidence of infection. Chemistries and LFT's stable. Continue monitoring and response to Ativan. 09/27: continue current management and treatment plan. 09/28: continue current mgmt. producing several monosyllabic answers to questions today. filed for commitment. 09/29: awaiting hearing. very modest response to high-dose ativan. hearing next thursday. continue current mgmt for now. 09/30: no change in presentation. continues to appear to take in adequate fluids and food. continue current mgmt. 10/01: outpt regimen of zyprexa 5 BID and lithium 900 QHS restarted. continue ativan [address] thursday. 10/04/23: Court date pending on 10/06/2023 and ?ECT. 10/04: court deferred to next week for SADA. stably catatonic but up for toileting and PO intake, periodically. refusing labs to check electrolytes. 10/05: pt refusing labs. per staff report, does have reasonable PO intake. court scheduled 10/14. continue current mgmt. 10/06: taking meds, modest PO intake. said, what's your name? today. continue current mgmt. 10/08/23 Patient taking medication remains generally nonverbal he did stand up was reportedly eating more would clearly benefit from ECT as becomes available 10/08: one word today, No, in response to request to check labs for lithium and lytes. continue current mgmt. awaiting court for ECT. 10/09: non-verbal. dry lips but per report is eating meals. reorder labs. continue current mgmt otherwise. 10/10: 10/09 lytes reassuring, lithium 0.46. no change in presentation, continue current mgmt. 10/11: mute. some saccades, otherwise immobile. continue current mgmt. 10/12: will benefit from court ordered tx vital signs ok. 10/13: no change in presentation. court tomorrow at 2. decrease ativan from 2 QID to 2 TID both to see if dose reduction changes behavior in any way and in preparation for requested order from the court for ECT. 10/14: noted to be openly masturbating in his room last night, not responsive to redirection by nursing staff. eating breakfast in bed today. nods on being asked if he would like to attend the hearing today. case discussed with SADA Cifuentes. hearing held, pt committed and ECT/meds ordered. 10/15: no change in presentation. taper benzos over w/e. medical clearance for ECT completed at admission by hospitalist service. planning for ECT #1 on thursday morning. 10/16:Continue current plans and regimen 10/17: Continue current plans and regimen. 10/18: more verbal immediately after ECT #1 today, many more and more rapid responses to questions via head gestures as well. 10/19: febrile, elevated WBC. medicine consult called. continues more responsive today than prior. continue current mgmt pending medicine recs. 10/20: no nidus of infection located thus far. U/A WNL, chest XR WNL. continue current mgmt. ECT today. 10/21: appears to have been afebrile over past 24H, reportedly T100.8 post ECT yesterday. case discussed with dr. wyman. to clarify matters, will DC zyprexa and lithium to see if elevated WBC resolves and hyperpyrexia stops. ECT again tomorrow. no change in clinical presentation. 10/22: remains more verbal today, better eye contact. ECT canceled for today due to error in pt's receiving meal tray. ECT #3 scheduled for thursday. 10/24/23 CTP npo order written for tonight 10/26/23 cont ect will restart antipschotic per tx order 10/27/23 ect BT start invega pos library monitor response 10/28/23 cont ect improvement noted would benefit from further hx ck labs in am 10/28/23 cont ect invega some response noted 10/30 continue same treatment. 10/31 continue same treatment ECT tomorrow. 11/02/23 Cont ect change to hs olanzapine 10 mg 11/03/2023 Patient more verbal osborn affect continue ECT 11/03: received ECT today. sleepy afterward, responding i don't know to most questions. continue current mgmt. 11/04 continue tx plan 11/05: received ECT today. marginal improvement continues. continue current mgmt. 11/06: up and about today, trying exit doors. more verbal than mute, barely. continue current mgmt. 11/07: up and about, mute. continue current mgmt. 11/08: ECT this morning, no issues. up and about. variably cooperative, loitering at exits. 11/09: as for yesterday. continue current mgmt. ECT for tomorrow. 11/10: ECT #9 completed today. improved from yesterday. more verbal, mobile. continues to exit-seek. 11/12/23 more range of affect and fx doing better with ect no adverse effecyts 11/12: more verbal and active on the unit. denies mental illness, says he feels fine, trying exits. ECT #10 completed today. Reason for continued inpatient stay Substantial Risk for: inability to function and rapid decompensation Time Spent With Patient Time: Total time managing care of this patient today __25__ minutes.
--- NOTE | 2023-11-13 16:10 | HO.ECTPROC ---
ECT Procedure Note Diagnosis/Treatment Date of Service: 11/06/23 Diagnosis: Catatonia Previous ECT Date: 11/04/23 Current Treatment Number: 8 Treatment: Series Interval Clinical Notes: Pt with thought blocking minimally engaged some bizarre behavior and intrusiveness in the milieu remains with thought blocking difficulty answering crest questions processing information. No noted side effects from ECT ECT completed bitemporally no difficulties noted given Versed 2 mg post op for help with treatment of catatonia Time: Total time managing care of this patient today ____ minutes. ECT Settings Device: THYMATRON DGx Electrode Placement: Bitemporal Program/Pulse Width: 0.50 Energy Percent: 100 Seizure Duration By EEG (in seconds): 48 Medications Administration General Anesthetic: Etomidate (16) Muscle Relaxant: Succinylcholine (100) Ancillary Medications Analgesics: Torodol - Pre ECT Anti-emetics: Zofran - Pre ECT Miscillaneous Medications: Midazolam (2) Airway Management Airway Management: Bag Mask Ventilation Treatment Recommendations No Changes Recommended: No change Pt Tolerated Procedure w/o Issue: Yes
[2023-11-13] MEDS: OLANZapine ODT 10 MG TAB.RAPDIS TRANSLINGU ×2 (16:57→20:20)
--- NOTE | 2023-11-13 16:59 | PC.NURSE ---
At approximately 1650, patient approached nurses station and stated that he is hearing echoes in his head. I think there is something wrong with me. Pt denied H/A, blurred vision, N/V, etc. Zyprexa 10mg PRN administered. Pt took medication without issue.
[2023-11-13] MEDS: Acetaminophen 325 MG TABLET 650 MG PO (17:05)
[2023-11-14 08:00] VITALS: BP 118/58; PULSE 78; RESP 16; TEMP 36.6; O2SAT 97
--- NOTE | 2023-11-14 09:29 | P.PNPSI_ITS ---
Subjective Subjective Date of Service: 11/14/23 Reason For Visit: catatonia depression Subjective Notes: Section 8 Interim History: Reviewed with Dr. Wyman. Pt observed wandering unit, trying to exit from [facility] [facility] door. observed responding to internal stimuli. Pt reports feeling okay today; Pt stated, I want to go to [place]. I want to go home . Medication Compliance: Yes Side effects from medications: No Review of Systems Review of Systems Yes Unobtainable due to mental status Mental Status Exam Mental Status Exam Patient Appearance: Disheveled Patient Orientation: Person Level of Consciousness: Awake Patient Behavior: Guarded, Wandering and Pacing Mood Description: Calm Ability to Follow Directions: Poor Speech Pattern: Soft-Spoken Thought Process: Confusion Thought Content: positive for Disorganized Judgement: Poor Diagnostics Vital Signs (24Hr): Vital Signs - 24 hr 11/13/23 09:31 11/13/23 09:32 11/13/23 20:00 Temperature 97.9 F 97.9 F 98.7 F Pulse Rate 97 97 96 Respiratory Rate 16 16 18 Blood Pressure 150/81 H 150/81 H 111/89 Pulse Oximetry 98 98 97 Oxygen Delivery Method Room Air 11/14/23 08:00 Temperature 97.8 F Pulse Rate 78 Respiratory Rate 16 Blood Pressure 118/58 L Pulse Oximetry 97 Oxygen Delivery Method Room Air BMI result Body Mass Index 25.4 Labs 10/20/23 14:13 10/20/23 14:13 Imaging Radiology Impressions: ITS Impressions Chest X-Ray 10/20/23 16:28 IMPRESSION: No acute cardiopulmonary abnormality. Medications Medications Current Medications Acetaminophen (Acetaminophen 325 Mg Tablet) 650 mg PO Q6H PRN PRN Reason: Headache/Pain Mild Scale (1-3) Last Admin: 11/13/23 17:05 Dose: 650 mg Al Hydroxide/Mg Hydroxide (Magnesium Hydrox/Alum Hydrox 30 Ml Oral.Susp) 30 ml PO Q6H PRN PRN Reason: Heartburn/Nausea Hydroxyzine HCl (Hydroxyzine Hcl 25 Mg Tablet) 25 mg PO Q6H PRN PRN Reason: Anxiety Last Admin: 11/08/23 22:37 Dose: 25 mg Magnesium Hydroxide (Milk Of Magnesia 30 Ml Oral.Susp) 30 ml PO DAILY PRN PRN Reason: Constipation Olanzapine (Olanzapine Odt 10 Mg Tab.Rapdis) 10 mg TRANSLINGU Q4H PRN PRN Reason: anxiety/restlessness Last Admin: 11/13/23 16:57 Dose: 10 mg Olanzapine (Olanzapine Odt 10 Mg Tab.Rapdis) 10 mg TRANSLINGU BEDTIME PAM Last Admin: 11/13/23 20:20 Dose: 10 mg Trazodone HCl (Trazodone Hcl 50 Mg Tablet) 50 mg PO BEDTIME MRX1 PRN PRN Reason: Insomnia Last Admin: 11/12/23 21:13 Dose: 50 mg Allergies Allergies Allergy/AdvReac Type Severity Reaction Status Date / Time No Known Allergies Allergy Verified 11/11/23 07:33 Assessment & Plan Assessment & Plan (1) Catatonia: Status: Acute Code(s): F06.1 - Catatonic disorder due to known physiological condition Plan 09/23: ativan 2 mg QID. move for commitment and court ordered ECT. 09/24: no change in presentation or plan. remains catatonic, adequate PO intake for the moment. taking 8 mg ativan daily without appreciative improvement. 09/25: continue current management and treatment plan. 09/26: Checked labs. CBC without evidence of infection. Chemistries and LFT's stable. Continue monitoring and response to Ativan. 09/27: continue current management and treatment plan. 09/28: continue current mgmt. producing several monosyllabic answers to questions today. filed for commitment. 09/29: awaiting hearing. very modest response to high-dose ativan. hearing next thursday. continue current mgmt for now. 09/30: no change in presentation. continues to appear to take in adequate fluids and food. continue current mgmt. 10/01: outpt regimen of zyprexa 5 BID and lithium 900 QHS restarted. continue ativan [address] thursday. 10/04/23: Court date pending on 10/06/2023 and ?ECT. 10/04: court deferred to next week for SADA. stably catatonic but up for toileting and PO intake, periodically. refusing labs to check electrolytes. 10/05: pt refusing labs. per staff report, does have reasonable PO intake. court scheduled 10/14. continue current mgmt. 10/06: taking meds, modest PO intake. said, what's your name? today. continue current mgmt. 10/08/23 Patient taking medication remains generally nonverbal he did stand up was reportedly eating more would clearly benefit from ECT as becomes available 10/08: one word today, No, in response to request to check labs for lithium and lytes. continue current mgmt. awaiting court for ECT. 10/09: non-verbal. dry lips but per report is eating meals. reorder labs. continue current mgmt otherwise. 10/10: 10/09 lytes reassuring, lithium 0.46. no change in presentation, continue current mgmt. 10/11: mute. some saccades, otherwise immobile. continue current mgmt. 10/12: will benefit from court ordered tx vital signs ok. 10/13: no change in presentation. court tomorrow at 2. decrease ativan from 2 QID to 2 TID both to see if dose reduction changes behavior in any way and in preparation for requested order from the court for ECT. 10/14: noted to be openly masturbating in his room last night, not responsive to redirection by nursing staff. eating breakfast in bed today. nods on being asked if he would like to attend the hearing today. case discussed with SADA Cifuentes. hearing held, pt committed and ECT/meds ordered. 10/15: no change in presentation. taper benzos over w/e. medical clearance for ECT completed at admission by hospitalist service. planning for ECT #1 on thursday morning. 10/16:Continue current plans and regimen 10/17: Continue current plans and regimen. 10/18: more verbal immediately after ECT #1 today, many more and more rapid responses to questions via head gestures as well. 10/19: febrile, elevated WBC. medicine consult called. continues more responsive today than prior. continue current mgmt pending medicine recs. 10/20: no nidus of infection located thus far. U/A WNL, chest XR WNL. continue current mgmt. ECT today. 10/21: appears to have been afebrile over past 24H, reportedly T100.8 post ECT yesterday. case discussed with dr. wyman. to clarify matters, will DC zyprexa and lithium to see if elevated WBC resolves and hyperpyrexia stops. ECT again tomorrow. no change in clinical presentation. 10/22: remains more verbal today, better eye contact. ECT canceled for today due to error in pt's receiving meal tray. ECT #3 scheduled for thursday. 10/24/23 CTP npo order written for tonight 10/26/23 cont ect will restart antipschotic per tx order 10/27/23 ect BT start invega pos awake overnight monitor response 10/28/23 cont ect improvement noted would benefit from further hx ck labs in am 10/28/23 cont ect invega some response noted 10/30 continue same treatment. 10/31 continue same treatment ECT tomorrow. 11/02/23 Cont ect change to hs olanzapine 10 mg 11/03/2023 Patient more verbal osborn affect continue ECT 11/03: received ECT today. sleepy afterward, responding i don't know to most questions. continue current mgmt. 11/04 continue tx plan 11/05: received ECT today. marginal improvement continues. continue current mgmt. 11/06: up and about today, trying exit doors. more verbal than mute, barely. continue current mgmt. 11/07: up and about, mute. continue current mgmt. 11/08: ECT this morning, no issues. up and about. variably cooperative, loitering at exits. 11/09: as for yesterday. continue current mgmt. ECT for tomorrow. 11/10: ECT #9 completed today. improved from yesterday. more verbal, mobile. continues to exit-seek. 11/12/23 more range of affect and fx doing better with ect no adverse effecyts 11/12: more verbal and active on the unit. denies mental illness, says he feels fine, trying exits. ECT #10 completed today. 11/13: Continue current tx plan. Patient educated on: other (unable d/t mental status.) Reason for continued inpatient stay Substantial Risk for: med/psych decompensation Time Spent With Patient Time: Total time managing care of this patient today _20___ minutes.
--- NOTE | 2023-11-14 14:21 | PC.NURSE ---
Pt required redirection after attempting to elope through the [place] [facility]. Pt was initially resistive but complied. Pt appeared agitated and stated I just want to go home, I don't know why the fuck I need to be here. I don't need help, I need to get out of here.
[2023-11-14 21:00] VITALS: BP 120/58; PULSE 95; RESP 16; O2SAT 97
[2023-11-14] MEDS: OLANZapine ODT 10 MG TAB.RAPDIS TRANSLINGU (21:00)
[2023-11-15 07:15] VITALS: BP 98/55; PULSE 78; RESP 16; TEMP 36.4; O2SAT 98
--- NOTE | 2023-11-15 09:01 | HO.PSYCHPN ---
Subjective Subjective Date of Service: 11/15/23 Reason For Visit: catatonia depression Subjective Notes: Section 8 Interim History: Reviewed with Dr. Wyman. Pt continues similar to yesterday. Continues to wander unit, trying to exit from [facility] door. Responding to internal stimuli. Pt stated, I want to go home . medication compliant. Medication Compliance: Yes Side effects from medications: No Attending Groups: No Review of Systems Review of Systems Yes Unobtainable due to mental status Mental Status Exam Mental Status Exam Patient Appearance: Disheveled Patient Orientation: Person Level of Consciousness: Awake Patient Behavior: Guarded, Wandering and Pacing Mood Description: Calm Affect Description: Blunted Patient Cognition Impaired: Yes Ability to Follow Directions: Poor Speech Pattern: Soft-Spoken Diagnostics Vital Signs (24Hr): Vital Signs - 24 hr 11/14/23 21:00 11/15/23 07:15 Temperature 97.6 F Pulse Rate 95 78 Respiratory Rate 16 16 Blood Pressure 120/58 L 98/55 L Pulse Oximetry 97 98 Oxygen Delivery Method Room Air Room Air BMI result Body Mass Index 25.4 Labs 10/20/23 14:13 10/20/23 14:13 Imaging Radiology Impressions: ITS Impressions Chest X-Ray 10/20/23 16:28 IMPRESSION: No acute cardiopulmonary abnormality. Medications Medications Current Medications Acetaminophen (Acetaminophen 325 Mg Tablet) 650 mg PO Q6H PRN PRN Reason: Headache/Pain Mild Scale (1-3) Last Admin: 11/13/23 17:05 Dose: 650 mg Al Hydroxide/Mg Hydroxide (Magnesium Hydrox/Alum Hydrox 30 Ml Oral.Susp) 30 ml PO Q6H PRN PRN Reason: Heartburn/Nausea Hydroxyzine HCl (Hydroxyzine Hcl 25 Mg Tablet) 25 mg PO Q6H PRN PRN Reason: Anxiety Last Admin: 11/08/23 22:37 Dose: 25 mg Magnesium Hydroxide (Milk Of Magnesia 30 Ml Oral.Susp) 30 ml PO DAILY PRN PRN Reason: Constipation Olanzapine (Olanzapine Odt 10 Mg Tab.Rapdis) 10 mg TRANSLINGU Q4H PRN PRN Reason: anxiety/restlessness Last Admin: 11/13/23 16:57 Dose: 10 mg Olanzapine (Olanzapine Odt 10 Mg Tab.Rapdis) 10 mg TRANSLINGU BEDTIME PAM Last Admin: 11/14/23 21:00 Dose: 10 mg Trazodone HCl (Trazodone Hcl 50 Mg Tablet) 50 mg PO BEDTIME MRX1 PRN PRN Reason: Insomnia Last Admin: 11/12/23 21:13 Dose: 50 mg Allergies Allergies Allergy/AdvReac Type Severity Reaction Status Date / Time No Known Allergies Allergy Verified 11/11/23 07:33 Assessment & Plan Assessment & Plan (1) Catatonia: Status: Acute Code(s): F06.1 - Catatonic disorder due to known physiological condition Plan 09/23: ativan 2 mg QID. move for commitment and court ordered ECT. 09/24: no change in presentation or plan. remains catatonic, adequate PO intake for the moment. taking 8 mg ativan daily without appreciative improvement. 09/25: continue current management and treatment plan. 09/26: Checked labs. CBC without evidence of infection. Chemistries and LFT's stable. Continue monitoring and response to Ativan. 09/27: continue current management and treatment plan. 09/28: continue current mgmt. producing several monosyllabic answers to questions today. filed for commitment. 09/29: awaiting hearing. very modest response to high-dose ativan. hearing next thursday. continue current mgmt for now. 09/30: no change in presentation. continues to appear to take in adequate fluids and food. continue current mgmt. 10/01: outpt regimen of zyprexa 5 BID and lithium 900 QHS restarted. continue ativan [address] thursday. 10/04/23: Court date pending on 10/06/2023 and ?ECT. 10/04: court deferred to next week for SADA. stably catatonic but up for toileting and PO intake, periodically. refusing labs to check electrolytes. 10/05: pt refusing labs. per staff report, does have reasonable PO intake. court scheduled 10/14. continue current mgmt. 10/06: taking meds, modest PO intake. said, what's your name? today. continue current mgmt. 10/08/23 Patient taking medication remains generally nonverbal he did stand up was reportedly eating more would clearly benefit from ECT as becomes available 10/08: one word today, No, in response to request to check labs for lithium and lytes. continue current mgmt. awaiting court for ECT. 10/09: non-verbal. dry lips but per report is eating meals. reorder labs. continue current mgmt otherwise. 10/10: 10/09 lytes reassuring, lithium 0.46. no change in presentation, continue current mgmt. 10/11: mute. some saccades, otherwise immobile. continue current mgmt. 10/12: will benefit from court ordered tx vital signs ok. 10/13: no change in presentation. court tomorrow at 2. decrease ativan from 2 QID to 2 TID both to see if dose reduction changes behavior in any way and in preparation for requested order from the court for ECT. 10/14: noted to be openly masturbating in his room last night, not responsive to redirection by nursing staff. eating breakfast in bed today. nods on being asked if he would like to attend the hearing today. case discussed with SADA Cifuentes. hearing held, pt committed and ECT/meds ordered. 10/15: no change in presentation. taper benzos over w/e. medical clearance for ECT completed at admission by hospitalist service. planning for ECT #1 on thursday morning. 10/16:Continue current plans and regimen 10/17: Continue current plans and regimen. 10/18: more verbal immediately after ECT #1 today, many more and more rapid responses to questions via head gestures as well. 10/19: febrile, elevated WBC. medicine consult called. continues more responsive today than prior. continue current mgmt pending medicine recs. 10/20: no nidus of infection located thus far. U/A WNL, chest XR WNL. continue current mgmt. ECT today. 10/21: appears to have been afebrile over past 24H, reportedly T100.8 post ECT yesterday. case discussed with dr. wyman. to clarify matters, will DC zyprexa and lithium to see if elevated WBC resolves and hyperpyrexia stops. ECT again tomorrow. no change in clinical presentation. 10/22: remains more verbal today, better eye contact. ECT canceled for today due to error in pt's receiving meal tray. ECT #3 scheduled for thursday. 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 10/31 continue same treatment ECT tomorrow. 11/02/23 Cont ect change to hs olanzapine 10 mg 11/03/2023 Patient more verbal osborn affect continue ECT 11/03: received ECT today. sleepy afterward, responding i don't know to most questions. continue current mgmt. 11/04 continue tx plan 11/05: received ECT today. marginal improvement continues. continue current mgmt. 11/06: up and about today, trying exit doors. more verbal than mute, barely. continue current mgmt. 11/07: up and about, mute. continue current mgmt. 11/08: ECT this morning, no issues. up and about. variably cooperative, loitering at exits. 11/09: as for yesterday. continue current mgmt. ECT for tomorrow. 11/10: ECT #9 completed today. improved from yesterday. more verbal, mobile. continues to exit-seek. 11/12/23 more range of affect and fx doing better with ect no adverse effecyts 11/12: more verbal and active on the unit. denies mental illness, says he feels fine, trying exits. ECT #10 completed today. 11/13: Continue current tx plan. 11/14: Pt continues similar to yesterday. Continues to wander unit, trying to exit from [facility] [facility] door. Responding to internal stimuli. Pt stated, I want to go home . medication compliant. Continue current tx plan. Patient educated on: medication risk/benefits Reason for continued inpatient stay Substantial Risk for: med/psych decompensation Time Spent With Patient Time: Total time managing care of this patient today _20___ minutes.
[2023-11-15 19:45] VITALS: BP 132/77; PULSE 92; RESP 14; TEMP 36.3; O2SAT 97
[2023-11-15] MEDS: OLANZapine ODT 10 MG TAB.RAPDIS TRANSLINGU (20:30)
[2023-11-16] VITALS (11 sets, daily range): BP systolic 94–140; BP diastolic 51–88; PULSE 65–114; RESP 14–18; TEMP 36.2–37.4; O2SAT 94–99
--- NOTE | 2023-11-16 07:27 | P.HPSUR_ITS ---
Pre-Procedural Eval Section A - 24 Hr Update-Section A only Date of Service: 11/16/23 The patient is an INPATIENT: Yes Changes since office visit: No Cold of Flu in the past 2 weeks, No New Medical Problems, No Changes in Medication and No Patient answered all questions The patient has been examined within 24 hours of the surgical procedure. The History & Physical has been completed within 30 days and I have reviewed it.: Yes Section B - Complete if H&P > 30 days Chief Complaint: catatonia depression Details of Present Illness: remains with catatonic symptoms; mubmles i don't feel anything Medical History: No relevant PMH Allergies: Allergies Allergy/AdvReac Type Severity Reaction Status Date / Time No Known Allergies Allergy Verified 11/11/23 07:33 Review of Systems Sugical H&P ROS: Negative: Constitution and Yes, Specify: Psychiatric (catatoni a) Plan Diagnosis/Plan: Unchanged I have reviewed the history and physical and performed a pertinent physical examination on my patient. No changes have occurred unless specified. Time Spent With Patient Time: Total time managing care of this patient today ____ minutes.
--- NOTE | 2023-11-16 07:30 | HO.ECTPROC ---
ECT Procedure Note Diagnosis/Treatment Date of Service: 11/16/23 Diagnosis: Major Depressive Disorder and Catatonia Previous ECT Date: 11/04/23 Current Treatment Number: 9 Treatment: Series Interval Clinical Notes: Pt with thought blocking minimally engaged, mumbles, says feels nothing. No noted side effects from ECT which was completed bitemporally no difficulties noted given Versed 2 mg post op for help with treatment of catatonia Time: Total time managing care of this patient today ____ minutes. ECT Settings Device: THYMATRON DGx Electrode Placement: Bitemporal Program/Pulse Width: 0.50 Energy Percent: 100 Seizure Duration By EEG (in seconds): 43 By Motor Observation (in seconds): 24 Medications Administration General Anesthetic: Etomidate (16) Muscle Relaxant: Succinylcholine (100) Ancillary Medications Analgesics: Torodol - Pre ECT Anti-emetics: Zofran - Pre ECT Miscillaneous Medications: Midazolam (2) Airway Management Airway Management: Bag Mask Ventilation Treatment Recommendations No Changes Recommended: No change Electrode Placement: Bitemporal Program/Pulse Width: 0.50 Energy Percent: 100 Notes: Tolerated; remains symptomatic; Continue with Series. Pt Tolerated Procedure w/o Issue: Yes
--- NOTE | 2023-11-16 10:40 | P.CONAN_ITS ---
[facility] Active Problems Active Problems: All Active Problems Catatonia (Acute) Routine medical exam (Acute) Past Medical History Medical History No pertinent past medical history Functional capacity: independent ambulation Family History Family history of problems with anesthesia: No Surgical History History of Problems with Anesthesia: No Social History Social History Household Members: Other Household Members Other:: Unknown Do you presently have visiting nurse or other home services: No (Unknown) Patient Tobacco Use Status: Never used Tobacco e-Cigarette/Vaping Use: Never Used Second Hand Smoke Exposure: No Sexual orientation: Unable to collect Meds Allergies Allergy/AdvReac Type Severity Reaction Status Date / Time No Known Allergies Allergy Verified 11/11/23 07:33 Active Medications: Current Medications Acetaminophen (Acetaminophen 325 Mg Tablet) 650 mg PO Q6H PRN PRN Reason: Headache/Pain Mild Scale (1-3) Last Admin: 11/13/23 17:05 Dose: 650 mg Al Hydroxide/Mg Hydroxide (Magnesium Hydrox/Alum Hydrox 30 Ml Oral.Susp) 30 ml PO Q6H PRN PRN Reason: Heartburn/Nausea Hydroxyzine HCl (Hydroxyzine Hcl 25 Mg Tablet) 25 mg PO Q6H PRN PRN Reason: Anxiety Last Admin: 11/08/23 22:37 Dose: 25 mg Magnesium Hydroxide (Milk Of Magnesia 30 Ml Oral.Susp) 30 ml PO DAILY PRN PRN Reason: Constipation Olanzapine (Olanzapine Odt 10 Mg Tab.Rapdis) 10 mg TRANSLINGU Q4H PRN PRN Reason: anxiety/restlessness Last Admin: 11/13/23 16:57 Dose: 10 mg Olanzapine (Olanzapine Odt 10 Mg Tab.Rapdis) 10 mg TRANSLINGU BEDTIME PAM Last Admin: 11/15/23 20:30 Dose: 10 mg Trazodone HCl (Trazodone Hcl 50 Mg Tablet) 50 mg PO BEDTIME MRX1 PRN PRN Reason: Insomnia Last Admin: 11/12/23 21:13 Dose: 50 mg Home Medications ?Medication ?Instructions ?Recorded ?Confirmed ?Last Taken ?Type No Known Home Meds 10/09/23 10/09/23 Unknown History Exam Height,Weight and Vital Signs: Height 5 ft 5 in Weight 69.309 kg Last Vital Signs Temp 98.4 F 11/16/23 09:18 Pulse 65 11/16/23 09:18 Resp 16 11/16/23 09:18 BP 107/58 L 11/16/23 09:18 Pulse Ox 97 11/16/23 09:18 O2 Del Method Room Air 11/16/23 08:45 O2 Flow Rate 1 11/16/23 08:21 Pertinent Lab Results Pertinent Lab Results: Laboratory Tests 09/23/23 09/27/23 10/10/23 02:20 11:15 14:55 WBC 6.1 RBC 4.83 Hgb 15.0 Hct 44.6 MCV 92.3 MCH 31.1 MCHC 33.6 RDW 11.8 Plt Count 300 MPV 8.9 L Immature Gran % (Auto) 0.5 H Neut % (Auto) 71.0 Lymph % (Auto) 22.0 [place] % (Auto) 4.2 Eos % (Auto) 1.8 Baso % (Auto) 0.5 Lymph # (Auto) 1.4 [place] # (Auto) 0.3 Eos # (Auto) 0.1 Baso # (Auto) 0.0 Abs Immat Gran (auto) 0.03 Absolute Neuts (auto) 4.4 Absolute Nucleated RBC 0.000 Nucleated RBC % (auto) 0.0 ESR Sodium 142 141 Potassium 3.8 3.6 Chloride 105 109 H Carbon Dioxide 28 24 Anion Gap 13 12 BUN 8 L 9 Creatinine 0.79 0.86 Estim Creat Clear Calc 126.5 116.2 Estimated GFR > 60 > 60 Random Glucose 112 110 Calcium 9.3 9.7 Total Bilirubin 0.4 Direct Bilirubin 0.2 AST 10 ALT 9 Alkaline Phosphatase 61 Total Creatine Kinase 66 C-Reactive Protein Total Protein 7.2 Albumin 4.3 Vitamin B12 Folate TSH Free T4 Urine Color Urine Appearance Urine pH Ur Specific [place] Urine Protein Urine Glucose (UA) Urine Ketones Urine Blood Urine Nitrite Ur Leukocyte Esterase Urine RBC Urine WBC Ur Squamous Epith Cells Urine Bacteria Hyaline Casts [place] 0.46 L ANNIE Screen ANNIE Titer ANNIE Titer 2 ANNIE Titer 3 ANNIE Pattern ANNIE Pattern 2 ANNIE Pattern 3 Respiratory Panel Pugh Adenovirus (Rapid PCR) B.pert (TEM-PCR) B.parapertussis DNA PCR C. pneumoniae DNA (PCR) Coronavirus OC43 (PCR) Coronavirus HKU1 (PCR) Coronavirus 229E (PCR) Coronavirus NL63 (PCR) Human Metapneumovir PCR Influenza A (RT-PCR) Influenza Type A (PCR) NEGATIVE Influenza B (RT-PCR) Influenza Type B (PCR) NEGATIVE M. pneumoniae (PCR) Parainfluenza 1 (PCR) Parainfluenza 2 (PCR) Parainfluenza 3 (PCR) Parainfluenza 4 (PCR) RSV (PCR) RSV RNA Qual (PCR) NEGATIVE Entero/Rhino (PCR) SARS-CoV-2 RNA (RT-PCR) NEGATIVE 10/20/23 10/20/23 10/20/23 14:13 16:39 17:10 WBC 11.7 H RBC 4.64 Hgb 14.5 Hct 41.2 L MCV 88.8 MCH 31.3 MCHC 35.2 RDW 11.7 Plt Count 263 MPV 9.0 L Immature Gran % (Auto) 0.3 Neut % (Auto) 78.3 H Lymph % (Auto) 12.0 L [place] % (Auto) 5.7 Eos % (Auto) 3.4 Baso % (Auto) 0.3 Lymph # (Auto) 1.4 [place] # (Auto) 0.7 Eos # (Auto) 0.4 Baso # (Auto) 0.0 Abs Immat Gran (auto) 0.04 H Absolute Neuts (auto) 9.1 H Absolute Nucleated RBC 0.000 Nucleated RBC % (auto) 0.0 ESR Sodium 142 Potassium 3.7 Chloride 108 Carbon Dioxide 27 Anion Gap 11 L BUN 10 Creatinine 0.96 Estim Creat Clear Calc 104.1 Estimated GFR > 60 Random Glucose 106 Calcium 9.3 Total Bilirubin Direct Bilirubin AST ALT Alkaline Phosphatase Total Creatine Kinase C-Reactive Protein Total Protein Albumin Vitamin B12 Folate TSH Free T4 Urine Color Yellow Urine Appearance Clear Urine pH 7.0 Ur Specific [place] 1.015 Urine Protein Negative Urine Glucose (UA) Negative Urine Ketones Negative Urine Blood Trace H Urine Nitrite Negative Ur Leukocyte Esterase Negative Urine RBC 6-10 H Urine WBC 0-5 Ur Squamous Epith Cells 0-2 Urine Bacteria None Seen Hyaline Casts 0-2 [place] ANNIE Screen ANNIE Titer ANNIE Titer 2 ANNIE Titer 3 ANNIE Pattern ANNIE Pattern 2 ANNIE Pattern 3 Respiratory Panel Pugh See Note Adenovirus (Rapid PCR) Not Detected B.pert (TEM-PCR) Not Detected B.parapertussis DNA PCR Not Detected C. pneumoniae DNA (PCR) Not Detected Coronavirus OC43 (PCR) Not Detected Coronavirus HKU1 (PCR) Not Detected Coronavirus 229E (PCR) Not Detected Coronavirus NL63 (PCR) Not Detected Human Metapneumovir PCR Not Detected Influenza A (RT-PCR) Not Detected Influenza Type A (PCR) Influenza B (RT-PCR) Not Detected Influenza Type B (PCR) M. pneumoniae (PCR) Not Detected Parainfluenza 1 (PCR) Not Detected Parainfluenza 2 (PCR) Not Detected Parainfluenza 3 (PCR) Not Detected Parainfluenza 4 (PCR) Not Detected RSV (PCR) Not Detected RSV RNA Qual (PCR) Entero/Rhino (PCR) Not Detected SARS-CoV-2 RNA (RT-PCR) Not Detected 10/25/23 10/30/23 06:56 07:49 WBC RBC Hgb Hct MCV MCH MCHC RDW Plt Count MPV Immature Gran % (Auto) Neut % (Auto) Lymph % (Auto) [place] % (Auto) Eos % (Auto) Baso % (Auto) Lymph # (Auto) [place] # (Auto) Eos # (Auto) Baso # (Auto) Abs Immat Gran (auto) Absolute Neuts (auto) Absolute Nucleated RBC Nucleated RBC % (auto) ESR 14 16 H Sodium Potassium Chloride Carbon Dioxide Anion Gap BUN Creatinine Estim Creat Clear Calc Estimated GFR Random Glucose Calcium Total Bilirubin Direct Bilirubin AST ALT Alkaline Phosphatase Total Creatine Kinase 281 H C-Reactive Protein 1.24 H Total Protein Albumin Vitamin B12 258 Folate 8.8 TSH 4.24 H Free T4 1.08 Urine Color Urine Appearance Urine pH Ur Specific [place] Urine Protein Urine Glucose (UA) Urine Ketones Urine Blood Urine Nitrite Ur Leukocyte Esterase Urine RBC Urine WBC Ur Squamous Epith Cells Urine Bacteria Hyaline Casts [place] ANNIE Screen NEGATIVE ANNIE Titer TNP ANNIE Titer 2 TNP ANNIE Titer 3 TNP ANNIE Pattern TNP ANNIE Pattern 2 TNP ANNIE Pattern 3 TNP Respiratory Panel Pugh Adenovirus (Rapid PCR) B.pert (TEM-PCR) B.parapertussis DNA PCR C. pneumoniae DNA (PCR) Coronavirus OC43 (PCR) Coronavirus HKU1 (PCR) Coronavirus 229E (PCR) Coronavirus NL63 (PCR) Human Metapneumovir PCR Influenza A (RT-PCR) Influenza Type A (PCR) Influenza B (RT-PCR) Influenza Type B (PCR) M. pneumoniae (PCR) Parainfluenza 1 (PCR) Parainfluenza 2 (PCR) Parainfluenza 3 (PCR) Parainfluenza 4 (PCR) RSV (PCR) RSV RNA Qual (PCR) Entero/Rhino (PCR) SARS-CoV-2 RNA (RT-PCR) Airway Mallampati Class: III TM Dist: >3cm Neck ROM: Full Heart: RRR Lungs: CTA Assessment and Plan Assessment Anesthesia Assessment: Anesthesia Plan Discussed Final Anesthetic Review Family History of Problems with Anesthesia: No History of Problems with Anesthesia: No NPO: Yes ASA Class: III Final Preanesthetic Review: Meds/Allgs Chart Reviewed, Consent Obtained/Reviewed and Anes Risks/Benef Reviewed Patient Risk: Low Procedure Risk: Low Anesthetic Plan Anesthetic Plan: GA Disposition: Standard PACU
--- NOTE | 2023-11-16 10:42 | HO.POSTANES ---
Post Anesthesia Evaluation Post Anesthesia Evaluation Date of Service: 11/16/23 Vital Signs: Vital Signs Temp Pulse Resp BP Pulse Ox O2 Del Method O2 Flow Rate 11/16/23 09:18 98.4 F 65 16 107/58 L 97 11/16/23 08:45 97.4 F 74 17 98/51 L 96 Room Air 11/16/23 08:27 98 F 84 16 106/74 97 Room Air 11/16/23 08:21 83 16 111/66 94 Nasal Cannula with ETCO2 1 11/16/23 08:06 96 16 135/60 94 Room Air 11/16/23 08:01 102 H 15 118/65 96 Nasal Cannula with ETCO2 2 11/16/23 07:56 105 H 15 119/64 96 Nasal Cannula with ETCO2 2 11/16/23 07:51 98.4 F 107 H 16 140/88 H 96 Nasal Cannula with ETCO2 2 11/16/23 06:45 97.2 F 88 16 127/83 97 Room Air 11/16/23 06:25 98.0 F 65 18 94/54 L 99 Room Air Anesthesia: General Mental Status: Awake Pain Control: Satisfactory Nausea/Vomiting: None Hydration: Adequate Anesthesia-Related Issues: No Anes. Related Issues
--- NOTE | 2023-11-16 18:16 | P.PNPSI_ITS ---
Subjective Subjective Date of Service: 11/16/23 Reason For Visit: catatonia depression Interim History: pt appeared to ignore MD's attempts to speak with him. per staff, continues exit seeking. Mental Status Exam Mental Status Exam Patient Appearance: Disheveled Patient Orientation: Person Level of Consciousness: Awake Patient Behavior: Guarded Mood Description: Calm Affect Description: Blunted Patient Cognition Impaired: Yes Ability to Follow Directions: Poor Speech Pattern: No Speech Diagnostics Vital Signs (24Hr): Vital Signs - 24 hr 11/15/23 19:45 11/16/23 06:25 11/16/23 06:45 Temperature 97.3 F 98.0 F 97.2 F Pulse Rate 92 65 88 Respiratory Rate 14 18 16 Blood Pressure 132/77 94/54 L 127/83 Pulse Oximetry 97 99 97 Oxygen Delivery Method Room Air Room Air Room Air Oxygen Flow Rate 11/16/23 07:51 11/16/23 07:56 11/16/23 08:01 Temperature 98.4 F Pulse Rate 107 H 105 H 102 H Respiratory Rate 16 15 15 Blood Pressure 140/88 H 119/64 118/65 Pulse Oximetry 96 96 96 Oxygen Delivery Method Nasal Cannula with ETCO2 Nasal Cannula with ETCO2 Nasal Cannula with ETCO2 Oxygen Flow Rate 2 2 2 11/16/23 08:06 11/16/23 08:21 11/16/23 08:27 Temperature 98 F Pulse Rate 96 83 84 Respiratory Rate 16 16 16 Blood Pressure 135/60 111/66 106/74 Pulse Oximetry 94 94 97 Oxygen Delivery Method Room Air Nasal Cannula with ETCO2 Room Air Oxygen Flow Rate 1 11/16/23 08:45 11/16/23 09:18 Temperature 97.4 F 98.4 F Pulse Rate 74 65 Respiratory Rate 17 16 Blood Pressure 98/51 L 107/58 L Pulse Oximetry 96 97 Oxygen Delivery Method Room Air Oxygen Flow Rate BMI result Body Mass Index 25.4 Labs 10/20/23 14:13 10/20/23 14:13 Imaging Radiology Impressions: ITS Impressions Chest X-Ray 10/20/23 16:28 IMPRESSION: No acute cardiopulmonary abnormality. Medications Medications Current Medications Acetaminophen (Acetaminophen 325 Mg Tablet) 650 mg PO Q6H PRN PRN Reason: Headache/Pain Mild Scale (1-3) Last Admin: 11/13/23 17:05 Dose: 650 mg Al Hydroxide/Mg Hydroxide (Magnesium Hydrox/Alum Hydrox 30 Ml Oral.Susp) 30 ml PO Q6H PRN PRN Reason: Heartburn/Nausea Hydroxyzine HCl (Hydroxyzine Hcl 25 Mg Tablet) 25 mg PO Q6H PRN PRN Reason: Anxiety Last Admin: 11/08/23 22:37 Dose: 25 mg Magnesium Hydroxide (Milk Of Magnesia 30 Ml Oral.Susp) 30 ml PO DAILY PRN PRN Reason: Constipation Olanzapine (Olanzapine Odt 10 Mg Tab.Rapdis) 10 mg TRANSLINGU Q4H PRN PRN Reason: anxiety/restlessness Last Admin: 11/13/23 16:57 Dose: 10 mg Olanzapine (Olanzapine Odt 10 Mg Tab.Rapdis) 10 mg TRANSLINGU BEDTIME PAM Last Admin: 11/15/23 20:30 Dose: 10 mg Trazodone HCl (Trazodone Hcl 50 Mg Tablet) 50 mg PO BEDTIME MRX1 PRN PRN Reason: Insomnia Last Admin: 11/12/23 21:13 Dose: 50 mg Allergies Allergies Allergy/AdvReac Type Severity Reaction Status Date / Time No Known Allergies Allergy Verified 11/11/23 07:33 Assessment & Plan Assessment & Plan (1) Catatonia: Status: Acute Code(s): F06.1 - Catatonic disorder due to known physiological condition Plan 09/23: ativan 2 mg QID. move for commitment and court ordered ECT. 09/24: no change in presentation or plan. remains catatonic, adequate PO intake for the moment. taking 8 mg ativan daily without appreciative improvement. 09/25: continue current management and treatment plan. 09/26: Checked labs. CBC without evidence of infection. Chemistries and LFT's stable. Continue monitoring and response to Ativan. 09/27: continue current management and treatment plan. 09/28: continue current mgmt. producing several monosyllabic answers to questions today. filed for commitment. 09/29: awaiting hearing. very modest response to high-dose ativan. hearing next thursday. continue current mgmt for now. 09/30: no change in presentation. continues to appear to take in adequate fluids and food. continue current mgmt. 10/01: outpt regimen of zyprexa 5 BID and lithium 900 QHS restarted. continue ativan [address] thursday. 10/04/23: Court date pending on 10/06/2023 and ?ECT. 10/04: court deferred to next week for SADA. stably catatonic but up for toileting and PO intake, periodically. refusing labs to check electrolytes. 10/05: pt refusing labs. per staff report, does have reasonable PO intake. court scheduled 10/14. continue current mgmt. 10/06: taking meds, modest PO intake. said, what's your name? today. continue current mgmt. 10/08/23 Patient taking medication remains generally nonverbal he did stand up was reportedly eating more would clearly benefit from ECT as becomes available 10/08: one word today, No, in response to request to check labs for lithium and lytes. continue current mgmt. awaiting court for ECT. 10/09: non-verbal. dry lips but per report is eating meals. reorder labs. continue current mgmt otherwise. 10/10: 10/09 lytes reassuring, lithium 0.46. no change in presentation, continue current mgmt. 10/11: mute. some saccades, otherwise immobile. continue current mgmt. 10/12: will benefit from court ordered tx vital signs ok. 10/13: no change in presentation. court tomorrow at 2. decrease ativan from 2 QID to 2 TID both to see if dose reduction changes behavior in any way and in preparation for requested order from the court for ECT. 10/14: noted to be openly masturbating in his room last night, not responsive to redirection by nursing staff. eating breakfast in bed today. nods on being asked if he would like to attend the hearing today. case discussed with SADA Cifuentes. hearing held, pt committed and ECT/meds ordered. 10/15: no change in presentation. taper benzos over w/e. medical clearance for ECT completed at admission by hospitalist service. planning for ECT #1 on thursday morning. 10/16:Continue current plans and regimen 10/17: Continue current plans and regimen. 10/18: more verbal immediately after ECT #1 today, many more and more rapid responses to questions via head gestures as well. 10/19: febrile, elevated WBC. medicine consult called. continues more responsive today than prior. continue current mgmt pending medicine recs. 10/20: no nidus of infection located thus far. U/A WNL, chest XR WNL. continue current mgmt. ECT today. 10/21: appears to have been afebrile over past 24H, reportedly T100.8 post ECT yesterday. case discussed with dr. wyman. to clarify matters, will DC zyprexa and lithium to see if elevated WBC resolves and hyperpyrexia stops. ECT again tomorrow. no change in clinical presentation. 10/22: remains more verbal today, better eye contact. ECT canceled for today due to error in pt's receiving meal tray. ECT #3 scheduled for thursday. 10/24/23 CTP npo order written for tonight 10/26/23 cont ect will restart antipschotic per tx order 10/27/23 ect BT start invega pos quality assurance monitor chassis response 10/28/23 cont ect improvement noted would benefit from further hx ck labs in am 10/28/23 cont ect invega some response noted 10/30 continue same treatment. 10/31 continue same treatment ECT tomorrow. 11/02/23 Cont ect change to hs olanzapine 10 mg 11/03/2023 Patient more verbal osborn affect continue ECT 11/03: received ECT today. sleepy afterward, responding i don't know to most questions. continue current mgmt. 11/04 continue tx plan 11/05: received ECT today. marginal improvement continues. continue current mgmt. 11/06: up and about today, trying exit doors. more verbal than mute, barely. continue current mgmt. 11/07: up and about, mute. continue current mgmt. 11/08: ECT this morning, no issues. up and about. variably cooperative, loitering at exits. 11/09: as for yesterday. continue current mgmt. ECT for tomorrow. 11/10: ECT #9 completed today. improved from yesterday. more verbal, mobile. continues to exit-seek. 11/12/23 more range of affect and fx doing better with ect no adverse effecyts 11/12: more verbal and active on the unit. denies mental illness, says he feels fine, trying exits. ECT #10 completed today. 11/13: Continue current tx plan. 11/14: Pt continues similar to yesterday. Continues to wander unit, trying to exit from [facility] door. Responding to internal stimuli. Pt stated, I want to go home . medication compliant. Continue current tx plan. 11/15: ECT #11 today. declines to speak with MD. no substantial change in presentation over weekend. Reason for continued inpatient stay Substantial Risk for: inability to function and rapid decompensation Time Spent With Patient Time: Total time managing care of this patient today ____ minutes.
[2023-11-16] MEDS: OLANZapine ODT 10 MG TAB.RAPDIS TRANSLINGU (20:03)
[2023-11-17 07:20] VITALS: BP 107/56; PULSE 81; RESP 14; TEMP 36.6; O2SAT 97
--- NOTE | 2023-11-17 09:30 | HO.POSTANES ---
Post Anesthesia Evaluation Post Anesthesia Evaluation Date of Service: 11/16/23 Vital Signs: Vital Signs Temp Pulse Resp BP Pulse Ox O2 Del Method 11/17/23 07:20 97.9 F 81 14 107/56 L 97 Room Air Anesthesia: General Mental Status: Awake Pain Control: Satisfactory Nausea/Vomiting: None Hydration: Adequate Anesthesia-Related Issues: No Anes. Related Issues
--- NOTE | 2023-11-17 16:46 | HO.PSYCHPN ---
Subjective Subjective Date of Service: 11/17/23 Reason For Visit: catatonia depression Interim History: wandering, trying exits, saying he wants to go home. Mental Status Exam Mental Status Exam Narrative: disheveled, up and about the unit. variably cooperative. slight PMR. more speech, but perseverative on discharge. wandering the unit affect blunted. mood i'm fine. no SI/HI/AVH expressed. Diagnostics Vital Signs (24Hr): Vital Signs - 24 hr 11/16/23 19:45 11/17/23 07:20 Temperature 99.4 F 97.9 F Pulse Rate 114 H 81 Respiratory Rate 14 14 Blood Pressure 113/65 107/56 L Pulse Oximetry 96 97 Oxygen Delivery Method Room Air Room Air BMI result Body Mass Index 25.4 Labs 10/20/23 14:13 10/20/23 14:13 Imaging Radiology Impressions: ITS Impressions Chest X-Ray 10/20/23 16:28 IMPRESSION: No acute cardiopulmonary abnormality. Medications Medications Current Medications Acetaminophen (Acetaminophen 325 Mg Tablet) 650 mg PO Q6H PRN PRN Reason: Headache/Pain Mild Scale (1-3) Last Admin: 11/13/23 17:05 Dose: 650 mg Al Hydroxide/Mg Hydroxide (Magnesium Hydrox/Alum Hydrox 30 Ml Oral.Susp) 30 ml PO Q6H PRN PRN Reason: Heartburn/Nausea Hydroxyzine HCl (Hydroxyzine Hcl 25 Mg Tablet) 25 mg PO Q6H PRN PRN Reason: Anxiety Last Admin: 11/08/23 22:37 Dose: 25 mg Magnesium Hydroxide (Milk Of Magnesia 30 Ml Oral.Susp) 30 ml PO DAILY PRN PRN Reason: Constipation Olanzapine (Olanzapine Odt 10 Mg Tab.Rapdis) 10 mg TRANSLINGU Q4H PRN PRN Reason: anxiety/restlessness Last Admin: 11/13/23 16:57 Dose: 10 mg Olanzapine (Olanzapine Odt 10 Mg Tab.Rapdis) 10 mg TRANSLINGU BEDTIME PAM Last Admin: 11/16/23 20:03 Dose: 10 mg Trazodone HCl (Trazodone Hcl 50 Mg Tablet) 50 mg PO BEDTIME MRX1 PRN PRN Reason: Insomnia Last Admin: 11/12/23 21:13 Dose: 50 mg Allergies Allergies Allergy/AdvReac Type Severity Reaction Status Date / Time No Known Allergies Allergy Verified 11/11/23 07:33 Assessment & Plan Assessment & Plan (1) Catatonia: Status: Acute Code(s): F06.1 - Catatonic disorder due to known physiological condition Plan 09/23: ativan 2 mg QID. move for commitment and court ordered ECT. 09/24: no change in presentation or plan. remains catatonic, adequate PO intake for the moment. taking 8 mg ativan daily without appreciative improvement. 09/25: continue current management and treatment plan. 09/26: Checked labs. CBC without evidence of infection. Chemistries and LFT's stable. Continue monitoring and response to Ativan. 09/27: continue current management and treatment plan. 09/28: continue current mgmt. producing several monosyllabic answers to questions today. filed for commitment. 09/29: awaiting hearing. very modest response to high-dose ativan. hearing next thursday. continue current mgmt for now. 09/30: no change in presentation. continues to appear to take in adequate fluids and food. continue current mgmt. 10/01: outpt regimen of zyprexa 5 BID and lithium 900 QHS restarted. continue ativan [address] thursday. 10/04/23: Court date pending on 10/06/2023 and ?ECT. 10/04: court deferred to next week for SADA. stably catatonic but up for toileting and PO intake, periodically. refusing labs to check electrolytes. 10/05: pt refusing labs. per staff report, does have reasonable PO intake. court scheduled 10/14. continue current mgmt. 10/06: taking meds, modest PO intake. said, what's your name? today. continue current mgmt. 10/08/23 Patient taking medication remains generally nonverbal he did stand up was reportedly eating more would clearly benefit from ECT as becomes available 10/08: one word today, No, in response to request to check labs for lithium and lytes. continue current mgmt. awaiting court for ECT. 10/09: non-verbal. dry lips but per report is eating meals. reorder labs. continue current mgmt otherwise. 10/10: 10/09 lytes reassuring, lithium 0.46. no change in presentation, continue current mgmt. 10/11: mute. some saccades, otherwise immobile. continue current mgmt. 10/12: will benefit from court ordered tx vital signs ok. 10/13: no change in presentation. court tomorrow at 2. decrease ativan from 2 QID to 2 TID both to see if dose reduction changes behavior in any way and in preparation for requested order from the court for ECT. 10/14: noted to be openly masturbating in his room last night, not responsive to redirection by nursing staff. eating breakfast in bed today. nods on being asked if he would like to attend the hearing today. case discussed with SADA Cifuentes. hearing held, pt committed and ECT/meds ordered. 10/15: no change in presentation. taper benzos over w/e. medical clearance for ECT completed at admission by hospitalist service. planning for ECT #1 on thursday morning. 10/16:Continue current plans and regimen 10/17: Continue current plans and regimen. 10/18: more verbal immediately after ECT #1 today, many more and more rapid responses to questions via head gestures as well. 10/19: febrile, elevated WBC. medicine consult called. continues more responsive today than prior. continue current mgmt pending medicine recs. 10/20: no nidus of infection located thus far. U/A WNL, chest XR WNL. continue current mgmt. ECT today. 10/21: appears to have been afebrile over past 24H, reportedly T100.8 post ECT yesterday. case discussed with dr. wyman. to clarify matters, will DC zyprexa and lithium to see if elevated WBC resolves and hyperpyrexia stops. ECT again tomorrow. no change in clinical presentation. 10/22: remains more verbal today, better eye contact. ECT canceled for today due to error in pt's receiving meal tray. ECT #3 scheduled for thursday. 10/24/23 CTP npo order written for tonight 10/26/23 cont ect will restart antipschotic per tx order 10/27/23 ect BT start invega pos awake overnight monitor response 10/28/23 cont ect improvement noted would benefit from further hx ck labs in am 10/28/23 cont ect invega some response noted 10/30 continue same treatment. 10/31 continue same treatment ECT tomorrow. 11/02/23 Cont ect change to hs olanzapine 10 mg 11/03/2023 Patient more verbal osborn affect continue ECT 11/03: received ECT today. sleepy afterward, responding i don't know to most questions. continue current mgmt. 11/04 continue tx plan 11/05: received ECT today. marginal improvement continues. continue current mgmt. 11/06: up and about today, trying exit doors. more verbal than mute, barely. continue current mgmt. 11/07: up and about, mute. continue current mgmt. 11/08: ECT this morning, no issues. up and about. variably cooperative, loitering at exits. 11/09: as for yesterday. continue current mgmt. ECT for tomorrow. 11/10: ECT #9 completed today. improved from yesterday. more verbal, mobile. continues to exit-seek. 11/12/23 more range of affect and fx doing better with ect no adverse effecyts 11/12: more verbal and active on the unit. denies mental illness, says he feels fine, trying exits. ECT #10 completed today. 11/13: Continue current tx plan. 11/14: Pt continues similar to yesterday. Continues to wander unit, trying to exit from [facility] door. Responding to internal stimuli. Pt stated, I want to go home . medication compliant. Continue current tx plan. 11/15: ECT #11 today. declines to speak with MD. no substantial change in presentation over weekend. 11/16: reportedly ECT #12 was yesterday, court order allows for 12 only. seeking extension to [address] up, wandering, trying exits, says he is fine, asking for discharge. hold ECT pending court approval. Reason for continued inpatient stay Substantial Risk for: inability to function and rapid decompensation Time Spent With Patient Time: Total time managing care of this patient today __25__ minutes.
[2023-11-17] MEDS: OLANZapine ODT 10 MG TAB.RAPDIS TRANSLINGU (19:55)
[2023-11-18 07:51] VITALS: BP 106/54; PULSE 89; RESP 16; TEMP 36.9; O2SAT 97
--- NOTE | 2023-11-18 15:52 | HO.PSYCHPN ---
Subjective Subjective Date of Service: 11/18/23 Reason For Visit: catatonia depression Interim History: appearing less rigid, more fluid and rapid in responses. distracted, clearly RIS. laughing uproariously in the fritz apropos of nothing perceivable by the casual observer. per staff, denies Sx, asking for DC. +RIS. visible. pacing. slept 7 hours. Mental Status Exam Mental Status Exam Narrative: disheveled, up and about the unit. variably cooperative. less PMR. more speech, more fluid. wandering the unit affect flexible. mood i'm fine. no SI/HI/AVH expressed. Diagnostics Vital Signs (24Hr): Vital Signs - 24 hr 11/18/23 07:51 Temperature 98.4 F Pulse Rate 89 Respiratory Rate 16 Blood Pressure 106/54 L Pulse Oximetry 97 Oxygen Delivery Method Room Air BMI result Body Mass Index 25.4 Labs 10/20/23 14:13 10/20/23 14:13 Imaging Radiology Impressions: ITS Impressions Chest X-Ray 10/20/23 16:28 IMPRESSION: No acute cardiopulmonary abnormality. Medications Medications Current Medications Acetaminophen (Acetaminophen 325 Mg Tablet) 650 mg PO Q6H PRN PRN Reason: Headache/Pain Mild Scale (1-3) Last Admin: 11/13/23 17:05 Dose: 650 mg Al Hydroxide/Mg Hydroxide (Magnesium Hydrox/Alum Hydrox 30 Ml Oral.Susp) 30 ml PO Q6H PRN PRN Reason: Heartburn/Nausea Hydroxyzine HCl (Hydroxyzine Hcl 25 Mg Tablet) 25 mg PO Q6H PRN PRN Reason: Anxiety Last Admin: 11/08/23 22:37 Dose: 25 mg Magnesium Hydroxide (Milk Of Magnesia 30 Ml Oral.Susp) 30 ml PO DAILY PRN PRN Reason: Constipation Olanzapine (Olanzapine Odt 10 Mg Tab.Rapdis) 10 mg TRANSLINGU Q4H PRN PRN Reason: anxiety/restlessness Last Admin: 11/13/23 16:57 Dose: 10 mg Olanzapine (Olanzapine Odt 10 Mg Tab.Rapdis) 20 mg TRANSLINGU BEDTIME PAM Trazodone HCl (Trazodone Hcl 50 Mg Tablet) 50 mg PO BEDTIME MRX1 PRN PRN Reason: Insomnia Last Admin: 11/12/23 21:13 Dose: 50 mg Allergies Allergies Allergy/AdvReac Type Severity Reaction Status Date / Time No Known Allergies Allergy Verified 11/11/23 07:33 Assessment & Plan Assessment & Plan (1) Catatonia: Status: Acute Code(s): F06.1 - Catatonic disorder due to known physiological condition Plan 09/23: ativan 2 mg QID. move for commitment and court ordered ECT. 09/24: no change in presentation or plan. remains catatonic, adequate PO intake for the moment. taking 8 mg ativan daily without appreciative improvement. 09/25: continue current management and treatment plan. 09/26: Checked labs. CBC without evidence of infection. Chemistries and LFT's stable. Continue monitoring and response to Ativan. 09/27: continue current management and treatment plan. 09/28: continue current mgmt. producing several monosyllabic answers to questions today. filed for commitment. 09/29: awaiting hearing. very modest response to high-dose ativan. hearing next thursday. continue current mgmt for now. 09/30: no change in presentation. continues to appear to take in adequate fluids and food. continue current mgmt. 10/01: outpt regimen of zyprexa 5 BID and lithium 900 QHS restarted. continue ativan [address] thursday. 10/04/23: Court date pending on 10/06/2023 and ?ECT. 10/04: court deferred to next week for SADA. stably catatonic but up for toileting and PO intake, periodically. refusing labs to check electrolytes. 10/05: pt refusing labs. per staff report, does have reasonable PO intake. court scheduled 10/14. continue current mgmt. 10/06: taking meds, modest PO intake. said, what's your name? today. continue current mgmt. 10/08/23 Patient taking medication remains generally nonverbal he did stand up was reportedly eating more would clearly benefit from ECT as becomes available 10/08: one word today, No, in response to request to check labs for lithium and lytes. continue current mgmt. awaiting court for ECT. 10/09: non-verbal. dry lips but per report is eating meals. reorder labs. continue current mgmt otherwise. 10/10: 10/09 lytes reassuring, lithium 0.46. no change in presentation, continue current mgmt. 10/11: mute. some saccades, otherwise immobile. continue current mgmt. 10/12: will benefit from court ordered tx vital signs ok. 10/13: no change in presentation. court tomorrow at 2. decrease ativan from 2 QID to 2 TID both to see if dose reduction changes behavior in any way and in preparation for requested order from the court for ECT. 10/14: noted to be openly masturbating in his room last night, not responsive to redirection by nursing staff. eating breakfast in bed today. nods on being asked if he would like to attend the hearing today. case discussed with SADA Cifuentes. hearing held, pt committed and ECT/meds ordered. 10/15: no change in presentation. taper benzos over w/e. medical clearance for ECT completed at admission by hospitalist service. planning for ECT #1 on thursday morning. 10/16:Continue current plans and regimen 10/17: Continue current plans and regimen. 10/18: more verbal immediately after ECT #1 today, many more and more rapid responses to questions via head gestures as well. 10/19: febrile, elevated WBC. medicine consult called. continues more responsive today than prior. continue current mgmt pending medicine recs. 10/20: no nidus of infection located thus far. U/A WNL, chest XR WNL. continue current mgmt. ECT today. 10/21: appears to have been afebrile over past 24H, reportedly T100.8 post ECT yesterday. case discussed with dr. wyman. to clarify matters, will DC zyprexa and lithium to see if elevated WBC resolves and hyperpyrexia stops. ECT again tomorrow. no change in clinical presentation. 10/22: remains more verbal today, better eye contact. ECT canceled for today due to error in pt's receiving meal tray. ECT #3 scheduled for thursday. 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 10/31 continue same treatment ECT tomorrow. 11/02/23 Cont ect change to hs olanzapine 10 mg 11/03/2023 Patient more verbal osborn affect continue ECT 11/03: received ECT today. sleepy afterward, responding i don't know to most questions. continue current mgmt. 11/04: continue tx plan 11/05: received ECT today. marginal improvement continues. continue current mgmt. 11/06: up and about today, trying exit doors. more verbal than mute, barely. continue current mgmt. 11/07: up and about, mute. continue current mgmt. 11/08: ECT this morning, no issues. up and about. variably cooperative, loitering at exits. 11/09: as for yesterday. continue current mgmt. ECT for tomorrow. 11/10: ECT #9 completed today. improved from yesterday. more verbal, mobile. continues to exit-seek. 11/12/23 more range of affect and fx doing better with ect no adverse effecyts 11/12: more verbal and active on the unit. denies mental illness, says he feels fine, trying exits. ECT #10 completed today. 11/13: Continue current tx plan. 11/14: Pt continues similar to yesterday. Continues to wander unit, trying to exit from [facility] door. Responding to internal stimuli. Pt stated, I want to go home . medication compliant. Continue current tx plan. 11/15: ECT #11 today. declines to speak with MD. no substantial change in presentation over weekend. 11/16: reportedly ECT #12 was yesterday, court order allows for 12 only. seeking extension to [address] up, wandering, trying exits, says he is fine, asking for discharge. hold ECT pending court approval. 11/17: court has approved 8 more ECT sessions. increase zyprexa from 10 mg QHS to 20 mg QHS for ongoing psychotic Sx. Reason for continued inpatient stay Substantial Risk for: inability to function, rapid decompensation and med/psych decompensation Time Spent With Patient Time: Total time managing care of this patient today ____ minutes.
[2023-11-18] MEDS: OLANZapine ODT 10 MG TAB.RAPDIS 20 MG TRANSLINGU (20:10)
--- NOTE | 2023-11-19 06:30 | P.PNPSI_ITS ---
Subjective Subjective Date of Service: 11/19/23 Reason For Visit: catatonia depression Interim History: lying in bed eyes open. mute. closes eyes during attempted interview and does not re-open them. Mental Status Exam Mental Status Exam Patient Appearance: Disheveled Level of Consciousness: Awake Patient Behavior: Guarded Mood Description: Calm Affect Description: Blunted Patient Cognition Impaired: Yes Ability to Follow Directions: Poor Speech Pattern: No Speech Diagnostics Vital Signs (24Hr): Vital Signs - 24 hr 11/18/23 07:51 Temperature 98.4 F Pulse Rate 89 Respiratory Rate 16 Blood Pressure 106/54 L Pulse Oximetry 97 Oxygen Delivery Method Room Air BMI result Body Mass Index 25.4 Labs 10/20/23 14:13 10/20/23 14:13 Imaging Radiology Impressions: ITS Impressions Chest X-Ray 10/20/23 16:28 IMPRESSION: No acute cardiopulmonary abnormality. Medications Medications Current Medications Acetaminophen (Acetaminophen 325 Mg Tablet) 650 mg PO Q6H PRN PRN Reason: Headache/Pain Mild Scale (1-3) Last Admin: 11/13/23 17:05 Dose: 650 mg Al Hydroxide/Mg Hydroxide (Magnesium Hydrox/Alum Hydrox 30 Ml Oral.Susp) 30 ml PO Q6H PRN PRN Reason: Heartburn/Nausea Hydroxyzine HCl (Hydroxyzine Hcl 25 Mg Tablet) 25 mg PO Q6H PRN PRN Reason: Anxiety Last Admin: 11/08/23 22:37 Dose: 25 mg Magnesium Hydroxide (Milk Of Magnesia 30 Ml Oral.Susp) 30 ml PO DAILY PRN PRN Reason: Constipation Olanzapine (Olanzapine Odt 10 Mg Tab.Rapdis) 10 mg TRANSLINGU Q4H PRN PRN Reason: anxiety/restlessness Last Admin: 11/13/23 16:57 Dose: 10 mg Olanzapine (Olanzapine Odt 10 Mg Tab.Rapdis) 20 mg TRANSLINGU BEDTIME PAM Last Admin: 11/18/23 20:10 Dose: 20 mg Trazodone HCl (Trazodone Hcl 50 Mg Tablet) 50 mg PO BEDTIME MRX1 PRN PRN Reason: Insomnia Last Admin: 11/12/23 21:13 Dose: 50 mg Allergies Allergies Allergy/AdvReac Type Severity Reaction Status Date / Time No Known Allergies Allergy Verified 11/11/23 07:33 Assessment & Plan Assessment & Plan (1) Catatonia: Status: Acute Code(s): F06.1 - Catatonic disorder due to known physiological condition Plan 09/23: ativan 2 mg QID. move for commitment and court ordered ECT. 09/24: no change in presentation or plan. remains catatonic, adequate PO intake for the moment. taking 8 mg ativan daily without appreciative improvement. 09/25: continue current management and treatment plan. 09/26: Checked labs. CBC without evidence of infection. Chemistries and LFT's stable. Continue monitoring and response to Ativan. 09/27: continue current management and treatment plan. 09/28: continue current mgmt. producing several monosyllabic answers to questions today. filed for commitment. 09/29: awaiting hearing. very modest response to high-dose ativan. hearing next thursday. continue current mgmt for now. 09/30: no change in presentation. continues to appear to take in adequate fluids and food. continue current mgmt. 10/01: outpt regimen of zyprexa 5 BID and lithium 900 QHS restarted. continue ativan [address] thursday. 10/04/23: Court date pending on 10/06/2023 and ?ECT. 10/04: court deferred to next week for SADA. stably catatonic but up for toileting and PO intake, periodically. refusing labs to check electrolytes. 10/05: pt refusing labs. per staff report, does have reasonable PO intake. court scheduled 10/14. continue current mgmt. 10/06: taking meds, modest PO intake. said, what's your name? today. continue current mgmt. 10/08/23 Patient taking medication remains generally nonverbal he did stand up was reportedly eating more would clearly benefit from ECT as becomes available 10/08: one word today, No, in response to request to check labs for lithium and lytes. continue current mgmt. awaiting court for ECT. 10/09: non-verbal. dry lips but per report is eating meals. reorder labs. continue current mgmt otherwise. 10/10: 10/09 lytes reassuring, lithium 0.46. no change in presentation, continue current mgmt. 10/11: mute. some saccades, otherwise immobile. continue current mgmt. 10/12: will benefit from court ordered tx vital signs ok. 10/13: no change in presentation. court tomorrow at 2. decrease ativan from 2 QID to 2 TID both to see if dose reduction changes behavior in any way and in preparation for requested order from the court for ECT. 10/14: noted to be openly masturbating in his room last night, not responsive to redirection by nursing staff. eating breakfast in bed today. nods on being asked if he would like to attend the hearing today. case discussed with SADA Cifuentes. hearing held, pt committed and ECT/meds ordered. 10/15: no change in presentation. taper benzos over w/e. medical clearance for ECT completed at admission by hospitalist service. planning for ECT #1 on thursday morning. 10/16:Continue current plans and regimen 10/17: Continue current plans and regimen. 10/18: more verbal immediately after ECT #1 today, many more and more rapid responses to questions via head gestures as well. 10/19: febrile, elevated WBC. medicine consult called. continues more responsive today than prior. continue current mgmt pending medicine recs. 10/20: no nidus of infection located thus far. U/A WNL, chest XR WNL. continue current mgmt. ECT today. 10/21: appears to have been afebrile over past 24H, reportedly T100.8 post ECT yesterday. case discussed with dr. wyman. to clarify matters, will DC zyprexa and lithium to see if elevated WBC resolves and hyperpyrexia stops. ECT again tomorrow. no change in clinical presentation. 10/22: remains more verbal today, better eye contact. ECT canceled for today due to error in pt's receiving meal tray. ECT #3 scheduled for thursday. 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 10/31 continue same treatment ECT tomorrow. 11/02/23 Cont ect change to hs olanzapine 10 mg 11/03/2023 Patient more verbal osborn affect continue ECT 11/03: received ECT today. sleepy afterward, responding i don't know to most questions. continue current mgmt. 11/04: continue tx plan 11/05: received ECT today. marginal improvement continues. continue current mgmt. 11/06: up and about today, trying exit doors. more verbal than mute, barely. continue current mgmt. 11/07: up and about, mute. continue current mgmt. 11/08: ECT this morning, no issues. up and about. variably cooperative, loitering at exits. 11/09: as for yesterday. continue current mgmt. ECT for tomorrow. 11/10: ECT #9 completed today. improved from yesterday. more verbal, mobile. continues to exit-seek. 11/12/23 more range of affect and fx doing better with ect no adverse effecyts 11/12: more verbal and active on the unit. denies mental illness, says he feels fine, trying exits. ECT #10 completed today. 11/13: Continue current tx plan. 11/14: Pt continues similar to yesterday. Continues to wander unit, trying to exit from [facility] door. Responding to internal stimuli. Pt stated, I want to go home . medication compliant. Continue current tx plan. 11/15: ECT #11 today. declines to speak with MD. no substantial change in presentation over weekend. 11/16: reportedly ECT #12 was yesterday, court order allows for 12 only. seeking extension to [address] up, wandering, trying exits, says he is fine, asking for discharge. hold ECT pending court approval. 11/17: court has approved 8 more ECT sessions. increase zyprexa from 10 mg QHS to 20 mg QHS for ongoing psychotic Sx. 11/18: awake @0600. mute. ECT tomorrow. Reason for continued inpatient stay Substantial Risk for: inability to function and rapid decompensation Time Spent With Patient Time: Total time managing care of this patient today ____ minutes.
[2023-11-19 08:00] VITALS: BP 121/69; PULSE 100; TEMP 36.8; O2SAT 98
[2023-11-19 20:00] VITALS: BP 117/75; PULSE 89; TEMP 36.7; O2SAT 98
[2023-11-19] MEDS: OLANZapine ODT 10 MG TAB.RAPDIS 20 MG TRANSLINGU (22:15)
[2023-11-20] VITALS (7 sets, daily range): BP systolic 112–141; BP diastolic 56–81; PULSE 92–111; RESP 16–20; TEMP 36.4–36.8; O2SAT 95–98
--- NOTE | 2023-11-20 09:02 | PC.NURSE ---
IVF order requested from aneamanda at [phone]
--- NOTE | 2023-11-20 09:17 | MHC.SHP ---
Pre-Procedural Eval Section A - 24 Hr Update-Section A only Date of Service: 11/20/23 The patient is an INPATIENT: Yes Changes since office visit: Yes Changes in Medication; No Cold of Flu in the past 2 weeks, No New Medical Problems and No Patient answered all questions The patient has been examined within 24 hours of the surgical procedure. The History & Physical has been completed within 30 days and I have reviewed it.: Yes Section B - Complete if H&P > 30 days Chief Complaint: catatonia depression Allergies: Allergies Allergy/AdvReac Type Severity Reaction Status Date / Time No Known Allergies Allergy Verified 11/11/23 07:33 Plan I have reviewed the history and physical and performed a pertinent physical examination on my patient. No changes have occurred unless specified. Time Spent With Patient Time: Total time managing care of this patient today ____ minutes.
--- NOTE | 2023-11-20 13:59 | P.PNPSI_ITS ---
Subjective Subjective Date of Service: 11/20/23 Reason For Visit: catatonia depression Interim History: no apparent RIS, no laughing to himself. states he wishes to go home, explains there are concerns about his ability to care for himself at home. somewhat delayed responses. not irritable or labile. per staff, denies anx/dep. smiley. i don't know in answer to most questions. exit-seeking. odd affect. denies SI/HI. slept about 6 hours. Mental Status Exam Mental Status Exam Narrative: disheveled, up and about the unit. variably cooperative. mod PMR. more speech, more fluid. wandering the unit affect constricted. mood i'm fine. no SI/HI/AVH expressed. Diagnostics Vital Signs (24Hr): Vital Signs - 24 hr 11/19/23 20:00 11/20/23 09:35 11/20/23 09:40 Temperature 98.1 F 97.5 F Pulse Rate 89 103 H 111 H Respiratory Rate 16 20 Blood Pressure 117/75 133/72 141/81 H Pulse Oximetry 98 95 96 Oxygen Delivery Method Room Air Nasal Cannula with ETCO2 Room Air Oxygen Flow Rate 2 11/20/23 09:45 11/20/23 09:50 11/20/23 10:05 Temperature 97.5 F Pulse Rate 109 H 109 H 95 Respiratory Rate 20 20 20 Blood Pressure 129/71 122/75 112/68 Pulse Oximetry 96 96 98 Oxygen Delivery Method Room Air Room Air Room Air Oxygen Flow Rate 11/20/23 10:59 Temperature 98.2 F Pulse Rate 105 H Respiratory Rate 16 Blood Pressure 129/80 Pulse Oximetry 97 Oxygen Delivery Method Oxygen Flow Rate BMI result Body Mass Index 25.4 Labs 10/20/23 14:13 10/20/23 14:13 Imaging Radiology Impressions: ITS Impressions Chest X-Ray 10/20/23 16:28 IMPRESSION: No acute cardiopulmonary abnormality. Medications Medications Current Medications Acetaminophen (Acetaminophen 325 Mg Tablet) 650 mg PO Q6H PRN PRN Reason: Headache/Pain Mild Scale (1-3) Last Admin: 11/13/23 17:05 Dose: 650 mg Al Hydroxide/Mg Hydroxide (Magnesium Hydrox/Alum Hydrox 30 Ml Oral.Susp) 30 ml PO Q6H PRN PRN Reason: Heartburn/Nausea Hydroxyzine HCl (Hydroxyzine Hcl 25 Mg Tablet) 25 mg PO Q6H PRN PRN Reason: Anxiety Last Admin: 11/08/23 22:37 Dose: 25 mg Magnesium Hydroxide (Milk Of Magnesia 30 Ml Oral.Susp) 30 ml PO DAILY PRN PRN Reason: Constipation Olanzapine (Olanzapine Odt 10 Mg Tab.Rapdis) 10 mg TRANSLINGU Q4H PRN PRN Reason: anxiety/restlessness Last Admin: 11/13/23 16:57 Dose: 10 mg Olanzapine (Olanzapine Odt 10 Mg Tab.Rapdis) 20 mg TRANSLINGU BEDTIME PAM Last Admin: 11/19/23 22:15 Dose: 20 mg Trazodone HCl (Trazodone Hcl 50 Mg Tablet) 50 mg PO BEDTIME MRX1 PRN PRN Reason: Insomnia Last Admin: 11/12/23 21:13 Dose: 50 mg Allergies Allergies Allergy/AdvReac Type Severity Reaction Status Date / Time No Known Allergies Allergy Verified 11/11/23 07:33 Assessment & Plan Assessment & Plan (1) Catatonia: Status: Acute Code(s): F06.1 - Catatonic disorder due to known physiological condition Plan 09/23: ativan 2 mg QID. move for commitment and court ordered ECT. 09/24: no change in presentation or plan. remains catatonic, adequate PO intake for the moment. taking 8 mg ativan daily without appreciative improvement. 09/25: continue current management and treatment plan. 09/26: Checked labs. CBC without evidence of infection. Chemistries and LFT's stable. Continue monitoring and response to Ativan. 09/27: continue current management and treatment plan. 09/28: continue current mgmt. producing several monosyllabic answers to questions today. filed for commitment. 09/29: awaiting hearing. very modest response to high-dose ativan. hearing next thursday. continue current mgmt for now. 09/30: no change in presentation. continues to appear to take in adequate fluids and food. continue current mgmt. 10/01: outpt regimen of zyprexa 5 BID and lithium 900 QHS restarted. continue ativan [address] thursday. 10/04/23: Court date pending on 10/06/2023 and ?ECT. 10/04: court deferred to next week for SADA. stably catatonic but up for toileting and PO intake, periodically. refusing labs to check electrolytes. 10/05: pt refusing labs. per staff report, does have reasonable PO intake. court scheduled 10/14. continue current mgmt. 10/06: taking meds, modest PO intake. said, what's your name? today. continue current mgmt. 10/08/23 Patient taking medication remains generally nonverbal he did stand up was reportedly eating more would clearly benefit from ECT as becomes available 10/08: one word today, No, in response to request to check labs for lithium and lytes. continue current mgmt. awaiting court for ECT. 10/09: non-verbal. dry lips but per report is eating meals. reorder labs. continue current mgmt otherwise. 10/10: 10/09 lytes reassuring, lithium 0.46. no change in presentation, continue current mgmt. 10/11: mute. some saccades, otherwise immobile. continue current mgmt. 10/12: will benefit from court ordered tx vital signs ok. 10/13: no change in presentation. court tomorrow at 2. decrease ativan from 2 QID to 2 TID both to see if dose reduction changes behavior in any way and in preparation for requested order from the court for ECT. 10/14: noted to be openly masturbating in his room last night, not responsive to redirection by nursing staff. eating breakfast in bed today. nods on being asked if he would like to attend the hearing today. case discussed with SADA Cifuentes. hearing held, pt committed and ECT/meds ordered. 10/15: no change in presentation. taper benzos over w/e. medical clearance for ECT completed at admission by hospitalist service. planning for ECT #1 on thursday morning. 10/16:Continue current plans and regimen 10/17: Continue current plans and regimen. 10/18: more verbal immediately after ECT #1 today, many more and more rapid responses to questions via head gestures as well. 10/19: febrile, elevated WBC. medicine consult called. continues more responsive today than prior. continue current mgmt pending medicine recs. 10/20: no nidus of infection located thus far. U/A WNL, chest XR WNL. continue current mgmt. ECT today. 10/21: appears to have been afebrile over past 24H, reportedly T100.8 post ECT yesterday. case discussed with dr. wyman. to clarify matters, will DC zyprexa and lithium to see if elevated WBC resolves and hyperpyrexia stops. ECT again tomorrow. no change in clinical presentation. 10/22: remains more verbal today, better eye contact. ECT canceled for today due to error in pt's receiving meal tray. ECT #3 scheduled for thursday. 10/24/23 CTP npo order written for tonight 10/26/23 cont ect will restart antipschotic per tx order 10/27/23 ect BT start invega pos security services specialist response 10/28/23 cont ect improvement noted would benefit from further hx ck labs in am 10/28/23 cont ect invega some response noted 10/30 continue same treatment. 10/31 continue same treatment ECT tomorrow. 11/02/23 Cont ect change to hs olanzapine 10 mg 11/03/2023 Patient more verbal osborn affect continue ECT 11/03: received ECT today. sleepy afterward, responding i don't know to most questions. continue current mgmt. 11/04: continue tx plan 11/05: received ECT today. marginal improvement continues. continue current mgmt. 11/06: up and about today, trying exit doors. more verbal than mute, barely. continue current mgmt. 11/07: up and about, mute. continue current mgmt. 11/08: ECT this morning, no issues. up and about. variably cooperative, loitering at exits. 11/09: as for yesterday. continue current mgmt. ECT for tomorrow. 11/10: ECT #9 completed today. improved from yesterday. more verbal, mobile. continues to exit-seek. 11/12/23 more range of affect and fx doing better with ect no adverse effecyts 11/12: more verbal and active on the unit. denies mental illness, says he feels fine, trying exits. ECT #10 completed today. 11/13: Continue current tx plan. 11/14: Pt continues similar to yesterday. Continues to wander unit, trying to exit from [facility] door. Responding to internal stimuli. Pt stated, I want to go home . medication compliant. Continue current tx plan. 11/15: ECT #11 today. declines to speak with MD. no substantial change in presentation over weekend. 11/16: reportedly ECT #12 was yesterday, court order allows for 12 only. seeking extension to [address] up, wandering, trying exits, says he is fine, asking for discharge. hold ECT pending court approval. 11/17: court has approved 8 more ECT sessions. increase zyprexa from 10 mg QHS to 20 mg QHS for ongoing psychotic Sx. 11/18: awake @0600. mute. ECT tomorrow. 11/19: up and about the unit after ECT. says he doesn't know what ECT is. wants to go home. somewhat slowed but more fluid and spontaneous than many previous days. Reason for continued inpatient stay Substantial Risk for: inability to function and rapid decompensation Time Spent With Patient Time: Total time managing care of this patient today ____ minutes.
[2023-11-20] MEDS: OLANZapine ODT 10 MG TAB.RAPDIS 20 MG TRANSLINGU (20:55)
[2023-11-21 08:00] VITALS: BP 126/67; PULSE 91; TEMP 36.9; O2SAT 97
--- NOTE | 2023-11-21 08:14 | HO.PSYCHPN ---
Subjective Subjective Date of Service: 11/21/23 Reason For Visit: catatonia depression Interim History: met with patient. Discussed with Nursing. Sleep ok. out of his room a lot more and in the milieu. That being said does engage minimally. Some self dialogue. Remains eager for discharge. Emphasized importance of aftercare planning and supports as part of discharge planning, attempted to explore supports in community thats personal . eating and drinking well. Reports feeling okay, does smile os when asked most questions frequently replies i don't know . Review of Systems Review of Systems unremarkable Mental Status Exam Mental Status Exam Narrative: disheveled, up and about the unit. variably cooperative. mod PMR. more speech, more fluid. wandering the unit affect odd. mood i'm fine. no SI/HI/AVH expressed. Diagnostics Vital Signs (24Hr): Vital Signs - 24 hr 11/20/23 09:35 11/20/23 09:40 11/20/23 09:45 Temperature 97.5 F Pulse Rate 103 H 111 H 109 H Respiratory Rate 16 20 20 Blood Pressure 133/72 141/81 H 129/71 Pulse Oximetry 95 96 96 Oxygen Delivery Method Nasal Cannula with ETCO2 Room Air Room Air Oxygen Flow Rate 2 11/20/23 09:50 11/20/23 10:05 11/20/23 10:59 Temperature 97.5 F 98.2 F Pulse Rate 109 H 95 105 H Respiratory Rate 20 20 16 Blood Pressure 122/75 112/68 129/80 Pulse Oximetry 96 98 97 Oxygen Delivery Method Room Air Room Air Oxygen Flow Rate 11/20/23 20:45 Temperature 98.0 F Pulse Rate 92 Respiratory Rate 18 Blood Pressure 121/56 L Pulse Oximetry 97 Oxygen Delivery Method Room Air Oxygen Flow Rate BMI result Body Mass Index 25.4 Labs 10/20/23 14:13 10/20/23 14:13 Imaging Radiology Impressions: ITS Impressions Chest X-Ray 10/20/23 16:28 IMPRESSION: No acute cardiopulmonary abnormality. Medications Medications Current Medications Acetaminophen (Acetaminophen 325 Mg Tablet) 650 mg PO Q6H PRN PRN Reason: Headache/Pain Mild Scale (1-3) Last Admin: 11/13/23 17:05 Dose: 650 mg Al Hydroxide/Mg Hydroxide (Magnesium Hydrox/Alum Hydrox 30 Ml Oral.Susp) 30 ml PO Q6H PRN PRN Reason: Heartburn/Nausea Hydroxyzine HCl (Hydroxyzine Hcl 25 Mg Tablet) 25 mg PO Q6H PRN PRN Reason: Anxiety Last Admin: 11/08/23 22:37 Dose: 25 mg Magnesium Hydroxide (Milk Of Magnesia 30 Ml Oral.Susp) 30 ml PO DAILY PRN PRN Reason: Constipation Olanzapine (Olanzapine Odt 10 Mg Tab.Rapdis) 10 mg TRANSLINGU Q4H PRN PRN Reason: anxiety/restlessness Last Admin: 11/13/23 16:57 Dose: 10 mg Olanzapine (Olanzapine Odt 10 Mg Tab.Rapdis) 20 mg TRANSLINGU BEDTIME PAM Last Admin: 11/20/23 20:55 Dose: 20 mg Trazodone HCl (Trazodone Hcl 50 Mg Tablet) 50 mg PO BEDTIME MRX1 PRN PRN Reason: Insomnia Last Admin: 11/12/23 21:13 Dose: 50 mg Allergies Allergies Allergy/AdvReac Type Severity Reaction Status Date / Time No Known Allergies Allergy Verified 11/11/23 07:33 Assessment & Plan Assessment & Plan (1) Catatonia: Status: Acute Code(s): F06.1 - Catatonic disorder due to known physiological condition Plan 09/23: ativan 2 mg QID. move for commitment and court ordered ECT. 09/24: no change in presentation or plan. remains catatonic, adequate PO intake for the moment. taking 8 mg ativan daily without appreciative improvement. 09/25: continue current management and treatment plan. 09/26: Checked labs. CBC without evidence of infection. Chemistries and LFT's stable. Continue monitoring and response to Ativan. 09/27: continue current management and treatment plan. 09/28: continue current mgmt. producing several monosyllabic answers to questions today. filed for commitment. 09/29: awaiting hearing. very modest response to high-dose ativan. hearing next thursday. continue current mgmt for now. 09/30: no change in presentation. continues to appear to take in adequate fluids and food. continue current mgmt. 10/01: outpt regimen of zyprexa 5 BID and lithium 900 QHS restarted. continue ativan [address] thursday. 10/04/23: Court date pending on 10/06/2023 and ?ECT. 10/04: court deferred to next week for SADA. stably catatonic but up for toileting and PO intake, periodically. refusing labs to check electrolytes. 10/05: pt refusing labs. per staff report, does have reasonable PO intake. court scheduled 10/14. continue current mgmt. 10/06: taking meds, modest PO intake. said, what's your name? today. continue current mgmt. 10/08/23 Patient taking medication remains generally nonverbal he did stand up was reportedly eating more would clearly benefit from ECT as becomes available 10/08: one word today, No, in response to request to check labs for lithium and lytes. continue current mgmt. awaiting court for ECT. 10/09: non-verbal. dry lips but per report is eating meals. reorder labs. continue current mgmt otherwise. 10/10: 10/09 lytes reassuring, lithium 0.46. no change in presentation, continue current mgmt. 10/11: mute. some saccades, otherwise immobile. continue current mgmt. 10/12: will benefit from court ordered tx vital signs ok. 10/13: no change in presentation. court tomorrow at 2. decrease ativan from 2 QID to 2 TID both to see if dose reduction changes behavior in any way and in preparation for requested order from the court for ECT. 10/14: noted to be openly masturbating in his room last night, not responsive to redirection by nursing staff. eating breakfast in bed today. nods on being asked if he would like to attend the hearing today. case discussed with SADA Cifuentes. hearing held, pt committed and ECT/meds ordered. 10/15: no change in presentation. taper benzos over w/e. medical clearance for ECT completed at admission by hospitalist service. planning for ECT #1 on thursday morning. 10/16:Continue current plans and regimen 10/17: Continue current plans and regimen. 10/18: more verbal immediately after ECT #1 today, many more and more rapid responses to questions via head gestures as well. 10/19: febrile, elevated WBC. medicine consult called. continues more responsive today than prior. continue current mgmt pending medicine recs. 10/20: no nidus of infection located thus far. U/A WNL, chest XR WNL. continue current mgmt. ECT today. 10/21: appears to have been afebrile over past 24H, reportedly T100.8 post ECT yesterday. case discussed with dr. wyman. to clarify matters, will DC zyprexa and lithium to see if elevated WBC resolves and hyperpyrexia stops. ECT again tomorrow. no change in clinical presentation. 10/22: remains more verbal today, better eye contact. ECT canceled for today due to error in pt's receiving meal tray. ECT #3 scheduled for thursday. 10/24/23 CTP npo order written for tonight 10/26/23 cont ect will restart antipschotic per tx order 10/27/23 ect BT start invega pos monitor and storage bin tender response 10/28/23 cont ect improvement noted would benefit from further hx ck labs in am 10/28/23 cont ect invega some response noted 10/30 continue same treatment. 10/31 continue same treatment ECT tomorrow. 11/02/23 Cont ect change to hs olanzapine 10 mg 11/03/2023 Patient more verbal osborn affect continue ECT 11/03: received ECT today. sleepy afterward, responding i don't know to most questions. continue current mgmt. 11/04: continue tx plan 11/05: received ECT today. marginal improvement continues. continue current mgmt. 11/06: up and about today, trying exit doors. more verbal than mute, barely. continue current mgmt. 11/07: up and about, mute. continue current mgmt. 11/08: ECT this morning, no issues. up and about. variably cooperative, loitering at exits. 11/09: as for yesterday. continue current mgmt. ECT for tomorrow. 11/10: ECT #9 completed today. improved from yesterday. more verbal, mobile. continues to exit-seek. 11/12/23 more range of affect and fx doing better with ect no adverse effecyts 11/12: more verbal and active on the unit. denies mental illness, says he feels fine, trying exits. ECT #10 completed today. 11/13: Continue current tx plan. 11/14: Pt continues similar to yesterday. Continues to wander unit, trying to exit from [facility] door. Responding to internal stimuli. Pt stated, I want to go home . medication compliant. Continue current tx plan. 11/15: ECT #11 today. declines to speak with MD. no substantial change in presentation over weekend. 11/16: reportedly ECT #12 was yesterday, court order allows for 12 only. seeking extension to [address] up, wandering, trying exits, says he is fine, asking for discharge. hold ECT pending court approval. 11/17: court has approved 8 more ECT sessions. increase zyprexa from 10 mg QHS to 20 mg QHS for ongoing psychotic Sx. 11/18: awake @0600. mute. ECT tomorrow. 11/19: up and about the unit after ECT. says he doesn't know what ECT is. wants to go home. somewhat slowed but more fluid and spontaneous than many previous days. 11/21/2023: No changes. Undergoing ECT Reason for continued inpatient stay Substantial Risk for: inability to function and rapid decompensation Time Spent With Patient Time: Total time managing care of this patient today ____ minutes.
[2023-11-21 20:00] VITALS: BP 124/68; PULSE 96; RESP 18; TEMP 36.9; O2SAT 97
[2023-11-21] MEDS: OLANZapine ODT 10 MG TAB.RAPDIS 20 MG TRANSLINGU (20:33)
[2023-11-22 08:25] VITALS: BP 110/57; PULSE 84; RESP 18; TEMP 36.4; O2SAT 98
--- NOTE | 2023-11-22 10:29 | HO.PSYCHPN ---
Subjective Subjective Date of Service: 11/22/23 Reason For Visit: catatonia depression Interim History: Continues to be out of his room a lot more and in the milieu. Remains eager for discharge. Emphasized importance of aftercare planning and supports as part of discharge planning. Eating and drinking well. Reports feeling okay. Is guarded. Continues to smile when asked most questions frequently replies i don't know . Medication Compliance: Yes Side effects from medications: No Attending Groups: Intermittent Review of Systems Acute medical concerns: No Review of Systems Review of Systems unremarkable Mental Status Exam Mental Status Exam Narrative: disheveled, up and about the unit. variably cooperative. mod PMR. more speech, more fluid. wandering the unit affect odd. mood i'm fine. no SI/HI/AVH expressed. Diagnostics Vital Signs (24Hr): Vital Signs - 24 hr 11/21/23 20:00 11/22/23 08:25 Temperature 98.5 F 97.5 F Pulse Rate 96 84 Respiratory Rate 18 18 Blood Pressure 124/68 110/57 L Pulse Oximetry 97 98 Oxygen Delivery Method Room Air Room Air BMI result Body Mass Index 25.4 Labs 10/20/23 14:13 10/20/23 14:13 Imaging Radiology Impressions: ITS Impressions Chest X-Ray 10/20/23 16:28 IMPRESSION: No acute cardiopulmonary abnormality. Medications Medications Current Medications Acetaminophen (Acetaminophen 325 Mg Tablet) 650 mg PO Q6H PRN PRN Reason: Headache/Pain Mild Scale (1-3) Last Admin: 11/13/23 17:05 Dose: 650 mg Al Hydroxide/Mg Hydroxide (Magnesium Hydrox/Alum Hydrox 30 Ml Oral.Susp) 30 ml PO Q6H PRN PRN Reason: Heartburn/Nausea Hydroxyzine HCl (Hydroxyzine Hcl 25 Mg Tablet) 25 mg PO Q6H PRN PRN Reason: Anxiety Last Admin: 11/08/23 22:37 Dose: 25 mg Magnesium Hydroxide (Milk Of Magnesia 30 Ml Oral.Susp) 30 ml PO DAILY PRN PRN Reason: Constipation Olanzapine (Olanzapine Odt 10 Mg Tab.Rapdis) 10 mg TRANSLINGU Q4H PRN PRN Reason: anxiety/restlessness Last Admin: 11/13/23 16:57 Dose: 10 mg Olanzapine (Olanzapine Odt 10 Mg Tab.Rapdis) 20 mg TRANSLINGU BEDTIME PAM Last Admin: 11/21/23 20:33 Dose: 20 mg Trazodone HCl (Trazodone Hcl 50 Mg Tablet) 50 mg PO BEDTIME MRX1 PRN PRN Reason: Insomnia Last Admin: 11/12/23 21:13 Dose: 50 mg Allergies Allergies Allergy/AdvReac Type Severity Reaction Status Date / Time No Known Allergies Allergy Verified 11/11/23 07:33 Assessment & Plan Assessment & Plan (1) Catatonia: Status: Acute Code(s): F06.1 - Catatonic disorder due to known physiological condition Plan 09/23: ativan 2 mg QID. move for commitment and court ordered ECT. 09/24: no change in presentation or plan. remains catatonic, adequate PO intake for the moment. taking 8 mg ativan daily without appreciative improvement. 09/25: continue current management and treatment plan. 09/26: Checked labs. CBC without evidence of infection. Chemistries and LFT's stable. Continue monitoring and response to Ativan. 09/27: continue current management and treatment plan. 09/28: continue current mgmt. producing several monosyllabic answers to questions today. filed for commitment. 09/29: awaiting hearing. very modest response to high-dose ativan. hearing next thursday. continue current mgmt for now. 09/30: no change in presentation. continues to appear to take in adequate fluids and food. continue current mgmt. 10/01: outpt regimen of zyprexa 5 BID and lithium 900 QHS restarted. continue ativan [address] thursday. 10/04/23: Court date pending on 10/06/2023 and ?ECT. 10/04: court deferred to next week for SADA. stably catatonic but up for toileting and PO intake, periodically. refusing labs to check electrolytes. 10/05: pt refusing labs. per staff report, does have reasonable PO intake. court scheduled 10/14. continue current mgmt. 10/06: taking meds, modest PO intake. said, what's your name? today. continue current mgmt. 10/08/23 Patient taking medication remains generally nonverbal he did stand up was reportedly eating more would clearly benefit from ECT as becomes available 10/08: one word today, No, in response to request to check labs for lithium and lytes. continue current mgmt. awaiting court for ECT. 10/09: non-verbal. dry lips but per report is eating meals. reorder labs. continue current mgmt otherwise. 10/10: 10/09 lytes reassuring, lithium 0.46. no change in presentation, continue current mgmt. 10/11: mute. some saccades, otherwise immobile. continue current mgmt. 10/12: will benefit from court ordered tx vital signs ok. 10/13: no change in presentation. court tomorrow at 2. decrease ativan from 2 QID to 2 TID both to see if dose reduction changes behavior in any way and in preparation for requested order from the court for ECT. 10/14: noted to be openly masturbating in his room last night, not responsive to redirection by nursing staff. eating breakfast in bed today. nods on being asked if he would like to attend the hearing today. case discussed with SADA Cifuentes. hearing held, pt committed and ECT/meds ordered. 10/15: no change in presentation. taper benzos over w/e. medical clearance for ECT completed at admission by hospitalist service. planning for ECT #1 on thursday morning. 10/16:Continue current plans and regimen 10/17: Continue current plans and regimen. 10/18: more verbal immediately after ECT #1 today, many more and more rapid responses to questions via head gestures as well. 10/19: febrile, elevated WBC. medicine consult called. continues more responsive today than prior. continue current mgmt pending medicine recs. 10/20: no nidus of infection located thus far. U/A WNL, chest XR WNL. continue current mgmt. ECT today. 10/21: appears to have been afebrile over past 24H, reportedly T100.8 post ECT yesterday. case discussed with dr. wyman. to clarify matters, will DC zyprexa and lithium to see if elevated WBC resolves and hyperpyrexia stops. ECT again tomorrow. no change in clinical presentation. 10/22: remains more verbal today, better eye contact. ECT canceled for today due to error in pt's receiving meal tray. ECT #3 scheduled for thursday. 10/24/23 CTP npo order written for tonight 10/26/23 cont ect will restart antipschotic per tx order 10/27/23 ect BT start invega pos cardiac monitor technician response 10/28/23 cont ect improvement noted would benefit from further hx ck labs in am 10/28/23 cont ect invega some response noted 10/30 continue same treatment. 10/31 continue same treatment ECT tomorrow. 11/02/23 Cont ect change to hs olanzapine 10 mg 11/03/2023 Patient more verbal osborn affect continue ECT 11/03: received ECT today. sleepy afterward, responding i don't know to most questions. continue current mgmt. 11/04: continue tx plan 11/05: received ECT today. marginal improvement continues. continue current mgmt. 11/06: up and about today, trying exit doors. more verbal than mute, barely. continue current mgmt. 11/07: up and about, mute. continue current mgmt. 11/08: ECT this morning, no issues. up and about. variably cooperative, loitering at exits. 11/09: as for yesterday. continue current mgmt. ECT for tomorrow. 11/10: ECT #9 completed today. improved from yesterday. more verbal, mobile. continues to exit-seek. 11/12/23 more range of affect and fx doing better with ect no adverse effecyts 11/12: more verbal and active on the unit. denies mental illness, says he feels fine, trying exits. ECT #10 completed today. 11/13: Continue current tx plan. 11/14: Pt continues similar to yesterday. Continues to wander unit, trying to exit from [place] door. Responding to internal stimuli. Pt stated, I want to go home . medication compliant. Continue current tx plan. 11/15: ECT #11 today. declines to speak with MD. no substantial change in presentation over weekend. 11/16: reportedly ECT #12 was yesterday, court order allows for 12 only. seeking extension to [address] up, wandering, trying exits, says he is fine, asking for discharge. hold ECT pending court approval. 11/17: court has approved 8 more ECT sessions. increase zyprexa from 10 mg QHS to 20 mg QHS for ongoing psychotic Sx. 11/18: awake @0600. mute. ECT tomorrow. 11/19: up and about the unit after ECT. says he doesn't know what ECT is. wants to go home. somewhat slowed but more fluid and spontaneous than many previous days. 11/22/2023: No changes. Undergoing ECT and adherent with olanzapine Reason for continued inpatient stay Substantial Risk for: inability to function Time Spent With Patient Time: Total time managing care of this patient today ____ minutes.
[2023-11-22 20:00] VITALS: RESP 16
[2023-11-22] MEDS: OLANZapine ODT 10 MG TAB.RAPDIS 20 MG TRANSLINGU (20:23)
[2023-11-23] VITALS (12 sets, daily range): BP systolic 94–133; BP diastolic 56–82; PULSE 75–110; RESP 16–20; TEMP 36.4–37.3; O2SAT 94–98
--- NOTE | 2023-11-23 06:46 | HO.ANESPROP2 ---
[facility] Active Problems Active Problems: All Active Problems Catatonia (Acute) Routine medical exam (Acute) Past Medical History Medical History No pertinent past medical history Functional capacity: independent ambulation Family History Family history of problems with anesthesia: No Surgical History History of Problems with Anesthesia: No Social History Social History Household Members: Other Household Members Other:: Unknown Do you presently have visiting nurse or other home services: No (Unknown) Comment: Patient on constant observation Patient Tobacco Use Status: Never used Tobacco e-Cigarette/Vaping Use: Never Used Second Hand Smoke Exposure: No Sexual orientation: Unable to collect Meds Allergies Allergy/AdvReac Type Severity Reaction Status Date / Time No Known Allergies Allergy Verified 11/11/23 07:33 Active Medications: Current Medications Acetaminophen (Acetaminophen 325 Mg Tablet) 650 mg PO Q6H PRN PRN Reason: Headache/Pain Mild Scale (1-3) Last Admin: 11/13/23 17:05 Dose: 650 mg Al Hydroxide/Mg Hydroxide (Magnesium Hydrox/Alum Hydrox 30 Ml Oral.Susp) 30 ml PO Q6H PRN PRN Reason: Heartburn/Nausea Hydroxyzine HCl (Hydroxyzine Hcl 25 Mg Tablet) 25 mg PO Q6H PRN PRN Reason: Anxiety Last Admin: 11/08/23 22:37 Dose: 25 mg Magnesium Hydroxide (Milk Of Magnesia 30 Ml Oral.Susp) 30 ml PO DAILY PRN PRN Reason: Constipation Olanzapine (Olanzapine Odt 10 Mg Tab.Rapdis) 10 mg TRANSLINGU Q4H PRN PRN Reason: anxiety/restlessness Last Admin: 11/13/23 16:57 Dose: 10 mg Olanzapine (Olanzapine Odt 10 Mg Tab.Rapdis) 20 mg TRANSLINGU BEDTIME PAM Last Admin: 11/22/23 20:23 Dose: 20 mg Trazodone HCl (Trazodone Hcl 50 Mg Tablet) 50 mg PO BEDTIME MRX1 PRN PRN Reason: Insomnia Last Admin: 11/12/23 21:13 Dose: 50 mg Home Medications ?Medication ?Instructions ?Recorded ?Confirmed ?Last Taken ?Type No Known Home Meds 10/09/23 10/09/23 Unknown History Exam Height,Weight and Vital Signs: Height 5 ft 5 in Weight 69.309 kg Last Vital Signs Temp 97.8 F 11/23/23 06:29 Pulse 87 11/23/23 06:29 Resp 16 11/23/23 06:29 BP 119/70 11/23/23 06:29 Pulse Ox 98 11/23/23 06:29 O2 Del Method Room Air 11/23/23 06:29 O2 Flow Rate 2 11/20/23 09:35 Pertinent Lab Results Pertinent Lab Results: Laboratory Tests 09/23/23 09/27/23 10/10/23 02:20 11:15 14:55 WBC 6.1 RBC 4.83 Hgb 15.0 Hct 44.6 MCV 92.3 MCH 31.1 MCHC 33.6 RDW 11.8 Plt Count 300 MPV 8.9 L Immature Gran % (Auto) 0.5 H Neut % (Auto) 71.0 Lymph % (Auto) 22.0 [place] % (Auto) 4.2 Eos % (Auto) 1.8 Baso % (Auto) 0.5 Lymph # (Auto) 1.4 [place] # (Auto) 0.3 Eos # (Auto) 0.1 Baso # (Auto) 0.0 Abs Immat Gran (auto) 0.03 Absolute Neuts (auto) 4.4 Absolute Nucleated RBC 0.000 Nucleated RBC % (auto) 0.0 ESR Sodium 142 141 Potassium 3.8 3.6 Chloride 105 109 H Carbon Dioxide 28 24 Anion Gap 13 12 BUN 8 L 9 Creatinine 0.79 0.86 Estim Creat Clear Calc 126.5 116.2 Estimated GFR > 60 > 60 Random Glucose 112 110 Calcium 9.3 9.7 Total Bilirubin 0.4 Direct Bilirubin 0.2 AST 10 ALT 9 Alkaline Phosphatase 61 Total Creatine Kinase 66 C-Reactive Protein Total Protein 7.2 Albumin 4.3 Vitamin B12 Folate TSH Free T4 Urine Color Urine Appearance Urine pH Ur Specific [place] Urine Protein Urine Glucose (UA) Urine Ketones Urine Blood Urine Nitrite Ur Leukocyte Esterase Urine RBC Urine WBC Ur Squamous Epith Cells Urine Bacteria Hyaline Casts Comp[place] 0.46 L ANNIE Screen ANNIE Titer ANNIE Titer 2 ANNIE Titer 3 ANNIE Pattern ANNIE Pattern 2 ANNIE Pattern 3 Respiratory Panel Pugh Adenovirus (Rapid PCR) B.pert (TEM-PCR) B.parapertussis DNA PCR C. pneumoniae DNA (PCR) Coronavirus OC43 (PCR) Coronavirus HKU1 (PCR) Coronavirus 229E (PCR) Coronavirus NL63 (PCR) Human Metapneumovir PCR Influenza A (RT-PCR) Influenza Type A (PCR) NEGATIVE Influenza B (RT-PCR) Influenza Type B (PCR) NEGATIVE M. pneumoniae (PCR) Parainfluenza 1 (PCR) Parainfluenza 2 (PCR) Parainfluenza 3 (PCR) Parainfluenza 4 (PCR) RSV (PCR) RSV RNA Qual (PCR) NEGATIVE Entero/Rhino (PCR) SARS-CoV-2 RNA (RT-PCR) NEGATIVE 10/20/23 10/20/23 10/20/23 14:13 16:39 17:10 WBC 11.7 H RBC 4.64 Hgb 14.5 Hct 41.2 L MCV 88.8 MCH 31.3 MCHC 35.2 RDW 11.7 Plt Count 263 MPV 9.0 L Immature Gran % (Auto) 0.3 Neut % (Auto) 78.3 H Lymph % (Auto) 12.0 L [place] % (Auto) 5.7 Eos % (Auto) 3.4 Baso % (Auto) 0.3 Lymph # (Auto) 1.4 [place] # (Auto) 0.7 Eos # (Auto) 0.4 Baso # (Auto) 0.0 Abs Immat Gran (auto) 0.04 H Absolute Neuts (auto) 9.1 H Absolute Nucleated RBC 0.000 Nucleated RBC % (auto) 0.0 ESR Sodium 142 Potassium 3.7 Chloride 108 Carbon Dioxide 27 Anion Gap 11 L BUN 10 Creatinine 0.96 Estim Creat Clear Calc 104.1 Estimated GFR > 60 Random Glucose 106 Calcium 9.3 Total Bilirubin Direct Bilirubin AST ALT Alkaline Phosphatase Total Creatine Kinase C-Reactive Protein Total Protein Albumin Vitamin B12 Folate TSH Free T4 Urine Color Yellow Urine Appearance Clear Urine pH 7.0 Ur Specific [place] 1.015 Urine Protein Negative Urine Glucose (UA) Negative Urine Ketones Negative Urine Blood Trace H Urine Nitrite Negative Ur Leukocyte Esterase Negative Urine RBC 6-10 H Urine WBC 0-5 Ur Squamous Epith Cells 0-2 Urine Bacteria None Seen Hyaline Casts 0-2 Compo ANNIE Screen ANNIE Titer ANNIE Titer 2 ANNIE Titer 3 ANNIE Pattern ANNIE Pattern 2 ANNIE Pattern 3 Respiratory Panel Pugh See Note Adenovirus (Rapid PCR) Not Detected B.pert (TEM-PCR) Not Detected B.parapertussis DNA PCR Not Detected C. pneumoniae DNA (PCR) Not Detected Coronavirus OC43 (PCR) Not Detected Coronavirus HKU1 (PCR) Not Detected Coronavirus 229E (PCR) Not Detected Coronavirus NL63 (PCR) Not Detected Human Metapneumovir PCR Not Detected Influenza A (RT-PCR) Not Detected Influenza Type A (PCR) Influenza B (RT-PCR) Not Detected Influenza Type B (PCR) M. pneumoniae (PCR) Not Detected Parainfluenza 1 (PCR) Not Detected Parainfluenza 2 (PCR) Not Detected Parainfluenza 3 (PCR) Not Detected Parainfluenza 4 (PCR) Not Detected RSV (PCR) Not Detected RSV RNA Qual (PCR) Entero/Rhino (PCR) Not Detected SARS-CoV-2 RNA (RT-PCR) Not Detected 10/25/23 10/30/23 06:56 07:49 WBC RBC Hgb Hct MCV MCH MCHC RDW Plt Count MPV Immature Gran % (Auto) Neut % (Auto) Lymph % (Auto) [place] % (Auto) Eos % (Auto) Baso % (Auto) Lymph # (Auto) [place] # (Auto) Eos # (Auto) Baso # (Auto) Abs Immat Gran (auto) Absolute Neuts (auto) Absolute Nucleated RBC Nucleated RBC % (auto) ESR 14 16 H Sodium Potassium Chloride Carbon Dioxide Anion Gap BUN Creatinine Estim Creat Clear Calc Estimated GFR Random Glucose Calcium Total Bilirubin Direct Bilirubin AST ALT Alkaline Phosphatase Total Creatine Kinase 281 H C-Reactive Protein 1.24 H Total Protein Albumin Vitamin B12 258 Folate 8.8 TSH 4.24 H Free T4 1.08 Urine Color Urine Appearance Urine pH Ur Specific [place] Urine Protein Urine Glucose (UA) Urine Ketones Urine Blood Urine Nitrite Ur Leukocyte Esterase Urine RBC Urine WBC Ur Squamous Epith Cells Urine Bacteria Hyaline Casts [place] ANNIE Screen NEGATIVE ANNIE Titer TNP ANNIE Titer 2 TNP ANNIE Titer 3 TNP ANNIE Pattern TNP ANNIE Pattern 2 TNP ANNIE Pattern 3 TNP Respiratory Panel Pugh Adenovirus (Rapid PCR) B.pert (TEM-PCR) B.parapertussis DNA PCR C. pneumoniae DNA (PCR) Coronavirus OC43 (PCR) Coronavirus HKU1 (PCR) Coronavirus 229E (PCR) Coronavirus NL63 (PCR) Human Metapneumovir PCR Influenza A (RT-PCR) Influenza Type A (PCR) Influenza B (RT-PCR) Influenza Type B (PCR) M. pneumoniae (PCR) Parainfluenza 1 (PCR) Parainfluenza 2 (PCR) Parainfluenza 3 (PCR) Parainfluenza 4 (PCR) RSV (PCR) RSV RNA Qual (PCR) Entero/Rhino (PCR) SARS-CoV-2 RNA (RT-PCR) Airway Mallampati Class: II TM Dist: >3cm Neck ROM: Full Heart: rrr Lungs: cta Assessment and Plan Assessment Anesthesia Assessment: Anesthesia Plan Discussed and Chart Reviewed Final Anesthetic Review Family History of Problems with Anesthesia: No History of Problems with Anesthesia: No NPO: Yes ASA Class: III Final Preanesthetic Review: No Changes in Pt Med Stat, Meds/Allgs Chart Reviewed and Consent Obtained/Reviewed Patient Risk: Intermediate Procedure Risk: Intermediate Anesthetic Plan Anesthetic Plan: GA Disposition: Standard PACU
[2023-11-23] MEDS: Lactated Ringers 1,000 ML 50 ML IVCONT (06:58)
--- NOTE | 2023-11-23 07:06 | MHC.SHP ---
Pre-Procedural Eval Section A - 24 Hr Update-Section A only Date of Service: 11/23/23 The patient is an INPATIENT: Yes Changes since office visit: No Cold of Flu in the past 2 weeks, No New Medical Problems, No Changes in Medication and No Patient answered all questions The patient has been examined within 24 hours of the surgical procedure. The History & Physical has been completed within 30 days and I have reviewed it.: Yes Section B - Complete if H&P > 30 days Chief Complaint: catatonia depression Allergies: Allergies Allergy/AdvReac Type Severity Reaction Status Date / Time No Known Allergies Allergy Verified 11/11/23 07:33 Plan I have reviewed the history and physical and performed a pertinent physical examination on my patient. No changes have occurred unless specified. Time Spent With Patient Time: Total time managing care of this patient today ____ minutes.
--- NOTE | 2023-11-23 07:23 | HO.ECTPROC ---
ECT Procedure Note Diagnosis/Treatment Date of Service: 11/23/23 Diagnosis: Catatonia Previous ECT Date: 11/16/23 Current Treatment Number: 10 Treatment: Series Interval Clinical Notes: The patient is now awake and alert, able to respond some simple questions. Still psychotic but less restless. Unable to remember if he had side effects with the previous ECT. ECT done as usual bitemperal, no complications. Woke up well, glycopyrrolate give as per last ECT. Time: Total time managing care of this patient today ____ minutes. ECT Settings Device: THYMATRON DGx Electrode Placement: Bitemporal Program/Pulse Width: 0.50 Energy Percent: 100 Seizure Duration By EEG (in seconds): 24 By Motor Observation (in seconds): 24 Medications Administration General Anesthetic: Etomidate (16) Muscle Relaxant: Succinylcholine (100) Ancillary Medications Anti-emetics: Zofran - Pre ECT Cardiovascular Medications: Glycopyrrolate (0.2) Miscillaneous Medications: Midazolam (2 mg post ECT) Airway Management Airway Management: Bag Mask Ventilation Treatment Recommendations No Changes Recommended: No change Pt Tolerated Procedure w/o Issue: Yes
--- NOTE | 2023-11-23 09:28 | P.PNPSI_ITS ---
Subjective Subjective Date of Service: 11/23/23 Reason For Visit: catatonia depression Subjective Notes: Section 8 Interim History: Patient had ECT with effect. Tolerated well somewhat sedated after olanzapine increased to 30 mg daily continues to have problems with thought blocking Medication Compliance: Yes Mental Status Exam Mental Status Exam Narrative: disheveled, up and about the unit. Somewhat passive mod PMR. more speech, more fluid. wandering the unit affect flat with periods of expansiveness mood i'm fine. no SI/HI/AVH expressed. Diagnostics Vital Signs (24Hr): Vital Signs - 24 hr 11/22/23 20:00 11/23/23 05:38 11/23/23 06:29 Temperature 97.6 F 97.8 F Pulse Rate 75 87 Respiratory Rate 16 16 16 Blood Pressure 113/64 119/70 Pulse Oximetry 98 98 Oxygen Delivery Method Room Air Oxygen Flow Rate 11/23/23 07:27 11/23/23 07:33 11/23/23 07:39 Temperature 98.3 F Pulse Rate 103 H 109 H 110 H Respiratory Rate 20 18 20 Blood Pressure 133/82 127/79 121/75 Pulse Oximetry 98 95 95 Oxygen Delivery Method Nasal Cannula Room Air Room Air Oxygen Flow Rate 2 11/23/23 07:43 11/23/23 07:59 11/23/23 08:16 Temperature Pulse Rate 98 86 85 Respiratory Rate 20 18 18 Blood Pressure 118/65 102/63 112/63 Pulse Oximetry 94 95 97 Oxygen Delivery Method Room Air Room Air Oxygen Flow Rate 11/23/23 08:32 11/23/23 08:52 11/23/23 08:54 Temperature 98.5 F 98.5 F 98.5 F Pulse Rate 86 100 100 Respiratory Rate 18 16 16 Blood Pressure 94/56 L 118/82 118/82 Pulse Oximetry 97 98 98 Oxygen Delivery Method Room Air Room Air Oxygen Flow Rate BMI result Body Mass Index 25.4 Labs 10/20/23 14:13 10/20/23 14:13 Imaging Radiology Impressions: ITS Impressions Chest X-Ray 10/20/23 16:28 IMPRESSION: No acute cardiopulmonary abnormality. Medications Medications Current Medications Acetaminophen (Acetaminophen 325 Mg Tablet) 650 mg PO Q6H PRN PRN Reason: Headache/Pain Mild Scale (1-3) Last Admin: 11/13/23 17:05 Dose: 650 mg Al Hydroxide/Mg Hydroxide (Magnesium Hydrox/Alum Hydrox 30 Ml Oral.Susp) 30 ml PO Q6H PRN PRN Reason: Heartburn/Nausea Hydroxyzine HCl (Hydroxyzine Hcl 25 Mg Tablet) 25 mg PO Q6H PRN PRN Reason: Anxiety Last Admin: 11/08/23 22:37 Dose: 25 mg Magnesium Hydroxide (Milk Of Magnesia 30 Ml Oral.Susp) 30 ml PO DAILY PRN PRN Reason: Constipation Olanzapine (Olanzapine Odt 10 Mg Tab.Rapdis) 10 mg TRANSLINGU Q4H PRN PRN Reason: anxiety/restlessness Last Admin: 11/13/23 16:57 Dose: 10 mg Olanzapine (Olanzapine Odt 10 Mg Tab.Rapdis) 20 mg TRANSLINGU BEDTIME PAM Last Admin: 11/22/23 20:23 Dose: 20 mg Trazodone HCl (Trazodone Hcl 50 Mg Tablet) 50 mg PO BEDTIME MRX1 PRN PRN Reason: Insomnia Last Admin: 11/12/23 21:13 Dose: 50 mg Allergies Allergies Allergy/AdvReac Type Severity Reaction Status Date / Time No Known Allergies Allergy Verified 11/11/23 07:33 Assessment & Plan Assessment & Plan (1) Catatonia: Status: Acute Code(s): F06.1 - Catatonic disorder due to known physiological condition Plan 09/23: ativan 2 mg QID. move for commitment and court ordered ECT. 09/24: no change in presentation or plan. remains catatonic, adequate PO intake for the moment. taking 8 mg ativan daily without appreciative improvement. 09/25: continue current management and treatment plan. 09/26: Checked labs. CBC without evidence of infection. Chemistries and LFT's stable. Continue monitoring and response to Ativan. 09/27: continue current management and treatment plan. 09/28: continue current mgmt. producing several monosyllabic answers to questions today. filed for commitment. 09/29: awaiting hearing. very modest response to high-dose ativan. hearing next thursday. continue current mgmt for now. 09/30: no change in presentation. continues to appear to take in adequate fluids and food. continue current mgmt. 10/01: outpt regimen of zyprexa 5 BID and lithium 900 QHS restarted. continue ativan [address] thursday. 10/04/23: Court date pending on 10/06/2023 and ?ECT. 10/04: court deferred to next week for SADA. stably catatonic but up for toileting and PO intake, periodically. refusing labs to check electrolytes. 10/05: pt refusing labs. per staff report, does have reasonable PO intake. court scheduled 10/14. continue current mgmt. 10/06: taking meds, modest PO intake. said, what's your name? today. continue current mgmt. 10/08/23 Patient taking medication remains generally nonverbal he did stand up was reportedly eating more would clearly benefit from ECT as becomes available 10/08: one word today, No, in response to request to check labs for lithium and lytes. continue current mgmt. awaiting court for ECT. 10/09: non-verbal. dry lips but per report is eating meals. reorder labs. continue current mgmt otherwise. 10/10: 10/09 lytes reassuring, lithium 0.46. no change in presentation, continue current mgmt. 10/11: mute. some saccades, otherwise immobile. continue current mgmt. 10/12: will benefit from court ordered tx vital signs ok. 10/13: no change in presentation. court tomorrow at 2. decrease ativan from 2 QID to 2 TID both to see if dose reduction changes behavior in any way and in preparation for requested order from the court for ECT. 10/14: noted to be openly masturbating in his room last night, not responsive to redirection by nursing staff. eating breakfast in bed today. nods on being asked if he would like to attend the hearing today. case discussed with SADA Cifuentes. hearing held, pt committed and ECT/meds ordered. 10/15: no change in presentation. taper benzos over w/e. medical clearance for ECT completed at admission by hospitalist service. planning for ECT #1 on thursday morning. 10/16:Continue current plans and regimen 10/17: Continue current plans and regimen. 10/18: more verbal immediately after ECT #1 today, many more and more rapid responses to questions via head gestures as well. 10/19: febrile, elevated WBC. medicine consult called. continues more responsive today than prior. continue current mgmt pending medicine recs. 10/20: no nidus of infection located thus far. U/A WNL, chest XR WNL. continue current mgmt. ECT today. 10/21: appears to have been afebrile over past 24H, reportedly T100.8 post ECT yesterday. case discussed with dr. wyman. to clarify matters, will DC zyprexa and lithium to see if elevated WBC resolves and hyperpyrexia stops. ECT again tomorrow. no change in clinical presentation. 10/22: remains more verbal today, better eye contact. ECT canceled for today due to error in pt's receiving meal tray. ECT #3 scheduled for thursday. 10/24/23 CTP npo order written for tonight 10/26/23 cont ect will restart antipschotic per tx order 10/27/23 ect BT start invega pos vehicle monitor technician response 10/28/23 cont ect improvement noted would benefit from further hx ck labs in am 10/28/23 cont ect invega some response noted 10/30 continue same treatment. 10/31 continue same treatment ECT tomorrow. 11/02/23 Cont ect change to hs olanzapine 10 mg 11/03/2023 Patient more verbal osborn affect continue ECT 11/03: received ECT today. sleepy afterward, responding i don't know to most questions. continue current mgmt. 11/04: continue tx plan 11/05: received ECT today. marginal improvement continues. continue current mgmt. 11/06: up and about today, trying exit doors. more verbal than mute, barely. continue current mgmt. 11/07: up and about, mute. continue current mgmt. 11/08: ECT this morning, no issues. up and about. variably cooperative, loitering at exits. 11/09: as for yesterday. continue current mgmt. ECT for tomorrow. 11/10: ECT #9 completed today. improved from yesterday. more verbal, mobile. continues to exit-seek. 11/12/23 more range of affect and fx doing better with ect no adverse effecyts 11/12: more verbal and active on the unit. denies mental illness, says he feels fine, trying exits. ECT #10 completed today. 11/13: Continue current tx plan. 11/14: Pt continues similar to yesterday. Continues to wander unit, trying to exit from [facility] door. Responding to internal stimuli. Pt stated, I want to go home . medication compliant. Continue current tx plan. 11/15: ECT #11 today. declines to speak with MD. no substantial change in presentation over weekend. 11/16: reportedly ECT #12 was yesterday, court order allows for 12 only. seeking extension to [address] up, wandering, trying exits, says he is fine, asking for discharge. hold ECT pending court approval. 11/17: court has approved 8 more ECT sessions. increase zyprexa from 10 mg QHS to 20 mg QHS for ongoing psychotic Sx. 11/18: awake @0600. mute. ECT tomorrow. 11/19: up and about the unit after ECT. says he doesn't know what ECT is. wants to go home. somewhat slowed but more fluid and spontaneous than many previous days. 11/22/2023: No changes. Undergoing ECT and adherent with olanzapine 11/23/2023 Continue olanzapine continue ECT Reason for continued inpatient stay Substantial Risk for: inability to function and rapid decompensation Time Spent With Patient Time: Total time managing care of this patient today ____ minutes.
[2023-11-23] MEDS: OLANZapine ODT 10 MG TAB.RAPDIS 20 MG TRANSLINGU (20:50)
[2023-11-24 08:00] VITALS: BP 117/58; PULSE 85; RESP 14; TEMP 36.4; O2SAT 98
[2023-11-24 20:00] VITALS: BP 110/58; PULSE 89; RESP 18; TEMP 37.1; O2SAT 97
[2023-11-24] MEDS: OLANZapine ODT 10 MG TAB.RAPDIS 20 MG TRANSLINGU (20:35)
--- NOTE | 2023-11-24 22:32 | P.PNPSI_ITS ---
Subjective Subjective Date of Service: 11/24/23 Reason For Visit: catatonia depression Subjective Notes: Section 8 Healthcare Proxy: No Interim History: Patient generally remains internally preoccupied with thought blocking but can be more verbal. He state that he was his mother and brother he states he can [place] that he went to high school still seems to have difficulty processing information Mental Status Exam Mental Status Exam Narrative: Patient intermittently active and engaged. Continues with difficulty processing information somewhat improved some periods of expansiveness mod PMR. more speech, more fluid. wandering the unit affect flat with periods of expansiveness mood i'm fine. no SI/HI/AVH expressed. Diagnostics Vital Signs (24Hr): Vital Signs - 24 hr 11/24/23 08:00 11/24/23 20:00 Temperature 97.5 F 98.7 F Pulse Rate 85 89 Respiratory Rate 14 18 Blood Pressure 117/58 L 110/58 L Pulse Oximetry 98 97 Oxygen Delivery Method Room Air Room Air BMI result Body Mass Index 25.4 Labs 10/20/23 14:13 10/20/23 14:13 Imaging Radiology Impressions: ITS Impressions Chest X-Ray 10/20/23 16:28 IMPRESSION: No acute cardiopulmonary abnormality. Medications Medications Current Medications Acetaminophen (Acetaminophen 325 Mg Tablet) 650 mg PO Q6H PRN PRN Reason: Headache/Pain Mild Scale (1-3) Last Admin: 11/13/23 17:05 Dose: 650 mg Al Hydroxide/Mg Hydroxide (Magnesium Hydrox/Alum Hydrox 30 Ml Oral.Susp) 30 ml PO Q6H PRN PRN Reason: Heartburn/Nausea Hydroxyzine HCl (Hydroxyzine Hcl 25 Mg Tablet) 25 mg PO Q6H PRN PRN Reason: Anxiety Last Admin: 11/08/23 22:37 Dose: 25 mg Magnesium Hydroxide (Milk Of Magnesia 30 Ml Oral.Susp) 30 ml PO DAILY PRN PRN Reason: Constipation Olanzapine (Olanzapine Odt 10 Mg Tab.Rapdis) 10 mg TRANSLINGU Q4H PRN PRN Reason: anxiety/restlessness Last Admin: 11/13/23 16:57 Dose: 10 mg Olanzapine (Olanzapine Odt 10 Mg Tab.Rapdis) 20 mg TRANSLINGU BEDTIME PAM Last Admin: 11/24/23 20:35 Dose: 20 mg Trazodone HCl (Trazodone Hcl 50 Mg Tablet) 50 mg PO BEDTIME MRX1 PRN PRN Reason: Insomnia Last Admin: 11/12/23 21:13 Dose: 50 mg Allergies Allergies Allergy/AdvReac Type Severity Reaction Status Date / Time No Known Allergies Allergy Verified 11/11/23 07:33 Assessment & Plan Assessment & Plan (1) Catatonia: Status: Acute Code(s): F06.1 - Catatonic disorder due to known physiological condition Plan 09/23: ativan 2 mg QID. move for commitment and court ordered ECT. 09/24: no change in presentation or plan. remains catatonic, adequate PO intake for the moment. taking 8 mg ativan daily without appreciative improvement. 09/25: continue current management and treatment plan. 09/26: Checked labs. CBC without evidence of infection. Chemistries and LFT's stable. Continue monitoring and response to Ativan. 09/27: continue current management and treatment plan. 09/28: continue current mgmt. producing several monosyllabic answers to questions today. filed for commitment. 09/29: awaiting hearing. very modest response to high-dose ativan. hearing next thursday. continue current mgmt for now. 09/30: no change in presentation. continues to appear to take in adequate fluids and food. continue current mgmt. 10/01: outpt regimen of zyprexa 5 BID and lithium 900 QHS restarted. continue ativan [address] thursday. 10/04/23: Court date pending on 10/06/2023 and ?ECT. 10/04: court deferred to next week for SADA. stably catatonic but up for toileting and PO intake, periodically. refusing labs to check electrolytes. 10/05: pt refusing labs. per staff report, does have reasonable PO intake. court scheduled 10/14. continue current mgmt. 10/06: taking meds, modest PO intake. said, what's your name? today. continue current mgmt. 10/08/23 Patient taking medication remains generally nonverbal he did stand up was reportedly eating more would clearly benefit from ECT as becomes available 10/08: one word today, No, in response to request to check labs for lithium and lytes. continue current mgmt. awaiting court for ECT. 10/09: non-verbal. dry lips but per report is eating meals. reorder labs. continue current mgmt otherwise. 10/10: 10/09 lytes reassuring, lithium 0.46. no change in presentation, continue current mgmt. 10/11: mute. some saccades, otherwise immobile. continue current mgmt. 10/12: will benefit from court ordered tx vital signs ok. 10/13: no change in presentation. court tomorrow at 2. decrease ativan from 2 QID to 2 TID both to see if dose reduction changes behavior in any way and in preparation for requested order from the court for ECT. 10/14: noted to be openly masturbating in his room last night, not responsive to redirection by nursing staff. eating breakfast in bed today. nods on being asked if he would like to attend the hearing today. case discussed with SADA Cifuentes. hearing held, pt committed and ECT/meds ordered. 10/15: no change in presentation. taper benzos over w/e. medical clearance for ECT completed at admission by hospitalist service. planning for ECT #1 on thursday morning. 10/16:Continue current plans and regimen 10/17: Continue current plans and regimen. 10/18: more verbal immediately after ECT #1 today, many more and more rapid responses to questions via head gestures as well. 10/19: febrile, elevated WBC. medicine consult called. continues more responsive today than prior. continue current mgmt pending medicine recs. 10/20: no nidus of infection located thus far. U/A WNL, chest XR WNL. continue current mgmt. ECT today. 10/21: appears to have been afebrile over past 24H, reportedly T100.8 post ECT yesterday. case discussed with dr. wyman. to clarify matters, will DC zyprexa and lithium to see if elevated WBC resolves and hyperpyrexia stops. ECT again tomorrow. no change in clinical presentation. 10/22: remains more verbal today, better eye contact. ECT canceled for today due to error in pt's receiving meal tray. ECT #3 scheduled for thursday. 10/24/23 CTP npo order written for tonight 10/26/23 cont ect will restart antipschotic per tx order 10/27/23 ect BT start invega pos front desk monitor response 10/28/23 cont ect improvement noted would benefit from further hx ck labs in am 10/28/23 cont ect invega some response noted 10/30 continue same treatment. 10/31 continue same treatment ECT tomorrow. 11/02/23 Cont ect change to hs olanzapine 10 mg 11/03/2023 Patient more verbal osborn affect continue ECT 11/03: received ECT today. sleepy afterward, responding i don't know to most questions. continue current mgmt. 11/04: continue tx plan 11/05: received ECT today. marginal improvement continues. continue current mgmt. 11/06: up and about today, trying exit doors. more verbal than mute, barely. continue current mgmt. 11/07: up and about, mute. continue current mgmt. 11/08: ECT this morning, no issues. up and about. variably cooperative, loitering at exits. 11/09: as for yesterday. continue current mgmt. ECT for tomorrow. 11/10: ECT #9 completed today. improved from yesterday. more verbal, mobile. continues to exit-seek. 11/12/23 more range of affect and fx doing better with ect no adverse effecyts 11/12: more verbal and active on the unit. denies mental illness, says he feels fine, trying exits. ECT #10 completed today. 11/13: Continue current tx plan. 11/14: Pt continues similar to yesterday. Continues to wander unit, trying to exit from [facility] door. Responding to internal stimuli. Pt stated, I want to go home . medication compliant. Continue current tx plan. 11/15: ECT #11 today. declines to speak with MD. no substantial change in presentation over weekend. 11/16: reportedly ECT #12 was yesterday, court order allows for 12 only. seeking extension to [address] up, wandering, trying exits, says he is fine, asking for discharge. hold ECT pending court approval. 11/17: court has approved 8 more ECT sessions. increase zyprexa from 10 mg QHS to 20 mg QHS for ongoing psychotic Sx. 11/18: awake @0600. mute. ECT tomorrow. 11/19: up and about the unit after ECT. says he doesn't know what ECT is. wants to go home. somewhat slowed but more fluid and spontaneous than many previous days. 11/22/2023: No changes. Undergoing ECT and adherent with olanzapine 11/23/2023 Continue olanzapine continue ECT 11/24/2023 Continue ECT tomorrow then re-evaluate response Reason for continued inpatient stay Substantial Risk for: inability to function and rapid decompensation Time Spent With Patient Time: Total time managing care of this patient today ____ minutes.
[2023-11-25] VITALS (11 sets, daily range): BP systolic 105–124; BP diastolic 60–81; PULSE 81–111; RESP 12–18; TEMP 36.1–36.9; O2SAT 94–98
--- NOTE | 2023-11-25 07:13 | HO.ANESPROP2 ---
[facility] Active Problems Active Problems: All Active Problems Catatonia (Acute) Routine medical exam (Acute) Past Medical History Medical History No pertinent past medical history Functional capacity: independent ambulation Family History Family history of problems with anesthesia: No Surgical History History of Problems with Anesthesia: No Social History Social History Household Members: Other Household Members Other:: Unknown Do you presently have visiting nurse or other home services: No (Unknown) Comment: Patient on constant observation Patient Tobacco Use Status: Never used Tobacco e-Cigarette/Vaping Use: Never Used Second Hand Smoke Exposure: No Sexual orientation: Unable to collect Meds Allergies Allergy/AdvReac Type Severity Reaction Status Date / Time No Known Allergies Allergy Verified 11/11/23 07:33 Active Medications: Current Medications Acetaminophen (Acetaminophen 325 Mg Tablet) 650 mg PO Q6H PRN PRN Reason: Headache/Pain Mild Scale (1-3) Last Admin: 11/13/23 17:05 Dose: 650 mg Al Hydroxide/Mg Hydroxide (Magnesium Hydrox/Alum Hydrox 30 Ml Oral.Susp) 30 ml PO Q6H PRN PRN Reason: Heartburn/Nausea Hydroxyzine HCl (Hydroxyzine Hcl 25 Mg Tablet) 25 mg PO Q6H PRN PRN Reason: Anxiety Last Admin: 11/08/23 22:37 Dose: 25 mg Magnesium Hydroxide (Milk Of Magnesia 30 Ml Oral.Susp) 30 ml PO DAILY PRN PRN Reason: Constipation Olanzapine (Olanzapine Odt 10 Mg Tab.Rapdis) 10 mg TRANSLINGU Q4H PRN PRN Reason: anxiety/restlessness Last Admin: 11/13/23 16:57 Dose: 10 mg Olanzapine (Olanzapine Odt 10 Mg Tab.Rapdis) 20 mg TRANSLINGU BEDTIME PAM Last Admin: 11/24/23 20:35 Dose: 20 mg Trazodone HCl (Trazodone Hcl 50 Mg Tablet) 50 mg PO BEDTIME MRX1 PRN PRN Reason: Insomnia Last Admin: 11/12/23 21:13 Dose: 50 mg Home Medications ?Medication ?Instructions ?Recorded ?Confirmed ?Last Taken ?Type No Known Home Meds 10/09/23 10/09/23 Unknown History Exam Height,Weight and Vital Signs: Height 5 ft 5 in Weight 69.309 kg Last Vital Signs Temp 97.8 F 11/25/23 06:41 Pulse 81 11/25/23 06:41 Resp 16 11/25/23 06:41 BP 110/62 11/25/23 06:41 Pulse Ox 98 11/25/23 06:41 O2 Del Method Room Air 11/25/23 06:41 O2 Flow Rate 2 11/23/23 07:27 Pertinent Lab Results Pertinent Lab Results: Laboratory Tests 09/23/23 09/27/23 10/10/23 02:20 11:15 14:55 WBC 6.1 RBC 4.83 Hgb 15.0 Hct 44.6 MCV 92.3 MCH 31.1 MCHC 33.6 RDW 11.8 Plt Count 300 MPV 8.9 L Immature Gran % (Auto) 0.5 H Neut % (Auto) 71.0 Lymph % (Auto) 22.0 [place] % (Auto) 4.2 Eos % (Auto) 1.8 Baso % (Auto) 0.5 Lymph # (Auto) 1.4 [place] # (Auto) 0.3 Eos # (Auto) 0.1 Baso # (Auto) 0.0 Abs Immat Gran (auto) 0.03 Absolute Neuts (auto) 4.4 Absolute Nucleated RBC 0.000 Nucleated RBC % (auto) 0.0 ESR Sodium 142 141 Potassium 3.8 3.6 Chloride 105 109 H Carbon Dioxide 28 24 Anion Gap 13 12 BUN 8 L 9 Creatinine 0.79 0.86 Estim Creat Clear Calc 126.5 116.2 Estimated GFR > 60 > 60 Random Glucose 112 110 Calcium 9.3 9.7 Total Bilirubin 0.4 Direct Bilirubin 0.2 AST 10 ALT 9 Alkaline Phosphatase 61 Total Creatine Kinase 66 C-Reactive Protein Total Protein 7.2 Albumin 4.3 Vitamin B12 Folate TSH Free T4 Urine Color Urine Appearance Urine pH Ur Specific [place] Urine Protein Urine Glucose (UA) Urine Ketones Urine Blood Urine Nitrite Ur Leukocyte Esterase Urine RBC Urine WBC Ur Squamous Epith Cells Urine Bacteria Hyaline Casts [place] 0.46 L ANNIE Screen ANNIE Titer ANNIE Titer 2 ANNIE Titer 3 ANNIE Pattern ANNIE Pattern 2 ANNIE Pattern 3 Respiratory Panel Pugh Adenovirus (Rapid PCR) B.pert (TEM-PCR) B.parapertussis DNA PCR C. pneumoniae DNA (PCR) Coronavirus OC43 (PCR) Coronavirus HKU1 (PCR) Coronavirus 229E (PCR) Coronavirus NL63 (PCR) Human Metapneumovir PCR Influenza A (RT-PCR) Influenza Type A (PCR) NEGATIVE Influenza B (RT-PCR) Influenza Type B (PCR) NEGATIVE M. pneumoniae (PCR) Parainfluenza 1 (PCR) Parainfluenza 2 (PCR) Parainfluenza 3 (PCR) Parainfluenza 4 (PCR) RSV (PCR) RSV RNA Qual (PCR) NEGATIVE Entero/Rhino (PCR) SARS-CoV-2 RNA (RT-PCR) NEGATIVE 10/20/23 10/20/23 10/20/23 14:13 16:39 17:10 WBC 11.7 H RBC 4.64 Hgb 14.5 Hct 41.2 L MCV 88.8 MCH 31.3 MCHC 35.2 RDW 11.7 Plt Count 263 MPV 9.0 L Immature Gran % (Auto) 0.3 Neut % (Auto) 78.3 H Lymph % (Auto) 12.0 L [place] % (Auto) 5.7 Eos % (Auto) 3.4 Baso % (Auto) 0.3 Lymph # (Auto) 1.4 [place] # (Auto) 0.7 Eos # (Auto) 0.4 Baso # (Auto) 0.0 Abs Immat Gran (auto) 0.04 H Absolute Neuts (auto) 9.1 H Absolute Nucleated RBC 0.000 Nucleated RBC % (auto) 0.0 ESR Sodium 142 Potassium 3.7 Chloride 108 Carbon Dioxide 27 Anion Gap 11 L BUN 10 Creatinine 0.96 Estim Creat Clear Calc 104.1 Estimated GFR > 60 Random Glucose 106 Calcium 9.3 Total Bilirubin Direct Bilirubin AST ALT Alkaline Phosphatase Total Creatine Kinase C-Reactive Protein Total Protein Albumin Vitamin B12 Folate TSH Free T4 Urine Color Yellow Urine Appearance Clear Urine pH 7.0 Ur Specific [place] 1.015 Urine Protein Negative Urine Glucose (UA) Negative Urine Ketones Negative Urine Blood Trace H Urine Nitrite Negative Ur Leukocyte Esterase Negative Urine RBC 6-10 H Urine WBC 0-5 Ur Squamous Epith Cells 0-2 Urine Bacteria None Seen Hyaline Casts 0-2 [place] ANNIE Screen ANNIE Titer ANNIE Titer 2 ANNIE Titer 3 ANNIE Pattern ANNIE Pattern 2 ANNIE Pattern 3 Respiratory Panel Pugh See Note Adenovirus (Rapid PCR) Not Detected B.pert (TEM-PCR) Not Detected B.parapertussis DNA PCR Not Detected C. pneumoniae DNA (PCR) Not Detected Coronavirus OC43 (PCR) Not Detected Coronavirus HKU1 (PCR) Not Detected Coronavirus 229E (PCR) Not Detected Coronavirus NL63 (PCR) Not Detected Human Metapneumovir PCR Not Detected Influenza A (RT-PCR) Not Detected Influenza Type A (PCR) Influenza B (RT-PCR) Not Detected Influenza Type B (PCR) M. pneumoniae (PCR) Not Detected Parainfluenza 1 (PCR) Not Detected Parainfluenza 2 (PCR) Not Detected Parainfluenza 3 (PCR) Not Detected Parainfluenza 4 (PCR) Not Detected RSV (PCR) Not Detected RSV RNA Qual (PCR) Entero/Rhino (PCR) Not Detected SARS-CoV-2 RNA (RT-PCR) Not Detected 10/25/23 10/30/23 06:56 07:49 WBC RBC Hgb Hct MCV MCH MCHC RDW Plt Count MPV Immature Gran % (Auto) Neut % (Auto) Lymph % (Auto) [place] % (Auto) Eos % (Auto) Baso % (Auto) Lymph # (Auto) [place] # (Auto) Eos # (Auto) Baso # (Auto) Abs Immat Gran (auto) Absolute Neuts (auto) Absolute Nucleated RBC Nucleated RBC % (auto) ESR 14 16 H Sodium Potassium Chloride Carbon Dioxide Anion Gap BUN Creatinine Estim Creat Clear Calc Estimated GFR Random Glucose Calcium Total Bilirubin Direct Bilirubin AST ALT Alkaline Phosphatase Total Creatine Kinase 281 H C-Reactive Protein 1.24 H Total Protein Albumin Vitamin B12 258 Folate 8.8 TSH 4.24 H Free T4 1.08 Urine Color Urine Appearance Urine pH Ur Specific [place] Urine Protein Urine Glucose (UA) Urine Ketones Urine Blood Urine Nitrite Ur Leukocyte Esterase Urine RBC Urine WBC Ur Squamous Epith Cells Urine Bacteria Hyaline Casts [place] ANNIE Screen NEGATIVE ANNIE Titer TNP ANNIE Titer 2 TNP ANNIE Titer 3 TNP ANNIE Pattern TNP ANNIE Pattern 2 TNP ANNIE Pattern 3 TNP Respiratory Panel Pugh Adenovirus (Rapid PCR) B.pert (TEM-PCR) B.parapertussis DNA PCR C. pneumoniae DNA (PCR) Coronavirus OC43 (PCR) Coronavirus HKU1 (PCR) Coronavirus 229E (PCR) Coronavirus NL63 (PCR) Human Metapneumovir PCR Influenza A (RT-PCR) Influenza Type A (PCR) Influenza B (RT-PCR) Influenza Type B (PCR) M. pneumoniae (PCR) Parainfluenza 1 (PCR) Parainfluenza 2 (PCR) Parainfluenza 3 (PCR) Parainfluenza 4 (PCR) RSV (PCR) RSV RNA Qual (PCR) Entero/Rhino (PCR) SARS-CoV-2 RNA (RT-PCR) Airway Mallampati Class: II TM Dist: >3cm Neck ROM: Full Loose/Missing/Broken Teeth: No Heart: RRR Lungs: CTA Assessment and Plan Final Anesthetic Review Family History of Problems with Anesthesia: No History of Problems with Anesthesia: No NPO: Yes ASA Class: II Final Preanesthetic Review: Meds/Allgs Chart Reviewed, Consent Obtained/Reviewed and Anes Risks/Benef Reviewed Patient Risk: Low Procedure Risk: Intermediate Anesthetic Plan Anesthetic Plan: GA Disposition: Standard PACU
--- NOTE | 2023-11-25 07:20 | MHC.SHP ---
Pre-Procedural Eval Section A - 24 Hr Update-Section A only Date of Service: 11/25/23 The patient is an INPATIENT: Yes Changes since office visit: Yes Changes in Medication; No Cold of Flu in the past 2 weeks, No New Medical Problems and No Patient answered all questions The patient has been examined within 24 hours of the surgical procedure. The History & Physical has been completed within 30 days and I have reviewed it.: Yes Section B - Complete if H&P > 30 days Chief Complaint: catatonia depression Allergies: Allergies Allergy/AdvReac Type Severity Reaction Status Date / Time No Known Allergies Allergy Verified 11/11/23 07:33 Plan I have reviewed the history and physical and performed a pertinent physical examination on my patient. No changes have occurred unless specified. Time Spent With Patient Time: Total time managing care of this patient today ____ minutes.
--- NOTE | 2023-11-25 08:01 | HO.PSYCHPN ---
Subjective Subjective Date of Service: 11/25/23 Reason For Visit: catatonia depression Subjective Notes: Section 8 Healthcare Proxy: No Guardianship: No Diagnostics Vital Signs (24Hr): Vital Signs - 24 hr 11/24/23 20:00 11/25/23 06:03 11/25/23 06:41 Temperature 98.7 F 97.6 F 97.8 F Pulse Rate 89 94 81 Respiratory Rate 18 14 16 Blood Pressure 110/58 L 115/60 110/62 Pulse Oximetry 97 97 98 Oxygen Delivery Method Room Air Room Air Oxygen Flow Rate 11/25/23 07:40 11/25/23 07:45 11/25/23 07:50 Temperature 98.5 F Pulse Rate 103 H 109 H 111 H Respiratory Rate 18 16 12 Blood Pressure 113/70 115/61 112/64 Pulse Oximetry 95 96 94 Oxygen Delivery Method Nasal Cannula with ETCO2 Nasal Cannula with ETCO2 Nasal Cannula with ETCO2 Oxygen Flow Rate 2 2 2 BMI result Body Mass Index 25.4 Labs 10/20/23 14:13 10/20/23 14:13 Imaging Radiology Impressions: ITS Impressions Chest X-Ray 10/20/23 16:28 IMPRESSION: No acute cardiopulmonary abnormality. Medications Medications Current Medications Acetaminophen (Acetaminophen 325 Mg Tablet) 650 mg PO Q6H PRN PRN Reason: Headache/Pain Mild Scale (1-3) Last Admin: 11/13/23 17:05 Dose: 650 mg Al Hydroxide/Mg Hydroxide (Magnesium Hydrox/Alum Hydrox 30 Ml Oral.Susp) 30 ml PO Q6H PRN PRN Reason: Heartburn/Nausea Hydroxyzine HCl (Hydroxyzine Hcl 25 Mg Tablet) 25 mg PO Q6H PRN PRN Reason: Anxiety Last Admin: 11/08/23 22:37 Dose: 25 mg Magnesium Hydroxide (Milk Of Magnesia 30 Ml Oral.Susp) 30 ml PO DAILY PRN PRN Reason: Constipation Olanzapine (Olanzapine Odt 10 Mg Tab.Rapdis) 10 mg TRANSLINGU Q4H PRN PRN Reason: anxiety/restlessness Last Admin: 11/13/23 16:57 Dose: 10 mg Olanzapine (Olanzapine Odt 10 Mg Tab.Rapdis) 20 mg TRANSLINGU BEDTIME PAM Last Admin: 11/24/23 20:35 Dose: 20 mg Trazodone HCl (Trazodone Hcl 50 Mg Tablet) 50 mg PO BEDTIME MRX1 PRN PRN Reason: Insomnia Last Admin: 11/12/23 21:13 Dose: 50 mg Allergies Allergies Allergy/AdvReac Type Severity Reaction Status Date / Time No Known Allergies Allergy Verified 11/11/23 07:33 Assessment & Plan Assessment & Plan (1) Catatonia: Status: Acute Code(s): F06.1 - Catatonic disorder due to known physiological condition Plan 09/23: ativan 2 mg QID. move for commitment and court ordered ECT. 09/24: no change in presentation or plan. remains catatonic, adequate PO intake for the moment. taking 8 mg ativan daily without appreciative improvement. 09/25: continue current management and treatment plan. 09/26: Checked labs. CBC without evidence of infection. Chemistries and LFT's stable. Continue monitoring and response to Ativan. 09/27: continue current management and treatment plan. 09/28: continue current mgmt. producing several monosyllabic answers to questions today. filed for commitment. 09/29: awaiting hearing. very modest response to high-dose ativan. hearing next thursday. continue current mgmt for now. 09/30: no change in presentation. continues to appear to take in adequate fluids and food. continue current mgmt. 10/01: outpt regimen of zyprexa 5 BID and lithium 900 QHS restarted. continue ativan [address] thursday. 10/04/23: Court date pending on 10/06/2023 and ?ECT. 10/04: court deferred to next week for SADA. stably catatonic but up for toileting and PO intake, periodically. refusing labs to check electrolytes. 10/05: pt refusing labs. per staff report, does have reasonable PO intake. court scheduled 10/14. continue current mgmt. 10/06: taking meds, modest PO intake. said, what's your name? today. continue current mgmt. 10/08/23 Patient taking medication remains generally nonverbal he did stand up was reportedly eating more would clearly benefit from ECT as becomes available 10/08: one word today, No, in response to request to check labs for lithium and lytes. continue current mgmt. awaiting court for ECT. 10/09: non-verbal. dry lips but per report is eating meals. reorder labs. continue current mgmt otherwise. 10/10: 10/09 lytes reassuring, lithium 0.46. no change in presentation, continue current mgmt. 10/11: mute. some saccades, otherwise immobile. continue current mgmt. 10/12: will benefit from court ordered tx vital signs ok. 10/13: no change in presentation. court tomorrow at 2. decrease ativan from 2 QID to 2 TID both to see if dose reduction changes behavior in any way and in preparation for requested order from the court for ECT. 10/14: noted to be openly masturbating in his room last night, not responsive to redirection by nursing staff. eating breakfast in bed today. nods on being asked if he would like to attend the hearing today. case discussed with SADA Cifuentes. hearing held, pt committed and ECT/meds ordered. 10/15: no change in presentation. taper benzos over w/e. medical clearance for ECT completed at admission by hospitalist service. planning for ECT #1 on thursday morning. 10/16:Continue current plans and regimen 10/17: Continue current plans and regimen. 10/18: more verbal immediately after ECT #1 today, many more and more rapid responses to questions via head gestures as well. 10/19: febrile, elevated WBC. medicine consult called. continues more responsive today than prior. continue current mgmt pending medicine recs. 10/20: no nidus of infection located thus far. U/A WNL, chest XR WNL. continue current mgmt. ECT today. 10/21: appears to have been afebrile over past 24H, reportedly T100.8 post ECT yesterday. case discussed with dr. wyman. to clarify matters, will DC zyprexa and lithium to see if elevated WBC resolves and hyperpyrexia stops. ECT again tomorrow. no change in clinical presentation. 10/22: remains more verbal today, better eye contact. ECT canceled for today due to error in pt's receiving meal tray. ECT #3 scheduled for thursday. 10/24/23 CTP npo order written for tonight 10/26/23 cont ect will restart antipschotic per tx order 10/27/23 ect BT start invega pos youth nutritional monitor response 10/28/23 cont ect improvement noted would benefit from further hx ck labs in am 10/28/23 cont ect invega some response noted 10/30 continue same treatment. 10/31 continue same treatment ECT tomorrow. 11/02/23 Cont ect change to hs olanzapine 10 mg 11/03/2023 Patient more verbal [place]born affect continue ECT 11/03: received ECT today. sleepy afterward, responding i don't know to most questions. continue current mgmt. 11/04: continue tx plan 11/05: received ECT today. marginal improvement continues. continue current mgmt. 11/06: up and about today, trying exit doors. more verbal than mute, barely. continue current mgmt. 11/07: up and about, mute. continue current mgmt. 11/08: ECT this morning, no issues. up and about. variably cooperative, loitering at exits. 11/09: as for yesterday. continue current mgmt. ECT for tomorrow. 11/10: ECT #9 completed today. improved from yesterday. more verbal, mobile. continues to exit-seek. 11/12/23 more range of affect and fx doing better with ect no adverse effecyts 11/12: more verbal and active on the unit. denies mental illness, says he feels fine, trying exits. ECT #10 completed today. 11/13: Continue current tx plan. 11/14: Pt continues similar to yesterday. Continues to wander unit, trying to exit from [place] door. Responding to internal stimuli. Pt stated, I want to go home . medication compliant. Continue current tx plan. 11/15: ECT #11 today. declines to speak with MD. no substantial change in presentation over weekend. 11/16: reportedly ECT #12 was yesterday, court order allows for 12 only. seeking extension to [address] up, wandering, trying exits, says he is fine, asking for discharge. hold ECT pending court approval. 11/17: court has approved 8 more ECT sessions. increase zyprexa from 10 mg QHS to 20 mg QHS for ongoing psychotic Sx. 11/18: awake @0600. mute. ECT tomorrow. 11/19: up and about the unit after ECT. says he doesn't know what ECT is. wants to go home. somewhat slowed but more fluid and spontaneous than many previous days. 11/22/2023: No changes. Undergoing ECT and adherent with olanzapine 11/23/2023 Continue olanzapine continue ECT 11/24/2023 Continue ECT tomorrow then re-evaluate response Time Spent With Patient Time: Total time managing care of this patient today ____ minutes.
[2023-11-25] MEDS: OLANZapine ODT 10 MG TAB.RAPDIS 20 MG TRANSLINGU (21:12)
[2023-11-25] MEDS: traZODone HCL 50 MG TABLET PO (21:14)
--- NOTE | 2023-11-25 22:30 | HO.ECTPROC ---
ECT Procedure Note Diagnosis/Treatment Date of Service: 11/25/23 Diagnosis: Schizoaffective Disorder Previous ECT Date: 11/23/23 Treatment: Series Interval Clinical Notes: Patient shows some increased range of affect able to give more fax regarding his life but remains internally preoccupied limited informationally Patient tolerated procedure without difficulty re-evaluate treatment response after today's ECT and consider further treatment unclear what patient's baseline and he has not followed up in outpatient treatment attempts to get prior discharge summary were not successful Time: Total time managing care of this patient today ____ minutes. ECT Settings Device: THYMATRON DGx Electrode Placement: Bitemporal Program/Pulse Width: 0.50 Energy Percent: 100 Seizure Duration By EEG (in seconds): 38 Medications Administration General Anesthetic: Etomidate (16) Muscle Relaxant: Succinylcholine (100) Ancillary Medications Cardiovascular Medications: Glycopyrrolate (0.2) Airway Management Airway Management: Bag Mask Ventilation Treatment Recommendations No Changes Recommended: No change Notes: Will continue to evaluate patient's treatment response will not give ECT 726 Pt Tolerated Procedure w/o Issue: Yes
--- NOTE | 2023-11-25 22:36 | HO.PSYCHPN ---
Subjective Subjective Date of Service: 11/25/23 Reason For Visit: catatonia depression Subjective Notes: Section 8 Interim History: Patient on close of secondary to going into other people's rooms tolerated [place] ECT some increase information where he went to school more forthcoming where he lives still only speaking in very limited sentences with thought blocking cognitive slowing Medication Compliance: Yes Mental Status Exam Mental Status Exam Narrative: Patient mostly sedated post ECT some improved range of emotion and activity still limited regarding when asked questions or engaging in conversation periods of elevated mood states no gross SI or HI Diagnostics Vital Signs (24Hr): Vital Signs - 24 hr 11/25/23 06:03 11/25/23 06:41 11/25/23 07:40 Temperature 97.6 F 97.8 F 98.5 F Pulse Rate 94 81 103 H Respiratory Rate 14 16 18 Blood Pressure 115/60 110/62 113/70 Pulse Oximetry 97 98 95 Oxygen Delivery Method Room Air Nasal Cannula with ETCO2 Oxygen Flow Rate 2 11/25/23 07:45 11/25/23 07:50 11/25/23 07:55 Temperature Pulse Rate 109 H 111 H 109 H Respiratory Rate 16 12 16 Blood Pressure 115/61 112/64 111/69 Pulse Oximetry 96 94 97 Oxygen Delivery Method Nasal Cannula with ETCO2 Nasal Cannula with ETCO2 Nasal Cannula with ETCO2 Oxygen Flow Rate 2 2 2 11/25/23 08:10 11/25/23 08:25 11/25/23 09:12 Temperature 97.2 F 98.3 F Pulse Rate 95 95 92 Respiratory Rate 17 18 16 Blood Pressure 108/66 105/64 124/81 Pulse Oximetry 95 97 97 Oxygen Delivery Method Room Air Room Air Oxygen Flow Rate 11/25/23 09:14 Temperature 98.3 F Pulse Rate 92 Respiratory Rate 16 Blood Pressure 124/81 Pulse Oximetry 97 Oxygen Delivery Method Room Air Oxygen Flow Rate BMI result Body Mass Index 25.4 Labs 10/20/23 14:13 10/20/23 14:13 Imaging Radiology Impressions: ITS Impressions Chest X-Ray 10/20/23 16:28 IMPRESSION: No acute cardiopulmonary abnormality. Medications Medications Current Medications Acetaminophen (Acetaminophen 325 Mg Tablet) 650 mg PO Q6H PRN PRN Reason: Headache/Pain Mild Scale (1-3) Last Admin: 11/13/23 17:05 Dose: 650 mg Al Hydroxide/Mg Hydroxide (Magnesium Hydrox/Alum Hydrox 30 Ml Oral.Susp) 30 ml PO Q6H PRN PRN Reason: Heartburn/Nausea Hydroxyzine HCl (Hydroxyzine Hcl 25 Mg Tablet) 25 mg PO Q6H PRN PRN Reason: Anxiety Last Admin: 11/08/23 22:37 Dose: 25 mg Magnesium Hydroxide (Milk Of Magnesia 30 Ml Oral.Susp) 30 ml PO DAILY PRN PRN Reason: Constipation Olanzapine (Olanzapine Odt 10 Mg Tab.Rapdis) 10 mg TRANSLINGU Q4H PRN PRN Reason: anxiety/restlessness Last Admin: 11/13/23 16:57 Dose: 10 mg Olanzapine (Olanzapine Odt 10 Mg Tab.Rapdis) 20 mg TRANSLINGU BEDTIME PAM Last Admin: 11/25/23 21:12 Dose: 20 mg Trazodone HCl (Trazodone Hcl 50 Mg Tablet) 50 mg PO BEDTIME MRX1 PRN PRN Reason: Insomnia Last Admin: 11/25/23 21:14 Dose: 50 mg Allergies Allergies Allergy/AdvReac Type Severity Reaction Status Date / Time No Known Allergies Allergy Verified 11/11/23 07:33 Assessment & Plan Assessment & Plan (1) Catatonia: Status: Acute Code(s): F06.1 - Catatonic disorder due to known physiological condition Plan Re-evaluated after today's ECT continue olanzapine try and get baseline functioning for patient Informed Consent: does not understand Reason for continued inpatient stay Substantial Risk for: inability to function and rapid decompensation Time Spent With Patient Time: Total time managing care of this patient today ____ minutes.
[2023-11-26 07:00] VITALS: BMI 27.1
[2023-11-26 08:00] VITALS: BP 114/56; PULSE 96; RESP 18; TEMP 36.6; O2SAT 97
--- NOTE | 2023-11-26 08:30 | HO.POSTANES ---
Post Anesthesia Evaluation Post Anesthesia Evaluation Date of Service: 11/25/23 Anesthesia: General Mental Status: Awake Pain Control: Satisfactory Nausea/Vomiting: None Hydration: Adequate Anesthesia-Related Issues: No Anes. Related Issues
--- NOTE | 2023-11-26 19:51 | HO.PSYCHPN ---
Subjective Subjective Date of Service: 11/26/23 Reason For Visit: catatonia depression Subjective Notes: Section 8 Healthcare Proxy: No Interim History: pt with somewhat osborn affect more verbally engaged better processing information able to give home address remains on close obs secandary to wandering ect on hold will reevaluate Medication Compliance: Yes Mental Status Exam Mental Status Exam Narrative: Pt more alert some improved range of emotion and activity less limited regarding when asked questions or engaging in conversation some inc information where he lives who he lives with still limited needs cueing for activities periods of elevated mood states no gross SI or HI Diagnostics Vital Signs (24Hr): Vital Signs - 24 hr 11/25/23 20:00 11/26/23 08:00 Temperature 97.0 F 97.8 F Pulse Rate 85 96 Respiratory Rate 16 18 Blood Pressure 116/65 114/56 L Pulse Oximetry 96 97 Oxygen Delivery Method Room Air Room Air BMI result Body Mass Index 27.1 Labs 10/20/23 14:13 10/20/23 14:13 Imaging Radiology Impressions: ITS Impressions Chest X-Ray 10/20/23 16:28 IMPRESSION: No acute cardiopulmonary abnormality. Medications Medications Current Medications Acetaminophen (Acetaminophen 325 Mg Tablet) 650 mg PO Q6H PRN PRN Reason: Headache/Pain Mild Scale (1-3) Last Admin: 11/13/23 17:05 Dose: 650 mg Al Hydroxide/Mg Hydroxide (Magnesium Hydrox/Alum Hydrox 30 Ml Oral.Susp) 30 ml PO Q6H PRN PRN Reason: Heartburn/Nausea Hydroxyzine HCl (Hydroxyzine Hcl 25 Mg Tablet) 25 mg PO Q6H PRN PRN Reason: Anxiety Last Admin: 11/08/23 22:37 Dose: 25 mg Magnesium Hydroxide (Milk Of Magnesia 30 Ml Oral.Susp) 30 ml PO DAILY PRN PRN Reason: Constipation Olanzapine (Olanzapine Odt 10 Mg Tab.Rapdis) 10 mg TRANSLINGU Q4H PRN PRN Reason: anxiety/restlessness Last Admin: 11/13/23 16:57 Dose: 10 mg Olanzapine (Olanzapine Odt 10 Mg Tab.Rapdis) 20 mg TRANSLINGU BEDTIME PAM Last Admin: 11/25/23 21:12 Dose: 20 mg Trazodone HCl (Trazodone Hcl 50 Mg Tablet) 50 mg PO BEDTIME MRX1 PRN PRN Reason: Insomnia Last Admin: 11/25/23 21:14 Dose: 50 mg Allergies Allergies Allergy/AdvReac Type Severity Reaction Status Date / Time No Known Allergies Allergy Verified 11/11/23 07:33 Assessment & Plan Assessment & Plan (1) Bipolar I disorder with catatonia: Status: Acute Code(s): F31.9 - Bipolar disorder, unspecified; F06.1 - Catatonic disorder due to known physiological condition Plan hold ECT continue olanzapine 20 mg try and get baseline functioning for patient does not seen cognitively adversely effected by ect Reason for continued inpatient stay Substantial Risk for: inability to function and rapid decompensation Time Spent With Patient Time: Total time managing care of this patient today 29____ minutes.
[2023-11-26 19:58] VITALS: BP 124/71; PULSE 85; RESP 16; TEMP 36.9; O2SAT 98
[2023-11-26] MEDS: OLANZapine ODT 10 MG TAB.RAPDIS 20 MG TRANSLINGU (20:33)
[2023-11-27 07:10] VITALS: BP 98/64; PULSE 69; RESP 16; TEMP 36.4; O2SAT 99
--- NOTE | 2023-11-27 11:07 | HO.PSYCHPN ---
Subjective Subjective Date of Service: 11/27/23 Reason For Visit: catatonia depression Subjective Notes: Section 8 Healthcare Proxy: No Guardianship: No Interim History: Patient seen psychiatric follow-up. He is more forthcoming at of bed more has attended some groups seems to be responding to the combination of olanzapine and ECT Medication Compliance: Yes Attending Groups: Intermittent Mental Status Exam Mental Status Exam Narrative: Patient casually dressed remains somewhat subdued with some intermittent elevated states smiling intermittently more forthcoming although still limited informationally but has improved some thought blocking but gradually improving mood flat to mildly expansive no SI HI denies hallucinations at times internally preoccupied limited insight Diagnostics Vital Signs (24Hr): Vital Signs - 24 hr 11/26/23 19:58 11/27/23 07:10 Temperature 98.5 F 97.5 F Pulse Rate 85 69 Respiratory Rate 16 16 Blood Pressure 124/71 98/64 Pulse Oximetry 98 99 Oxygen Delivery Method Room Air Room Air BMI result Body Mass Index 27.1 Labs 10/20/23 14:13 10/20/23 14:13 Imaging Radiology Impressions: ITS Impressions Chest X-Ray 10/20/23 16:28 IMPRESSION: No acute cardiopulmonary abnormality. Medications Medications Current Medications Acetaminophen (Acetaminophen 325 Mg Tablet) 650 mg PO Q6H PRN PRN Reason: Headache/Pain Mild Scale (1-3) Last Admin: 11/13/23 17:05 Dose: 650 mg Al Hydroxide/Mg Hydroxide (Magnesium Hydrox/Alum Hydrox 30 Ml Oral.Susp) 30 ml PO Q6H PRN PRN Reason: Heartburn/Nausea Hydroxyzine HCl (Hydroxyzine Hcl 25 Mg Tablet) 25 mg PO Q6H PRN PRN Reason: Anxiety Last Admin: 11/08/23 22:37 Dose: 25 mg Magnesium Hydroxide (Milk Of Magnesia 30 Ml Oral.Susp) 30 ml PO DAILY PRN PRN Reason: Constipation Olanzapine (Olanzapine Odt 10 Mg Tab.Rapdis) 10 mg TRANSLINGU Q4H PRN PRN Reason: anxiety/restlessness Last Admin: 11/13/23 16:57 Dose: 10 mg Olanzapine (Olanzapine Odt 10 Mg Tab.Rapdis) 20 mg TRANSLINGU BEDTIME PAM Last Admin: 11/26/23 20:33 Dose: 20 mg Trazodone HCl (Trazodone Hcl 50 Mg Tablet) 50 mg PO BEDTIME MRX1 PRN PRN Reason: Insomnia Last Admin: 11/25/23 21:14 Dose: 50 mg Allergies Allergies Allergy/AdvReac Type Severity Reaction Status Date / Time No Known Allergies Allergy Verified 11/11/23 07:33 Assessment & Plan Assessment & Plan (1) Bipolar I disorder with catatonia: Status: Acute Code(s): F31.9 - Bipolar disorder, unspecified; F06.1 - Catatonic disorder due to known physiological condition Plan ECT is scheduled for 3 days will try a more limited 2 time a week schedule patient continues to show improvement continue olanzapine patient would benefit from [facility] out reach has not followed up previously after discharge with treatment Informed Consent: further education needed Reason for continued inpatient stay Substantial Risk for: inability to function and rapid decompensation Time Spent With Patient Time: Total time managing care of this patient today ____ minutes.
[2023-11-27 20:00] VITALS: BP 127/60; PULSE 86; RESP 16; TEMP 36.9; O2SAT 97
[2023-11-27] MEDS: OLANZapine ODT 10 MG TAB.RAPDIS 20 MG TRANSLINGU (20:29)
[2023-11-28 09:30] VITALS: BP 116/62; PULSE 83; RESP 14; TEMP 36.7; O2SAT 96
--- NOTE | 2023-11-28 10:08 | HO.PSYCHPN ---
Subjective Subjective Date of Service: 11/28/23 Reason For Visit: catatonia depression Subjective Notes: Section 8 Healthcare Proxy: No Guardianship: No Interim History: Patient was seen and discussed in rounds today. Records and plans were reviewed. He started ECT. He has been medication compliant. No longer exhibiting exit seeking. He has been less labile but continues to be mostly isolative. No active SI. No complaints or side effects. No changes were made today Medication Compliance: Yes Attending Groups: Intermittent Review of Systems Review of Systems Yes all other systems are reviewed and are negative Mental Status Exam Mental Status Exam Narrative: In today's visit he is alert, pleasant and minimally interactive. Soft-spoken speech. No eye contact. Affect is subdued and restricted. No signs of psychosis. No SI/HI. Cognitively has slow thought processes. No musculoskeletal difficulties. Able to move all limbs. No abnormalities of gait. Judgment is intact Diagnostics Vital Signs (24Hr): Vital Signs - 24 hr 11/27/23 20:00 11/28/23 09:30 Temperature 98.5 F 98.0 F Pulse Rate 86 83 Respiratory Rate 16 14 Blood Pressure 127/60 116/62 Pulse Oximetry 97 96 Oxygen Delivery Method Room Air Room Air BMI result Body Mass Index 27.1 Labs 10/20/23 14:13 10/20/23 14:13 Imaging Radiology Impressions: ITS Impressions Chest X-Ray 10/20/23 16:28 IMPRESSION: No acute cardiopulmonary abnormality. Medications Medications Current Medications Acetaminophen (Acetaminophen 325 Mg Tablet) 650 mg PO Q6H PRN PRN Reason: Headache/Pain Mild Scale (1-3) Last Admin: 11/13/23 17:05 Dose: 650 mg Al Hydroxide/Mg Hydroxide (Magnesium Hydrox/Alum Hydrox 30 Ml Oral.Susp) 30 ml PO Q6H PRN PRN Reason: Heartburn/Nausea Hydroxyzine HCl (Hydroxyzine Hcl 25 Mg Tablet) 25 mg PO Q6H PRN PRN Reason: Anxiety Last Admin: 11/08/23 22:37 Dose: 25 mg Magnesium Hydroxide (Milk Of Magnesia 30 Ml Oral.Susp) 30 ml PO DAILY PRN PRN Reason: Constipation Olanzapine (Olanzapine Odt 10 Mg Tab.Rapdis) 10 mg TRANSLINGU Q4H PRN PRN Reason: anxiety/restlessness Last Admin: 11/13/23 16:57 Dose: 10 mg Olanzapine (Olanzapine Odt 10 Mg Tab.Rapdis) 20 mg TRANSLINGU BEDTIME PAM Last Admin: 11/27/23 20:29 Dose: 20 mg Trazodone HCl (Trazodone Hcl 50 Mg Tablet) 50 mg PO BEDTIME MRX1 PRN PRN Reason: Insomnia Last Admin: 11/25/23 21:14 Dose: 50 mg Allergies Allergies Allergy/AdvReac Type Severity Reaction Status Date / Time No Known Allergies Allergy Verified 11/11/23 07:33 Assessment & Plan Assessment & Plan (1) Bipolar I disorder with catatonia: Status: Acute Code(s): F31.9 - Bipolar disorder, unspecified; F06.1 - Catatonic disorder due to known physiological condition Plan ECT is scheduled for 3 days will try a more limited 2 time a week schedule patient continues to show improvement continue olanzapine patient would benefit from [facility] out reach has not followed up previously after discharge with treatment 11/28/23 continue current regimen and plans Reason for continued inpatient stay Substantial Risk for: med/psych decompensation Time Spent With Patient Time: Total time managing care of this patient today ____ minutes.
[2023-11-28 20:00] VITALS: BP 135/85; PULSE 94; RESP 16; TEMP 37.1; O2SAT 100
[2023-11-28] MEDS: OLANZapine ODT 10 MG TAB.RAPDIS 20 MG TRANSLINGU (23:01)
[2023-11-29 08:00] VITALS: BP 127/79; PULSE 68; RESP 16; TEMP 36.8; O2SAT 98
[2023-11-29 19:53] VITALS: BP 120/66; PULSE 62; RESP 16; TEMP 36.8; O2SAT 99
[2023-11-29 20:00] VITALS: BP 120/66; PULSE 62; RESP 16; TEMP 36.9; O2SAT 99
[2023-11-29] MEDS: OLANZapine ODT 10 MG TAB.RAPDIS 20 MG TRANSLINGU (20:12)
[2023-11-30] VITALS (10 sets, daily range): BP systolic 103–147; BP diastolic 57–84; PULSE 82–110; RESP 14–18; TEMP 36.1–37.4; O2SAT 94–99
--- NOTE | 2023-11-30 07:08 | MHC.SHP ---
Pre-Procedural Eval Section A - 24 Hr Update-Section A only Date of Service: 11/30/23 The patient is an INPATIENT: Yes Changes since office visit: No Cold of Flu in the past 2 weeks, No New Medical Problems, No Changes in Medication and No Patient answered all questions The patient has been examined within 24 hours of the surgical procedure. The History & Physical has been completed within 30 days and I have reviewed it.: Yes Section B - Complete if H&P > 30 days Chief Complaint: catatonia depression Allergies: Allergies Allergy/AdvReac Type Severity Reaction Status Date / Time No Known Allergies Allergy Verified 11/11/23 07:33 Plan I have reviewed the history and physical and performed a pertinent physical examination on my patient. No changes have occurred unless specified. Time Spent With Patient Time: Total time managing care of this patient today ____ minutes.
--- NOTE | 2023-11-30 07:21 | HO.ECTPROC ---
ECT Procedure Note Diagnosis/Treatment Date of Service: 11/30/23 Diagnosis: Catatonia Previous ECT Date: 11/25/23 Current Treatment Number: 15 Treatment: Series Interval Clinical Notes: The patient is more verbal, he denies side effects with previous ECT. ECT done as usual, no complications. Woke up well Time: Total time managing care of this patient today _30___ minutes. ECT Settings Device: THYMATRON DGx Electrode Placement: Bitemporal Program/Pulse Width: 0.50 Energy Percent: 100 Seizure Duration By EEG (in seconds): 24 By Motor Observation (in seconds): 26 Medications Administration General Anesthetic: Etomidate (16) Muscle Relaxant: Succinylcholine (100) Ancillary Medications Cardiovascular Medications: Glycopyrrolate (0.2) Miscillaneous Medications: Midazolam (2 mg post ECT) Airway Management Airway Management: Bag Mask Ventilation Treatment Recommendations No Changes Recommended: No change Pt Tolerated Procedure w/o Issue: Yes
--- NOTE | 2023-11-30 08:20 | HO.ANESPROP2 ---
[facility] Active Problems Active Problems: All Active Problems Bipolar I disorder with catatonia (Acute) Catatonia (Acute) Routine medical exam (Acute) Past Medical History Medical History No pertinent past medical history Functional capacity: independent ambulation Family History Family history of problems with anesthesia: No Surgical History History of Problems with Anesthesia: No Social History Social History Household Members: Other Household Members Other:: Unknown Do you presently have visiting nurse or other home services: No (Unknown) Comment: Patient on constant observation Patient Tobacco Use Status: Never used Tobacco e-Cigarette/Vaping Use: Never Used Second Hand Smoke Exposure: No Sexual orientation: Unable to collect Meds Allergies Allergy/AdvReac Type Severity Reaction Status Date / Time No Known Allergies Allergy Verified 11/11/23 07:33 Active Medications: Current Medications Acetaminophen (Acetaminophen 325 Mg Tablet) 650 mg PO Q6H PRN PRN Reason: Headache/Pain Mild Scale (1-3) Last Admin: 11/13/23 17:05 Dose: 650 mg Al Hydroxide/Mg Hydroxide (Magnesium Hydrox/Alum Hydrox 30 Ml Oral.Susp) 30 ml PO Q6H PRN PRN Reason: Heartburn/Nausea Hydroxyzine HCl (Hydroxyzine Hcl 25 Mg Tablet) 25 mg PO Q6H PRN PRN Reason: Anxiety Last Admin: 11/08/23 22:37 Dose: 25 mg Magnesium Hydroxide (Milk Of Magnesia 30 Ml Oral.Susp) 30 ml PO DAILY PRN PRN Reason: Constipation Olanzapine (Olanzapine Odt 10 Mg Tab.Rapdis) 10 mg TRANSLINGU Q4H PRN PRN Reason: anxiety/restlessness Last Admin: 11/13/23 16:57 Dose: 10 mg Olanzapine (Olanzapine Odt 10 Mg Tab.Rapdis) 20 mg TRANSLINGU BEDTIME PAM Last Admin: 11/29/23 20:12 Dose: 20 mg Trazodone HCl (Trazodone Hcl 50 Mg Tablet) 50 mg PO BEDTIME MRX1 PRN PRN Reason: Insomnia Last Admin: 11/25/23 21:14 Dose: 50 mg Home Medications ?Medication ?Instructions ?Recorded ?Confirmed ?Last Taken ?Type No Known Home Meds 10/09/23 10/09/23 Unknown History Exam Height,Weight and Vital Signs: Height 5 ft 5 in Weight 73.845 kg Last Vital Signs Temp 98.4 F 11/30/23 08:11 Pulse 99 11/30/23 08:11 Resp 16 11/30/23 08:11 BP 124/67 11/30/23 08:11 Pulse Ox 97 11/30/23 08:11 O2 Del Method Room Air 11/30/23 08:11 O2 Flow Rate 2 11/30/23 07:26 Pertinent Lab Results Pertinent Lab Results: Laboratory Tests 09/23/23 09/27/23 10/10/23 02:20 11:15 14:55 WBC 6.1 RBC 4.83 Hgb 15.0 Hct 44.6 MCV 92.3 MCH 31.1 MCHC 33.6 RDW 11.8 Plt Count 300 MPV 8.9 L Immature Gran % (Auto) 0.5 H Neut % (Auto) 71.0 Lymph % (Auto) 22.0 Cache % (Auto) 4.2 Eos % (Auto) 1.8 Baso % (Auto) 0.5 Lymph # (Auto) 1.4 Cache # (Auto) 0.3 Eos # (Auto) 0.1 Baso # (Auto) 0.0 Abs Immat Gran (auto) 0.03 Absolute Neuts (auto) 4.4 Absolute Nucleated RBC 0.000 Nucleated RBC % (auto) 0.0 ESR Sodium 142 141 Potassium 3.8 3.6 Chloride 105 109 H Carbon Dioxide 28 24 Anion Gap 13 12 BUN 8 L 9 Creatinine 0.79 0.86 Estim Creat Clear Calc 126.5 116.2 Estimated GFR > 60 > 60 Random Glucose 112 110 Calcium 9.3 9.7 Total Bilirubin 0.4 Direct Bilirubin 0.2 AST 10 ALT 9 Alkaline Phosphatase 61 Total Creatine Kinase 66 C-Reactive Protein Total Protein 7.2 Albumin 4.3 Vitamin B12 Folate TSH Free T4 Urine Color Urine Appearance Urine pH Ur Specific Wilson Urine Protein Urine Glucose (UA) Urine Ketones Urine Blood Urine Nitrite Ur Leukocyte Esterase Urine RBC Urine WBC Ur Squamous Epith Cells Urine Bacteria Hyaline Casts [place] 0.46 L ANNIE Screen ANNIE Titer ANNIE Titer 2 ANNIE Titer 3 ANNIE Pattern ANNIE Pattern 2 ANNIE Pattern 3 Respiratory Panel Pugh Adenovirus (Rapid PCR) B.pert (TEM-PCR) B.parapertussis DNA PCR C. pneumoniae DNA (PCR) Coronavirus OC43 (PCR) Coronavirus HKU1 (PCR) Coronavirus 229E (PCR) Coronavirus NL63 (PCR) Human Metapneumovir PCR Influenza A (RT-PCR) Influenza Type A (PCR) NEGATIVE Influenza B (RT-PCR) Influenza Type B (PCR) NEGATIVE M. pneumoniae (PCR) Parainfluenza 1 (PCR) Parainfluenza 2 (PCR) Parainfluenza 3 (PCR) Parainfluenza 4 (PCR) RSV (PCR) RSV RNA Qual (PCR) NEGATIVE Entero/Rhino (PCR) SARS-CoV-2 RNA (RT-PCR) NEGATIVE 10/20/23 10/20/23 10/20/23 14:13 16:39 17:10 WBC 11.7 H RBC 4.64 Hgb 14.5 Hct 41.2 L MCV 88.8 MCH 31.3 MCHC 35.2 RDW 11.7 Plt Count 263 MPV 9.0 L Immature Gran % (Auto) 0.3 Neut % (Auto) 78.3 H Lymph % (Auto) 12.0 L [place] % (Auto) 5.7 Eos % (Auto) 3.4 Baso % (Auto) 0.3 Lymph # (Auto) 1.4 Cache # (Auto) 0.7 Eos # (Auto) 0.4 Baso # (Auto) 0.0 Abs Immat Gran (auto) 0.04 H Absolute Neuts (auto) 9.1 H Absolute Nucleated RBC 0.000 Nucleated RBC % (auto) 0.0 ESR Sodium 142 Potassium 3.7 Chloride 108 Carbon Dioxide 27 Anion Gap 11 L BUN 10 Creatinine 0.96 Estim Creat Clear Calc 104.1 Estimated GFR > 60 Random Glucose 106 Calcium 9.3 Total Bilirubin Direct Bilirubin AST ALT Alkaline Phosphatase Total Creatine Kinase C-Reactive Protein Total Protein Albumin Vitamin B12 Folate TSH Free T4 Urine Color Yellow Urine Appearance Clear Urine pH 7.0 Ur Specific Wilson 1.015 Urine Protein Negative Urine Glucose (UA) Negative Urine Ketones Negative Urine Blood Trace H Urine Nitrite Negative Ur Leukocyte Esterase Negative Urine RBC 6-10 H Urine WBC 0-5 Ur Squamous Epith Cells 0-2 Urine Bacteria None Seen Hyaline Casts 0-2 [place] ANNIE Screen ANNIE Titer ANNIE Titer 2 ANNIE Titer 3 ANNIE Pattern ANNIE Pattern 2 ANNIE Pattern 3 Respiratory Panel Pugh See Note Adenovirus (Rapid PCR) Not Detected B.pert (TEM-PCR) Not Detected B.parapertussis DNA PCR Not Detected C. pneumoniae DNA (PCR) Not Detected Coronavirus OC43 (PCR) Not Detected Coronavirus HKU1 (PCR) Not Detected Coronavirus 229E (PCR) Not Detected Coronavirus NL63 (PCR) Not Detected Human Metapneumovir PCR Not Detected Influenza A (RT-PCR) Not Detected Influenza Type A (PCR) Influenza B (RT-PCR) Not Detected Influenza Type B (PCR) M. pneumoniae (PCR) Not Detected Parainfluenza 1 (PCR) Not Detected Parainfluenza 2 (PCR) Not Detected Parainfluenza 3 (PCR) Not Detected Parainfluenza 4 (PCR) Not Detected RSV (PCR) Not Detected RSV RNA Qual (PCR) Entero/Rhino (PCR) Not Detected SARS-CoV-2 RNA (RT-PCR) Not Detected 10/25/23 10/30/23 06:56 07:49 WBC RBC Hgb Hct MCV MCH MCHC RDW Plt Count MPV Immature Gran % (Auto) Neut % (Auto) Lymph % (Auto) Cache % (Auto) Eos % (Auto) Baso % (Auto) Lymph # (Auto) [place] # (Auto) Eos # (Auto) Baso # (Auto) Abs Immat Gran (auto) Absolute Neuts (auto) Absolute Nucleated RBC Nucleated RBC % (auto) ESR 14 16 H Sodium Potassium Chloride Carbon Dioxide Anion Gap BUN Creatinine Estim Creat Clear Calc Estimated GFR Random Glucose Calcium Total Bilirubin Direct Bilirubin AST ALT Alkaline Phosphatase Total Creatine Kinase 281 H C-Reactive Protein 1.24 H Total Protein Albumin Vitamin B12 258 Folate 8.8 TSH 4.24 H Free T4 1.08 Urine Color Urine Appearance Urine pH Ur Specific Wilson Urine Protein Urine Glucose (UA) Urine Ketones Urine Blood Urine Nitrite Ur Leukocyte Esterase Urine RBC Urine WBC Ur Squamous Epith Cells Urine Bacteria Hyaline Casts [place] ANNIE Screen NEGATIVE ANNIE Titer TNP ANNIE Titer 2 TNP NANIE Titer 3 TNP ANNIE Pattern TNP ANNIE Pattern 2 TNP ANNIE Pattern 3 TNP Respiratory Panel Pugh Adenovirus (Rapid PCR) B.pert (TEM-PCR) B.parapertussis DNA PCR C. pneumoniae DNA (PCR) Coronavirus OC43 (PCR) Coronavirus HKU1 (PCR) Coronavirus 229E (PCR) Coronavirus NL63 (PCR) Human Metapneumovir PCR Influenza A (RT-PCR) Influenza Type A (PCR) Influenza B (RT-PCR) Influenza Type B (PCR) M. pneumoniae (PCR) Parainfluenza 1 (PCR) Parainfluenza 2 (PCR) Parainfluenza 3 (PCR) Parainfluenza 4 (PCR) RSV (PCR) RSV RNA Qual (PCR) Entero/Rhino (PCR) SARS-CoV-2 RNA (RT-PCR) Airway Mallampati Class: II TM Dist: >3cm Neck ROM: Full Loose/Missing/Broken Teeth: No Heart: RRR Lungs: CTA Assessment and Plan Assessment Anesthesia Assessment: Anesthesia Plan Discussed and Chart Reviewed Final Anesthetic Review Family History of Problems with Anesthesia: No History of Problems with Anesthesia: No NPO: Yes ASA Class: II Final Preanesthetic Review: Meds/Allgs Chart Reviewed, Consent Obtained/Reviewed and Anes Risks/Benef Reviewed Patient Risk: Low Procedure Risk: Low Anesthetic Plan Anesthetic Plan: GA Disposition: Standard PACU
[2023-11-30] MEDS: OLANZapine ODT 10 MG TAB.RAPDIS 20 MG TRANSLINGU (20:14)
--- NOTE | 2023-11-30 20:49 | P.PNPSI_ITS ---
Subjective Subjective Date of Service: 11/30/23 Reason For Visit: catatonia depression Subjective Notes: Section 8 Healthcare Proxy: No Interim History: Patient has been somewhat more verbal engaged ECT completed today again re- evaluate post ECT tomorrow continue olanzapine Medication Compliance: Yes Mental Status Exam Mental Status Exam Narrative: In today's visit pt sedated fatigued post ect Diagnostics Vital Signs (24Hr): Vital Signs - 24 hr 11/30/23 06:40 11/30/23 07:26 11/30/23 07:31 Temperature 98.0 F 97 F Pulse Rate 82 109 H 110 H Respiratory Rate 18 18 18 Blood Pressure 127/76 113/74 141/72 H Pulse Oximetry 99 96 96 Oxygen Delivery Method Room Air Nasal Cannula Oxygen Flow Rate 2 11/30/23 07:36 11/30/23 07:41 11/30/23 07:56 Temperature Pulse Rate 104 H 107 H 90 Respiratory Rate 16 18 18 Blood Pressure 147/79 H 133/84 123/77 Pulse Oximetry 94 95 94 Oxygen Delivery Method Room Air Room Air Oxygen Flow Rate 11/30/23 08:00 11/30/23 08:11 11/30/23 08:30 Temperature 98.7 F 98.4 F 98.7 F Pulse Rate 92 99 92 Respiratory Rate 14 16 14 Blood Pressure 103/63 124/67 103/63 Pulse Oximetry 96 97 Oxygen Delivery Method Room Air Room Air Oxygen Flow Rate 11/30/23 20:00 Temperature 99.3 F Pulse Rate 97 Respiratory Rate 16 Blood Pressure 110/57 L Pulse Oximetry 98 Oxygen Delivery Method Room Air Oxygen Flow Rate BMI result Body Mass Index 27.1 Labs 10/20/23 14:13 10/20/23 14:13 Imaging Radiology Impressions: ITS Impressions Chest X-Ray 10/20/23 16:28 IMPRESSION: No acute cardiopulmonary abnormality. Medications Medications Current Medications Acetaminophen (Acetaminophen 325 Mg Tablet) 650 mg PO Q6H PRN PRN Reason: Headache/Pain Mild Scale (1-3) Last Admin: 11/13/23 17:05 Dose: 650 mg Al Hydroxide/Mg Hydroxide (Magnesium Hydrox/Alum Hydrox 30 Ml Oral.Susp) 30 ml PO Q6H PRN PRN Reason: Heartburn/Nausea Hydroxyzine HCl (Hydroxyzine Hcl 25 Mg Tablet) 25 mg PO Q6H PRN PRN Reason: Anxiety Last Admin: 11/08/23 22:37 Dose: 25 mg Magnesium Hydroxide (Milk Of Magnesia 30 Ml Oral.Susp) 30 ml PO DAILY PRN PRN Reason: Constipation Olanzapine (Olanzapine Odt 10 Mg Tab.Rapdis) 10 mg TRANSLINGU Q4H PRN PRN Reason: anxiety/restlessness Last Admin: 11/13/23 16:57 Dose: 10 mg Olanzapine (Olanzapine Odt 10 Mg Tab.Rapdis) 20 mg TRANSLINGU BEDTIME PAM Last Admin: 11/30/23 20:14 Dose: 20 mg Trazodone HCl (Trazodone Hcl 50 Mg Tablet) 50 mg PO BEDTIME MRX1 PRN PRN Reason: Insomnia Last Admin: 11/25/23 21:14 Dose: 50 mg Allergies Allergies Allergy/AdvReac Type Severity Reaction Status Date / Time No Known Allergies Allergy Verified 11/11/23 07:33 Assessment & Plan Assessment & Plan (1) Bipolar I disorder with catatonia: Status: Acute Code(s): F31.9 - Bipolar disorder, unspecified; F06.1 - Catatonic disorder due to known physiological condition Plan ECT is scheduled for 3 days will try a more limited 2 time a week schedule patient continues to show improvement continue olanzapine patient would benefit from [facility] out reach has not followed up previously after discharge with treatmen 11/30/23 ect completed reevaluate in am Informed Consent: further education needed Reason for continued inpatient stay Substantial Risk for: rapid decompensation Time Spent With Patient Time: Total time managing care of this patient today ____ minutes.
[2023-12-01 07:20] VITALS: BP 86/47; PULSE 75; RESP 14; TEMP 36.3; O2SAT 98
[2023-12-01 08:00] VITALS: BP 86/47; PULSE 75; RESP 14; TEMP 36.4; O2SAT 98
--- NOTE | 2023-12-01 08:47 | HO.POSTANES ---
Post Anesthesia Evaluation Post Anesthesia Evaluation Date of Service: 11/30/23 Vital Signs: Vital Signs Temp Pulse Resp BP Pulse Ox O2 Del Method 12/01/23 08:00 97.5 F 75 14 86/47 L 98 Room Air 12/01/23 07:20 97.4 F 75 14 86/47 L 98 Room Air Anesthesia: General Mental Status: Awake Pain Control: Satisfactory Nausea/Vomiting: None Hydration: Adequate Anesthesia-Related Issues: No Anes. Related Issues
[2023-12-01] MEDS: OLANZapine ODT 10 MG TAB.RAPDIS 20 MG TRANSLINGU (19:55)
[2023-12-01 20:00] VITALS: BP 114/68; PULSE 82; RESP 16; TEMP 37.2; O2SAT 98
--- NOTE | 2023-12-01 22:54 | HO.PSYCHPN ---
Subjective Subjective Date of Service: 12/01/23 Reason For Visit: catatonia depression Subjective Notes: Section 8 Interim History: Patient seems significantly improved more social and engaged in the community still on in processing information and giving information more social has been going to group no gross psychosis Mental Status Exam Mental Status Exam Narrative: In today's visit he is alert, pleasant and minimally interactive. Soft-spoken speech. No eye contact. Affect is subdued and restricted. No signs of psychosis. No SI/HI. Cognitively has slow thought processes. No musculoskeletal difficulties. Able to move all limbs. No abnormalities of gait. Judgment is intact more alert improved focus and attention mood improved no SI or HI Diagnostics Vital Signs (24Hr): Vital Signs - 24 hr 12/01/23 07:20 12/01/23 08:00 Temperature 97.4 F 97.5 F Pulse Rate 75 75 Respiratory Rate 14 14 Blood Pressure 86/47 L 86/47 L Pulse Oximetry 98 98 Oxygen Delivery Method Room Air Room Air BMI result Body Mass Index 27.1 Labs 10/20/23 14:13 10/20/23 14:13 Imaging Radiology Impressions: ITS Impressions Chest X-Ray 10/20/23 16:28 IMPRESSION: No acute cardiopulmonary abnormality. Medications Medications Current Medications Acetaminophen (Acetaminophen 325 Mg Tablet) 650 mg PO Q6H PRN PRN Reason: Headache/Pain Mild Scale (1-3) Last Admin: 11/13/23 17:05 Dose: 650 mg Al Hydroxide/Mg Hydroxide (Magnesium Hydrox/Alum Hydrox 30 Ml Oral.Susp) 30 ml PO Q6H PRN PRN Reason: Heartburn/Nausea Hydroxyzine HCl (Hydroxyzine Hcl 25 Mg Tablet) 25 mg PO Q6H PRN PRN Reason: Anxiety Last Admin: 11/08/23 22:37 Dose: 25 mg Magnesium Hydroxide (Milk Of Magnesia 30 Ml Oral.Susp) 30 ml PO DAILY PRN PRN Reason: Constipation Olanzapine (Olanzapine Odt 10 Mg Tab.Rapdis) 10 mg TRANSLINGU Q4H PRN PRN Reason: anxiety/restlessness Last Admin: 11/13/23 16:57 Dose: 10 mg Olanzapine (Olanzapine Odt 10 Mg Tab.Rapdis) 20 mg TRANSLINGU BEDTIME PAM Last Admin: 12/01/23 19:55 Dose: 20 mg Trazodone HCl (Trazodone Hcl 50 Mg Tablet) 50 mg PO BEDTIME MRX1 PRN PRN Reason: Insomnia Last Admin: 11/25/23 21:14 Dose: 50 mg Allergies Allergies Allergy/AdvReac Type Severity Reaction Status Date / Time No Known Allergies Allergy Verified 11/11/23 07:33 Assessment & Plan Assessment & Plan (1) Bipolar I disorder with catatonia: Status: Acute Code(s): F31.9 - Bipolar disorder, unspecified; F06.1 - Catatonic disorder due to known physiological condition Plan ECT is scheduled for 3 days will try a more limited 2 time a week schedule patient continues to show improvement continue olanzapine patient would benefit from [facility] out reach has not followed up previously after discharge with treatmen 11/30/23 ect completed reevaluate in am 12/01/2023 Patient continues to show improvement but does have symptoms and lack of insight would benefit from structure and support after discharge continue olanzapine evaluate need for further ECT Reason for continued inpatient stay Substantial Risk for: harm to self and rapid decompensation Time Spent With Patient Time: Total time managing care of this patient today ____ minutes.
[2023-12-02 07:20] VITALS: BP 92/54; PULSE 81; RESP 18; TEMP 36.2; O2SAT 99
[2023-12-02 08:00] VITALS: BP 92/54; PULSE 81; RESP 18; TEMP 36.2; O2SAT 99
[2023-12-02 08:39] LABS: MANUAL DIFF FLAG NO
[2023-12-02 08:48] LABS: Basophils Percent Auto 0.8 % (0-2); Eosinophils Absolute Auto 0.3 X10*3/uL (0.0-0.4); Hematocrit 39.6 % (42.0-52.0); Hemoglobin 13.5 g/dl (14.0-18.0); Imm Gran Abs Auto 0.02 X10*3/uL (0.00-0.03); Imm Gran Pct Auto 0.4 % (0.0-0.4); Lymphocytes Absolute Auto 1.3 X10*3/uL (1.2-4.9); Lymphocytes Percent Auto 24.8 % (20-40); Mean Corpuscular HGB Conc 34.1 g/dl (31.0-36.0); Mean Corpuscular Hemoglobin 31.3 pg (27.0-33.0); Mean Corpuscular Volume 91.7 fL (80.0-98.0); Monocytes Absolute Auto 0.4 X10*3/uL (0.1-1.2); Monocytes Percent Auto 7.3 % (2-11); Neutrophils Absolute Auto 3.2 x10*3/uL (2.0-8.3); Neutrophils Percent Auto 60.7 % (45-73); Platelet Count 321 X10*3/uL (160-400); Red Blood Count 4.32 X10*6/uL (4.60-5.80); Red Cell Distribution Width 12.7 % (11.0-16.0); White Blood Count 5.3 X10*3/uL (4.8-10.8)
[2023-12-02 09:06] LABS: Alanine Aminotransferase 24 U/L (0-40); Albumin Level 4.2 g/dL (3.5-5.0); Alkaline Phosphatase 52 U/L (39-117); Anion Gap 12 (12-20); Aspartate Amino Transferase 16 U/L (5-37); Bilirubin Total 0.4 mg/dL (0.0-1.0); Blood Urea Nitrogen 12 mg/dL (9-16); Calcium 9.8 mg/dL (8.4-10.2); Carbon Dioxide 28 mmol/L (22-29); Chloride 106 mmol/L (96-108); Creatinine Clr Calc Pharmacy 154.2; Estimated Glomerular Filt Rate > 60; Glucose Fasting 84 mg/dL (60-99); Potassium 3.7 mmol/L (3.3-5.1); Sodium 142 mmol/L (135-145); Total Protein 7.1 g/dL (6.5-8.0)
[2023-12-02 09:20] LABS: TSH reflex Free T4 2.87 uIU/mL (0.32-4.0)
--- NOTE | 2023-12-02 09:33 | P.PNPSI_ITS ---
Subjective Subjective Date of Service: 12/02/23 Reason For Visit: catatonia depression Subjective Notes: Conditional Voluntary Interim History: Patient has a osborn affect more forthcoming better reality based fx Mental Status Exam Mental Status Exam Narrative: In today's visit he is alert, pleasant interactive. Soft-spoken speech. Affect is osborn and less restricted No gross paranoia or hallucinations No SI/HI. Cognitively has slow thought processes. No orofacial dyskinesia Able to move all limbs. No abnormalities of gait. Judgment is improving more alert improved focus at times still needs cuing Diagnostics Vital Signs (24Hr): Vital Signs - 24 hr 12/01/23 20:00 12/02/23 07:20 12/02/23 08:00 Temperature 99 F 97.1 F 97.1 F Pulse Rate 82 81 81 Respiratory Rate 16 18 18 Blood Pressure 114/68 92/54 L 92/54 L Pulse Oximetry 98 99 99 Oxygen Delivery Method Room Air Room Air Room Air BMI result Body Mass Index 27.1 Labs 12/02/23 08:08 12/02/23 08:08 Labs: Laboratory Results - last 48 hr 12/02/23 08:08 WBC 5.3 RBC 4.32 L Hgb 13.5 L Hct 39.6 L MCV 91.7 MCH 31.3 MCHC 34.1 RDW 12.7 Plt Count 321 MPV 9.0 L Immature Gran % (Auto) 0.4 Neut % (Auto) 60.7 Lymph % (Auto) 24.8 [place] % (Auto) 7.3 Eos % (Auto) 6.0 H Baso % (Auto) 0.8 Lymph # (Auto) 1.3 [place] # (Auto) 0.4 Eos # (Auto) 0.3 Baso # (Auto) 0.0 Abs Immat Gran (auto) 0.02 Absolute Neuts (auto) 3.2 Absolute Nucleated RBC 0.000 Nucleated RBC % (auto) 0.0 Sodium 142 Potassium 3.7 Chloride 106 Carbon Dioxide 28 Anion Gap 12 BUN 12 Creatinine 0.70 Estim Creat Clear Calc 154.2 Estimated GFR > 60 Fasting Glucose 84 Calcium 9.8 Total Bilirubin 0.4 AST 16 ALT 24 Alkaline Phosphatase 52 Total Protein 7.1 Albumin 4.2 TSH 2.87 Imaging Radiology Impressions: ITS Impressions Chest X-Ray 10/20/23 16:28 IMPRESSION: No acute cardiopulmonary abnormality. Medications Medications Current Medications Acetaminophen (Acetaminophen 325 Mg Tablet) 650 mg PO Q6H PRN PRN Reason: Headache/Pain Mild Scale (1-3) Last Admin: 11/13/23 17:05 Dose: 650 mg Al Hydroxide/Mg Hydroxide (Magnesium Hydrox/Alum Hydrox 30 Ml Oral.Susp) 30 ml PO Q6H PRN PRN Reason: Heartburn/Nausea Hydroxyzine HCl (Hydroxyzine Hcl 25 Mg Tablet) 25 mg PO Q6H PRN PRN Reason: Anxiety Last Admin: 11/08/23 22:37 Dose: 25 mg Magnesium Hydroxide (Milk Of Magnesia 30 Ml Oral.Susp) 30 ml PO DAILY PRN PRN Reason: Constipation Olanzapine (Olanzapine Odt 10 Mg Tab.Rapdis) 10 mg TRANSLINGU Q4H PRN PRN Reason: anxiety/restlessness Last Admin: 11/13/23 16:57 Dose: 10 mg Olanzapine (Olanzapine Odt 10 Mg Tab.Rapdis) 20 mg TRANSLINGU BEDTIME PAM Last Admin: 12/01/23 19:55 Dose: 20 mg Trazodone HCl (Trazodone Hcl 50 Mg Tablet) 50 mg PO BEDTIME MRX1 PRN PRN Reason: Insomnia Last Admin: 11/25/23 21:14 Dose: 50 mg Allergies Allergies Allergy/AdvReac Type Severity Reaction Status Date / Time No Known Allergies Allergy Verified 11/11/23 07:33 Assessment & Plan Assessment & Plan (1) Bipolar I disorder with catatonia: Status: Acute Code(s): F31.9 - Bipolar disorder, unspecified; F06.1 - Catatonic disorder due to known physiological condition Plan ECT is scheduled for 3 days will try a more limited 2 time a week schedule patient continues to show improvement continue olanzapine patient would benefit from [facility] out reach has not followed up previously after discharge with treatmen 11/30/23 ect completed reevaluate in am 12/01/2023 Patient continues to show improvement but does have symptoms and lack of insight would benefit from structure and support after discharge continue olanzapine evaluate need for further ECT 12/02/2023 Continue olanzapine ECT scheduled for [phone] [facility] referral made Reason for continued inpatient stay Substantial Risk for: inability to function and rapid decompensation Time Spent With Patient Time: Total time managing care of this patient today ____ minutes.
[2023-12-02 12:03] VITALS: BP 106/66; PULSE 86
[2023-12-02 20:00] VITALS: BP 107/62; PULSE 91; RESP 16; TEMP 36.8; O2SAT 97
[2023-12-02] MEDS: OLANZapine ODT 10 MG TAB.RAPDIS 20 MG TRANSLINGU (20:04)
[2023-12-03 07:00] VITALS: BMI 27.0
[2023-12-03 07:59] VITALS: BP 105/57; PULSE 77; RESP 16; TEMP 36.8; O2SAT 98
[2023-12-03 20:00] VITALS: BP 129/68; PULSE 83; RESP 16; TEMP 36.9; O2SAT 99
[2023-12-03] MEDS: OLANZapine ODT 10 MG TAB.RAPDIS 20 MG TRANSLINGU (20:28)
--- NOTE | 2023-12-03 22:35 | P.PNPSI_ITS ---
Subjective Subjective Date of Service: 12/03/23 Reason For Visit: catatonia depression Healthcare Proxy: No Guardianship: No Interim History: Patient seen psychiatric follow-up case reviewed in treatment planning patient seen. The patient is more alert and verbal. He is able to hold much more of a conversation more social on the unit and communicative. Medication Compliance: Yes Mental Status Exam Mental Status Exam Narrative: In today's visit he is alert, pleasant interactive. Soft-spoken speech. Affect is osborn and less restricted No gross paranoia or hallucinations No SI/HI. Cognitively has slow thought processes. No orofacial dyskinesia Able to move all limbs. No abnormalities of gait. Judgment is improving more alert improved focus although somewhat slowed can tell me address month year what he likes to do at home with games he enjoys playing. Much more verbal forthcoming Diagnostics Vital Signs (24Hr): Vital Signs - 24 hr 12/03/23 07:59 12/03/23 20:00 Temperature 98.3 F 98.4 F Pulse Rate 77 83 Respiratory Rate 16 16 Blood Pressure 105/57 L 129/68 Pulse Oximetry 98 99 Oxygen Delivery Method Room Air Room Air BMI result Body Mass Index 27.0 Labs 12/02/23 08:08 12/02/23 08:08 Labs: Laboratory Results - last 48 hr 12/02/23 08:08 WBC 5.3 RBC 4.32 L Hgb 13.5 L Hct 39.6 L MCV 91.7 MCH 31.3 MCHC 34.1 RDW 12.7 Plt Count 321 MPV 9.0 L Immature Gran % (Auto) 0.4 Neut % (Auto) 60.7 Lymph % (Auto) 24.8 [place] % (Auto) 7.3 Eos % (Auto) 6.0 H Baso % (Auto) 0.8 Lymph # (Auto) 1.3 [place] # (Auto) 0.4 Eos # (Auto) 0.3 Baso # (Auto) 0.0 Abs Immat Gran (auto) 0.02 Absolute Neuts (auto) 3.2 Absolute Nucleated RBC 0.000 Nucleated RBC % (auto) 0.0 Sodium 142 Potassium 3.7 Chloride 106 Carbon Dioxide 28 Anion Gap 12 BUN 12 Creatinine 0.70 Estim Creat Clear Calc 154.2 Estimated GFR > 60 Fasting Glucose 84 Calcium 9.8 Total Bilirubin 0.4 AST 16 ALT 24 Alkaline Phosphatase 52 Total Protein 7.1 Albumin 4.2 TSH 2.87 Imaging Radiology Impressions: ITS Impressions Chest X-Ray 10/20/23 16:28 IMPRESSION: No acute cardiopulmonary abnormality. Medications Medications Current Medications Acetaminophen (Acetaminophen 325 Mg Tablet) 650 mg PO Q6H PRN PRN Reason: Headache/Pain Mild Scale (1-3) Last Admin: 11/13/23 17:05 Dose: 650 mg Al Hydroxide/Mg Hydroxide (Magnesium Hydrox/Alum Hydrox 30 Ml Oral.Susp) 30 ml PO Q6H PRN PRN Reason: Heartburn/Nausea Hydroxyzine HCl (Hydroxyzine Hcl 25 Mg Tablet) 25 mg PO Q6H PRN PRN Reason: Anxiety Last Admin: 11/08/23 22:37 Dose: 25 mg Magnesium Hydroxide (Milk Of Magnesia 30 Ml Oral.Susp) 30 ml PO DAILY PRN PRN Reason: Constipation Olanzapine (Olanzapine Odt 10 Mg Tab.Rapdis) 10 mg TRANSLINGU Q4H PRN PRN Reason: anxiety/restlessness Last Admin: 11/13/23 16:57 Dose: 10 mg Olanzapine (Olanzapine Odt 10 Mg Tab.Rapdis) 20 mg TRANSLINGU BEDTIME PAM Last Admin: 12/03/23 20:28 Dose: 20 mg Trazodone HCl (Trazodone Hcl 50 Mg Tablet) 50 mg PO BEDTIME MRX1 PRN PRN Reason: Insomnia Last Admin: 11/25/23 21:14 Dose: 50 mg Allergies Allergies Allergy/AdvReac Type Severity Reaction Status Date / Time No Known Allergies Allergy Verified 11/11/23 07:33 Assessment & Plan Assessment & Plan (1) Bipolar I disorder with catatonia: Status: Acute Code(s): F31.9 - Bipolar disorder, unspecified; F06.1 - Catatonic disorder due to known physiological condition Plan ECT is scheduled for 3 days will try a more limited 2 time a week schedule patient continues to show improvement continue olanzapine patient would benefit from [facility] out reach has not followed up previously after discharge with treatmen 11/30/23 ect completed reevaluate in am 12/01/2023 Patient continues to show improvement but does have symptoms and lack of insight would benefit from structure and support after discharge continue olanzapine evaluate need for further ECT 12/02/2023 Continue olanzapine ECT scheduled for [phone] [facility] referral made 12/03/2023 ECT scheduled for tomorrow will then try an discontinue and see if we can set up a discharge sometime next week patient unfortunately has limited insight might benefit from [facility] psychiatric VNA to assess response as patient has had a rapid decompensation previously Reason for continued inpatient stay Substantial Risk for: inability to function and rapid decompensation Time Spent With Patient Time: Total time managing care of this patient today ____ minutes.
[2023-12-04] VITALS (12 sets, daily range): BP systolic 101–154; BP diastolic 57–82; PULSE 45–111; RESP 13–18; TEMP 36.4–37.2; O2SAT 96–99
--- NOTE | 2023-12-04 08:08 | MHC.SHP ---
Pre-Procedural Eval Section A - 24 Hr Update-Section A only Date of Service: 12/04/23 The patient is an INPATIENT: Yes Changes since office visit: No Cold of Flu in the past 2 weeks, No New Medical Problems, No Changes in Medication and No Patient answered all questions The patient has been examined within 24 hours of the surgical procedure. The History & Physical has been completed within 30 days and I have reviewed it.: Yes Section B - Complete if H&P > 30 days Chief Complaint: catatonia depression Allergies: Allergies Allergy/AdvReac Type Severity Reaction Status Date / Time No Known Allergies Allergy Verified 11/11/23 07:33 Plan I have reviewed the history and physical and performed a pertinent physical examination on my patient. No changes have occurred unless specified. Time Spent With Patient Time: Total time managing care of this patient today ____ minutes.
--- NOTE | 2023-12-04 08:08 | HO.ECTPROC ---
ECT Procedure Note Diagnosis/Treatment Date of Service: 12/04/23 Diagnosis: Bipolar disorder Previous ECT Date: 11/30/23 Current Treatment Number: 13 Treatment: Series Interval Clinical Notes: Patient showing clear improvement will try make today's treatment last inpatient treatment more organized future oriented more conversational mood stable but flat treatment changed to bifrontal Time: Total time managing care of this patient today ____ minutes. ECT Settings Device: THYMATRON DGx Electrode Placement: Bifrontal Program/Pulse Width: 0.50 Energy Percent: 100 Seizure Duration By EEG (in seconds): 36 Medications Administration General Anesthetic: Etomidate (16) Muscle Relaxant: Succinylcholine (100) Ancillary Medications Cardiovascular Medications: Glycopyrrolate Miscillaneous Medications: Midazolam Airway Management Airway Management: Bag Mask Ventilation Treatment Recommendations Notes: Hopefully transition to outpatient treatment
--- NOTE | 2023-12-04 09:12 | HO.ANESPROP2 ---
[facility] Active Problems Active Problems: All Active Problems Bipolar I disorder with catatonia (Acute) Catatonia (Acute) Routine medical exam (Acute) Past Medical History Medical History No pertinent past medical history Functional capacity: independent ambulation Family History Family history of problems with anesthesia: No Surgical History History of Problems with Anesthesia: No Social History Social History Household Members: Other Household Members Other:: Unknown Do you presently have visiting nurse or other home services: No (Unknown) Comment: Patient on constant observation Patient Tobacco Use Status: Never used Tobacco e-Cigarette/Vaping Use: Never Used Second Hand Smoke Exposure: No Sexual orientation: Unable to collect Meds Allergies Allergy/AdvReac Type Severity Reaction Status Date / Time No Known Allergies Allergy Verified 11/11/23 07:33 Active Medications: Current Medications Acetaminophen (Acetaminophen 325 Mg Tablet) 650 mg PO Q6H PRN PRN Reason: Headache/Pain Mild Scale (1-3) Last Admin: 11/13/23 17:05 Dose: 650 mg Al Hydroxide/Mg Hydroxide (Magnesium Hydrox/Alum Hydrox 30 Ml Oral.Susp) 30 ml PO Q6H PRN PRN Reason: Heartburn/Nausea Hydroxyzine HCl (Hydroxyzine Hcl 25 Mg Tablet) 25 mg PO Q6H PRN PRN Reason: Anxiety Last Admin: 11/08/23 22:37 Dose: 25 mg Magnesium Hydroxide (Milk Of Magnesia 30 Ml Oral.Susp) 30 ml PO DAILY PRN PRN Reason: Constipation Olanzapine (Olanzapine Odt 10 Mg Tab.Rapdis) 10 mg TRANSLINGU Q4H PRN PRN Reason: anxiety/restlessness Last Admin: 11/13/23 16:57 Dose: 10 mg Olanzapine (Olanzapine Odt 10 Mg Tab.Rapdis) 20 mg TRANSLINGU BEDTIME PAM Last Admin: 12/03/23 20:28 Dose: 20 mg Trazodone HCl (Trazodone Hcl 50 Mg Tablet) 50 mg PO BEDTIME MRX1 PRN PRN Reason: Insomnia Last Admin: 11/25/23 21:14 Dose: 50 mg Home Medications ?Medication ?Instructions ?Recorded ?Confirmed ?Last Taken ?Type No Known Home Meds 10/09/23 10/09/23 Unknown History Exam Height,Weight and Vital Signs: Height 5 ft 5 in Weight 73.709 kg Last Vital Signs Temp 99.0 F 12/04/23 08:28 Pulse 91 12/04/23 08:58 Resp 18 12/04/23 08:58 BP 114/71 12/04/23 08:58 Pulse Ox 98 12/04/23 08:58 O2 Del Method Room Air 12/04/23 08:58 O2 Flow Rate 2 12/04/23 08:38 Pertinent Lab Results Pertinent Lab Results: Laboratory Tests 09/23/23 09/27/23 10/10/23 02:20 11:15 14:55 WBC 6.1 RBC 4.83 Hgb 15.0 Hct 44.6 MCV 92.3 MCH 31.1 MCHC 33.6 RDW 11.8 Plt Count 300 MPV 8.9 L Immature Gran % (Auto) 0.5 H Neut % (Auto) 71.0 Lymph % (Auto) 22.0 [place] % (Auto) 4.2 Eos % (Auto) 1.8 Baso % (Auto) 0.5 Lymph # (Auto) 1.4 [place] # (Auto) 0.3 Eos # (Auto) 0.1 Baso # (Auto) 0.0 Abs Immat Gran (auto) 0.03 Absolute Neuts (auto) 4.4 Absolute Nucleated RBC 0.000 Nucleated RBC % (auto) 0.0 ESR Sodium 142 141 Potassium 3.8 3.6 Chloride 105 109 H Carbon Dioxide 28 24 Anion Gap 13 12 BUN 8 L 9 Creatinine 0.79 0.86 Estim Creat Clear Calc 126.5 116.2 Estimated GFR > 60 > 60 Random Glucose 112 110 Fasting Glucose Calcium 9.3 9.7 Total Bilirubin 0.4 Direct Bilirubin 0.2 AST 10 ALT 9 Alkaline Phosphatase 61 Total Creatine Kinase 66 C-Reactive Protein Total Protein 7.2 Albumin 4.3 Vitamin B12 Folate TSH Free T4 Urine Color Urine Appearance Urine pH Ur Specific [place] Urine Protein Urine Glucose (UA) Urine Ketones Urine Blood Urine Nitrite Ur Leukocyte Esterase Urine RBC Urine WBC Ur Squamous Epith Cells Urine Bacteria Hyaline Casts [place] 0.46 L ANNIE Screen ANNIE Titer ANNIE Titer 2 ANNIE Titer 3 ANNIE Pattern ANNIE Pattern 2 ANNIE Pattern 3 Respiratory Panel Pugh Adenovirus (Rapid PCR) B.pert (TEM-PCR) B.parapertussis DNA PCR C. pneumoniae DNA (PCR) Coronavirus OC43 (PCR) Coronavirus HKU1 (PCR) Coronavirus 229E (PCR) Coronavirus NL63 (PCR) Human Metapneumovir PCR Influenza A (RT-PCR) Influenza Type A (PCR) NEGATIVE Influenza B (RT-PCR) Influenza Type B (PCR) NEGATIVE M. pneumoniae (PCR) Parainfluenza 1 (PCR) Parainfluenza 2 (PCR) Parainfluenza 3 (PCR) Parainfluenza 4 (PCR) RSV (PCR) RSV RNA Qual (PCR) NEGATIVE Entero/Rhino (PCR) SARS-CoV-2 RNA (RT-PCR) NEGATIVE 10/20/23 10/20/23 10/20/23 14:13 16:39 17:10 WBC 11.7 H RBC 4.64 Hgb 14.5 Hct 41.2 L MCV 88.8 MCH 31.3 MCHC 35.2 RDW 11.7 Plt Count 263 MPV 9.0 L Immature Gran % (Auto) 0.3 Neut % (Auto) 78.3 H Lymph % (Auto) 12.0 L [place] % (Auto) 5.7 Eos % (Auto) 3.4 Baso % (Auto) 0.3 Lymph # (Auto) 1.4 [place] # (Auto) 0.7 Eos # (Auto) 0.4 Baso # (Auto) 0.0 Abs Immat Gran (auto) 0.04 H Absolute Neuts (auto) 9.1 H Absolute Nucleated RBC 0.000 Nucleated RBC % (auto) 0.0 ESR Sodium 142 Potassium 3.7 Chloride 108 Carbon Dioxide 27 Anion Gap 11 L BUN 10 Creatinine 0.96 Estim Creat Clear Calc 104.1 Estimated GFR > 60 Random Glucose 106 Fasting Glucose Calcium 9.3 Total Bilirubin Direct Bilirubin AST ALT Alkaline Phosphatase Total Creatine Kinase C-Reactive Protein Total Protein Albumin Vitamin B12 Folate TSH Free T4 Urine Color Yellow Urine Appearance Clear Urine pH 7.0 Ur Specific [place] 1.015 Urine Protein Negative Urine Glucose (UA) Negative Urine Ketones Negative Urine Blood Trace H Urine Nitrite Negative Ur Leukocyte Esterase Negative Urine RBC 6-10 H Urine WBC 0-5 Ur Squamous Epith Cells 0-2 Urine Bacteria None Seen Hyaline Casts 0-2 [place] ANNIE Screen ANNIE Titer ANNIE Titer 2 ANNIE Titer 3 ANNIE Pattern ANNIE Pattern 2 ANNIE Pattern 3 Respiratory Panel Pugh See Note Adenovirus (Rapid PCR) Not Detected B.pert (TEM-PCR) Not Detected B.parapertussis DNA PCR Not Detected C. pneumoniae DNA (PCR) Not Detected Coronavirus OC43 (PCR) Not Detected Coronavirus HKU1 (PCR) Not Detected Coronavirus 229E (PCR) Not Detected Coronavirus NL63 (PCR) Not Detected Human Metapneumovir PCR Not Detected Influenza A (RT-PCR) Not Detected Influenza Type A (PCR) Influenza B (RT-PCR) Not Detected Influenza Type B (PCR) M. pneumoniae (PCR) Not Detected Parainfluenza 1 (PCR) Not Detected Parainfluenza 2 (PCR) Not Detected Parainfluenza 3 (PCR) Not Detected Parainfluenza 4 (PCR) Not Detected RSV (PCR) Not Detected RSV RNA Qual (PCR) Entero/Rhino (PCR) Not Detected SARS-CoV-2 RNA (RT-PCR) Not Detected 10/25/23 10/30/23 12/02/23 06:56 07:49 08:08 WBC 5.3 RBC 4.32 L Hgb 13.5 L Hct 39.6 L MCV 91.7 MCH 31.3 MCHC 34.1 RDW 12.7 Plt Count 321 MPV 9.0 L Immature Gran % (Auto) 0.4 Neut % (Auto) 60.7 Lymph % (Auto) 24.8 [place] % (Auto) 7.3 Eos % (Auto) 6.0 H Baso % (Auto) 0.8 Lymph # (Auto) 1.3 [place] # (Auto) 0.4 Eos # (Auto) 0.3 Baso # (Auto) 0.0 Abs Immat Gran (auto) 0.02 Absolute Neuts (auto) 3.2 Absolute Nucleated RBC 0.000 Nucleated RBC % (auto) 0.0 ESR 14 16 H Sodium 142 Potassium 3.7 Chloride 106 Carbon Dioxide 28 Anion Gap 12 BUN 12 Creatinine 0.70 Estim Creat Clear Calc 154.2 Estimated GFR > 60 Random Glucose Fasting Glucose 84 Calcium 9.8 Total Bilirubin 0.4 Direct Bilirubin AST 16 ALT 24 Alkaline Phosphatase 52 Total Creatine Kinase 281 H C-Reactive Protein 1.24 H Total Protein 7.1 Albumin 4.2 Vitamin B12 258 Folate 8.8 TSH 4.24 H 2.87 Free T4 1.08 Urine Color Urine Appearance Urine pH Ur Specific [place] Urine Protein Urine Glucose (UA) Urine Ketones Urine Blood Urine Nitrite Ur Leukocyte Esterase Urine RBC Urine WBC Ur Squamous Epith Cells Urine Bacteria Hyaline Casts [place] ANNIE Screen NEGATIVE ANNIE Titer TNP ANNIE Titer 2 TNP ANNIE Titer 3 TNP ANNIE Pattern TNP ANNIE Pattern 2 TNP ANNIE Pattern 3 TNP Respiratory Panel Pugh Adenovirus (Rapid PCR) B.pert (TEM-PCR) B.parapertussis DNA PCR C. pneumoniae DNA (PCR) Coronavirus OC43 (PCR) Coronavirus HKU1 (PCR) Coronavirus 229E (PCR) Coronavirus NL63 (PCR) Human Metapneumovir PCR Influenza A (RT-PCR) Influenza Type A (PCR) Influenza B (RT-PCR) Influenza Type B (PCR) M. pneumoniae (PCR) Parainfluenza 1 (PCR) Parainfluenza 2 (PCR) Parainfluenza 3 (PCR) Parainfluenza 4 (PCR) RSV (PCR) RSV RNA Qual (PCR) Entero/Rhino (PCR) SARS-CoV-2 RNA (RT-PCR) Airway Mallampati Class: III TM Dist: >3cm Neck ROM: Full Loose/Missing/Broken Teeth: No Heart: RRR Lungs: CTA Assessment and Plan Assessment Anesthesia Assessment: Anesthesia Plan Discussed and Chart Reviewed Final Anesthetic Review Family History of Problems with Anesthesia: No History of Problems with Anesthesia: No NPO: Yes ASA Class: II Final Preanesthetic Review: Meds/Allgs Chart Reviewed, Consent Obtained/Reviewed and Anes Risks/Benef Reviewed Patient Risk: Low Procedure Risk: Intermediate Anesthetic Plan Anesthetic Plan: GA Disposition: Standard PACU
--- NOTE | 2023-12-04 16:51 | HO.PSYCHPN ---
Subjective Subjective Date of Service: 12/04/23 Reason For Visit: catatonia depression Subjective Notes: Section 8 Interim History: Patient has been significantly improved with ECT in Olanzapine consider restart lithium No gross hallucinations not manic Medication Compliance: Yes Attending Groups: Intermittent Mental Status Exam Mental Status Exam Narrative: Patient fatigued somewhat lethargic seen post ECT previously had a osborn affect alert No hallucinations no gross delusional material limited range of affect alert when seen pre ECT Diagnostics Vital Signs (24Hr): Vital Signs - 24 hr 12/03/23 20:00 12/04/23 06:07 12/04/23 06:50 Temperature 98.4 F 97.6 F 98.9 F Pulse Rate 83 62 84 Respiratory Rate 16 16 18 Blood Pressure 129/68 101/58 L 117/59 L Pulse Oximetry 99 98 99 Oxygen Delivery Method Room Air Room Air Oxygen Flow Rate 12/04/23 08:00 12/04/23 08:08 12/04/23 08:28 Temperature 98.6 F 98.3 F 99.0 F Pulse Rate 86 45 L 111 H Respiratory Rate 16 18 18 Blood Pressure 114/57 L 140/64 H 149/78 H Pulse Oximetry 97 98 96 Oxygen Delivery Method Room Air Nasal Cannula with ETCO2 Nasal Cannula with ETCO2 Oxygen Flow Rate 2 2 12/04/23 08:33 12/04/23 08:38 12/04/23 08:43 Temperature Pulse Rate 104 H 105 H 101 H Respiratory Rate 14 13 18 Blood Pressure 154/82 H 145/79 H 124/79 Pulse Oximetry 96 97 98 Oxygen Delivery Method Nasal Cannula with ETCO2 Nasal Cannula with ETCO2 Room Air Oxygen Flow Rate 2 12/04/23 08:58 12/04/23 09:14 12/04/23 11:47 Temperature 98.6 F 98.6 F Pulse Rate 91 86 86 Respiratory Rate 18 16 16 Blood Pressure 114/71 114/57 L 114/57 L Pulse Oximetry 98 97 Oxygen Delivery Method Room Air Room Air Oxygen Flow Rate BMI result Body Mass Index 27.0 Labs 12/02/23 08:08 12/02/23 08:08 Imaging Radiology Impressions: ITS Impressions Chest X-Ray 10/20/23 16:28 IMPRESSION: No acute cardiopulmonary abnormality. Medications Medications Current Medications Acetaminophen (Acetaminophen 325 Mg Tablet) 650 mg PO Q6H PRN PRN Reason: Headache/Pain Mild Scale (1-3) Last Admin: 11/13/23 17:05 Dose: 650 mg Al Hydroxide/Mg Hydroxide (Magnesium Hydrox/Alum Hydrox 30 Ml Oral.Susp) 30 ml PO Q6H PRN PRN Reason: Heartburn/Nausea Hydroxyzine HCl (Hydroxyzine Hcl 25 Mg Tablet) 25 mg PO Q6H PRN PRN Reason: Anxiety Last Admin: 11/08/23 22:37 Dose: 25 mg Magnesium Hydroxide (Milk Of Magnesia 30 Ml Oral.Susp) 30 ml PO DAILY PRN PRN Reason: Constipation Olanzapine (Olanzapine Odt 10 Mg Tab.Rapdis) 10 mg TRANSLINGU Q4H PRN PRN Reason: anxiety/restlessness Last Admin: 11/13/23 16:57 Dose: 10 mg Olanzapine (Olanzapine Odt 10 Mg Tab.Rapdis) 20 mg TRANSLINGU BEDTIME PAM Last Admin: 12/03/23 20:28 Dose: 20 mg Trazodone HCl (Trazodone Hcl 50 Mg Tablet) 50 mg PO BEDTIME MRX1 PRN PRN Reason: Insomnia Last Admin: 11/25/23 21:14 Dose: 50 mg Allergies Allergies Allergy/AdvReac Type Severity Reaction Status Date / Time No Known Allergies Allergy Verified 11/11/23 07:33 Assessment & Plan Assessment & Plan (1) Bipolar I disorder with catatonia: Status: Acute Code(s): F31.9 - Bipolar disorder, unspecified; F06.1 - Catatonic disorder due to known physiological condition Plan ECT is scheduled for 3 days will try a more limited 2 time a week schedule patient continues to show improvement continue olanzapine patient would benefit from [facility] out reach has not followed up previously after discharge with treatmen 11/30/23 ect completed reevaluate in am 12/01/2023 Patient continues to show improvement but does have symptoms and lack of insight would benefit from structure and support after discharge continue olanzapine evaluate need for further ECT 12/02/2023 Continue olanzapine ECT scheduled for 8 224 [facility] referral made 12/03/2023 ECT scheduled for tomorrow will then try an discontinue and see if we can set up a discharge sometime next week patient unfortunately has limited insight might benefit from VNA psychiatric VNA to assess response as patient has had a rapid decompensation previously 12/04/2023 Last ECT completed discharge planning continue medication future oriented will need supervision Reason for continued inpatient stay Substantial Risk for: inability to function and rapid decompensation Time Spent With Patient Time: Total time managing care of this patient today ____ minutes.
[2023-12-04] MEDS: OLANZapine ODT 10 MG TAB.RAPDIS 20 MG TRANSLINGU (20:48)
[2023-12-05 08:00] VITALS: BP 77/41; PULSE 120; TEMP 36.6; O2SAT 92
--- NOTE | 2023-12-05 09:47 | P.PNPSI_ITS ---
Subjective Subjective Date of Service: 12/05/23 Reason For Visit: catatonia depression Interim History: met with patient. Discussed with Nursing. Overall doing well. Had last ECT yesterday. Discharge planning for next week. Patient reports overall feeling his thinking is clear. Does have difficulty though articulating differences between prior to admission and now. Except for stating he feels better. Denies depression, SI. Denied paranoia. Denied met her treatment concerns. Looking forward to discharge planning. Medication Compliance: Yes Side effects from medications: No Attending Groups: Intermittent Review of Systems Acute medical concerns: No Mental Status Exam Mental Status Exam Narrative: Pleasant. Engaged. Hospital clothing. Fair self-care. Overall organized, but quite concrete. Denies depression. Affect is flat. No SI or HI. No agitation. No overt psychosis noted. Insight and judgment fair Diagnostics Vital Signs (24Hr): Vital Signs - 24 hr 12/04/23 11:47 12/04/23 19:48 12/05/23 08:00 Temperature 98.6 F 98.8 F 98 F Pulse Rate 86 89 120 H Respiratory Rate 16 18 Blood Pressure 114/57 L 115/67 77/41 L Pulse Oximetry 97 92 Oxygen Delivery Method Room Air Room Air BMI result Body Mass Index 27.0 Labs 12/02/23 08:08 12/02/23 08:08 Imaging Radiology Impressions: ITS Impressions Chest X-Ray 10/20/23 16:28 IMPRESSION: No acute cardiopulmonary abnormality. Medications Medications Current Medications Acetaminophen (Acetaminophen 325 Mg Tablet) 650 mg PO Q6H PRN PRN Reason: Headache/Pain Mild Scale (1-3) Last Admin: 11/13/23 17:05 Dose: 650 mg Al Hydroxide/Mg Hydroxide (Magnesium Hydrox/Alum Hydrox 30 Ml Oral.Susp) 30 ml PO Q6H PRN PRN Reason: Heartburn/Nausea Hydroxyzine HCl (Hydroxyzine Hcl 25 Mg Tablet) 25 mg PO Q6H PRN PRN Reason: Anxiety Last Admin: 11/08/23 22:37 Dose: 25 mg Magnesium Hydroxide (Milk Of Magnesia 30 Ml Oral.Susp) 30 ml PO DAILY PRN PRN Reason: Constipation Olanzapine (Olanzapine Odt 10 Mg Tab.Rapdis) 10 mg TRANSLINGU Q4H PRN PRN Reason: anxiety/restlessness Last Admin: 11/13/23 16:57 Dose: 10 mg Olanzapine (Olanzapine Odt 10 Mg Tab.Rapdis) 20 mg TRANSLINGU BEDTIME PAM Last Admin: 12/04/23 20:48 Dose: 20 mg Trazodone HCl (Trazodone Hcl 50 Mg Tablet) 50 mg PO BEDTIME MRX1 PRN PRN Reason: Insomnia Last Admin: 11/25/23 21:14 Dose: 50 mg Allergies Allergies Allergy/AdvReac Type Severity Reaction Status Date / Time No Known Allergies Allergy Verified 11/11/23 07:33 Assessment & Plan Assessment & Plan (1) Bipolar I disorder with catatonia: Status: Acute Code(s): F31.9 - Bipolar disorder, unspecified; F06.1 - Catatonic disorder due to known physiological condition Plan ECT is scheduled for 3 days will try a more limited 2 time a week schedule patient continues to show improvement continue olanzapine patient would benefit from [facility] reach has not followed up previously after discharge with treatmen 11/30/23 ect completed reevaluate in am 12/01/2023 Patient continues to show improvement but does have symptoms and lack of insight would benefit from structure and support after discharge continue olanzapine evaluate need for further ECT 12/02/2023 Continue olanzapine ECT scheduled for 8 224 [facility] referral made 12/03/2023 ECT scheduled for tomorrow will then try an discontinue and see if we can set up a discharge sometime next week patient unfortunately has limited insight might benefit from VNA psychiatric VNA to assess response as patient has had a rapid decompensation previously 12/04/2023 Last ECT completed discharge planning continue medication future oriented will need supervision 12/05/2023: No changes Reason for continued inpatient stay Substantial Risk for: rapid decompensation Time Spent With Patient Time: Total time managing care of this patient today ____ minutes.
[2023-12-05 19:22] VITALS: BP 105/64; PULSE 93; RESP 16; TEMP 36.9; O2SAT 95
[2023-12-05] MEDS: OLANZapine ODT 10 MG TAB.RAPDIS 20 MG TRANSLINGU (20:26)
[2023-12-06 08:00] VITALS: BP 99/58; PULSE 66; RESP 14; TEMP 36.9; O2SAT 98
--- NOTE | 2023-12-06 08:37 | HO.PSYCHPN ---
Subjective Subjective Date of Service: 12/06/23 Reason For Visit: catatonia depression Interim History: met with patient. Discussed with Nursing. Overall doing well. Looking forward to discharge this week. Patient reports overall feeling his thinking is clear- difficulty though articulating differences between prior to admission and now, except feels better . Denies depression, SI. Denied paranoia. Denied medication concerns. Medication Compliance: Yes Side effects from medications: No Attending Groups: Intermittent Review of Systems Acute medical concerns: No Review of Systems Review of Systems unremarkable Mental Status Exam Mental Status Exam Narrative: Pleasant. Engaged. Hospital clothing. Fair self-care. Overall organized, but quite concrete. Denies depression. Affect is flat. No SI or HI. No agitation. No overt psychosis noted. Insight and judgment fair Diagnostics Vital Signs (24Hr): Vital Signs - 24 hr 12/05/23 19:22 12/06/23 08:00 Temperature 98.5 F 98.4 F Pulse Rate 93 66 Respiratory Rate 16 14 Blood Pressure 105/64 99/58 L Pulse Oximetry 95 98 Oxygen Delivery Method Room Air Room Air BMI result Body Mass Index 27.0 Labs 12/02/23 08:08 12/02/23 08:08 Imaging Radiology Impressions: ITS Impressions Chest X-Ray 10/20/23 16:28 IMPRESSION: No acute cardiopulmonary abnormality. Medications Medications Current Medications Acetaminophen (Acetaminophen 325 Mg Tablet) 650 mg PO Q6H PRN PRN Reason: Headache/Pain Mild Scale (1-3) Last Admin: 11/13/23 17:05 Dose: 650 mg Al Hydroxide/Mg Hydroxide (Magnesium Hydrox/Alum Hydrox 30 Ml Oral.Susp) 30 ml PO Q6H PRN PRN Reason: Heartburn/Nausea Hydroxyzine HCl (Hydroxyzine Hcl 25 Mg Tablet) 25 mg PO Q6H PRN PRN Reason: Anxiety Last Admin: 11/08/23 22:37 Dose: 25 mg Magnesium Hydroxide (Milk Of Magnesia 30 Ml Oral.Susp) 30 ml PO DAILY PRN PRN Reason: Constipation Olanzapine (Olanzapine Odt 10 Mg Tab.Rapdis) 10 mg TRANSLINGU Q4H PRN PRN Reason: anxiety/restlessness Last Admin: 11/13/23 16:57 Dose: 10 mg Olanzapine (Olanzapine Odt 10 Mg Tab.Rapdis) 20 mg TRANSLINGU BEDTIME PAM Last Admin: 08/03/24 20:26 Dose: 20 mg Trazodone HCl (Trazodone Hcl 50 Mg Tablet) 50 mg PO BEDTIME MRX1 PRN PRN Reason: Insomnia Last Admin: 11/25/23 21:14 Dose: 50 mg Allergies Allergies Allergy/AdvReac Type Severity Reaction Status Date / Time No Known Allergies Allergy Verified 11/11/23 07:33 Assessment & Plan Assessment & Plan (1) Bipolar I disorder with catatonia: Status: Acute Code(s): F31.9 - Bipolar disorder, unspecified; F06.1 - Catatonic disorder due to known physiological condition Plan ECT is scheduled for 3 days will try a more limited 2 time a week schedule patient continues to show improvement continue olanzapine patient would benefit from [facility] out reach has not followed up previously after discharge with treatmen 11/30/23 ect completed reevaluate in am 12/01/2023 Patient continues to show improvement but does have symptoms and lack of insight would benefit from structure and support after discharge continue olanzapine evaluate need for further ECT 12/02/2023 Continue olanzapine ECT scheduled for 8 224 [facility] referral made 12/03/2023 ECT scheduled for tomorrow will then try an discontinue and see if we can set up a discharge sometime next week patient unfortunately has limited insight might benefit from VNA psychiatric VNA to assess response as patient has had a rapid decompensation previously 12/04/2023 Last ECT completed discharge planning continue medication future oriented will need supervision 12/05/2023: No changes 12/06/2023: No changes Reason for continued inpatient stay Substantial Risk for: rapid decompensation Time Spent With Patient Time: Total time managing care of this patient today ____ minutes.
[2023-12-06 20:00] VITALS: BP 118/72; PULSE 80; RESP 16; TEMP 36.7; O2SAT 99
[2023-12-06] MEDS: OLANZapine ODT 10 MG TAB.RAPDIS 20 MG TRANSLINGU (20:55)
[2023-12-07 08:00] VITALS: BP 81/44; PULSE 74; RESP 14; TEMP 36.6; O2SAT 98
--- NOTE | 2023-12-07 12:57 | P.PNPSI_ITS ---
Subjective Subjective Date of Service: 12/07/23 Reason For Visit: catatonia depression Interim History: more spontaneous and verbal, better related. laughing, denying Sx, asking for discharge. encouraged to be in touch with his brother on the matter. per staff, denies Sx, interactive. bright, visible, taking meds. Mental Status Exam Mental Status Exam Narrative: Pleasant. Engaged. Hospital clothing. Fair self-care. Overall organized, but quite concrete. Denies depression. Affect is full range. No SI or HI. No agitation. No overt psychosis noted. Insight and judgment fair Diagnostics Vital Signs (24Hr): Vital Signs - 24 hr 12/06/23 20:00 12/07/23 08:00 Temperature 98.1 F 97.9 F Pulse Rate 80 74 Respiratory Rate 16 14 Blood Pressure 118/72 81/44 L Pulse Oximetry 99 98 Oxygen Delivery Method Room Air Room Air BMI result Body Mass Index 27.0 Labs 12/02/23 08:08 12/02/23 08:08 Imaging Radiology Impressions: ITS Impressions Chest X-Ray 10/20/23 16:28 IMPRESSION: No acute cardiopulmonary abnormality. Medications Medications Current Medications Acetaminophen (Acetaminophen 325 Mg Tablet) 650 mg PO Q6H PRN PRN Reason: Headache/Pain Mild Scale (1-3) Last Admin: 11/13/23 17:05 Dose: 650 mg Al Hydroxide/Mg Hydroxide (Magnesium Hydrox/Alum Hydrox 30 Ml Oral.Susp) 30 ml PO Q6H PRN PRN Reason: Heartburn/Nausea Hydroxyzine HCl (Hydroxyzine Hcl 25 Mg Tablet) 25 mg PO Q6H PRN PRN Reason: Anxiety Last Admin: 11/08/23 22:37 Dose: 25 mg Magnesium Hydroxide (Milk Of Magnesia 30 Ml Oral.Susp) 30 ml PO DAILY PRN PRN Reason: Constipation Olanzapine (Olanzapine Odt 10 Mg Tab.Rapdis) 10 mg TRANSLINGU Q4H PRN PRN Reason: anxiety/restlessness Last Admin: 11/13/23 16:57 Dose: 10 mg Olanzapine (Olanzapine Odt 10 Mg Tab.Rapdis) 20 mg TRANSLINGU BEDTIME PAM Last Admin: 12/06/23 20:55 Dose: 20 mg Trazodone HCl (Trazodone Hcl 50 Mg Tablet) 50 mg PO BEDTIME MRX1 PRN PRN Reason: Insomnia Last Admin: 11/25/23 21:14 Dose: 50 mg Allergies Allergies Allergy/AdvReac Type Severity Reaction Status Date / Time No Known Allergies Allergy Verified 11/11/23 07:33 Assessment & Plan Assessment & Plan (1) Bipolar I disorder with catatonia: Status: Acute Code(s): F31.9 - Bipolar disorder, unspecified; F06.1 - Catatonic disorder due to known physiological condition Plan ECT is scheduled for 3 days will try a more limited 2 time a week schedule patient continues to show improvement continue olanzapine patient would benefit from [facility] out reach has not followed up previously after discharge with treatmen 11/30/23 ect completed reevaluate in am 12/01/2023 Patient continues to show improvement but does have symptoms and lack of insight would benefit from structure and support after discharge continue olanzapine evaluate need for further ECT 12/02/2023 Continue olanzapine ECT scheduled for 8 [address] [facility] referral made 12/03/2023 ECT scheduled for tomorrow will then try an discontinue and see if we can set up a discharge sometime next week patient unfortunately has limited insight might benefit from VNA psychiatric VNA to assess response as patient has had a rapid decompensation previously 12/04/2023 Last ECT completed discharge planning continue medication future oriented will need supervision 12/05/2023: No changes 12/06/2023: No changes 12/06: spontaneous, verbal, better-related. discharge planning ongoing. taking meds. laughing appropriately. no RIS or psychosis noted. Reason for continued inpatient stay Substantial Risk for: inability to function and rapid decompensation Time Spent With Patient Time: Total time managing care of this patient today __25__ minutes.
[2023-12-07 20:00] VITALS: BP 124/66; PULSE 95; RESP 16; TEMP 36.8; O2SAT 99
[2023-12-07] MEDS: OLANZapine ODT 10 MG TAB.RAPDIS 20 MG TRANSLINGU (20:48)
--- NOTE | 2023-12-08 11:04 | HO.PSYCHPN ---
Subjective Subjective Date of Service: 12/08/23 Reason For Visit: catatonia depression Interim History: no change in presentation. per staff, in answer to questions regarding dep/anx: i don't know. showered. taking meds. denies AVH. slept 8 hours. Mental Status Exam Mental Status Exam Narrative: disheveled, in bed. cooperative. no PMA/PMR. speech decr amount, loudness. nml rate, incr latency. thoughts slowed. affect constricted. mood not assessed. no SI/HI/AVH expressed. Diagnostics Vital Signs (24Hr): Vital Signs - 24 hr 12/07/23 20:00 Temperature 98.2 F Pulse Rate 95 Respiratory Rate 16 Blood Pressure 124/66 Pulse Oximetry 99 Oxygen Delivery Method Room Air BMI result Body Mass Index 27.0 Labs 12/02/23 08:08 12/02/23 08:08 Imaging Radiology Impressions: ITS Impressions Chest X-Ray 10/20/23 16:28 IMPRESSION: No acute cardiopulmonary abnormality. Medications Medications Current Medications Acetaminophen (Acetaminophen 325 Mg Tablet) 650 mg PO Q6H PRN PRN Reason: Headache/Pain Mild Scale (1-3) Last Admin: 11/13/23 17:05 Dose: 650 mg Al Hydroxide/Mg Hydroxide (Magnesium Hydrox/Alum Hydrox 30 Ml Oral.Susp) 30 ml PO Q6H PRN PRN Reason: Heartburn/Nausea Hydroxyzine HCl (Hydroxyzine Hcl 25 Mg Tablet) 25 mg PO Q6H PRN PRN Reason: Anxiety Last Admin: 11/08/23 22:37 Dose: 25 mg Magnesium Hydroxide (Milk Of Magnesia 30 Ml Oral.Susp) 30 ml PO DAILY PRN PRN Reason: Constipation Olanzapine (Olanzapine Odt 10 Mg Tab.Rapdis) 10 mg TRANSLINGU Q4H PRN PRN Reason: anxiety/restlessness Last Admin: 11/13/23 16:57 Dose: 10 mg Olanzapine (Olanzapine Odt 10 Mg Tab.Rapdis) 20 mg TRANSLINGU BEDTIME PAM Last Admin: 12/07/23 20:48 Dose: 20 mg Trazodone HCl (Trazodone Hcl 50 Mg Tablet) 50 mg PO BEDTIME MRX1 PRN PRN Reason: Insomnia Last Admin: 11/25/23 21:14 Dose: 50 mg Allergies Allergies Allergy/AdvReac Type Severity Reaction Status Date / Time No Known Allergies Allergy Verified 11/11/23 07:33 Assessment & Plan Assessment & Plan (1) Bipolar I disorder with catatonia: Status: Acute Code(s): F31.9 - Bipolar disorder, unspecified; F06.1 - Catatonic disorder due to known physiological condition Plan ECT is scheduled for 3 days will try a more limited 2 time a week schedule patient continues to show improvement continue olanzapine patient would benefit from [facility] out reach has not followed up previously after discharge with treatmen 11/30/23 ect completed reevaluate in am 12/01/2023 Patient continues to show improvement but does have symptoms and lack of insight would benefit from structure and support after discharge continue olanzapine evaluate need for further ECT 12/02/2023 Continue olanzapine ECT scheduled for 8 [facility] referral made 12/03/2023 ECT scheduled for tomorrow will then try an discontinue and see if we can set up a discharge sometime next week patient unfortunately has limited insight might benefit from VNA psychiatric VNA to assess response as patient has had a rapid decompensation previously 12/04/2023 Last ECT completed discharge planning continue medication future oriented will need supervision 12/05/2023: No changes 12/06/2023: No changes 12/06: spontaneous, verbal, better-related. discharge planning ongoing. taking meds. laughing appropriately. no RIS or psychosis noted. 12/07: no change in presentation. continue current mgmt. LINDSEY Suyapa had call with pt and pt's brother in preparation for discharge to home. coordinating case with [facility] for outreach services. Reason for continued inpatient stay Substantial Risk for: inability to function and rapid decompensation Time Spent With Patient Time: Total time managing care of this patient today __25__ minutes.
[2023-12-08 20:00] VITALS: BP 118/61; PULSE 83; RESP 18; TEMP 37.2; O2SAT 97
[2023-12-08] MEDS: OLANZapine ODT 10 MG TAB.RAPDIS 20 MG TRANSLINGU (20:37)
[2023-12-09 07:39] VITALS: BP 93/50; PULSE 68; RESP 18; TEMP 36.2; O2SAT 97
--- NOTE | 2023-12-09 15:30 | HO.PSYCHPN ---
Subjective Subjective Date of Service: 12/09/23 Reason For Visit: catatonia depression Interim History: stable. more conversant. some recall of convo with brother and Suyapa PORTILLO on thursday. continue current mgmt. per staff, anx/dep: i don't know. wants DC. denies SI/HI/AVH. laughing loudly. sleeping well. Mental Status Exam Mental Status Exam Narrative: Pleasant. Engaged. Hospital clothing. Fair self-care. Overall organized, but quite concrete. Denies depression. Affect is full range. No SI or HI. No agitation. No overt psychosis noted. Insight and judgment fair Diagnostics Vital Signs (24Hr): Vital Signs - 24 hr 12/08/23 20:00 12/09/23 07:39 Temperature 99 F 97.1 F Pulse Rate 83 68 Respiratory Rate 18 18 Blood Pressure 118/61 93/50 L Pulse Oximetry 97 97 Oxygen Delivery Method Room Air Room Air BMI result Body Mass Index 27.0 Labs 12/02/23 08:08 12/02/23 08:08 Imaging Radiology Impressions: ITS Impressions Chest X-Ray 10/20/23 16:28 IMPRESSION: No acute cardiopulmonary abnormality. Medications Medications Current Medications Acetaminophen (Acetaminophen 325 Mg Tablet) 650 mg PO Q6H PRN PRN Reason: Headache/Pain Mild Scale (1-3) Last Admin: 11/13/23 17:05 Dose: 650 mg Al Hydroxide/Mg Hydroxide (Magnesium Hydrox/Alum Hydrox 30 Ml Oral.Susp) 30 ml PO Q6H PRN PRN Reason: Heartburn/Nausea Hydroxyzine HCl (Hydroxyzine Hcl 25 Mg Tablet) 25 mg PO Q6H PRN PRN Reason: Anxiety Last Admin: 11/08/23 22:37 Dose: 25 mg Magnesium Hydroxide (Milk Of Magnesia 30 Ml Oral.Susp) 30 ml PO DAILY PRN PRN Reason: Constipation Olanzapine (Olanzapine Odt 10 Mg Tab.Rapdis) 10 mg TRANSLINGU Q4H PRN PRN Reason: anxiety/restlessness Last Admin: 11/13/23 16:57 Dose: 10 mg Olanzapine (Olanzapine Odt 10 Mg Tab.Rapdis) 20 mg TRANSLINGU BEDTIME PAM Last Admin: 12/08/23 20:37 Dose: 20 mg Trazodone HCl (Trazodone Hcl 50 Mg Tablet) 50 mg PO BEDTIME MRX1 PRN PRN Reason: Insomnia Last Admin: 11/25/23 21:14 Dose: 50 mg Allergies Allergies Allergy/AdvReac Type Severity Reaction Status Date / Time No Known Allergies Allergy Verified 11/11/23 07:33 Assessment & Plan Assessment & Plan (1) Bipolar I disorder with catatonia: Status: Acute Code(s): F31.9 - Bipolar disorder, unspecified; F06.1 - Catatonic disorder due to known physiological condition Plan ECT is scheduled for 3 days will try a more limited 2 time a week schedule patient continues to show improvement continue olanzapine patient would benefit from [facility] out reach has not followed up previously after discharge with treatmen 11/30/23 ect completed reevaluate in am 12/01/2023 Patient continues to show improvement but does have symptoms and lack of insight would benefit from structure and support after discharge continue olanzapine evaluate need for further ECT 12/02/2023 Continue olanzapine ECT scheduled for 8 224 [facility] referral made 12/03/2023 ECT scheduled for tomorrow will then try an discontinue and see if we can set up a discharge sometime next week patient unfortunately has limited insight might benefit from VNA psychiatric VNA to assess response as patient has had a rapid decompensation previously 12/04/2023 Last ECT completed discharge planning continue medication future oriented will need supervision 12/05/2023: No changes 12/06/2023: No changes 12/06: spontaneous, verbal, better-related. discharge planning ongoing. taking meds. laughing appropriately. no RIS or psychosis noted. 12/07: no change in presentation. continue current mgmt. LINDSEY Dale had call with pt and pt's brother in preparation for discharge to home. coordinating case with [facility] for outreach services. 12/08: stable presentation. continue current mgmt. Reason for continued inpatient stay Substantial Risk for: inability to function and rapid decompensation Time Spent With Patient Time: Total time managing care of this patient today __25__ minutes.
[2023-12-09 20:20] VITALS: BP 141/76; PULSE 70; RESP 18; TEMP 36.7; O2SAT 98
[2023-12-09] MEDS: OLANZapine ODT 10 MG TAB.RAPDIS 20 MG TRANSLINGU (21:52)
[2023-12-10 07:00] VITALS: BMI 27.5
[2023-12-10 07:41] VITALS: BP 93/53; PULSE 70; RESP 16; TEMP 36.2; O2SAT 98
--- NOTE | 2023-12-10 10:18 | HO.PSYCHPN ---
Subjective Subjective Date of Service: 12/10/23 Reason For Visit: catatonia depression Interim History: seen in his room. calm, cooperative, responsive but with some latency. appears lucid. discussed pt's ambivalence re taking meds, med adherence reinforced. per staff, +RIS. +grps. denies dep/anx. easily engaged, more spontaneous. Mental Status Exam Mental Status Exam Narrative: Pleasant. Engaged. Hospital clothing. Fair self-care. Overall organized, but quite concrete. Affect is constricted, hypo-intense, non-labile. mood not assessed. No SI or HI expressed. No agitation. No overt psychosis noted. Insight and judgment fair Diagnostics Vital Signs (24Hr): Vital Signs - 24 hr 12/09/23 20:20 12/10/23 07:41 Temperature 98.0 F 97.1 F Pulse Rate 70 70 Respiratory Rate 18 16 Blood Pressure 141/76 H 93/53 L Pulse Oximetry 98 98 Oxygen Delivery Method Room Air Room Air BMI result Body Mass Index 27.5 Labs 12/02/23 08:08 12/02/23 08:08 Imaging Radiology Impressions: ITS Impressions Chest X-Ray 10/20/23 16:28 IMPRESSION: No acute cardiopulmonary abnormality. Medications Medications Current Medications Acetaminophen (Acetaminophen 325 Mg Tablet) 650 mg PO Q6H PRN PRN Reason: Headache/Pain Mild Scale (1-3) Last Admin: 11/13/23 17:05 Dose: 650 mg Al Hydroxide/Mg Hydroxide (Magnesium Hydrox/Alum Hydrox 30 Ml Oral.Susp) 30 ml PO Q6H PRN PRN Reason: Heartburn/Nausea Hydroxyzine HCl (Hydroxyzine Hcl 25 Mg Tablet) 25 mg PO Q6H PRN PRN Reason: Anxiety Last Admin: 11/08/23 22:37 Dose: 25 mg Magnesium Hydroxide (Milk Of Magnesia 30 Ml Oral.Susp) 30 ml PO DAILY PRN PRN Reason: Constipation Olanzapine (Olanzapine Odt 10 Mg Tab.Rapdis) 10 mg TRANSLINGU Q4H PRN PRN Reason: anxiety/restlessness Last Admin: 11/13/23 16:57 Dose: 10 mg Olanzapine (Olanzapine Odt 10 Mg Tab.Rapdis) 20 mg TRANSLINGU BEDTIME PAM Last Admin: 12/09/23 21:52 Dose: 20 mg Trazodone HCl (Trazodone Hcl 50 Mg Tablet) 50 mg PO BEDTIME MRX1 PRN PRN Reason: Insomnia Last Admin: 11/25/23 21:14 Dose: 50 mg Allergies Allergies Allergy/AdvReac Type Severity Reaction Status Date / Time No Known Allergies Allergy Verified 11/11/23 07:33 Assessment & Plan Assessment & Plan (1) Bipolar I disorder with catatonia: Status: Acute Code(s): F31.9 - Bipolar disorder, unspecified; F06.1 - Catatonic disorder due to known physiological condition Plan ECT is scheduled for 3 days will try a more limited 2 time a week schedule patient continues to show improvement continue olanzapine patient would benefit from [facility] out reach has not followed up previously after discharge with treatmen 11/30/23 ect completed reevaluate in am 12/01/2023 Patient continues to show improvement but does have symptoms and lack of insight would benefit from structure and support after discharge continue olanzapine evaluate need for further ECT 12/02/2023 Continue olanzapine ECT scheduled for [address] [facility] referral made 12/03/2023 ECT scheduled for tomorrow will then try an discontinue and see if we can set up a discharge sometime next week patient unfortunately has limited insight might benefit from [facility] psychiatric [facility] to assess response as patient has had a rapid decompensation previously 12/04/2023 Last ECT completed discharge planning continue medication future oriented will need supervision 12/05/2023: No changes 12/06/2023: No changes 12/06: spontaneous, verbal, better-related. discharge planning ongoing. taking meds. laughing appropriately. no RIS or psychosis noted. 12/07: no change in presentation. continue current mgmt. LINDSEY Dale had call with pt and pt's brother in preparation for discharge to home. coordinating case with [facility] for outreach services. 12/08: stable presentation. continue current mgmt. 12/09: pt with hypo-intense affect, some slight LIZZETH. remains vastly improved from admission, however. ambivalent re meds, adherence. encouraged to take meds after discharge. Reason for continued inpatient stay Substantial Risk for: inability to function and rapid decompensation Time Spent With Patient Time: Total time managing care of this patient today _25___ minutes.
[2023-12-10 20:00] VITALS: BP 115/60; PULSE 81; RESP 16; O2SAT 98
[2023-12-10] MEDS: OLANZapine ODT 10 MG TAB.RAPDIS 20 MG TRANSLINGU (20:34)
[2023-12-11 07:15] VITALS: BP 103/46; PULSE 60; RESP 14; TEMP 36.8; O2SAT 97
--- NOTE | 2023-12-11 14:08 | P.PNPSI_ITS ---
Subjective Subjective Date of Service: 12/11/23 Reason For Visit: catatonia depression Interim History: calm, cooperative. having breakfast. asking when he can discharge. no complaints or requests otherwise. per staff, denies dep/anx. quiet. polite. terse. some laughing. Mental Status Exam Mental Status Exam Narrative: Pleasant. Engaged. Hospital clothing. Fair self-care. Overall organized, but quite concrete. Affect is constricted, hypo-intense, non-labile. mood euthymic. No SI or HI expressed. No agitation. No overt psychosis noted. Insight and judgment fair Diagnostics Vital Signs (24Hr): Vital Signs - 24 hr 12/10/23 20:00 12/11/23 07:15 12/11/23 07:15 Temperature 98.2 F 98.2 F Pulse Rate 81 60 60 Respiratory Rate 16 14 14 Blood Pressure 115/60 103/46 L 103/46 L Pulse Oximetry 98 97 97 Oxygen Delivery Method Room Air Room Air Room Air BMI result Body Mass Index 27.5 Labs 12/02/23 08:08 12/02/23 08:08 Imaging Radiology Impressions: ITS Impressions Chest X-Ray 10/20/23 16:28 IMPRESSION: No acute cardiopulmonary abnormality. Medications Medications Current Medications Acetaminophen (Acetaminophen 325 Mg Tablet) 650 mg PO Q6H PRN PRN Reason: Headache/Pain Mild Scale (1-3) Last Admin: 11/13/23 17:05 Dose: 650 mg Al Hydroxide/Mg Hydroxide (Magnesium Hydrox/Alum Hydrox 30 Ml Oral.Susp) 30 ml PO Q6H PRN PRN Reason: Heartburn/Nausea Hydroxyzine HCl (Hydroxyzine Hcl 25 Mg Tablet) 25 mg PO Q6H PRN PRN Reason: Anxiety Last Admin: 11/08/23 22:37 Dose: 25 mg Magnesium Hydroxide (Milk Of Magnesia 30 Ml Oral.Susp) 30 ml PO DAILY PRN PRN Reason: Constipation Olanzapine (Olanzapine Odt 10 Mg Tab.Rapdis) 10 mg TRANSLINGU Q4H PRN PRN Reason: anxiety/restlessness Last Admin: 11/13/23 16:57 Dose: 10 mg Olanzapine (Olanzapine Odt 10 Mg Tab.Rapdis) 20 mg TRANSLINGU BEDTIME PAM Last Admin: 12/10/23 20:34 Dose: 20 mg Trazodone HCl (Trazodone Hcl 50 Mg Tablet) 50 mg PO BEDTIME MRX1 PRN PRN Reason: Insomnia Last Admin: 11/25/23 21:14 Dose: 50 mg Allergies Allergies Allergy/AdvReac Type Severity Reaction Status Date / Time No Known Allergies Allergy Verified 11/11/23 07:33 Assessment & Plan Assessment & Plan (1) Bipolar I disorder with catatonia: Status: Acute Code(s): F31.9 - Bipolar disorder, unspecified; F06.1 - Catatonic disorder due to known physiological condition Plan ECT is scheduled for 3 days will try a more limited 2 time a week schedule patient continues to show improvement continue olanzapine patient would benefit from [facility] out reach has not followed up previously after discharge with treatmen 11/30/23 ect completed reevaluate in am 12/01/2023 Patient continues to show improvement but does have symptoms and lack of insight would benefit from structure and support after discharge continue olanzapine evaluate need for further ECT 12/02/2023 Continue olanzapine ECT scheduled for 8 224 [facility] referral made 12/03/2023 ECT scheduled for tomorrow will then try an discontinue and see if we can set up a discharge sometime next week patient unfortunately has limited insight might benefit from [facility] psychiatric VNA to assess response as patient has had a rapid decompensation previously 12/04/2023 Last ECT completed discharge planning continue medication future oriented will need supervision 12/05/2023: No changes 12/06/2023: No changes 12/06: spontaneous, verbal, better-related. discharge planning ongoing. taking meds. laughing appropriately. no RIS or psychosis noted. 12/07: no change in presentation. continue current mgmt. LINDSEY Dale had call with pt and pt's brother in preparation for discharge to home. coordinating case with [facility] for outreach services. 12/08: stable presentation. continue current mgmt. 12/09: pt with hypo-intense affect, some slight LIZZETH. remains vastly improved from admission, however. ambivalent re meds, adherence. encouraged to take meds after discharge. 12/10: stable presentation. awaiting [facility] services prior to discharge. Reason for continued inpatient stay Substantial Risk for: inability to function and rapid decompensation Time Spent With Patient Time: Total time managing care of this patient today __25__ minutes.
[2023-12-11 20:00] VITALS: BP 117/56; PULSE 87; RESP 16; TEMP 36.2; O2SAT 97
[2023-12-11] MEDS: OLANZapine ODT 10 MG TAB.RAPDIS 20 MG TRANSLINGU (20:23)
[2023-12-12 07:25] VITALS: BP 89/54; PULSE 75; RESP 14; TEMP 36.2; O2SAT 95
--- NOTE | 2023-12-12 10:30 | P.PNPSI_ITS ---
Subjective Subjective Date of Service: 12/12/23 Reason For Visit: catatonia depression Interim History: calm, cooperative. Improved since admission. Able to answer simple questions. Reports feeling well. Sleep and appetite preserved. Social and visible in the milieu. per staff, denies dep/anx. quiet. polite. some laughing. Review of Systems Review of Systems unremarkable Yes all other systems are reviewed and are negative and Unobtainable due to mental status Mental Status Exam Mental Status Exam Narrative: Pleasant. Engaged. Hospital clothing. Fair self-care. Overall organized, but quite concrete. Affect is constricted, hypo-intense, non-labile. mood euthymic. No SI or HI expressed. No agitation. No overt psychosis noted. Insight and judgment fair Patient Appearance: Disheveled Patient Orientation: Person Level of Consciousness: Awake Patient Behavior: Guarded Mood Description: Calm Affect Description: Blunted Patient Cognition Impaired: Yes Ability to Follow Directions: Poor Speech Pattern: No Speech Diagnostics Vital Signs (24Hr): Vital Signs - 24 hr 12/11/23 20:00 12/11/23 21:22 12/12/23 07:25 Temperature 97.1 F 97.2 F Pulse Rate 87 75 Respiratory Rate 16 14 Blood Pressure 117/56 L 89/54 L Pulse Oximetry 97 95 Oxygen Delivery Method Room Air Room Air Room Air BMI result Body Mass Index 27.5 Labs 12/02/23 08:08 12/02/23 08:08 Imaging Radiology Impressions: ITS Impressions Chest X-Ray 10/20/23 16:28 IMPRESSION: No acute cardiopulmonary abnormality. Medications Medications Current Medications Acetaminophen (Acetaminophen 325 Mg Tablet) 650 mg PO Q6H PRN PRN Reason: Headache/Pain Mild Scale (1-3) Last Admin: 11/13/23 17:05 Dose: 650 mg Al Hydroxide/Mg Hydroxide (Magnesium Hydrox/Alum Hydrox 30 Ml Oral.Susp) 30 ml PO Q6H PRN PRN Reason: Heartburn/Nausea Hydroxyzine HCl (Hydroxyzine Hcl 25 Mg Tablet) 25 mg PO Q6H PRN PRN Reason: Anxiety Last Admin: 11/08/23 22:37 Dose: 25 mg Magnesium Hydroxide (Milk Of Magnesia 30 Ml Oral.Susp) 30 ml PO DAILY PRN PRN Reason: Constipation Olanzapine (Olanzapine Odt 10 Mg Tab.Rapdis) 10 mg TRANSLINGU Q4H PRN PRN Reason: anxiety/restlessness Last Admin: 11/13/23 16:57 Dose: 10 mg Olanzapine (Olanzapine Odt 10 Mg Tab.Rapdis) 20 mg TRANSLINGU BEDTIME PAM Last Admin: 12/11/23 20:23 Dose: 20 mg Trazodone HCl (Trazodone Hcl 50 Mg Tablet) 50 mg PO BEDTIME MRX1 PRN PRN Reason: Insomnia Last Admin: 11/25/23 21:14 Dose: 50 mg Allergies Allergies Allergy/AdvReac Type Severity Reaction Status Date / Time No Known Allergies Allergy Verified 11/11/23 07:33 Assessment & Plan Assessment & Plan (1) Bipolar I disorder with catatonia: Status: Acute Code(s): F31.9 - Bipolar disorder, unspecified; F06.1 - Catatonic disorder due to known physiological condition Plan ECT is scheduled for 3 days will try a more limited 2 time a week schedule patient continues to show improvement continue olanzapine patient would benefit from [facility] out reach has not followed up previously after discharge with treatmen 11/30/23 ect completed reevaluate in am 12/01/2023 Patient continues to show improvement but does have symptoms and lack of insight would benefit from structure and support after discharge continue olanzapine evaluate need for further ECT 12/02/2023 Continue olanzapine ECT scheduled for 8 [address] [facility] referral made 12/03/2023 ECT scheduled for tomorrow will then try an discontinue and see if we can set up a discharge sometime next week patient unfortunately has limited insight might benefit from VNA psychiatric VNA to assess response as patient has had a rapid decompensation previously 12/04/2023 Last ECT completed discharge planning continue medication future oriented will need supervision 12/05/2023: No changes 12/06/2023: No changes 12/06: spontaneous, verbal, better-related. discharge planning ongoing. taking meds. laughing appropriately. no RIS or psychosis noted. 12/07: no change in presentation. continue current mgmt. LINDSEY Dale had call with pt and pt's brother in preparation for discharge to home. coordinating case with [facility] for outreach services. 12/08: stable presentation. continue current mgmt. 12/09: pt with hypo-intense affect, some slight LIZZETH. remains vastly improved from admission, however. ambivalent re meds, adherence. encouraged to take meds after discharge. 12/10: stable presentation. awaiting [facility] services prior to discharge. 12/11: continue current management and treatment plan. Reason for continued inpatient stay Substantial Risk for: harm to self, inability to function and rapid decompensation Time Spent With Patient Time: Total time managing care of this patient today ____ minutes.
[2023-12-12 20:00] VITALS: BP 101/54; PULSE 86; RESP 16; TEMP 36.6; O2SAT 98
[2023-12-12] MEDS: OLANZapine ODT 10 MG TAB.RAPDIS 20 MG TRANSLINGU (21:22)
[2023-12-12] MEDS: traZODone HCL 50 MG TABLET PO (21:23)
[2023-12-13 07:35] VITALS: BP 101/57; PULSE 69; RESP 14; TEMP 36.3; O2SAT 96
--- NOTE | 2023-12-13 10:20 | P.PNPSI_ITS ---
Subjective Subjective Date of Service: 12/13/23 Reason For Visit: catatonia depression Interim History: calm, cooperative. Improved since admission. Able to answer simple questions. Reports feeling well. Sleep and appetite preserved. Social and visible in the milieu. per staff, denies dep/anx. quiet. polite. some laughing. Review of Systems Review of Systems unremarkable Yes all other systems are reviewed and are negative and Unobtainable due to mental status Mental Status Exam Mental Status Exam Narrative: Pleasant. Engaged. Hospital clothing. Fair self-care. Overall organized, but quite concrete. Affect is constricted, hypo-intense, non-labile. mood euthymic. No SI or HI expressed. No agitation. No overt psychosis noted. Insight and judgment fair Patient Appearance: Disheveled Patient Orientation: Person Level of Consciousness: Awake Patient Behavior: Guarded Mood Description: Calm Affect Description: Blunted Patient Cognition Impaired: Yes Ability to Follow Directions: Poor Speech Pattern: No Speech Diagnostics Vital Signs (24Hr): Vital Signs - 24 hr 12/12/23 20:00 12/13/23 07:35 Temperature 98 F 97.3 F Pulse Rate 86 69 Respiratory Rate 16 14 Blood Pressure 101/54 L 101/57 L Pulse Oximetry 98 96 Oxygen Delivery Method Room Air Room Air BMI result Body Mass Index 27.5 Labs 12/02/23 08:08 12/02/23 08:08 Imaging Radiology Impressions: ITS Impressions Chest X-Ray 10/20/23 16:28 IMPRESSION: No acute cardiopulmonary abnormality. Medications Medications Current Medications Acetaminophen (Acetaminophen 325 Mg Tablet) 650 mg PO Q6H PRN PRN Reason: Headache/Pain Mild Scale (1-3) Last Admin: 11/13/23 17:05 Dose: 650 mg Al Hydroxide/Mg Hydroxide (Magnesium Hydrox/Alum Hydrox 30 Ml Oral.Susp) 30 ml PO Q6H PRN PRN Reason: Heartburn/Nausea Hydroxyzine HCl (Hydroxyzine Hcl 25 Mg Tablet) 25 mg PO Q6H PRN PRN Reason: Anxiety Last Admin: 11/08/23 22:37 Dose: 25 mg Magnesium Hydroxide (Milk Of Magnesia 30 Ml Oral.Susp) 30 ml PO DAILY PRN PRN Reason: Constipation Olanzapine (Olanzapine Odt 10 Mg Tab.Rapdis) 10 mg TRANSLINGU Q4H PRN PRN Reason: anxiety/restlessness Last Admin: 11/13/23 16:57 Dose: 10 mg Olanzapine (Olanzapine Odt 10 Mg Tab.Rapdis) 20 mg TRANSLINGU BEDTIME PAM Last Admin: 12/12/23 21:22 Dose: 20 mg Trazodone HCl (Trazodone Hcl 50 Mg Tablet) 50 mg PO BEDTIME MRX1 PRN PRN Reason: Insomnia Last Admin: 12/12/23 21:23 Dose: 50 mg Allergies Allergies Allergy/AdvReac Type Severity Reaction Status Date / Time No Known Allergies Allergy Verified 11/11/23 07:33 Assessment & Plan Assessment & Plan (1) Bipolar I disorder with catatonia: Status: Acute Code(s): F31.9 - Bipolar disorder, unspecified; F06.1 - Catatonic disorder due to known physiological condition Plan ECT is scheduled for 3 days will try a more limited 2 time a week schedule patient continues to show improvement continue olanzapine patient would benefit from [facility] out reach has not followed up previously after discharge with treatmen 11/30/23 ect completed reevaluate in am 12/01/2023 Patient continues to show improvement but does have symptoms and lack of insight would benefit from structure and support after discharge continue olanzapine evaluate need for further ECT 12/02/2023 Continue olanzapine ECT scheduled for 8 [address] [facility] referral made 12/03/2023 ECT scheduled for tomorrow will then try an discontinue and see if we can set up a discharge sometime next week patient unfortunately has limited insight might benefit from VNA psychiatric VNA to assess response as patient has had a rapid decompensation previously 12/04/2023 Last ECT completed discharge planning continue medication future oriented will need supervision 12/05/2023: No changes 12/06/2023: No changes 12/06: spontaneous, verbal, better-related. discharge planning ongoing. taking meds. laughing appropriately. no RIS or psychosis noted. 12/07: no change in presentation. continue current mgmt. LINDSEY Dale had call with pt and pt's brother in preparation for discharge to home. coordinating case with [facility] for outreach services. 12/08: stable presentation. continue current mgmt. 12/09: pt with hypo-intense affect, some slight LIZZETH. remains vastly improved from admission, however. ambivalent re meds, adherence. encouraged to take meds after discharge. 12/10: stable presentation. awaiting [facility] services prior to discharge. 12/11: continue current management and treatment plan. 12/12: continue current management and treatment plan. Reason for continued inpatient stay Substantial Risk for: inability to function, rapid decompensation and med/psych decompensation Time Spent With Patient Time: Total time managing care of this patient today ____ minutes.
[2023-12-13 19:27] VITALS: BP 127/66; PULSE 89; RESP 16; TEMP 36.3; O2SAT 98
[2023-12-13] MEDS: OLANZapine ODT 10 MG TAB.RAPDIS 20 MG TRANSLINGU (21:45)
[2023-12-14 07:54] VITALS: BP 105/58; PULSE 72; RESP 16; TEMP 36.7; O2SAT 98
--- NOTE | 2023-12-14 14:19 | P.PNPSI_ITS ---
Subjective Subjective Date of Service: 12/14/23 Reason For Visit: catatonia depression Interim History: sleeping. per staff, denies dep/anx. taking meds. bored. attended one group yesterday. slept well. Mental Status Exam Mental Status Exam Narrative: disheveled, in bed. no PMA/PMR. affect constricted. mood not assessed. no SI/HI/AVH expressed. Diagnostics Vital Signs (24Hr): Vital Signs - 24 hr 12/13/23 19:27 12/14/23 07:54 Temperature 97.4 F 98.0 F Pulse Rate 89 72 Respiratory Rate 16 16 Blood Pressure 127/66 105/58 L Pulse Oximetry 98 98 Oxygen Delivery Method Room Air Room Air BMI result Body Mass Index 27.5 Labs 12/02/23 08:08 12/02/23 08:08 Imaging Radiology Impressions: ITS Impressions Chest X-Ray 10/20/23 16:28 IMPRESSION: No acute cardiopulmonary abnormality. Medications Medications Current Medications Acetaminophen (Acetaminophen 325 Mg Tablet) 650 mg PO Q6H PRN PRN Reason: Headache/Pain Mild Scale (1-3) Last Admin: 11/13/23 17:05 Dose: 650 mg Al Hydroxide/Mg Hydroxide (Magnesium Hydrox/Alum Hydrox 30 Ml Oral.Susp) 30 ml PO Q6H PRN PRN Reason: Heartburn/Nausea Hydroxyzine HCl (Hydroxyzine Hcl 25 Mg Tablet) 25 mg PO Q6H PRN PRN Reason: Anxiety Last Admin: 11/08/23 22:37 Dose: 25 mg Magnesium Hydroxide (Milk Of Magnesia 30 Ml Oral.Susp) 30 ml PO DAILY PRN PRN Reason: Constipation Olanzapine (Olanzapine Odt 10 Mg Tab.Rapdis) 10 mg TRANSLINGU Q4H PRN PRN Reason: anxiety/restlessness Last Admin: 11/13/23 16:57 Dose: 10 mg Olanzapine (Olanzapine Odt 10 Mg Tab.Rapdis) 20 mg TRANSLINGU BEDTIME APM Last Admin: 12/13/23 21:45 Dose: 20 mg Trazodone HCl (Trazodone Hcl 50 Mg Tablet) 50 mg PO BEDTIME MRX1 PRN PRN Reason: Insomnia Last Admin: 12/12/23 21:23 Dose: 50 mg Allergies Allergies Allergy/AdvReac Type Severity Reaction Status Date / Time No Known Allergies Allergy Verified 11/11/23 07:33 Assessment & Plan Assessment & Plan (1) Bipolar I disorder with catatonia: Status: Acute Code(s): F31.9 - Bipolar disorder, unspecified; F06.1 - Catatonic disorder due to known physiological condition Plan ECT is scheduled for 3 days will try a more limited 2 time a week schedule patient continues to show improvement continue olanzapine patient would benefit from [facility] out reach has not followed up previously after discharge with treatmen 11/30/23 ect completed reevaluate in am 12/01/2023 Patient continues to show improvement but does have symptoms and lack of insight would benefit from structure and support after discharge continue olanzapine evaluate need for further ECT 12/02/2023 Continue olanzapine ECT scheduled for 8 [facility] referral made 12/03/2023 ECT scheduled for tomorrow will then try an discontinue and see if we can set up a discharge sometime next week patient unfortunately has limited insight might benefit from VNA psychiatric VNA to assess response as patient has had a rapid decompensation previously 12/04/2023 Last ECT completed discharge planning continue medication future oriented will need supervision 12/05/2023: No changes 12/06/2023: No changes 12/06: spontaneous, verbal, better-related. discharge planning ongoing. taking meds. laughing appropriately. no RIS or psychosis noted. 12/07: no change in presentation. continue current mgmt. LINDSEY Suyapa had call with pt and pt's brother in preparation for discharge to home. coordinating case with [facility] for outreach services. 12/08: stable presentation. continue current mgmt. 12/09: pt with hypo-intense affect, some slight LIZZETH. remains vastly improved from admission, however. ambivalent re meds, adherence. encouraged to take meds after discharge. 12/10: stable presentation. awaiting [facility] services prior to discharge. 12/11: continue current management and treatment plan. 12/12: continue current management and treatment plan. 12/13: stable. planning for discharge late this week, after [facility] services in place. Reason for continued inpatient stay Substantial Risk for: inability to function and rapid decompensation Time Spent With Patient Time: Total time managing care of this patient today ____ minutes.
[2023-12-14 19:13] VITALS: BP 123/64; PULSE 96; RESP 16; TEMP 36.9; O2SAT 97
[2023-12-14] MEDS: OLANZapine ODT 10 MG TAB.RAPDIS 20 MG TRANSLINGU (21:12)
[2023-12-15 07:42] VITALS: BP 103/58; PULSE 74; RESP 16; TEMP 36.4; O2SAT 98
--- NOTE | 2023-12-15 14:40 | P.PNPSI_ITS ---
Subjective Subjective Date of Service: 12/15/23 Reason For Visit: catatonia depression Interim History: calm, cooperative. up and about today. no requests or complaints. per staff, slept al lshift days yesterday. constricted, withdrawn. brightens on 1:1 interactions. planning to discharge next thursday. Mental Status Exam Mental Status Exam Narrative: Pleasant. Engaged. Hospital clothing. Fair self-care. Overall organized, but quite concrete. Affect is constricted, hypo-intense, non-labile. mood euthymic. No SI or HI expressed. No agitation. No overt psychosis noted. Insight and judgment fair Diagnostics Vital Signs (24Hr): Vital Signs - 24 hr 12/14/23 19:13 12/15/23 07:42 Temperature 98.5 F 97.5 F Pulse Rate 96 74 Respiratory Rate 16 16 Blood Pressure 123/64 103/58 L Pulse Oximetry 97 98 Oxygen Delivery Method Room Air Room Air BMI result Body Mass Index 27.5 Labs 12/02/23 08:08 12/02/23 08:08 Imaging Radiology Impressions: ITS Impressions Chest X-Ray 10/20/23 16:28 IMPRESSION: No acute cardiopulmonary abnormality. Medications Medications Current Medications Acetaminophen (Acetaminophen 325 Mg Tablet) 650 mg PO Q6H PRN PRN Reason: Headache/Pain Mild Scale (1-3) Last Admin: 11/13/23 17:05 Dose: 650 mg Al Hydroxide/Mg Hydroxide (Magnesium Hydrox/Alum Hydrox 30 Ml Oral.Susp) 30 ml PO Q6H PRN PRN Reason: Heartburn/Nausea Hydroxyzine HCl (Hydroxyzine Hcl 25 Mg Tablet) 25 mg PO Q6H PRN PRN Reason: Anxiety Last Admin: 11/08/23 22:37 Dose: 25 mg Magnesium Hydroxide (Milk Of Magnesia 30 Ml Oral.Susp) 30 ml PO DAILY PRN PRN Reason: Constipation Olanzapine (Olanzapine Odt 10 Mg Tab.Rapdis) 10 mg TRANSLINGU Q4H PRN PRN Reason: anxiety/restlessness Last Admin: 11/13/23 16:57 Dose: 10 mg Olanzapine (Olanzapine Odt 10 Mg Tab.Rapdis) 20 mg TRANSLINGU BEDTIME PAM Last Admin: 12/14/23 21:12 Dose: 20 mg Trazodone HCl (Trazodone Hcl 50 Mg Tablet) 50 mg PO BEDTIME MRX1 PRN PRN Reason: Insomnia Last Admin: 12/12/23 21:23 Dose: 50 mg Allergies Allergies Allergy/AdvReac Type Severity Reaction Status Date / Time No Known Allergies Allergy Verified 11/11/23 07:33 Assessment & Plan Assessment & Plan (1) Bipolar I disorder with catatonia: Status: Acute Code(s): F31.9 - Bipolar disorder, unspecified; F06.1 - Catatonic disorder due to known physiological condition Plan ECT is scheduled for 3 days will try a more limited 2 time a week schedule patient continues to show improvement continue olanzapine patient would benefit from [facility] out reach has not followed up previously after discharge with treatmen 11/30/23 ect completed reevaluate in am 12/01/2023 Patient continues to show improvement but does have symptoms and lack of insight would benefit from structure and support after discharge continue olanzapine evaluate need for further ECT 12/02/2023 Continue olanzapine ECT scheduled for 8 [facility] referral made 12/03/2023 ECT scheduled for tomorrow will then try an discontinue and see if we can set up a discharge sometime next week patient unfortunately has limited insight might benefit from [facility] psychiatric [facility] to assess response as patient has had a rapid decompensation previously 12/04/2023 Last ECT completed discharge planning continue medication future oriented will need supervision 12/05/2023: No changes 12/06/2023: No changes 12/06: spontaneous, verbal, better-related. discharge planning ongoing. taking meds. laughing appropriately. no RIS or psychosis noted. 12/07: no change in presentation. continue current mgmt. LINDSEY Suyapa had call with pt and pt's brother in preparation for discharge to home. coordinating case with [facility] for outreach services. 12/08: stable presentation. continue current mgmt. 12/09: pt with hypo-intense affect, some slight LIZZETH. remains vastly improved from admission, however. ambivalent re meds, adherence. encouraged to take meds after discharge. 12/10: stable presentation. awaiting [facility] services prior to discharge. 12/11: continue current management and treatment plan. 12/12: continue current management and treatment plan. 12/13: stable. planning for discharge late this week, after [facility] services in place. 12/14: no change in presentation. continue current mgmt. will keep an eye on excessive sleep. Reason for continued inpatient stay Substantial Risk for: inability to function and rapid decompensation Time Spent With Patient Time: Total time managing care of this patient today ____ minutes.
[2023-12-15 19:43] VITALS: BP 114/66; PULSE 92; RESP 16; TEMP 36.8; O2SAT 97
[2023-12-15] MEDS: OLANZapine ODT 10 MG TAB.RAPDIS 20 MG TRANSLINGU (20:33)
[2023-12-16 07:25] VITALS: BP 104/53; PULSE 69; RESP 16; RESP 18; TEMP 36.2; O2SAT 96; O2SAT 97
--- NOTE | 2023-12-16 13:53 | HO.PSYCHPN ---
Subjective Subjective Date of Service: 12/16/23 Reason For Visit: catatonia depression Interim History: no change in presentation. per staff, taking meds. smiley, responding i don't know to many questions. watching TV. noted to express ambivalence about taking medications after discharge. Mental Status Exam Mental Status Exam Narrative: Pleasant. Hospital clothing. Fair self-care. Overall organized, but quite concrete. Affect is flexible, hypo-intense, non-labile but somewhat giddy. mood euthymic. No SI or HI expressed. No agitation. No overt psychosis noted. Insight and judgment fair Diagnostics Vital Signs (24Hr): Vital Signs - 24 hr 12/15/23 19:43 12/16/23 07:25 12/16/23 07:25 Temperature 98.2 F 97.1 F 97.1 F Pulse Rate 92 69 69 Respiratory Rate 16 18 16 Blood Pressure 114/66 104/53 L 104/53 L Pulse Oximetry 97 97 96 Oxygen Delivery Method Room Air Room Air Room Air BMI result Body Mass Index 27.5 Labs 12/02/23 08:08 12/02/23 08:08 Imaging Radiology Impressions: ITS Impressions Chest X-Ray 10/20/23 16:28 IMPRESSION: No acute cardiopulmonary abnormality. Medications Medications Current Medications Acetaminophen (Acetaminophen 325 Mg Tablet) 650 mg PO Q6H PRN PRN Reason: Headache/Pain Mild Scale (1-3) Last Admin: 11/13/23 17:05 Dose: 650 mg Al Hydroxide/Mg Hydroxide (Magnesium Hydrox/Alum Hydrox 30 Ml Oral.Susp) 30 ml PO Q6H PRN PRN Reason: Heartburn/Nausea Hydroxyzine HCl (Hydroxyzine Hcl 25 Mg Tablet) 25 mg PO Q6H PRN PRN Reason: Anxiety Last Admin: 11/08/23 22:37 Dose: 25 mg [place] Carbonate ([place] Carbonate Er 450 Mg Tablet.Er) 900 mg PO BEDTIME PAM [place] Carbonate ([place] Carbonate Er 300 Mg Tablet.Er) 300 mg PO BEDTIME PAM Magnesium Hydroxide (Milk Of Magnesia 30 Ml Oral.Susp) 30 ml PO DAILY PRN PRN Reason: Constipation Olanzapine (Olanzapine Odt 10 Mg Tab.Rapdis) 10 mg TRANSLINGU Q4H PRN PRN Reason: anxiety/restlessness Last Admin: 11/13/23 16:57 Dose: 10 mg Olanzapine (Olanzapine Odt 10 Mg Tab.Rapdis) 20 mg TRANSLINGU BEDTIME PAM Last Admin: 12/15/23 20:33 Dose: 20 mg Trazodone HCl (Trazodone Hcl 50 Mg Tablet) 50 mg PO BEDTIME MRX1 PRN PRN Reason: Insomnia Last Admin: 12/12/23 21:23 Dose: 50 mg Allergies Allergies Allergy/AdvReac Type Severity Reaction Status Date / Time No Known Allergies Allergy Verified 11/11/23 07:33 Assessment & Plan Assessment & Plan (1) Bipolar I disorder with catatonia: Status: Acute Code(s): F31.9 - Bipolar disorder, unspecified; F06.1 - Catatonic disorder due to known physiological condition Plan ECT is scheduled for 3 days will try a more limited 2 time a week schedule patient continues to show improvement continue olanzapine patient would benefit from [facility] out reach has not followed up previously after discharge with treatmen 11/30/23 ect completed reevaluate in am 12/01/2023 Patient continues to show improvement but does have symptoms and lack of insight would benefit from structure and support after discharge continue olanzapine evaluate need for further ECT 12/02/2023 Continue olanzapine ECT scheduled for 8 [facility] referral made 12/03/2023 ECT scheduled for tomorrow will then try an discontinue and see if we can set up a discharge sometime next week patient unfortunately has limited insight might benefit from [facility] psychiatric VNA to assess response as patient has had a rapid decompensation previously 12/04/2023 Last ECT completed discharge planning continue medication future oriented will need supervision 12/05/2023: No changes 12/06/2023: No changes 12/06: spontaneous, verbal, better-related. discharge planning ongoing. taking meds. laughing appropriately. no RIS or psychosis noted. 12/07: no change in presentation. continue current mgmt. LINDSEY Dale had call with pt and pt's brother in preparation for discharge to home. coordinating case with [facility] for outreach services. 12/08: stable presentation. continue current mgmt. 12/09: pt with hypo-intense affect, some slight LIZZETH. remains vastly improved from admission, however. ambivalent re meds, adherence. encouraged to take meds after discharge. 12/10: stable presentation. awaiting [facility] services prior to discharge. 12/11: continue current management and treatment plan. 12/12: continue current management and treatment plan. 12/13: stable. planning for discharge late this week, after [facility] services in place. 12/14: no change in presentation. continue current mgmt. will keep an eye on excessive sleep. 12/15: due to concern for recrudescence and h/o connie, restart lithium at 1200 QHS as of this evening. superficially interactive, but appears to have poor memory function and bizarre, child-like demeanor. Reason for continued inpatient stay Substantial Risk for: inability to function and rapid decompensation Time Spent With Patient Time: Total time managing care of this patient today __25__ minutes.
[2023-12-16 19:07] VITALS: BP 115/70; PULSE 99; RESP 16; TEMP 36.5; O2SAT 97
[2023-12-16] MEDS: OLANZapine ODT 10 MG TAB.RAPDIS 20 MG TRANSLINGU (21:07)
[2023-12-16] MEDS: Lithium Carbonate ER 300 MG TABLET.ER PO (21:08)
[2023-12-16] MEDS: Lithium Carbonate ER 450 MG TABLET.ER 900 MG PO (21:09)
[2023-12-16] MEDS: Clotrimazole 1 % Cream 15 GM TUBE 1 APPL TOPICAL (22:15)
[2023-12-16] MEDS: traZODone HCL 50 MG TABLET PO (23:57)
[2023-12-17 07:42] VITALS: BP 101/60; PULSE 82; RESP 16; TEMP 36.5; O2SAT 97
--- NOTE | 2023-12-17 16:07 | P.PNPSI_ITS ---
Subjective Subjective Date of Service: 12/17/23 Reason For Visit: catatonia depression Interim History: calm, cooperative. educated re need for lithium and present dosing. asks if MD takes medications himself. per staff, responds i don't know on being asked whether or not he is depressed. sleepy. showered. took lithium. Mental Status Exam Mental Status Exam Narrative: Pleasant. Hospital clothing. Fair self-care. Overall organized, but quite concrete. Affect is flexible, hypo-intense, non-labile. mood euthymic. No SI or HI expressed. No agitation. No overt psychosis noted. Insight and judgment fair Diagnostics Vital Signs (24Hr): Vital Signs - 24 hr 12/16/23 19:07 12/17/23 07:42 Temperature 97.7 F 97.7 F Pulse Rate 99 828 H Respiratory Rate 16 16 Blood Pressure 115/70 101/60 Pulse Oximetry 97 97 Oxygen Delivery Method Room Air Room Air BMI result Body Mass Index 27.5 Labs 12/02/23 08:08 12/02/23 08:08 Imaging Radiology Impressions: ITS Impressions Chest X-Ray 10/20/23 16:28 IMPRESSION: No acute cardiopulmonary abnormality. Medications Medications Current Medications Acetaminophen (Acetaminophen 325 Mg Tablet) 650 mg PO Q6H PRN PRN Reason: Headache/Pain Mild Scale (1-3) Last Admin: 11/13/23 17:05 Dose: 650 mg Al Hydroxide/Mg Hydroxide (Magnesium Hydrox/Alum Hydrox 30 Ml Oral.Susp) 30 ml PO Q6H PRN PRN Reason: Heartburn/Nausea Clotrimazole (Clotrimazole 1 % Cream 15 Gm Tube) 1 appl TOPICAL BID PAM; Protocol Last Admin: 12/17/23 10:03 Dose: Not Given Hydroxyzine HCl (Hydroxyzine Hcl 25 Mg Tablet) 25 mg PO Q6H PRN PRN Reason: Anxiety Last Admin: 11/08/23 22:37 Dose: 25 mg [place] Carbonate ([place] Carbonate Er 450 Mg Tablet.Er) 900 mg PO BEDTIME PAM Last Admin: 12/16/23 21:09 Dose: 900 mg [place] Carbonate ([place] Carbonate Er 300 Mg Tablet.Er) 300 mg PO BEDTIME PAM Last Admin: 12/16/23 21:08 Dose: 300 mg Magnesium Hydroxide (Milk Of Magnesia 30 Ml Oral.Susp) 30 ml PO DAILY PRN PRN Reason: Constipation Olanzapine (Olanzapine Odt 10 Mg Tab.Rapdis) 10 mg TRANSLINGU Q4H PRN PRN Reason: anxiety/restlessness Last Admin: 11/13/23 16:57 Dose: 10 mg Olanzapine (Olanzapine Odt 10 Mg Tab.Rapdis) 20 mg TRANSLINGU BEDTIME PAM Last Admin: 12/16/23 21:07 Dose: 20 mg Trazodone HCl (Trazodone Hcl 50 Mg Tablet) 50 mg PO BEDTIME MRX1 PRN PRN Reason: Insomnia Last Admin: 12/16/23 23:57 Dose: 50 mg Allergies Allergies Allergy/AdvReac Type Severity Reaction Status Date / Time No Known Allergies Allergy Verified 11/11/23 07:33 Assessment & Plan Assessment & Plan (1) Bipolar I disorder with catatonia: Status: Acute Code(s): F31.9 - Bipolar disorder, unspecified; F06.1 - Catatonic disorder due to known physiological condition Plan ECT is scheduled for 3 days will try a more limited 2 time a week schedule patient continues to show improvement continue olanzapine patient would benefit from [facility] out reach has not followed up previously after discharge with treatmen 11/30/23 ect completed reevaluate in am 12/01/2023 Patient continues to show improvement but does have symptoms and lack of insight would benefit from structure and support after discharge continue olanzapine evaluate need for further ECT 12/02/2023 Continue olanzapine ECT scheduled for 8 [facility] referral made 12/03/2023 ECT scheduled for tomorrow will then try an discontinue and see if we can set up a discharge sometime next week patient unfortunately has limited insight might benefit from VNA psychiatric VNA to assess response as patient has had a rapid decompensation previously 12/04/2023 Last ECT completed discharge planning continue medication future oriented will need supervision 12/05/2023: No changes 12/06/2023: No changes 12/06: spontaneous, verbal, better-related. discharge planning ongoing. taking meds. laughing appropriately. no RIS or psychosis noted. 12/07: no change in presentation. continue current mgmt. LINDSEY Dale had call with pt and pt's brother in preparation for discharge to home. coordinating case with [facility] for outreach services. 12/08: stable presentation. continue current mgmt. 12/09: pt with hypo-intense affect, some slight LIZZETH. remains vastly improved from admission, however. ambivalent re meds, adherence. encouraged to take meds after discharge. 12/10: stable presentation. awaiting [facility] services prior to discharge. 12/11: continue current management and treatment plan. 12/12: continue current management and treatment plan. 12/13: stable. planning for discharge late this week, after [facility] services in place. 12/14: no change in presentation. continue current mgmt. will keep an eye on excessive sleep. 12/15: due to concern for recrudescence and h/o connie, restart lithium at 1200 QHS as of this evening. superficially interactive, but appears to have poor memory function and bizarre, child-like demeanor. 12/16: pulse is not 828 today; entered in error. took lithium last night. stable presentation. no issues. continue current mgmt. Reason for continued inpatient stay Substantial Risk for: inability to function and rapid decompensation Time Spent With Patient Time: Total time managing care of this patient today ___25_ minutes.
[2023-12-17 20:00] VITALS: BP 116/64; PULSE 93; RESP 16; TEMP 36.1; O2SAT 97
[2023-12-17] MEDS: Lithium Carbonate ER 300 MG TABLET.ER PO (20:02)
[2023-12-17] MEDS: Lithium Carbonate ER 450 MG TABLET.ER 900 MG PO (20:03)
[2023-12-17] MEDS: OLANZapine ODT 10 MG TAB.RAPDIS 20 MG TRANSLINGU (20:03)
[2023-12-17] MEDS: Clotrimazole 1 % Cream 15 GM TUBE 1 APPL TOPICAL (20:06)
[2023-12-18 07:40] VITALS: BP 103/50; PULSE 72; RESP 16; TEMP 36.7; O2SAT 98
--- NOTE | 2023-12-18 17:14 | P.PNPSI_ITS ---
Subjective Subjective Date of Service: 12/18/23 Reason For Visit: catatonia depression Interim History: sleeping. per staff, no change in presentation. withdrawn, sleeping much of shift. occasional laughing to self. taking meds. slept 7-8 hours. Mental Status Exam Mental Status Exam Narrative: disheveled, in bed. no PMA/PMR. affect constricted. mood not assessed. no SI/HI/AVH expressed. Diagnostics Vital Signs (24Hr): Vital Signs - 24 hr 12/17/23 20:00 12/18/23 07:40 Temperature 97 F 98.0 F Pulse Rate 93 72 Respiratory Rate 16 16 Blood Pressure 116/64 103/50 L Pulse Oximetry 97 98 Oxygen Delivery Method Room Air Room Air BMI result Body Mass Index 27.5 Labs 12/02/23 08:08 12/02/23 08:08 Imaging Radiology Impressions: ITS Impressions Chest X-Ray 10/20/23 16:28 IMPRESSION: No acute cardiopulmonary abnormality. Medications Medications Current Medications Acetaminophen (Acetaminophen 325 Mg Tablet) 650 mg PO Q6H PRN PRN Reason: Headache/Pain Mild Scale (1-3) Last Admin: 11/13/23 17:05 Dose: 650 mg Al Hydroxide/Mg Hydroxide (Magnesium Hydrox/Alum Hydrox 30 Ml Oral.Susp) 30 ml PO Q6H PRN PRN Reason: Heartburn/Nausea Clotrimazole (Clotrimazole 1 % Cream 15 Gm Tube) 1 appl TOPICAL BID PAM; Protocol Last Admin: 12/18/23 09:46 Dose: Not Given Hydroxyzine HCl (Hydroxyzine Hcl 25 Mg Tablet) 25 mg PO Q6H PRN PRN Reason: Anxiety Last Admin: 11/08/23 22:37 Dose: 25 mg [place] Carbonate ([place] Carbonate Er 450 Mg Tablet.Er) 900 mg PO BEDTIME PAM Last Admin: 12/17/23 20:03 Dose: 900 mg [place] Carbonate ([place] Carbonate Er 300 Mg Tablet.Er) 300 mg PO BEDTIME PAM Last Admin: 12/17/23 20:02 Dose: 300 mg Magnesium Hydroxide (Milk Of Magnesia 30 Ml Oral.Susp) 30 ml PO DAILY PRN PRN Reason: Constipation Olanzapine (Olanzapine Odt 10 Mg Tab.Rapdis) 10 mg TRANSLINGU Q4H PRN PRN Reason: anxiety/restlessness Last Admin: 11/13/23 16:57 Dose: 10 mg Olanzapine (Olanzapine Odt 10 Mg Tab.Rapdis) 20 mg TRANSLINGU BEDTIME PAM Last Admin: 12/17/23 20:03 Dose: 20 mg Trazodone HCl (Trazodone Hcl 50 Mg Tablet) 50 mg PO BEDTIME MRX1 PRN PRN Reason: Insomnia Last Admin: 12/16/23 23:57 Dose: 50 mg Allergies Allergies Allergy/AdvReac Type Severity Reaction Status Date / Time No Known Allergies Allergy Verified 11/11/23 07:33 Assessment & Plan Assessment & Plan (1) Bipolar I disorder with catatonia: Status: Acute Code(s): F31.9 - Bipolar disorder, unspecified; F06.1 - Catatonic disorder due to known physiological condition Plan ECT is scheduled for 3 days will try a more limited 2 time a week schedule patient continues to show improvement continue olanzapine patient would benefit from [facility] out reach has not followed up previously after discharge with treatmen 11/30/23 ect completed reevaluate in am 12/01/2023 Patient continues to show improvement but does have symptoms and lack of insight would benefit from structure and support after discharge continue olanzapine evaluate need for further ECT 12/02/2023 Continue olanzapine ECT scheduled for [facility] referral made 12/03/2023 ECT scheduled for tomorrow will then try an discontinue and see if we can set up a discharge sometime next week patient unfortunately has limited insight might benefit from VNA psychiatric VNA to assess response as patient has had a rapid decompensation previously 12/04/2023 Last ECT completed discharge planning continue medication future oriented will need supervision 12/05/2023: No changes 12/06/2023: No changes 12/06: spontaneous, verbal, better-related. discharge planning ongoing. taking meds. laughing appropriately. no RIS or psychosis noted. 12/07: no change in presentation. continue current mgmt. LINDSEY Dale had call with pt and pt's brother in preparation for discharge to home. coordinating case with [facility] for outreach services. 12/08: stable presentation. continue current mgmt. 12/09: pt with hypo-intense affect, some slight LIZZETH. remains vastly improved from admission, however. ambivalent re meds, adherence. encouraged to take meds after discharge. 12/10: stable presentation. awaiting [facility] services prior to discharge. 12/11: continue current management and treatment plan. 12/12: continue current management and treatment plan. 12/13: stable. planning for discharge late this week, after [facility] services in place. 12/14: no change in presentation. continue current mgmt. will keep an eye on excessive sleep. 12/15: due to concern for recrudescence and h/o connie, restart lithium at 1200 QHS as of this evening. superficially interactive, but appears to have poor memory function and bizarre, child-like demeanor. 12/16: pulse is not 828 today; entered in error. took lithium last night. stable presentation. no issues. continue current mgmt. 12/17: no change in presentation. planning to discharge 1030 thursday morning. Reason for continued inpatient stay Substantial Risk for: inability to function and rapid decompensation Time Spent With Patient Time: Total time managing care of this patient today ____ minutes.
[2023-12-18 19:15] VITALS: BP 115/55; PULSE 91; RESP 16; TEMP 37.5; O2SAT 96
[2023-12-18] MEDS: Clotrimazole 1 % Cream 15 GM TUBE 1 APPL TOPICAL (20:21)
[2023-12-18] MEDS: OLANZapine ODT 10 MG TAB.RAPDIS 20 MG TRANSLINGU (20:22)
[2023-12-18] MEDS: Lithium Carbonate ER 300 MG TABLET.ER PO (20:22)
[2023-12-18] MEDS: Lithium Carbonate ER 450 MG TABLET.ER 900 MG PO (20:22)
[2023-12-19 09:36] VITALS: BP 104/62; PULSE 92; RESP 14; TEMP 36.9; O2SAT 98
[2023-12-19] MEDS: Clotrimazole 1 % Cream 15 GM TUBE 1 APPL TOPICAL ×2 (09:38→20:11)
--- NOTE | 2023-12-19 16:40 | HO.PSYCHPN ---
Subjective Subjective Date of Service: 12/19/23 Reason For Visit: catatonia depression Interim History: no change in presentation. per staff, no issues, no changes. sleeping a lot. Mental Status Exam Mental Status Exam Narrative: Pleasant. Hospital clothing. Fair self-care. Overall organized, but quite concrete. Affect is flexible, hypo-intense, non-labile. mood euthymic. No SI or HI expressed. No agitation. No overt psychosis noted. Insight and judgment fair Diagnostics Vital Signs (24Hr): Vital Signs - 24 hr 12/18/23 19:15 12/19/23 09:36 Temperature 99.5 F 98.4 F Pulse Rate 91 92 Respiratory Rate 16 14 Blood Pressure 115/55 L 104/62 Pulse Oximetry 96 98 Oxygen Delivery Method Room Air Room Air BMI result Body Mass Index 27.5 Labs 12/02/23 08:08 12/02/23 08:08 Imaging Radiology Impressions: ITS Impressions Chest X-Ray 10/20/23 16:28 IMPRESSION: No acute cardiopulmonary abnormality. Medications Medications Current Medications Acetaminophen (Acetaminophen 325 Mg Tablet) 650 mg PO Q6H PRN PRN Reason: Headache/Pain Mild Scale (1-3) Last Admin: 11/13/23 17:05 Dose: 650 mg Al Hydroxide/Mg Hydroxide (Magnesium Hydrox/Alum Hydrox 30 Ml Oral.Susp) 30 ml PO Q6H PRN PRN Reason: Heartburn/Nausea Clotrimazole (Clotrimazole 1 % Cream 15 Gm Tube) 1 appl TOPICAL BID PAM; Protocol Last Admin: 12/19/23 09:38 Dose: 1 appl Hydroxyzine HCl (Hydroxyzine Hcl 25 Mg Tablet) 25 mg PO Q6H PRN PRN Reason: Anxiety Last Admin: 11/08/23 22:37 Dose: 25 mg [place] Carbonate ([place] Carbonate Er 450 Mg Tablet.Er) 900 mg PO BEDTIME PAM Last Admin: 12/18/23 20:22 Dose: 900 mg [place] Carbonate ([place] Carbonate Er 300 Mg Tablet.Er) 300 mg PO BEDTIME PAM Last Admin: 12/18/23 20:22 Dose: 300 mg Magnesium Hydroxide (Milk Of Magnesia 30 Ml Oral.Susp) 30 ml PO DAILY PRN PRN Reason: Constipation Olanzapine (Olanzapine Odt 10 Mg Tab.Rapdis) 10 mg TRANSLINGU Q4H PRN PRN Reason: anxiety/restlessness Last Admin: 11/13/23 16:57 Dose: 10 mg Olanzapine (Olanzapine Odt 10 Mg Tab.Rapdis) 20 mg TRANSLINGU BEDTIME PAM Last Admin: 12/18/23 20:22 Dose: 20 mg Trazodone HCl (Trazodone Hcl 50 Mg Tablet) 50 mg PO BEDTIME MRX1 PRN PRN Reason: Insomnia Last Admin: 12/16/23 23:57 Dose: 50 mg Allergies Allergies Allergy/AdvReac Type Severity Reaction Status Date / Time No Known Allergies Allergy Verified 11/11/23 07:33 Assessment & Plan Assessment & Plan (1) Bipolar I disorder with catatonia: Status: Acute Code(s): F31.9 - Bipolar disorder, unspecified; F06.1 - Catatonic disorder due to known physiological condition Plan ECT is scheduled for 3 days will try a more limited 2 time a week schedule patient continues to show improvement continue olanzapine patient would benefit from [facility] out reach has not followed up previously after discharge with treatmen 11/30/23 ect completed reevaluate in am 12/01/2023 Patient continues to show improvement but does have symptoms and lack of insight would benefit from structure and support after discharge continue olanzapine evaluate need for further ECT 12/02/2023 Continue olanzapine ECT scheduled for [facility] referral made 12/03/2023 ECT scheduled for tomorrow will then try an discontinue and see if we can set up a discharge sometime next week patient unfortunately has limited insight might benefit from VNA psychiatric VNA to assess response as patient has had a rapid decompensation previously 12/04/2023 Last ECT completed discharge planning continue medication future oriented will need supervision 12/05/2023: No changes 12/06/2023: No changes 12/06: spontaneous, verbal, better-related. discharge planning ongoing. taking meds. laughing appropriately. no RIS or psychosis noted. 12/07: no change in presentation. continue current mgmt. LINDSEY Dale had call with pt and pt's brother in preparation for discharge to home. coordinating case with [facility] for outreach services. 12/08: stable presentation. continue current mgmt. 12/09: pt with hypo-intense affect, some slight LIZZETH. remains vastly improved from admission, however. ambivalent re meds, adherence. encouraged to take meds after discharge. 12/10: stable presentation. awaiting [facility] services prior to discharge. 12/11: continue current management and treatment plan. 12/12: continue current management and treatment plan. 12/13: stable. planning for discharge late this week, after [facility] services in place. 12/14: no change in presentation. continue current mgmt. will keep an eye on excessive sleep. 12/15: due to concern for recrudescence and h/o connie, restart lithium at 1200 QHS as of this evening. superficially interactive, but appears to have poor memory function and bizarre, child-like demeanor. 12/16: pulse is not 828 today; entered in error. took lithium last night. stable presentation. no issues. continue current mgmt. 12/17: no change in presentation. planning to discharge 1030 thursday morning. 12/18: no change in presentation. labs tomorrow night. DC thursday. Reason for continued inpatient stay Substantial Risk for: inability to function and rapid decompensation Time Spent With Patient Time: Total time managing care of this patient today ____ minutes.
[2023-12-19] MEDS: Lithium Carbonate ER 300 MG TABLET.ER PO (20:11)
[2023-12-19] MEDS: Lithium Carbonate ER 450 MG TABLET.ER 900 MG PO (20:11)
[2023-12-19] MEDS: OLANZapine ODT 10 MG TAB.RAPDIS 20 MG TRANSLINGU (20:11)
[2023-12-19 20:55] VITALS: BP 123/62; PULSE 87; RESP 18; TEMP 37.2; O2SAT 98
[2023-12-20 07:40] VITALS: BP 92/54; PULSE 66; RESP 14; TEMP 36.4; O2SAT 97
--- NOTE | 2023-12-20 16:32 | P.PNPSI_ITS ---
Subjective Subjective Date of Service: 12/20/23 Reason For Visit: catatonia depression Interim History: no change in presentation. per staf, no change in presentation. discharging tomorrow. Mental Status Exam Mental Status Exam Narrative: Pleasant. Hospital clothing. Fair self-care. Overall organized, but quite concrete. Affect is flexible, hypo-intense, non-labile. mood euthymic. No SI or HI expressed. No agitation. No overt psychosis noted. Insight and judgment fair Diagnostics Vital Signs (24Hr): Vital Signs - 24 hr 12/19/23 20:55 12/20/23 07:40 Temperature 99.0 F 97.6 F Pulse Rate 87 66 Respiratory Rate 18 14 Blood Pressure 123/62 92/54 L Pulse Oximetry 98 97 Oxygen Delivery Method Room Air Room Air BMI result Body Mass Index 27.5 Labs 12/02/23 08:08 12/02/23 08:08 Imaging Radiology Impressions: ITS Impressions Chest X-Ray 10/20/23 16:28 IMPRESSION: No acute cardiopulmonary abnormality. Medications Medications Current Medications Acetaminophen (Acetaminophen 325 Mg Tablet) 650 mg PO Q6H PRN PRN Reason: Headache/Pain Mild Scale (1-3) Last Admin: 11/13/23 17:05 Dose: 650 mg Al Hydroxide/Mg Hydroxide (Magnesium Hydrox/Alum Hydrox 30 Ml Oral.Susp) 30 ml PO Q6H PRN PRN Reason: Heartburn/Nausea Clotrimazole (Clotrimazole 1 % Cream 15 Gm Tube) 1 appl TOPICAL BID PAM; Protocol Last Admin: 12/20/23 12:12 Dose: Not Given Hydroxyzine HCl (Hydroxyzine Hcl 25 Mg Tablet) 25 mg PO Q6H PRN PRN Reason: Anxiety Last Admin: 11/08/23 22:37 Dose: 25 mg [place] Carbonate ([place] Carbonate Er 450 Mg Tablet.Er) 900 mg PO BEDTIME PAM Last Admin: 12/19/23 20:11 Dose: 900 mg [place] Carbonate ([place] Carbonate Er 300 Mg Tablet.Er) 300 mg PO BEDTIME PAM Last Admin: 12/19/23 20:11 Dose: 300 mg Magnesium Hydroxide (Milk Of Magnesia 30 Ml Oral.Susp) 30 ml PO DAILY PRN PRN Reason: Constipation Olanzapine (Olanzapine Odt 10 Mg Tab.Rapdis) 10 mg TRANSLINGU Q4H PRN PRN Reason: anxiety/restlessness Last Admin: 11/13/23 16:57 Dose: 10 mg Olanzapine (Olanzapine Odt 10 Mg Tab.Rapdis) 20 mg TRANSLINGU BEDTIME PAM Last Admin: 12/19/23 20:11 Dose: 20 mg Trazodone HCl (Trazodone Hcl 50 Mg Tablet) 50 mg PO BEDTIME MRX1 PRN PRN Reason: Insomnia Last Admin: 12/16/23 23:57 Dose: 50 mg Allergies Allergies Allergy/AdvReac Type Severity Reaction Status Date / Time No Known Allergies Allergy Verified 11/11/23 07:33 Assessment & Plan Assessment & Plan (1) Bipolar I disorder with catatonia: Status: Acute Code(s): F31.9 - Bipolar disorder, unspecified; F06.1 - Catatonic disorder due to known physiological condition Plan ECT is scheduled for 3 days will try a more limited 2 time a week schedule patient continues to show improvement continue olanzapine patient would benefit from [facility] out reach has not followed up previously after discharge with treatmen 11/30/23 ect completed reevaluate in am 12/01/2023 Patient continues to show improvement but does have symptoms and lack of insight would benefit from structure and support after discharge continue olanzapine evaluate need for further ECT 12/02/2023 Continue olanzapine ECT scheduled for 8 [facility] referral made 12/03/2023 ECT scheduled for tomorrow will then try an discontinue and see if we can set up a discharge sometime next week patient unfortunately has limited insight might benefit from VNA psychiatric VNA to assess response as patient has had a rapid decompensation previously 12/04/2023 Last ECT completed discharge planning continue medication future oriented will need supervision 12/05/2023: No changes 12/06/2023: No changes 12/06: spontaneous, verbal, better-related. discharge planning ongoing. taking meds. laughing appropriately. no RIS or psychosis noted. 12/07: no change in presentation. continue current mgmt. LINDSEY Dale had call with pt and pt's brother in preparation for discharge to home. coordinating case with [facility] for outreach services. 12/08: stable presentation. continue current mgmt. 12/09: pt with hypo-intense affect, some slight LIZZETH. remains vastly improved from admission, however. ambivalent re meds, adherence. encouraged to take meds after discharge. 12/10: stable presentation. awaiting [facility] services prior to discharge. 12/11: continue current management and treatment plan. 12/12: continue current management and treatment plan. 12/13: stable. planning for discharge late this week, after [facility] services in place. 12/14: no change in presentation. continue current mgmt. will keep an eye on excessive sleep. 12/15: due to concern for recrudescence and h/o connie, restart lithium at 1200 QHS as of this evening. superficially interactive, but appears to have poor memory function and bizarre, child-like demeanor. 12/16: pulse is not 828 today; entered in error. took lithium last night. stable presentation. no issues. continue current mgmt. 12/17: no change in presentation. planning to discharge 1030 thursday morning. 12/18: no change in presentation. labs tomorrow night. DC thursday. 12/19: no change in presentation. labs tonight. continue current mgmt. DC tomorrow. Reason for continued inpatient stay Substantial Risk for: inability to function and rapid decompensation Time Spent With Patient Time: Total time managing care of this patient today ____ minutes.
[2023-12-20 20:00] VITALS: BP 107/59; PULSE 87; RESP 16; TEMP 36.6; O2SAT 96
[2023-12-20] MEDS: Lithium Carbonate ER 450 MG TABLET.ER 900 MG PO (20:12)
[2023-12-20] MEDS: Lithium Carbonate ER 300 MG TABLET.ER PO (20:12)
[2023-12-20] MEDS: OLANZapine ODT 10 MG TAB.RAPDIS 20 MG TRANSLINGU (20:13)
[2023-12-21 07:25] VITALS: BP 81/48; PULSE 74; RESP 14; TEMP 36.9; O2SAT 97
--- NOTE | 2023-12-21 08:58 | P.DS_ITS ---
DS: Providers Provider Date of Service: 12/21/23 Date of admission: 09/23/23 14:45 Primary care physician: Unknown Physician Consults: 09/23/23 15:14 Consult to Hospitalist Routine Comment: Consulting Provider: Hospitalist Reason For Exam: OSH admission 09/23/23 15:17 Consult to Hospitalist Routine Comment: Consulting Provider: Hospitalist Reason For Exam: Outside Admission 10/20/23 14:51 Consult to Hospitalist Routine Comment: Consulting Provider: Hospitalist Reason For Exam: R/O and Tx occult infection in catatonic patient DS: Diagnosis Discharge Diagnosis (1) Bipolar I disorder with catatonia: Status: Acute DS: Medications Discharge Medications Home Medications: Home Medications ?Medication ?Instructions ?Recorded ?Confirmed No Known Home Meds 10/09/23 10/09/23 Previous Rx's ?Medication ?Instructions ?Recorded clotrimazole 1 % topical cream 1 appl topical BID 15 days #15 12/21/23 grams lithium carbonate 300 mg 300 mg PO BEDTIME 30 days #30 tabs 12/21/23 tablet,extended release lithium carbonate 450 mg 900 mg (2 x 450 mg) PO BEDTIME 30 12/21/23 tablet,extended release days #60 tabs olanzapine 20 mg tablet (Zyprexa) 20 mg PO BEDTIME 30 days #30 tabs 12/21/23 Mental Status Exam Mental Status Exam Narrative: Pleasant. Hospital clothing. Fair self-care. Overall organized, but quite concrete. Affect is flexible, hypo-intense, non-labile. mood OK. No SI/SIBI/HI/AVH. No agitation. No overt psychosis noted. Insight and judgment fair Data Data Completed and Pending Completed studies during hospitalization [Text1]: 11/01/23 11:55 Urine clean catch - Clean Catch Midstream Urine Culture - Final Strep agalactiae (Grp B) Imaging Diagnostic Imaging Impressions Chest X-Ray 10/20/23 16:28 IMPRESSION: No acute cardiopulmonary abnormality. DS: Summary Hospital Course Hospital Course: per 09/24/23 admission note: HPI Narrative: [place] [facility], pt was found wandering in the hospital. labs unconcerning, tox NEG, head CT NEG, EEG WNL. he exhibited the following findings consistent with catatonia: immobility, mutism, staring, posturing, waxy flexibility, withdrawal. his Sx temporarily improved with 2 mg IV ativan, which confirmed the Dx, and ECT was recommended due to limited and transient improvement on relatively high-dose IV ativan. [place] [facility] [place], [facility] office supports patient's brother robel consenting for ECT given urgency of situation. pt was then referred for hospitalization. on interview with MD on [place] [facility], pt with same presentation. he demonstrated immobility, mutism, staring, waxy flexibility, withdrawal. he was observed to have eaten a banana yesterday and to have uttered softly several times to MD, later. Past Psychiatric History: Dx: unspecified psychotic disorder hosps: one recent hospitalization at [facility]. a second hospitalization is also reported. SA: unknown SIB: unknown HIB: unknown outpt: unknown Medical Evaluation Reviewed: Hospitalist Roque Pending [facility] Medical History (Updated 09/23/23 @ 16:19 by ELENA Chapin) No pertinent past medical history Family History: unknown Social History: lives in [place]. has a brother robel. Substance History: unknown - utox NEG Trauma History: unknown Precis: 09/23: ativan 2 mg QID. move for commitment and court ordered ECT. 09/24: no change in presentation or plan. remains catatonic, adequate PO intake for the moment. taking 8 mg ativan daily without appreciative improvement. 09/26: Checked labs. CBC without evidence of infection. Chemistries and LFT's stable. Continue monitoring and response to Ativan. 09/28: continue current mgmt. producing several monosyllabic answers to questions today. filed for commitment. 09/29: awaiting hearing. very modest response to high-dose ativan. hearing next thursday. continue current mgmt for now. 09/30: no change in presentation. continues to appear to take in adequate fluids and food. continue current mgmt. 10/01: outpt regimen of zyprexa 5 BID and lithium 900 QHS restarted. continue ativan [address] thursday. 10/04: court deferred to next week for SADA. stably catatonic but up for toileting and PO intake, periodically. refusing labs to check electrolytes. 10/05: pt refusing labs. per staff report, does have reasonable PO intake. court scheduled 10/14. continue current mgmt. 10/06: taking meds, modest PO intake. said, what's your name? today. continue current mgmt. 10/08/23 Patient taking medication remains generally nonverbal he did stand up was reportedly eating more would clearly benefit from ECT as becomes available 10/08: one word today, No, in response to request to check labs for lithium and lytes. continue current mgmt. awaiting court for ECT. 10/09: non-verbal. dry lips but per report is eating meals. reorder labs. continue current mgmt otherwise. 10/10: 10/09 lytes reassuring, lithium 0.46. no change in presentation, continue current mgmt. 10/11: mute. some saccades, otherwise immobile. continue current mgmt. 10/13: no change in presentation. court tomorrow at 2. decrease ativan from 2 QID to 2 TID both to see if dose reduction changes behavior in any way and in preparation for requested order from the court for ECT. 10/14: noted to be openly masturbating in his room last night, not responsive to redirection by nursing staff. eating breakfast in bed today. nods on being asked if he would like to attend the hearing today. case discussed with SADA Cifuentes. hearing held, pt committed and ECT/meds ordered. 10/15: no change in presentation. taper benzos over w/e. medical clearance for ECT completed at admission by hospitalist service. planning for ECT #1 on thursday morning. 10/18: more verbal immediately after ECT #1 today, many more and more rapid responses to questions via head gestures as well. 10/19: febrile, elevated WBC. medicine consult called. continues more responsive today than prior. continue current mgmt pending medicine recs. 10/20: no nidus of infection located thus far. U/A WNL, chest XR WNL. continue current mgmt. ECT today. 10/21: appears to have been afebrile over past 24H, reportedly T100.8 post ECT yesterday. case discussed with dr. wyman. to clarify matters, will DC zyprexa and lithium to see if elevated WBC resolves and hyperpyrexia stops. ECT again tomorrow. no change in clinical presentation. 10/22: remains more verbal today, better eye contact. ECT canceled for today due to error in pt's receiving meal tray. ECT #3 scheduled for thursday. 10/26/23 cont ect will restart antipschotic per tx order 10/27/23 ect BT start invega pos home health travel pt response 10/28/23 cont ect improvement noted would benefit from further hx ck labs in am 10/28/23 cont ect invega some response noted 11/02/23 Cont ect change to hs olanzapine 10 mg 11/03/2023 Patient more verbal osborn affect continue ECT 11/03: received ECT today. sleepy afterward, responding i don't know to most questions. continue current mgmt. 11/06: up and about today, trying exit doors. more verbal than mute, barely. continue current mgmt. 11/08: ECT this morning, no issues. up and about. variably cooperative, loitering at exits. 11/10: ECT #9 completed today. improved from yesterday. more verbal, mobile. continues to exit-seek. 11/12/23 more range of affect and fx doing better with ect no adverse effecyts 11/12: more verbal and active on the unit. denies mental illness, says he feels fine, trying exits. ECT #10 completed today. 11/13: Continue current tx plan. 11/14: Pt continues similar to yesterday. Continues to wander unit, trying to exit from [place] door. Responding to internal stimuli. Pt stated, I want to go home . medication compliant. Continue current tx plan. 11/15: ECT #11 today. declines to speak with MD. no substantial change in presentation over weekend. 11/16: reportedly ECT #12 was yesterday, court order allows for 12 only. seeking extension to [address] up, wandering, trying exits, says he is fine, asking for discharge. hold ECT pending court approval. 11/17: court has approved 8 more ECT sessions. increase zyprexa from 10 mg QHS to 20 mg QHS for ongoing psychotic Sx. 11/18: awake @0600. mute. ECT tomorrow. 11/19: up and about the unit after ECT. says he doesn't know what ECT is. wants to go home. somewhat slowed but more fluid and spontaneous than many previous days. 11/24: Re-evaluated after today's ECT continue olanzapine try and get baseline functioning for patient 11/25: hold ECT continue olanzapine 20 mg try and get baseline functioning for patient does not seen cognitively adversely effected by ect. 11/26: ECT is scheduled for 3 days will try a more limited 2 time a week schedule patient continues to show improvement continue olanzapine patient would benefit from [facility] out reach has not followed up previously after discharge with treatment. 12/01/2023 Patient continues to show improvement but does have symptoms and lack of insight would benefit from structure and support after discharge continue olanzapine evaluate need for further ECT 12/02/2023 Continue olanzapine ECT scheduled for 8 [facility] referral made 12/03/2023 ECT scheduled for tomorrow will then try an discontinue and see if we can set up a discharge sometime next week patient unfortunately has limited insight might benefit from VNA psychiatric VNA to assess response as patient has had a rapid decompensation previously 12/04/2023 Last ECT completed discharge planning continue medication future oriented will need supervision 12/06: spontaneous, verbal, better-related. discharge planning ongoing. taking meds. laughing appropriately. no RIS or psychosis noted. 12/07: no change in presentation. continue current mgmt. LINDSEY Suyapa had call with pt and pt's brother in preparation for discharge to home. coordinating case with [facility] for outreach services. 12/09: pt with hypo-intense affect, some slight LIZZETH. remains vastly improved from admission, however. ambivalent re meds, adherence. encouraged to take meds after discharge. 12/15: due to concern for recrudescence and h/o connie, restart lithium at 1200 QHS as of this evening. superficially interactive, but appears to have poor memory function and bizarre, child-like demeanor. 12/20: refused labs x 2. stable. discharged to home as per plan. Time Spent with Patient Time attestation: Total time managing care of this patient today __35__ minutes. Discharge Plan Discharge Anticipated Discharge Date/Time: 12/21/23 10:30 Patient Disposition: Home, Self-Care Discharge Diagnosis: Bipolar I Disorder with Catatonia Referrals: Charu Goodrcih (Therapy) [Other] - 12/29/23 1:00 pm (IN OFFICE APPOINTMENT -Please bring a photo ID with you and your insurance card. ) Misael Samson (Psychiatry) [Other] - 12/28/23 12:00 pm (THIS APPOINTMENT WILL TAKE PLACE OVER THE PHONE -The clinic has been provided with your brother's cell phone number. You can also reach them at the phone number listed above. ) Department of Mental Health ([facility]) [Other] - 1 Week (*Please reach out to [facility] regarding services in the community. *Your assigned black top raker is Viki Jaimes. ) [facility] [Provider Group] - 1 Week ([facility] added to patients chart. Please call [phone] for follow up appt.) Discharge Medications: New lithium carbonate 300 mg Tablet Extended Release 300 mg PO BEDTIME 30 Days Qty: 30 0RF lithium carbonate 450 mg Tablet Extended Release 900 mg PO BEDTIME 30 Days Qty: 60 0RF clotrimazole 1 % Cream 1 appl topical BID 15 Days Qty: 15 0RF Protocol: Apply to: Apply to: affected areas olanzapine [Zyprexa] 20 mg tablet 20 mg PO BEDTIME 30 Days Qty: 30 0RF No Action No Known Home Meds Discharge Orders: Discharge Order (Routine); Ordered 12/21/23 Ordered By: Florentin Cabrera Diet: Advance to usual diet Activity on Discharge: As tolerated Stand Alone Forms: Patient Portal Discharge page Print Language: German Care Plan Goals: remain safe and stable in the outpatient treatment setting Health Concerns: none Plan of Treatment: take medications as prescribed, attend appointments as scheduled Assessment: not at imminent risk of harm to self or others Discharge Date/Time: 12/21/23 11:40
[2023-12-21] MEDS: Clotrimazole 1 % Cream 15 GM TUBE 1 APPL TOPICAL (09:10)
--- NOTE | 2024-01-06 15:14 | HO.ECTPROC ---
ECT Procedure Note Diagnosis/Treatment Date of Service: 11/20/23 Diagnosis: Schizoaffective Disorder Previous ECT Date: 11/18/23 Current Treatment Number: 10 Treatment: Series Interval Clinical Notes: pt remains disorganized bizarre behavoir but improving more verbal Time: Total time managing care of this patient today ____ minutes. ECT Settings Device: THYMATRON DGx Electrode Placement: Bitemporal Program/Pulse Width: 0.50 Energy Percent: 100 Seizure Duration By EEG (in seconds): 48 Medications Administration General Anesthetic: Etomidate (16) Muscle Relaxant: Succinylcholine (100) Ancillary Medications Anti-emetics: Zofran - Pre ECT (4) Cardiovascular Medications: Glycopyrrolate (0.2) Miscillaneous Medications: Midazolam (2 mg) Airway Management Airway Management: Bag Mask Ventilation Treatment Recommendations No Changes Recommended: No change Pt Tolerated Procedure w/o Issue: Yes
== END 2023-12-21 11:40 | disposition home or self-care (01) | DRG 753 ==
PROVIDERS: Physician Assistant; Psychiatry & Neurology Psychiatry; Admitting Provider Psychiatry & Neurology Psychiatry; Visit Provider Psychiatry & Neurology Psychiatry
PROC: GZB4ZZZ Other Electroconvulsive Therapy (ICD-10-PCS; CPT 90870; principal; 2023-10-19 08:00)
PROC: (CPT 90870; principal; 2023-11-20 15:00)
DX: F31.9 Bipolar disorder, unspecified (principal); F06.1 Catatonic disorder due to known physiological condition; Z20.822 Contact with and (suspected) exposure to COVID-19; Z79.899 Other long term (current) drug therapy
CPT/HCPCS: 0241U; 36415; 71045; 80048; 80053; 80076; 80178; 81001; 82550; 82607; 82746; 84439; 84443; 85025; 85652; 86038; 86140; 87086; 87147; 87633; 90870; 93005; J0330; J1596; J1885; J2250; J2405; J2704; J7120

== ENCOUNTER → 2023-09-23 14:45 | Outpatient (BNV) | payer OTHER, SELFPAY | PROVIDERS: Admitting Provider Psychiatry & Neurology Psychiatry; Visit Provider Physician Assistant | DX: Z00.8 Encounter for other general examination (principal); F06.1 Catatonic disorder due to known physiological condition | CPT/HCPCS: 99499 ==

== ENCOUNTER → 2023-09-23 14:45 | Outpatient (BNV) | payer OTHER, SELFPAY | PROVIDERS: Admitting Provider Psychiatry & Neurology Psychiatry; Visit Provider Psychiatry & Neurology Psychiatry | DX: F31.4 Bipolar disorder, current episode depressed, severe, without psychotic features (principal); F06.1 Catatonic disorder due to known physiological condition | CPT/HCPCS: 90792; 90870; 99231; 99232; 99239 ==

== ENCOUNTER → 2023-09-23 14:45 | Outpatient (BNV) | payer OTHER, SELFPAY | PROVIDERS: Admitting Provider Psychiatry & Neurology Psychiatry; Visit Provider Psychiatry & Neurology Psychiatry | DX: F31.4 Bipolar disorder, current episode depressed, severe, without psychotic features (principal); F06.1 Catatonic disorder due to known physiological condition | CPT/HCPCS: 90870; 99231; 99232 ==